=== PATIENT | female | born 1950 | race American Indian/Alaskan Native ===

== ENCOUNTER 2017-01-29 14:20 | Emergency (ER) | payer BC, MEDICARE ==
[2017-01-29 14:21] VITALS: PULSE 93
[2017-01-29 14:33] VITALS: BP 177/84; PULSE 49; RESP 16; TEMP 98.1; O2SAT 98; BMI 29.9
--- NOTE | 2017-01-29 14:58 | ED PDOC ---
Arrival/HPI - General Historian: Patient - General Chief Complaint: Headache Time Seen by Provider: 01/29/17 14:32 - History of Present Illness Narrative History of Present Illness (Text): 01/29/17 14:59 66 yo female w/extensive PMHx including IDDM, ESRD on HD (M,W,F), asthma, anemia , CHF, presents to the ER after head injury when she fell off a wheelchair while being transported to dialysis here in this hospital in the 4th floor. Reports of only mild pain to the occipital scalp. Denies severe headache, LOC, N /V, neck / back pain, chest pain, or any other injury. otherwise has no other complaints. PMD Rush Robles (Clay SIDHU,Iwona Harrington) Past Medical History - Provider Review Nursing Documentation Reviewed: Yes - Infectious Disease Hx of Infectious Diseases: None - Tetanus Immunization Tetanus Immunization: Unknown - Cardiac Hx Cardiac Disorders: Yes Hx Congestive Heart Failure: Yes Hx Hypertension: Yes - Pulmonary Hx Respiratory Disorders: Yes Hx Asthma: Yes Hx Bronchitis: Yes - Neurological HX Cerebrovascular Accident: Yes (left sided weakness) - HEENT Hx HEENT Disorder: Yes (uses eyeglasses for reading) - Renal Hx Dialysis: Yes Hx Renal Failure: Yes - Endocrine/Metabolic Hx Diabetes Mellitus Type 2: Yes Hx Hypothyroidism: Yes - Hematological/Oncological Hx Blood Transfusions: Yes (11/26/15) Hx Blood Transfusion Reaction: No - Integumentary Hx Dermatological Disorder: Yes (RCW PERMACATH,LEFT UPPER ARM PICC) - Musculoskeletal/Rheumatological Hx Falls: No - Gastrointestinal Hx Gastrointestinal Disorders: No - Genitourinary/Gynecological Hx Genitourinary Disorders: No - Psychiatric Hx Psychophysiologic Disorder: Yes Hx Substance Use: No - Surgical History Other/Comment: left BKA - Anesthesia Hx Anesthesia Reactions: No Hx Malignant Hyperthermia: No - Suicidal Assessment Feels Threatened In Home Enviroment: No Family/Social History - Physician Review Nursing Documentation Reviewed: Yes Family/Social History: No Known Family HX Smoking Status: Never Smoked Hx Alcohol Use: No Hx Substance Use: No Hx Substance Use Treatment: No Allergies/Home Meds Allergies/Adverse Reactions: Allergies shellfish derived Allergy (Verified 05/23/16 13:32) ITCHING Review of Systems - Review of Systems Constitutional: Normal. absent: Fatigue, Weight Change, Fevers Respiratory: Normal. absent: SOB, Cough, Sputum Cardiovascular: Normal. absent: Chest Pain, Palpitations, Edema Gastrointestinal: Normal. absent: Abdominal Pain, Stool Changes Musculoskeletal: Normal. absent: Arthralgias, Back Pain, Neck Pain Skin: Normal. absent: Rash, Pruritis, Skin Lesions Neurological: Normal, Headache. absent: Dizziness, Focal Weakness Physical Exam Temperature: Afebrile Blood Pressure: Hypertensive Pulse: Regular Respiratory Rate: Normal Appearance: Positive for: Well-Appearing, Non-Toxic, Comfortable Pain Distress: Mild Mental Status: Positive for: Alert and Oriented X 3 - Systems Exam Head: Present: Ecchymosis (to the occipital scalp). No: Tenderness, Swelling, Abrasion, Laceration Pupils: Present: PERRL Extroacular Muscles: Present: EOMI Conjunctiva: Present: Normal Ears: Present: Normal Mouth: Present: Moist Mucous Membranes Neck: Present: Normal Range of Motion. No: MIDLINE TENDERNESS Respiratory/Chest: Present: Clear to Auscultation, Good Air Exchange. No: Respiratory Distress, Accessory Muscle Use, Wheezes, Rhonchi Cardiovascular: Present: Regular Rate and Rhythm, Normal S1, S2. No: Murmurs Abdomen: No: Tenderness, Distention, Rebound, Guarding Back: Present: Normal Inspection. No: Midline Tenderness Upper Extremity: Present: Normal Inspection. No: Edema Lower Extremity: Present: Normal Inspection. No: Edema Neurological: Present: GCS=15, CN II-XII Intact, Speech Normal, Motor Func Grossly Intact, Normal Sensory Function Skin: Present: Warm, Dry, Normal Color. No: Rashes Psychiatric: Present: Alert, Oriented x 3 Vital Signs Temp Pulse Resp BP Pulse Ox 01/29/17 14:28 98.1 F 49 L 16 177/84 H 98 Medical Decision Making ED Course and Treatment: I was available for consultation during PA evaluation. The chart was reviewed by me, and I agree with disposition. The documented history was done by the physician fast food team member. The documented physical exam was done by the physician fast food team member. The documented procedures were done by the physician fast food team member. (Estiven Bruno) 01/29/17 14:55 66 yo F w/extensive PMHx including IDDM, ESRD on HD (M,W,F), asthma, anemia, CHF, presents to the ER after head injury when she fell off a wheelchair while being transported to dialysis. Plan: - CT head w/o contrast - Tylenol po CT head results show no acute findings. CT results d/w the patient in great detail. On re-evaluation, patient remains awake, alert and oriented x 3 in no acute distress. Repeat neuro exam shows no focal findings. Arrangements made to send the patient to dialysis on the 4th floor, spoke to Karishma control officer manager. Patient agrees with disposition and further plan of care. Advised to f/u with pmd after 2 days for re-evaluation and return to the ER at any time for any new or worsening symptoms. (Clay SIDHU,Iwona Harrington) - RAD Interpretation Radiology Orders: 01/29/17 14:47 HEAD W/O CONTRAST [CT] Stat - Medication Orders Current Medication Orders: Discontinued Medications Acetaminophen (Tylenol 325mg Tab) 975 mg PO STAT STA Stop: 01/29/17 14:48 Last Admin: 01/29/17 15:34 Dose: 975 mg - PA / AUTOMOTIVE COLLISION ESTIMATOR / Resident Statement / has reviewed & agrees with the documentation as recorded. Disposition/Present on Arrival - Present on Arrival Any Indicators Present on Arrival: Yes History of DVT/PE: No History of Uncontrolled Diabetes: Yes Urinary Catheter: No History of Decub. Ulcer: No History Surgical Site Infection Following: Orthopedic Procedures - Disposition Have Diagnosis and Disposition been Completed?: Yes Disposition Time: 15:30 Patient Plan: Other (sent to dialysis) - Disposition Diagnosis: Head injury Disposition: HOME/ ROUTINE Condition: STABLE Discharge Instructions (ExitCare): Head Injury (ED) Print Language: JAPANESE Referrals: Terrence Beverly DO [Primary Care Provider] - Follow up with primary
--- NOTE | 2017-01-29 15:13 | CT ---
PROCEDURE: CT HEAD WITHOUT CONTRAST. HISTORY: trauma COMPARISON: 01/20/2016 TECHNIQUE: Axial computed tomography images were obtained through the head/brain without intravenous contrast. Radiation dose: Total exam DLP = 733 mGy-cm. This CT exam was performed using one or more of the following dose reduction techniques: Automated exposure control, adjustment of the mA and/or kV according to patient size, and/or use of iterative reconstruction technique. FINDINGS: HEMORRHAGE: No intracranial hemorrhage. BRAIN: No mass effect or edema. Extensive periventricular white matter ischemic disease. VENTRICLES: Unremarkable. No hydrocephalus. CALVARIUM: Unremarkable. PARANASAL SINUSES: Unremarkable as visualized. No significant inflammatory changes. MASTOID AIR CELLS: Unremarkable as visualized. No inflammatory changes. OTHER FINDINGS: None. IMPRESSION: No intracranial hemorrhage.
== END 2017-01-29 15:37 | disposition home or self-care (01) ==
LOC: ED 14:20
DX: S09.90XA Unspecified injury of head, initial encounter (principal); W05.0XXA Fall from non-moving wheelchair, initial encounter; Y93.89 Activity, other specified; Y92.89 Other specified places as the place of occurrence of the external cause

== ENCOUNTER 2017-03-02 15:07 | Emergency (ER) | payer BC ==
[2017-03-02 15:09] VITALS: PULSE 93; BMI 29.9
[2017-03-02 15:19] VITALS: PULSE 89; RESP 16; TEMP 98.3; O2SAT 98
[2017-03-02 15:22] VITALS: BP 176/93
--- NOTE | 2017-03-02 15:42 | ED PDOC ---
Arrival/HPI - General Chief Complaint: GI Problem Time Seen by Provider: 03/02/17 15:40 Historian: Patient - History of Present Illness Narrative History of Present Illness (Text): 03/02/17 15:41 66 y/o female, pmh including chf/anemia/cva/dm/ckd, nkda, c/o rectal hemorrhoid pain started this morning. Pt. stated that she has chronic hemorrhoid for years , out of the anusol cream today, due for the dialysis and will go to dialysis now once discharge from the ER. Pt. has no headache or dizziness, no urinary symptoms, no dizziness, no bloody stool, no cold extremities, normal appetize, no fatigue, no abdominal or pelvic pain, no night sweat, no other medical or psychological complaints. Past Medical History - Provider Review Nursing Documentation Reviewed: Yes - Infectious Disease Hx of Infectious Diseases: None - Tetanus Immunization Tetanus Immunization: Unknown - Cardiac Hx Cardiac Disorders: Yes Hx Congestive Heart Failure: Yes Hx Hypertension: Yes - Pulmonary Hx Respiratory Disorders: Yes Hx Asthma: Yes Hx Bronchitis: Yes - Neurological HX Cerebrovascular Accident: Yes (left sided weakness) - HEENT Hx HEENT Disorder: Yes (uses eyeglasses for reading) - Renal Hx Dialysis: Yes Date of Last Dialysis Treatment: 02/28/17 Hx Renal Failure: Yes - Endocrine/Metabolic Hx Diabetes Mellitus Type 2: Yes Hx Hypothyroidism: Yes - Hematological/Oncological Hx Blood Transfusions: Yes (11/26/15) Hx Blood Transfusion Reaction: No - Integumentary Hx Dermatological Disorder: Yes (RCW PERMACATH,LEFT UPPER ARM PICC) - Musculoskeletal/Rheumatological Hx Falls: No - Gastrointestinal Hx Gastrointestinal Disorders: No - Genitourinary/Gynecological Hx Genitourinary Disorders: No - Psychiatric Hx Psychophysiologic Disorder: Yes Hx Substance Use: No - Surgical History Other/Comment: left BKA - Anesthesia Hx Anesthesia Reactions: No Hx Malignant Hyperthermia: No - Suicidal Assessment Feels Threatened In Home Enviroment: No Family/Social History - Physician Review Nursing Documentation Reviewed: Yes Family/Social History: Unknown Family HX Smoking Status: Never Smoked Hx Alcohol Use: No Hx Substance Use: No Hx Substance Use Treatment: No Allergies/Home Meds Allergies/Adverse Reactions: Allergies shellfish derived Allergy (Verified 05/23/16 13:32) ITCHING Review of Systems - Review of Systems Constitutional: absent: Fatigue, Fevers Eyes: absent: Vision Changes ENT: absent: Hearing Changes Respiratory: absent: SOB, Cough Cardiovascular: absent: Chest Pain Gastrointestinal: Other (rectal pain). absent: Abdominal Pain, Nausea, Vomiting Genitourinary Female: absent: Dysuria, Frequency Skin: absent: Rash, Pruritis Neurological: absent: Headache, Dizziness Physical Exam Vital Signs Reviewed: Yes Vital Signs Temp Pulse Resp BP Pulse Ox 03/02/17 15:19 98.3 F 89 16 176/93 H 98 Temperature: Afebrile Blood Pressure: Hypertensive Pulse: Regular Respiratory Rate: Normal Appearance: Positive for: Well-Appearing, Non-Toxic, Comfortable Pain Distress: Mild Mental Status: Positive for: Alert and Oriented X 3 - Systems Exam Head: Present: Atraumatic, Normocephalic Pupils: Present: PERRL Extroacular Muscles: Present: EOMI Conjunctiva: Present: Normal Mouth: Present: Moist Mucous Membranes Neck: Present: Normal Range of Motion Respiratory/Chest: Present: Clear to Auscultation, Good Air Exchange. No: Respiratory Distress, Accessory Muscle Use Cardiovascular: Present: Regular Rate and Rhythm, Normal S1, S2. No: Murmurs Abdomen: Present: Normal Bowel Sounds. No: Tenderness, Distention, Peritoneal Signs Rectal: Present: Hemorrhoids, Normal Rectal Tone, Other (Female Creosoting Engineer: P 3 ARMAMENT/ORDNANCE IMA TECHNICIANTAINA Diaz). No: Occult Blood, Rectal Tenderness, Gross Blood, Melena, Fissures , Nodule/Mass/Lesions Back: Present: Normal Inspection Upper Extremity: Present: Normal Inspection. No: Cyanosis, Edema Lower Extremity: Present: Normal Inspection. No: Edema Neurological: Present: GCS=15, CN II-XII Intact, Speech Normal Skin: Present: Warm, Dry, Normal Color. No: Rashes Psychiatric: Present: Alert, Oriented x 3, Normal Insight, Normal Concentration Medical Decision Making ED Course and Treatment: 03/02/17 15:55 -guaiac negative, vitally stable with no tachycardia or cardiopulmonary complaints, no paleness or fatigue. -Pt. is medically clear and stable for her routine dialysis. -Discharge from the ER with anusol hc cream, high fiber diet, follow up with your own pmd and GI within 2 days, need lab work if you feeling fatigue/cold/ dizziness, return to the ER for any new or worsening signs or symptoms. - PA / FIELD SPECIALIST / Resident Statement MD/DO has reviewed & agrees with the documentation as recorded. Disposition/Present on Arrival - Present on Arrival Any Indicators Present on Arrival: No History of DVT/PE: No History of Uncontrolled Diabetes: Yes Urinary Catheter: No History of Decub. Ulcer: No History Surgical Site Infection Following: Orthopedic Procedures - Disposition Have Diagnosis and Disposition been Completed?: Yes Diagnosis: Hemorrhoid Disposition: HOME/ ROUTINE Disposition Time: 15:57 Patient Plan: Discharge Condition: GOOD Additional Instructions: -Discharge from the ER with anusol hc cream, high fiber diet, follow up with your own pmd and GI within 2 days, need lab work if you feeling fatigue/cold/ dizziness, return to the ER for any new or worsening signs or symptoms. Prescriptions: Hydrocortisone 2.5% (Rectal) [Anusol-HC] 1 appl RC BID PRN #30 g PRN Reason: Other Referrals: PCP,NO [Primary Care Provider] - Follow up with primary Bonilla Brasher MD [Medical Doctor] - Follow up with primary Forms: [facility] (Senegalese)
== END 2017-03-02 15:58 | disposition home or self-care (01) ==
LOC: ED 15:07
DX: K64.9 Unspecified hemorrhoids (principal); I12.9 Hypertensive chronic kidney disease with stage 1 through stage 4 chronic kidney disease, or unspecified chronic kidney disease; N18.9 Chronic kidney disease, unspecified; Z99.2 Dependence on renal dialysis; E11.9 Type 2 diabetes mellitus without complications; E03.9 Hypothyroidism, unspecified

== ENCOUNTER 2017-03-09 06:35 | Day surgery (SDC) | payer BC, MEDICARE ==
[2017-03-07 11:30] VITALS: BMI 31.3
[2017-03-09] MEDS ORDERED: Midazolam 2 MG/2 ML VIAL ONE ×2 (06:47→08:02)
[2017-03-09] MEDS ORDERED: Lidocaine 2% Inj (20ml) ONE (06:47)
[2017-03-09] MEDS ORDERED: Iodixanol 320 MG/ML 100 ML BOTTLE IV ONE (06:48)
[2017-03-09] MEDS ORDERED: Nitroglycerin 50mg in D5W 50 MG/250 ML BOTTLE IV ONE (06:48)
[2017-03-09 07:22] LABS: BASO # 0.02 K/mm3 (0.0-2.0); BASO % 0.3 % (0.0-3.0); EOS # 0.2 (0.0-0.7); EOS % 2.2 % (1.5-5.0); GRAN # 5.16 (1.4-6.5); LYMPH # 1.6 (1.2-3.4); LYMPH % 22.2 % (22.0-35.0); MEAN CELL VOLUME 87.2 fl (80.0-105.0); MEAN CORPUSCULAR HEMOGLOBIN 28.1 pg (25.0-35.0); MEAN CORPUSCULAR HGB CONC 32.2 g/dl (31.0-37.0); MEAN PLATELET VOLUME 11.2 fl (7.0-11.0); MONO # 0.3 (0.1-0.6); MONO % 4.3 % (1.0-6.0); PLATELET COUNT 172 10^3/uL (120.0-450.0); RBC 3.92 10^6/uL (3.5-6.1); RED CELL DISTRIBUTION WIDTH 15.3 % (11.5-14.5); WHITE BLOOD COUNT 7.3 10^3/ul (4.5-11.0)
[2017-03-09 07:33] LABS: CALCIUM 8.8 mg/dL (8.4-10.5)
[2017-03-09 07:35] LABS: INR 1.06 (0.93-1.08); PARTIAL THROMBOPLASTIN TIME 30.1 Seconds (23.7-30.8); PROTHROMBIN TIME 11.5 Seconds (9.9-11.8)
[2017-03-09 09:27] VITALS: PULSE 65; RESP 18; TEMP 97.8; O2SAT 94
[2017-03-09 09:54] VITALS: BP 133/83
--- NOTE | 2017-03-09 16:18 | VASCULAR ---
PROCEDURE: 1. Left upper extremity AV fistula angiogram 2. Anus angioplasty HISTORY: End-stage renal disease. Malfunctioning AV access PHYSICIAN(S): Henri Singh MD. TECHNIQUE: The relative risks and indications of the procedure were explained to the patient and consent obtained. The patient was placed supine on the angiography table and the left arm prepped and draped in usual sterile fashion. Conscious sedation and monitoring provided throughout the procedure by a nurse. The left arm AV fistula was punctured near the elbow in an antegrade direction with a micropuncture set. A 5 [place] catheter was placed. An overlapping left upper extremity AV fistula angiogram was performed. Central venous imaging was obtained. Pressure was applied near the access site and reflux of the arterial anastomosis performed. Exchange is made for a 6 [place] sheath. The focal stenosis in the left cephalic vein 15 cm from the anastomosis was crossed with an angled Glidewire. The stenosis was dilated with 7 and 8 mm balloons. Completion angiograms were obtained. The sheath was removed and hemostasis obtained. FINDINGS: The patient's left brachial -cephalic fistula is patent. The arterial anastomosis is patent without significant stenosis. There is a severe focal stenosis in the left cephalic vein 15 cm from the anastomosis. The remainder the left cephalic vein is patent and continuous. There is a stent graft in the proximal left cephalic vein. The left axillary vein, left subclavian vein, left innominate vein, and superior vena cava are widely patent. IMPRESSION: 1. Severe focal stenosis in the left cephalic vein 15 cm from the anastomosis. 2. Successful venous angioplasty with 7 and 8 mm balloons. 3. Patent proximal left cephalic vein stent graft.
== END 2017-03-09 10:00 | disposition home or self-care (01) ==
LOC: SDSVAS 06:35
PROVIDERS: ATTEND Radiology Vascular & Interventional Radiology
DX: T82.858A Stenosis of other vascular prosthetic devices, implants and grafts, initial encounter (principal); I12.0 Hypertensive chronic kidney disease with stage 5 chronic kidney disease or end stage renal disease; N18.6 End stage renal disease; E11.22 Type 2 diabetes mellitus with diabetic chronic kidney disease; Z99.2 Dependence on renal dialysis; Y83.2 Surgical operation with anastomosis, bypass or graft as the cause of abnormal reaction of the patient, or of later complication, without mention of misadventure at the time of the procedure
CPT/HCPCS: 36415; 36902; 80048; 85025; 85610; 85730; 99152; C1725; C1769; C1894; J1644; J2250; J2405; J3010; Q9967

== ENCOUNTER 2017-03-20 06:31 | Day surgery (SDC) | payer BC, MEDICARE ==
[2017-03-20 06:40] VITALS: BMI 28.1
[2017-03-20 07:12] LABS: BASO # 0.03 K/mm3 (0.0-2.0); BASO % 0.5 % (0.0-3.0); EOS # 0.2 (0.0-0.7); EOS % 2.8 % (1.5-5.0); GRAN # 3.64 (1.4-6.5); GRAN % 64.5 % (50.0-68.0); HEMATOCRIT 30.3 % (36.0-48.0); LYMPH # 1.4 (1.2-3.4); LYMPH % 24.2 % (22.0-35.0); MEAN CELL VOLUME 86.3 fl (80.0-105.0); MEAN CORPUSCULAR HEMOGLOBIN 27.6 pg (25.0-35.0); MEAN PLATELET VOLUME 10.5 fl (7.0-11.0); MONO # 0.5 (0.1-0.6); RED CELL DISTRIBUTION WIDTH 14.8 % (11.5-14.5); WHITE BLOOD COUNT 5.7 10^3/ul (4.5-11.0)
[2017-03-20] MEDS ORDERED: Lidocaine 2% Inj (20ml) ONE (07:13)
[2017-03-20 07:18] LABS: CALCIUM 8.1 mg/dL (8.4-10.5); POTASSIUM 3.8 mmol/L (3.6-5.0)
[2017-03-20 07:19] LABS: PARTIAL THROMBOPLASTIN TIME 28.4 Seconds (23.7-30.8)
[2017-03-20 07:28] VITALS: RESP 18
[2017-03-20] MEDS ORDERED: Midazolam 2 MG/2 ML VIAL ONE (08:11)
[2017-03-20] MEDS ORDERED: Oxycodone/Acetaminophen 5/325 mg Tab PO PRN (08:49)
[2017-03-20 09:32] VITALS: TEMP 97.8; O2SAT 94
[2017-03-20 09:54] VITALS: BP 142/78; PULSE 66
--- NOTE | 2017-03-20 20:57 | VASCULAR ---
PROCEDURE: Ultrasound and fluoroscopic tunneled right IJ dialysis catheter. CLINICAL HISTORY: ESRD. Needs dialysis catheter PHYSICIAN(S): Henri Singh M.D. TECHNIQUE: The relative risks and indications for the procedure were explained to the patient and informed written consent obtained. The patient was placed supine on the arteriography table and the right neck/chest was prepped and draped in the usual sterile fashion. 1% Xylocaine was used to anesthetize the skin and soft tissues at the puncture site. Conscious sedation and monitoring were provided throughout the procedure by a nurse. Under direct ultrasound guidance, the rightinternal jugular vein was punctured with a micropuncture set. A 0.035 Glidewire was advanced into the IVC. Sequential dilatation was performed with subsequent placement of a 28cm Mathias II catheter with its tip in the right atrium. A retrograde tunnel below the right clavicle was performed. The catheter was trimmed and the hub attached. Both ports aspirate and inject easily. The catheter was secured and a dressing applied. The patient tolerated the procedure well. IMPRESSION: 1. Ultrasound and fluoroscopically placed right IJ tunneled dialysis catheter.
== END 2017-03-20 10:35 | disposition home or self-care (01) ==
LOC: SDSVAS 06:31
PROVIDERS: ATTEND Radiology Vascular & Interventional Radiology
DX: I13.2 Hypertensive heart and chronic kidney disease with heart failure and with stage 5 chronic kidney disease, or end stage renal disease (principal); N18.6 End stage renal disease; I50.9 Heart failure, unspecified; Z99.2 Dependence on renal dialysis; I25.10 Atherosclerotic heart disease of native coronary artery without angina pectoris
CPT/HCPCS: 36415; 36558; 76937; 77001; 80048; 85025; 85610; 85730; 99152; C1750; C1769; J0690; J1644; J2250; J2405; J3010

== ENCOUNTER 2017-03-28 07:01 | Day surgery (SDC) | payer BC, MEDICARE ==
[2017-03-28] MEDS ORDERED: Lidocaine 2% Inj (20ml) ONE (07:17)
[2017-03-28] MEDS ORDERED: DiphenhydrAMINE 50 mg/ml Inj ONE (07:18)
[2017-03-28] MEDS ORDERED: Famotidine 20mg/50ml 20 MG/50 ML BAG IVPB ONE (07:18)
[2017-03-28] MEDS ORDERED: Iodixanol 320 mg/ml 150 ml Bottle IV ONE (07:18)
[2017-03-28 08:08] LABS: CALCIUM 8.2 mg/dL (8.4-10.5); POTASSIUM 3.6 mmol/L (3.6-5.0)
[2017-03-28 08:11] LABS: INR 1.03 (0.93-1.08); PARTIAL THROMBOPLASTIN TIME 29.7 Seconds (23.7-30.8)
[2017-03-28 08:18] LABS: BASO # 0.02 K/mm3 (0.0-2.0); BASO % 0.3 % (0.0-3.0); EOS # 0.1 (0.0-0.7); EOS % 1.9 % (1.5-5.0); GRAN # 4.23 (1.4-6.5); GRAN % 66.1 % (50.0-68.0); HEMATOCRIT 27.1 % (36.0-48.0); LYMPH # 1.6 (1.2-3.4); LYMPH % 24.2 % (22.0-35.0); MEAN CELL VOLUME 88.6 fl (80.0-105.0); MEAN CORPUSCULAR HEMOGLOBIN 27.8 pg (25.0-35.0); MEAN CORPUSCULAR HGB CONC 31.4 g/dl (31.0-37.0); MEAN PLATELET VOLUME 10.9 fl (7.0-11.0); MONO # 0.5 (0.1-0.6); MONO % 7.5 % (1.0-6.0); RED CELL DISTRIBUTION WIDTH 14.6 % (11.5-14.5); WHITE BLOOD COUNT 6.4 10^3/ul (4.5-11.0)
[2017-03-28] MEDS ORDERED: Midazolam 2 MG/2 ML VIAL ONE (08:18)
[2017-03-28] MEDS ORDERED: Oxycodone/Acetaminophen 5/325 mg Tab PO PRN (08:54)
[2017-03-28 09:26] VITALS: O2SAT 98
[2017-03-28 09:38] VITALS: RESP 18
[2017-03-28 09:55] VITALS: BP 135/84; PULSE 70; TEMP 98.1
--- NOTE | 2017-03-28 19:25 | VASCULAR ---
PROCEDURE: 1. Left upper extremity AV fistula angiogram HISTORY: End-stage renal disease. Malfunctioning AV access recent angioplasty. Evaluate for subacute thrombosis. PHYSICIAN(S): Henri Singh MD. TECHNIQUE: The relative risks and indications of the procedure were explained to the patient and consent obtained. The patient was placed supine on the angiography table and the left arm prepped and draped in usual sterile fashion. Conscious sedation and monitoring provided throughout the procedure by a nurse. Under ultrasound guidance, the left arm AV fistula was punctured near the elbow in an antegrade direction with a micropuncture set. A 5 [place] catheter was placed. An overlapping left upper extremity AV fistula angiogram was performed. Central venous imaging was obtained. A blood pressure cuff was applied near the access site and reflux of the arterial anastomosis performed. The catheter was removed and hemostasis obtained. FINDINGS: The patient's left upper extremity brachial - cephalic fistula is patent. There is mild residual stenosis of the recently treated angioplasty site, but brisk flow is seen. The left cephalic vein is patent and continuous. There is a self expanding stent at the left cephalic vein confluence. The left subclavian vein, left innominate vein, and SVC are widely patent. The arterial anastomosis is patent on the reflux images. There is a tunneled catheter at the SVC/RA junction. IMPRESSION: 1. Patent left upper extremity brachial - cephalic fistula. The recent angioplasty site has mild stenosis but is patent with brisk flow. 2. Patent stent at the left cephalic vein confluence. 3. The patient's left cephalic vein above the elbow was marked using ultrasound guidance.
== END 2017-03-28 11:00 | disposition home or self-care (01) ==
LOC: SDSVAS 07:01
PROVIDERS: ATTEND Radiology Vascular & Interventional Radiology
DX: T82.898A Other specified complication of vascular prosthetic devices, implants and grafts, initial encounter (principal); N18.6 End stage renal disease; Y83.2 Surgical operation with anastomosis, bypass or graft as the cause of abnormal reaction of the patient, or of later complication, without mention of misadventure at the time of the procedure

== ENCOUNTER 2017-04-11 06:01 | Day surgery (SDC) | payer BC ==
[2017-04-11] MEDS ORDERED: Lidocaine 2% Inj (20ml) ONE (06:44)
[2017-04-11 06:45] LABS: BASO # 0.02 K/mm3 (0.0-2.0); BASO % 0.4 % (0.0-3.0); EOS # 0.2 (0.0-0.7); EOS % 2.9 % (1.5-5.0); GRAN # 3.26 (1.4-6.5); GRAN % 63.3 % (50.0-68.0); HEMATOCRIT 30.8 % (36.0-48.0); LYMPH # 1.4 (1.2-3.4); MEAN CELL VOLUME 89.8 fl (80.0-105.0); MEAN CORPUSCULAR HEMOGLOBIN 27.7 pg (25.0-35.0); MEAN CORPUSCULAR HGB CONC 30.8 g/dl (31.0-37.0); MEAN PLATELET VOLUME 10.9 fl (7.0-11.0); MONO # 0.3 (0.1-0.6); MONO % 6.4 % (1.0-6.0); RED CELL DISTRIBUTION WIDTH 15.4 % (11.5-14.5); WHITE BLOOD COUNT 5.2 10^3/ul (4.5-11.0)
[2017-04-11 06:46] LABS: PARTIAL THROMBOPLASTIN TIME 26.9 Seconds (23.7-30.8)
[2017-04-11 06:54] LABS: CALCIUM 8.3 mg/dL (8.4-10.5)
[2017-04-11] MEDS ORDERED: Midazolam 2 MG/2 ML VIAL ONE ×2 (06:56→08:00)
[2017-04-11 09:36] VITALS: PULSE 67; RESP 20; TEMP 97.7; O2SAT 97
[2017-04-11 10:44] VITALS: BP 139/78
--- NOTE | 2017-04-11 18:59 | VASCULAR ---
PROCEDURE: Removal of tunneled right IJ dialysis catheter. CLINICAL HISTORY: End-stage renal disease. Needs right IJ dialysis catheter removed. Functioning left upper extremity AV fistula. PHYSICIAN(S): Henri Singh M.D. TECHNIQUE: The relative risks and indications of the procedure were explained to the patient and consent obtained. The patient was placed supine on the arteriogram table and the tunneled right IJ dialysis catheter prepped and draped in the usual sterile fashion. Conscious sedation and monitoring were provided throughout the procedure by nurse. 1% Xylocaine was used to anesthetize skin and soft tissues along the tunnel. The tunnel and cuff were bluntly dissected. The catheter was removed and pressure applied at the venous insertion site. A single interrupted suture was placed at the exit site. The patient tolerated the procedure well. IMPRESSION: 1. Removal of the patient's tunneled right IJ dialysis catheter.
== END 2017-04-11 10:45 | disposition home or self-care (01) ==
LOC: SDSVAS 06:01
PROVIDERS: ATTEND Radiology Vascular & Interventional Radiology
DX: Z49.01 Encounter for fitting and adjustment of extracorporeal dialysis catheter (principal); I12.0 Hypertensive chronic kidney disease with stage 5 chronic kidney disease or end stage renal disease; N18.6 End stage renal disease; I73.9 Peripheral vascular disease, unspecified; I50.9 Heart failure, unspecified; Z86.73 Personal history of transient ischemic attack (TIA), and cerebral infarction without residual deficits; E11.22 Type 2 diabetes mellitus with diabetic chronic kidney disease; D64.9 Anemia, unspecified; E78.00 Pure hypercholesterolemia, unspecified; Z91.013 Allergy to seafood
CPT/HCPCS: 36415; 36589; 80048; 85025; 85610; 85730; 99152; J1644; J2250; J2405; J3010

== ENCOUNTER 2017-06-26 08:58 | Day surgery (SDC) | payer BC ==
[2017-06-26 09:54] LABS: BASO # 0.02 K/mm3 (0.0-2.0); BASO % 0.4 % (0.0-3.0); EOS # 0.1 (0.0-0.7); EOS % 1.5 % (1.5-5.0); GRAN # 3.61 (1.4-6.5); GRAN % 69.6 % (50.0-68.0); HEMATOCRIT 35.3 % (36.0-48.0); LYMPH # 1.3 (1.2-3.4); LYMPH % 24.1 % (22.0-35.0); MEAN CELL VOLUME 85.5 fl (80.0-105.0); MEAN CORPUSCULAR HEMOGLOBIN 26.6 pg (25.0-35.0); MEAN CORPUSCULAR HGB CONC 31.2 g/dl (31.0-37.0); MEAN PLATELET VOLUME 10.3 fl (7.0-11.0); MONO # 0.2 (0.1-0.6); MONO % 4.4 % (1.0-6.0); RED CELL DISTRIBUTION WIDTH 16.7 % (11.5-14.5); WHITE BLOOD COUNT 5.2 10^3/ul (4.5-11.0)
[2017-06-26 10:05] LABS: INR 1.63 (0.93-1.08); PARTIAL THROMBOPLASTIN TIME 37.2 Seconds (25.1-36.5)
[2017-06-26 10:17] LABS: CALCIUM 8.5 mg/dL (8.4-10.5); POTASSIUM 5.1 mmol/L (3.6-5.0)
[2017-06-26] MEDS ORDERED: Lidocaine 2% Inj (20ml) ONE (11:08)
[2017-06-26] MEDS ORDERED: Nitroglycerin 50mg in D5W 50 MG/250 ML BOTTLE IV ONE (11:08)
[2017-06-26] MEDS ORDERED: Midazolam 2 MG/2 ML VIAL ONE ×2 (11:13→12:02)
[2017-06-26] MEDS ORDERED: Iodixanol 320 mg/ml 150 ml Bottle IV ONE (11:15)
[2017-06-26] MEDS ORDERED: Oxycodone/Acetaminophen 5/325 mg Tab PO PRN (12:48)
[2017-06-26 13:30] VITALS: BP 123/84; RESP 18
[2017-06-26 14:04] VITALS: PULSE 86; TEMP 97.8; O2SAT 95
--- NOTE | 2017-06-26 19:18 | VASCULAR ---
PROCEDURE: 1. Left upper extremity the fistula angiogram 2. Long segment cephalic vein angioplasty HISTORY: End-stage renal disease. Malfunctioning AV access PHYSICIAN(S): Henri Singh MD. TECHNIQUE: The relative risks and indications of the procedure were explained to the patient and consent obtained. The patient was placed supine on the angiography table and the left arm prepped and draped in usual sterile fashion. Conscious sedation and monitoring provided throughout the procedure by a nurse. The left arm AV fistula was punctured near the elbow in an antegrade direction with a micropuncture set. A 5 [place] catheter was placed. Limb air injection revealed occlusion of the left cephalic vein 5 cm from the anastomosis. A 6 [place] sheath was placed at the puncture site. The occluded segment of the left cephalic vein was crossed with 0.035 angled glidewire and 5 [place]i catheter. Central venous imaging was obtained. Exchange is made for a 0.035 support wire. Long segment angioplasty of the left cephalic vein above the elbow was performed with a 7 mm by 150 mm balloon. Antegrade flow was re-established with an adequate thrill. The sheath was removed and hemostasis obtained with a purse string suture FINDINGS: The patient's left brachial - cephalic fistula occludes approximately 5 cm from the anastomosis. The anastomosis is patent. The left cephalic vein above the elbow was successfully dilated with a long 7 mm balloon. A flow was re-established. There is a self expanding stent at the left cephalic vein insertion. Stent is patent. The central veins are patent. IMPRESSION: 1. Occlusion of the left brachial -cephalic fistula 5 cm from the anastomosis. 2. Successful long segment angioplasty of the left cephalic vein above the elbow. 3. Early Re intervention with additional balloon angioplasty is recommended to maintain AV fistula patency.
== END 2017-06-26 14:30 | disposition home or self-care (01) ==
LOC: SDSVAS 08:58
PROVIDERS: ATTEND Radiology Vascular & Interventional Radiology
DX: T82.898A Other specified complication of vascular prosthetic devices, implants and grafts, initial encounter (principal); I12.0 Hypertensive chronic kidney disease with stage 5 chronic kidney disease or end stage renal disease; E11.22 Type 2 diabetes mellitus with diabetic chronic kidney disease; N18.6 End stage renal disease; Z99.2 Dependence on renal dialysis; Y83.2 Surgical operation with anastomosis, bypass or graft as the cause of abnormal reaction of the patient, or of later complication, without mention of misadventure at the time of the procedure
CPT/HCPCS: 36415; 36902; 80048; 85025; 85610; 85730; 99152; 99153; C1725; C1760; C1769 ×3; C1894; J1644; J2250; J2405; J3010

== ENCOUNTER 2017-07-03 21:27 | Inpatient (IN) | payer BC ==
--- NOTE | 2017-07-03 21:40 | ED PDOC ---
Arrival/HPI - General Time Seen by Provider: 07/03/17 21:31 Historian: Family (Daughter) - History of Present Illness Narrative History of Present Illness (Text): 07/03/17 21:38 Orly De La Cruz is a 66 year old female, whose past medical history includes CHF, ESRD with hemodialysis (M/W/F), diabetes, and left BKA, who presents to the Emergency department brought in by EMS accompanied by daughter complaining of altered mental status. Daughter states when she arrived home from work prior to arrival, she noted patient was experiencing progressively increasing shortness of breath and was less responsive than usual. Daughter became concerned and notified EMS. On arrival, patient is disoriented and lethargic. Daughter notes patient has been experiencing a persistent cough with intermittent cold-like symptoms over the past 2 months. Daughter reports patient was fully dialyzed on 06/03/2017 without any issue, and was at her baseline. Time/Duration: Prior to Arrival Symptom Course: Worsening Activities at Onset: Light Context: Home Past Medical History - Provider Review Nursing Documentation Reviewed: Yes - Infectious Disease Hx of Infectious Diseases: None - Tetanus Immunization Tetanus Immunization: Unknown - Cardiac Hx Cardiac Disorders: Yes Hx Congestive Heart Failure: Yes Hx Pacemaker: No - Pulmonary Hx Respiratory Disorders: Yes Hx Asthma: Yes Hx Bronchitis: Yes - Neurological Hx Neurological Disorder: No Hx Paralysis: No - HEENT Hx HEENT Disorder: Yes (uses eyeglasses for reading) - Renal Hx Dialysis: Yes Hx Renal Failure: Yes - Endocrine/Metabolic Hx Endocrine Disorders: Yes Hx Diabetes Mellitus Type 2: Yes Hx Hypothyroidism: Yes - Hematological/Oncological Hx Blood Transfusions: Yes (11/26/15) Hx Blood Transfusion Reaction: No - Integumentary Hx Dermatological Disorder: Yes (RCW PERMACATH,LEFT UPPER ARM PICC) - Musculoskeletal/Rheumatological Hx Musculoskeletal Disorders: No - Gastrointestinal Hx Gastrointestinal Disorders: No - Genitourinary/Gynecological Hx Genitourinary Disorders: No - Psychiatric Hx Emotional Abuse: No Hx Physical Abuse: No Hx Substance Use: No - Surgical History Other/Comment: L BKA - Anesthesia Hx Anesthesia: Yes Hx Anesthesia Reactions: No Hx Malignant Hyperthermia: No - Suicidal Assessment Feels Threatened In Home Enviroment: No Family/Social History - Physician Review Nursing Documentation Reviewed: Yes Family/Social History: Unknown Family HX Smoking Status: Never Smoked Hx Alcohol Use: No Hx Substance Use: No Hx Substance Use Treatment: No Allergies/Home Meds Allergies/Adverse Reactions: Allergies shellfish derived Allergy (Verified 07/03/17 21:31) ITCHING Home Medications: Home Meds Medication Instructions Recorded Confirmed Unobtainable 07/03/17 07/03/17 Review of Systems - Review of Systems Systems not reviewed;Unavailable: Altered Mental Status Respiratory: SOB Neurological: Other (+altered mental status) Physical Exam Vital Signs Reviewed: Yes Vital Signs Temp Pulse Resp BP Pulse Ox 07/04/17 02:16 137 H 23 106/57 L 100 07/04/17 02:01 136 H 30 H 109/49 L 100 07/04/17 01:55 137 H 24 99/54 L 100 07/04/17 01:43 22 07/04/17 01:30 107 H 24 107/63 100 07/04/17 01:22 119 H 30 H 100/65 99 07/04/17 01:06 103 H 23 88/78 L 99 07/04/17 00:39 104 H 22 84/54 L 99 07/04/17 00:30 24 07/04/17 00:15 107 H 23 96/56 L 100 07/04/17 00:01 111 H 31 H 100/55 L 99 07/03/17 23:40 116 H 23 107/49 L 99 07/03/17 23:19 114 H 16 112/63 100 07/03/17 23:15 22 99 07/03/17 23:00 110 H 27 H 93/70 L 90 L 07/03/17 22:40 109 H 30 H 118/54 L 100 07/03/17 22:15 23 99 07/03/17 22:11 103 H 21 119/83 99 07/03/17 22:07 184 H 118/103 H 07/03/17 21:53 99.7 F H 150 H 21 119/103 H Pulse: Tachycardic Respiratory Rate: Tachypneic Appearance: Positive for: Ill-Appearing Mental Status: Positive for: Lethargic Finger Stick Blood Glucose: 114 - Systems Exam Head: Present: Atraumatic, Normocephalic Pupils: Present: PERRL Extroacular Muscles: Present: EOMI Conjunctiva: Present: Normal Mouth: Present: Moist Mucous Membranes Neck: Present: Normal Range of Motion. No: Meningeal Signs, MIDLINE TENDERNESS , Paraspinal Tenderness Respiratory/Chest: Present: Clear to Auscultation. No: Accessory Muscle Use Cardiovascular: Present: Regular Rate and Rhythm, Normal S1, S2. No: Murmurs Abdomen: Present: Normal Bowel Sounds. No: Tenderness, Distention, Peritoneal Signs Upper Extremity: Present: Normal Inspection. No: Cyanosis, Edema Lower Extremity: Present: Other (Left BKA). No: Edema Neurological: Present: Motor Func Grossly Intact, Other Skin: Present: Warm, Dry, Normal Color. No: Rashes Psychiatric: Present: Lethargic. No: Alert, Oriented x 3 Medical Decision Making ED Course and Treatment: 07/03/17 21:38 Impression: 66 year old female brought in by EMS for AMS and shortness of breath tonight. Plan: -- CT Head w/o contrast -- EKG -- Chest X-ray -- Labs, ABG, cardiac enzymes, ammonia, alcohol level, blood cultures -- Urinalysis, urine cultures, urine drug screen -- Reassess and disposition Prior Visits: Notes and results from previous visits were reviewed. Progress Notes: 07/03/17 21:38 Discussed plan with daughter, present at bedside. Daughter agreeable with plan to intubate pt. 07/03/17 21:50 Called to bedside, pt noted to be in rapid atrial fibrillation in 190s. 07/03/17 21:53 EKG reviewed, atrial fibrillation with rapid ventricular response at 154 bpm. LAD. RBBB. Non-specific ST/T wave changes. 07/03/17 22:03 Multiple attempts at IV access were unsuccessful. IO to be placed. Pt on bag- valve mask. PROCEDURE NOTE: IO Placement Performed by medical insurance claims processor under my supervision. Consent: : Discussion of the risks, benefits, and alternatives to the procedure , along with informed consent was precluded by the urgency of the procedure and the patient condition. Indication: IV access required. Multiple attempts at peripheral IV placement were made by the nursing staff and MD without success. Timeout: A timeout to verify the correct patient, procedure, and site was performed. Preparation: Patient was prepped and draped in the usual sterile fashion and sterile technique was used. The landmarks were identified. Procedure: The area was prepped in the usual fashion. The right tibia was cannulated with a 15 gauge IO angiocath. The patient tolerated the procedure well. Post-Procedure: There were no immediate complications. Cardizem administered via IO with improvement in heart rate. 07/03/17 22:08 Etomidate administered for sedation. Refer to [facility] for further documentation. Respiratory therapist at bedside. Suction available 07/03/17 22:10 PROCEDURE: INTUBATION Performed by medical insurance claims processor under my supervision. Consent: Discussion of the risks, benefits, and alternatives to the procedure, along with informed consent was precluded by the urgency of the procedure and the patient condition. Timeout: A timeout to verify the correct patient, procedure, and site was performed. Indication: Altered mental status, maintain airway Pre-oxygenation: [id number] Medications: See [facility] for details. ETT Size: 8 gauge Confirmation: Cords directly visualized as tube passed, good bilateral breath sounds, positive CO2 detector color change, tube fogging, adequate chest rise, improving pulse oximetry reading, improved skin color, and absence of gastric sounds,. ETT Secured: The cuff was inflated and the tube was secured appropriately at a distance of 24 cm at the lip. Post-Procedure: There were no immediate complications. CXR Confirmation: Yes 07/04/17 00:[address] George, retail advisor, who is aware and will evaluate pt in Emergency room. president & ceo notified. 07/04/17 01:05 Reviewed Chest X-ray, confirms ET tube placement, above the abundio. No infiltrate noted. 07/04/17 01:16 CT Head shows: Brain: Mild atrophy. No intracranial hemorrhage. No mass. Prominent dural calcifications. Several scattered foci of decreased attenuation within periventricular/subcortical white matter. Probable chronic lacunar infarct about LEFT basal ganglia. No definite edema. Ventricles: No hydrocephalus. Bones/joints: No acute fracture. Soft tissues: Unremarkable. Vasculature: Atherosclerotic disease of intracranial arteries. Sinuses: No acute sinusitis. Mastoid air cells: No mastoid effusion. Orbits: Unremarkable as visualized. Tubes, lines and devices: Endotracheal tube. IMPRESSION: 1. Nonspecific white matter changes. Acute infarction may be CT occult within first 24 hours. If a focal deficit persists, consider followup CT or MRI for further evaluation. 2. Incidental/non-acute findings are described above. 07/04/17 01:[address] Lezn, covering for Dr. Beverly, who is aware and agrees with plan. Pt will be admitted to the ICU for AMS and sepsis under Dr. Beverly's service. - Critical Care Critical Care Minutes: 60 minutes - Lab Interpretations Microbiology Results: Microbiology Results 07/03/17 22:30 Blood-Venous Blood Culture - Preliminary NO GROWTH AFTER 24 HOURS 07/03/17 22:22 Blood-Venous Blood Culture - Preliminary NO GROWTH AFTER 24 HOURS Lab Results: 07/03/17 22:22 07/03/17 22:22 Lab Results 07/04/17 01:18: pCO2 24 L, pO2 331.0 H, HCO3 7.6 L*, ABG pH 7.11 L*, ABG Total CO2 8.3 L, ABG O2 Saturation 100.2 H, ABG Base Excess -20.3 L, ABG Potassium 4.7 , Glucose 116 H, Lactate 14.1 H*, FiO2 100.0, Sodium 141.0, Chloride 102.0, Arterial Blood Potassium 4.7 07/03/17 22:22: Acetaminophen < 10.0 L 07/03/17 22:22: Alcohol, Quantitative < 10 07/03/17 22:22: Ammonia 22.1 07/03/17 22:22: Sodium 146, Potassium 4.6, Chloride 100, Carbon Dioxide 11 L, Anion Gap 39 H, BUN 51 H, Creatinine 10.8 H* D, Est GFR ( Amer) 4, Est GFR (Non-Af Amer) 4, Random Glucose 128 H, Calcium 9.3, Phosphorus 10.5 H, Magnesium 2.5 H, Total Bilirubin 1.3, AST 44 H D, ALT 11, Alkaline Phosphatase 139 H D, Lactate Dehydrogenase 451, Total Creatine Kinase 46, Troponin I 0.16 H * D, Total Protein 8.0, Albumin 3.9, Globulin 4.1, Albumin/Globulin Ratio 1.0 L 07/03/17 22:22: PT 17.8 H, INR 1.62 H, APTT 34.4 07/03/17 22:22: WBC 11.6 H D, RBC 4.38, Hgb 11.8 L, Hct 39.6, MCV 90.4 D, MCH 26.9, MCHC 29.8 L, RDW 17.1 H, Plt Count 191, MPV 10.4, Gran % 64.1, Lymph % ( Auto) 29.4, [place] % (Auto) 6.2 H, Eos % (Auto) 0.2 L, Baso % (Auto) 0.1, Gran # 7.45 H, Lymph # 3.4, [place] # 0.7 H, Eos # 0.0, Baso # 0.01 I have reviewed the lab results: Yes - RAD Interpretation Radiology Orders: 07/03/17 21:38 HEAD W/O CONTRAST [CT] Stat 07/03/17 21:39 CHEST PORTABLE [RAD] Stat 07/04/17 01:14 CHEST PORTABLE [RAD] Stat [employer]arding [employer] Folding Machine Operator: ED Physician, Radiologist - EKG Interpretation Interpreted by ED Physician: Yes Type: 12 lead EKG - Medication Orders Current Medication Orders: Chlorhexidine Gluconate (Peridex) 15 ml PO BID MARCEL Last Admin: 07/04/17 18:29 Dose: 15 ml Fentanyl Citrate (Fentanyl Citrate/Sodium Chloride 1 Mg/100 Ml) 1,000 mcg in 100 mls @ 10 mls/hr IV .Q10H PRN; Protocol; 100 MCG/HR PRN Reason: TITRATE PER MD ORDER Last Titration: 07/04/17 17:30 Dose: 0 mcg/hr, 0 mls/hr Titration Intervention Document 07/04/17 17:30 MMA (Rec: 07/04/17 17:31 MMA [facility] – [id number]) Titration Intake Titration Intake 0 Cumulative Intake 37.9 Cumulative Intake (Rx) 237.9 Waste Amount 0 Container Volume 62.1 Titration Dosing Titration Dose 0 IV Rate 0 Intake/Decrease Paused Cumulative Dose 2379 Meropenem 500 mg/ Sodium (Chloride) 50 mls @ 100 mls/hr IVPB Q8 MARCEL PRN Reason: Protocol Stop: 07/13/17 14:01 Last Admin: 07/05/17 01:44 Dose: 100 mls/hr eMAR Start Stop Document 07/05/17 01:44 PD (Rec: 07/05/17 01:45 PD [facility] – [id number]) Intravenous Solution Start Date 07/05/17 Start Time 01:44 Sodium Bicarbonate 150 meq/ (Dextrose) 1,150 mls @ 150 mls/hr IV .[id number] MARCEL Last Admin: 07/04/17 20:29 Dose: 150 mls/hr eMAR Start Stop Document 07/04/17 20:29 PD (Rec: 07/04/17 20:29 PD [facility] – [id number]) Intravenous Solution Start Date 07/04/17 Start Time 20:29 NOREPINEPHRINE BIT/0.9 % NACL (Levophed 4 Mg/ 250 Ml Ns Premixed) 4 mg in 250 mls @ 15 mls/hr IV .[id number] PRN; Protocol; 4 MCG/MIN PRN Reason: TITRATE PER MD ORDER Last Titration: 07/05/17 04:32 Dose: 10 mcg/min, 37.5 mls/hr Titration Intervention Document 07/05/17 04:32 PD (Rec: 07/05/17 04:33 PD [facility] – [id number]) Titration Intake Titration Intake 50 Cumulative Intake 50 Cumulative Intake (Rx) 800 Waste Amount 0 Container Volume 200 Titration Dosing Titration Dose 10 IV Rate 37.5 Intake/Decrease Decreased Cumulative Dose 12.8 Vasopressin 20 units/ Sodium (Chloride) 101 mls @ 9.09 mls/hr IV .Q11H7M MARCEL; 0.03 U/MIN PRN Reason: Protocol Last Admin: 07/04/17 17:45 Dose: 9.09 mls/hr eMAR Start Stop Document 07/04/17 17:45 MMA (Rec: 07/04/17 18:27 [id number] Intravenous Solution Start Date 07/04/17 Start Time 17:45 MAR Blood Pressure Document 07/04/17 17:45 MMA (Rec: 07/04/17 18:27 [id number] Blood Pressure Blood Pressure (100/60-150/90) 75/45 Dobutamine HCl/Dextrose (Dobutamine/Dextrose 5% 500mg/250ml) 500 mg in 250 mls @ 12.859 mls/hr IV .[id number] PRN; Protocol; 5 MCG/KG/MIN PRN Reason: TITRATE PER PROTOCOL Pantoprazole Sodium (Protonix Inj) 40 mg IVP DAILY MARCEL Last Admin: 07/04/17 09:42 Dose: 40 mg IVP Administration Document 07/04/17 09:42 MMA (Rec: 07/04/17 09:42 [id number]) Charges for Administration # of IVP Administrations 1 Discontinued Medications Albumin Human (Albumin Human 25% (25 Gm/100 Ml)) 25 gm IV ONCE ONE Stop: 07/04/17 20:01 Last Admin: 07/04/17 21:11 Dose: 25 gm eMAR Start Stop Document 07/04/17 21:11 PD (Rec: 07/04/17 21:12 PD [facility] – [id number]) Intravenous Solution Start Date 07/04/17 Start Time 21:11 Atropine Sulfate (Atropine) 0.5 mg IVP STAT STA Stop: 07/04/17 17:31 Last Admin: 07/04/17 18:24 Dose: 0.5 mg IVP Administration Document 07/04/17 18:24 MMA (Rec: 07/04/17 18:25 MMA [facility] – [id number]) Charges for Administration # of IVP Administrations 1 Dextrose (Dextrose 50% Inj) 50 ml IVP ONCE ONE Stop: 07/04/17 17:55 Last Admin: 07/04/17 17:45 Dose: 50 ml IVP Administration Document 07/04/17 17:45 MMA (Rec: 07/04/17 18:39 MMA [facility] – [id number]) Charges for Administration # of IVP Administrations 1 Dextrose (Dextrose 50% Inj) 50 ml IVP ONCE ONE Stop: 07/04/17 18:12 Last Admin: 07/04/17 18:15 Dose: 50 ml IVP Administration Document 07/04/17 18:15 MMA (Rec: 07/04/17 18:46 MMA [facility] – [id number]) Charges for Administration # of IVP Administrations 1 Dextrose (Dextrose 50% Inj) 50 ml IVP ONCE ONE Stop: 07/04/17 18:28 Last Admin: 07/04/17 18:47 Dose: Digoxin (Lanoxin) 0.5 mg IVP STAT STA Stop: 07/04/17 18:10 Last Admin: 07/04/17 20:44 Dose: 0.5 mg MAR Apical Pulse Rate Document 07/04/17 20:44 PD (Rec: 07/04/17 20:45 PD [facility] – [id number]) Apical Pulse Rate Apical Pulse Rate (60-90 beats/min) 156 IVP Administration Document 07/04/17 20:44 PD (Rec: 07/04/17 20:45 PD [facility] – [id number]) Charges for Administration # of IVP Administrations 1 Digoxin (Lanoxin) 0.5 mg IVP ONCE ONE Stop: 07/04/17 20:31 Last Admin: 07/04/17 23:12 Dose: Diltiazem HCl (Cardizem) 20 mg IVP STAT STA Stop: 07/03/17 22:54 Last Admin: 07/03/17 22:07 Dose: 20 mg IVP Administration Document 07/03/17 22:07 SS (Rec: 07/03/17 23:29 SS [id number]) Charges for Administration # of IVP Administrations 1 MAR Pulse and Blood Pressure Document 07/03/17 22:07 SS (Rec: 07/03/17 23:29 SS [id number]) Pulse Pulse Rate (60-90) 184 Blood Pressure Blood Pressure (100/60-150/90) 118/103 Etomidate (Amidate) 20 mg IV STAT STA Stop: 07/03/17 22:55 Last Admin: 07/03/17 22:08 Dose: 20 mg eMAR Start Stop Document 07/03/17 22:08 SS (Rec: 07/03/17 23:29 [id number]) Intravenous Solution Start Date 07/03/17 Start Time 22:10 End Date 07/03/17 End time 22:11 Total Infusion Time 1 Heparin Sodium (Porcine) (Heparin) 4,300 units 50 units/kg (4300 units) IV ONCE ONE PRN Reason: Protocol Stop: 07/04/17 10:10 Last Admin: 07/04/17 12:14 Dose: 4,300 units eMAR Start Stop Document 07/04/17 12:14 MMA (Rec: 07/04/17 12:14 MMA [facility] – [id number]) Intravenous Solution Start Date 07/04/17 Start Time 12:14 MAR aPTT Document 07/04/17 12:14 MMA (Rec: 07/04/17 12:14 MMA [facility] – [id number]) aPTT aPTT (secs) 34.4 Heparin Sodium (Porcine) (Heparin) 5,000 units SC Q12 MARCEL PRN Reason: Protocol Last Admin: 07/04/17 14:02 Dose: Hydrocortisone Sodium Succinate (Solu-Cortef) 50 mg IVP Q6 MARCEL Hydrocortisone Sodium Succinate (Solu-Cortef) 50 mg IVP Q6 [facility] Last Admin: 07/04/17 18:57 Dose: 50 mg IVP Administration Document 07/04/17 18:57 MMA (Rec: 07/04/17 18:57 MMA [facility] – [id number]) Charges for Administration # of IVP Administrations 1 diltiaZEM IVPB 100mg in NS (Cardizem 100mg In Ns) 100 mls @ 5 mls/hr IV .Q20H MARCEL PRN Reason: 5 MG/HR Last Admin: 07/03/17 23:01 Dose: 5 mls/hr eMAR Start Stop Document 07/03/17 23:01 SS (Rec: 07/04/17 03:17 SS [id number]) Intravenous Solution Start Date 07/03/17 Start Time 23:00 Propofol (Diprivan) 1,000 mg in 100 mls @ 3.538 mls/hr IV .Q24H PRN; Protocol; 5 MCG/KG/MIN PRN Reason: TITRATE PER MD ORDER Last Admin: 07/03/17 23:30 Dose: 3.538 mls/hr eMAR Start Stop Document 07/03/17 23:30 SS (Rec: 07/03/17 23:30 SS [id number]) Intravenous Solution Start Date 07/03/17 Start Time 23:30 Vancomycin HCl (Vancomycin 500mg In Ns) 500 mg in 100 mls @ 200 mls/hr IVPB STAT STA PRN Reason: Protocol Stop: 07/04/17 00:36 Last Admin: 07/04/17 03:46 Dose: 200 mls/hr eMAR Start Stop Document 07/04/17 03:46 JBO (Rec: 07/04/17 03:48 JBO [id number]) Intravenous Solution Start Date 07/04/17 Start Time 03:45 End Date 07/04/17 End time 04:45 Total Infusion Time 60 Meropenem 1 gm/ Dextrose 100 mls @ 100 mls/hr IVPB STAT STA PRN Reason: Protocol Stop: 07/04/17 02:16 Last Admin: 07/04/17 02:40 Dose: 100 mls/hr eMAR Start Stop Document 07/04/17 02:40 CNR (Rec: 07/04/17 02:40 CNR [id number]) Intravenous Solution Start Date 07/04/17 Start Time 02:40 Sodium Bicarbonate 150 meq/ (Sodium Chloride) 1,150 mls @ 100 mls/hr IV .[id number] MARCEL Last Admin: 07/04/17 02:11 Dose: 100 mls/hr eMAR Start Stop Document 07/04/17 02:11 SS (Rec: 07/04/17 02:11 SS [id number]) Intravenous Solution Start Date 07/04/17 Start Time 02:11 Sodium Chloride (Sodium Chloride 0.9%) 1,000 mls @ 1,000 mls/hr IV .Q1H MARCEL Stop: 07/03/17 23:59 Last Admin: 07/03/17 23:01 Dose: 1,000 mls/hr eMAR Start Stop Document 07/03/17 23:01 SS (Rec: 07/04/17 03:18 SS [id number]) Intravenous Solution Start Date 07/03/17 Start Time 23:01 Sodium Chloride (Sodium Chloride 0.9%) 1,000 mls @ 999 mls/hr IV .Q1H1M MARCEL Last Admin: 07/04/17 12:00 Dose: 999 mls/hr eMAR Start Stop Document 07/04/17 12:00 MMA (Rec: 07/04/17 12:00 MMA [facility] – [id number]) Intravenous Solution Start Date 07/04/17 Start Time 12:00 End Date 07/04/17 End time 13:01 Total Infusion Time 61 Vancomycin HCl (Vancomycin 500mg In Ns) 500 mg in 100 mls @ 200 mls/hr IVPB STAT STA PRN Reason: Protocol Stop: 07/04/17 09:30 Last Admin: 07/04/17 09:32 Dose: 200 mls/hr eMAR Start Stop Document 07/04/17 09:32 MMA (Rec: 07/04/17 09:33 MMA [facility] – [id number]) Intravenous Solution Start Date 07/04/17 Start Time 09:32 End Date 07/04/17 End time 10:02 Total Infusion Time 30 diltiaZEM IVPB 100mg in NS (Cardizem 100mg In Ns) 100 mls @ 5 mls/hr IV .Q20H PRN; Protocol; 5 MG/HR PRN Reason: TITRATE PER MD ORDER Last Titration: 07/04/17 17:19 Dose: 0 mg/hr, 0 mls/hr Titration Intervention Document 07/04/17 17:19 MMA (Rec: 07/04/17 17:20 MMA [facility] – [id number]) Titration Intake Titration Intake 35.7 Cumulative Intake 50 Cumulative Intake (Rx) 50 Waste Amount 0 Container Volume 50 Titration Dosing Titration Dose 0 IV Rate 0 Intake/Decrease Paused Cumulative Dose 50 Heparin Sodium/Dextrose (Heparin 25,000 Units/250ml In D5w) 25,000 units in 250 mls @ 15.431 mls/hr IV .[id number] PRN; Protocol; 18 UNITS/KG/HR PRN Reason: ADJUST RATE PER PROTOCOL Last Admin: 07/04/17 12:30 Dose: 18 units/kg/hr, 15.431 mls/hr eMAR Start Stop Document 07/04/17 12:30 MMA (Rec: 07/04/17 12:30 MMA [facility] – [id number]) Intravenous Solution Start Date 07/04/17 Start Time 12:30 Titration Intervention Document 07/04/17 12:30 MMA (Rec: 07/04/17 12:30 MMA [facility] [id number]) Titration Intake Waste Amount 0 Container Volume 250 Titration Dosing Titration Dose 18 IV Rate 15.431 Intake/Decrease Started Sodium Chloride (Sodium Chloride 0.9%) 1,000 mls @ 999 mls/hr IV .Q1H1M STA Stop: 07/04/17 12:41 Last Admin: 07/04/17 13:28 Dose: 999 mls/hr eMAR Start Stop Document 07/04/17 13:28 MMA (Rec: 07/04/17 13:28 MMA [facility] – [id number]) Intravenous Solution Start Date 07/04/17 Start Time 11:00 End Date 07/04/17 End time 12:00 Total Infusion Time 60 Sodium Chloride (Sodium Chloride 0.9%) 1,000 mls @ 999 mls/hr IV .Q1H1M [facility] Last Admin: 07/04/17 16:39 Dose: 999 mls/hr eMAR Start Stop Document 07/04/17 16:39 MMA (Rec: 07/04/17 16:39 MMA [facility] – [id number]) Intravenous Solution Start Date 07/04/17 Start Time 16:39 End Date 07/04/17 End time 17:39 Total Infusion Time 60 Dobutamine HCl/Dextrose (Dobutamine/Dextrose 5% 500mg/250ml) 500 mg in 250 mls @ 12.859 mls/hr IV .[id number] PRN; 5 MCG/KG/MIN PRN Reason: TITRATE PER PROTOCOL Last Admin: 07/04/17 20:10 Dose: 12.859 mls/hr eMAR Start Stop Document 07/04/17 20:10 PD (Rec: 07/04/17 20:11 PD [facility] – [id number]) Intravenous Solution Start Date 07/04/17 Start Time 20:11 MAR Pulse and Blood Pressure Document 07/04/17 20:10 PD (Rec: 07/04/17 20:11 PD [id number]) Pulse Pulse Rate (60-90) 138 Blood Pressure Blood Pressure (100/60-150/90) 70/49 Sodium Bicarbonate (Sodium Bicarbonate 8.4% (50 Meq) Syringe) 100 meq IVP ONCE ONE Stop: 07/04/17 18:57 Last Admin: 07/04/17 19:06 Dose: 100 meq IVP Administration Document 07/04/17 19:06 MMA (Rec: 07/04/17 19:06 MMA [facility] – [id number]) Charges for Administration # of IVP Administrations 1 Sodium Bicarbonate (Sodium Bicarbonate 8.4% (50 Meq) Syringe) 100 meq IVP ONCE ONE Stop: 07/04/17 21:02 Last Admin: 07/04/17 21:20 Dose: 100 meq IVP Administration Document 07/04/17 21:20 PD (Rec: 07/04/17 21:20 PD [facility] – [id number]) Charges for Administration # of IVP Administrations 1 - Scribe Statement The provider has reviewed the documentation as recorded by the Ledy Ang Provider Scribe Attestation: All medical record entries made by the Scribe were at my direction and personally dictated by me. I have reviewed the chart and agree that the record accurately reflects my personal performance of the history, physical exam, medical decision making, and the department course for this patient. I have also personally directed, reviewed, and agree with the discharge instructions and disposition. Disposition/Present on Arrival - Present on Arrival Any Indicators Present on Arrival: No History of DVT/PE: No History of Uncontrolled Diabetes: Yes Urinary Catheter: No History of Decub. Ulcer: No History Surgical Site Infection Following: Orthopedic Procedures - Disposition Have Diagnosis and Disposition been Completed?: Yes Diagnosis: Sepsis, End stage renal disease Disposition: HOSPITALIZED Disposition Time: 01:30 Condition: CRITICAL
[2017-07-03] MEDS ORDERED: Succinylcholine 200 mg/10 ml Inj IV ONE (22:07)
[2017-07-03] MEDS ORDERED: Propofol 10 mg/ml 1,000 MG/100 ML VIAL ONE (22:12)
[2017-07-03 22:37] LABS: BASO # 0.01 K/mm3 (0.0-2.0); BASO % 0.1 % (0.0-3.0); EOS % 0.2 % (1.5-5.0); GRAN # 7.45 (1.4-6.5); GRAN % 64.1 % (50.0-68.0); HEMATOCRIT 39.6 % (36.0-48.0); LYMPH # 3.4 (1.2-3.4); LYMPH % 29.4 % (22.0-35.0); MEAN CELL VOLUME 90.4 fl (80.0-105.0); MEAN CORPUSCULAR HEMOGLOBIN 26.9 pg (25.0-35.0); MEAN CORPUSCULAR HGB CONC 29.8 g/dl (31.0-37.0); MEAN PLATELET VOLUME 10.4 fl (7.0-11.0); MONO # 0.7 (0.1-0.6); MONO % 6.2 % (1.0-6.0); RED CELL DISTRIBUTION WIDTH 17.1 % (11.5-14.5); WHITE BLOOD COUNT 11.6 10^3/ul (4.5-11.0)
[2017-07-03 22:49] LABS: INR 1.62 (0.93-1.08); PARTIAL THROMBOPLASTIN TIME 34.4 Seconds (25.1-36.5)
[2017-07-03 22:50] LABS: BILIRUBIN,TOTAL 1.3 mg/dL (0.2-1.3); CALCIUM 9.3 mg/dL (8.4-10.5); MAGNESIUM 2.5 mg/dL (1.7-2.2); PHOSPHOROUS 10.5 mg/dL (2.5-4.5); POTASSIUM 4.6 mmol/L (3.6-5.0)
[2017-07-03] MEDS ORDERED: Etomidate 40 MG/20 ML ML IV STA (22:54)
[2017-07-03] MEDS ORDERED: Propofol 10 mg/ml 1,000 MG/100 ML VIAL IV PRN (22:55)
[2017-07-03] MEDS ORDERED: Sodium Chloride 0.9% 1,000 ML IV SCH (23:00)
[2017-07-03] MEDS ORDERED: diltiaZEM IVPB 100mg in NS 100 ML IV SCH (23:00)
[2017-07-03 23:03] LABS: TROPONIN I 0.16 ng/mL
[2017-07-04] MEDS ORDERED: Vancomycin 500mg in NS 500 MG/100 ML BAG IVPB STA ×2 (00:07→09:01)
--- NOTE | 2017-07-04 01:15 | CT ---
EXAM: CT Head Without Intravenous Contrast CLINICAL HISTORY: 66 years old, female; Signs and symptoms; Altered mental status/memory loss; Additional info: AMS TECHNIQUE: Axial computed tomography images of the head/brain without intravenous contrast. All CT scans at this facility use one or more dose reduction techniques, viz.: automated exposure control; ma/kV adjustment per patient size (including targeted exams where dose is matched to indication; i.e. head); or iterative reconstruction technique. COMPARISON: CT - HEAD W/O CONTRAST 2017-01-29 14:49 FINDINGS: Brain: Mild atrophy. No intracranial hemorrhage. No mass. Prominent dural calcifications. Several scattered foci of decreased attenuation within periventricular/subcortical white matter. Probable chronic lacunar infarct about LEFT basal ganglia. No definite edema. Ventricles: No hydrocephalus. Bones/joints: No acute fracture. Soft tissues: Unremarkable. Vasculature: Atherosclerotic disease of intracranial arteries. Sinuses: No acute sinusitis. Mastoid air cells: No mastoid effusion. Orbits: Unremarkable as visualized. Tubes, lines and devices: Endotracheal tube. IMPRESSION: 1. Nonspecific white matter changes. Acute infarction may be CT occult within first 24 hours. If a focal deficit persists, consider followup CT or MRI for further evaluation. 2. Incidental/non-acute findings are described above.
[2017-07-04] MEDS ORDERED: Meropenem 1 GM in Dextrose 5% In Water 100 ML IVPB STA (01:17)
[2017-07-04] MEDS ORDERED: Midazolam 100 mg/100ml in NS 100 MG/100 ML SOL IV PRN (01:19)
[2017-07-04 02:02] LABS: ARTERIAL BLOOD GAS PH 7.11 (7.35-7.45)
[2017-07-04 02:03] LABS: ARTERIAL BLOOD GAS HCO3 7.6 mmol/L (21-28)
[2017-07-04] MEDS: Fentanyl 1000mcg/100ml NS 1,000 MCG/100 ML BAG IV PRN ×3 (02:50→16:36)
--- NOTE | 2017-07-04 03:49 | CP.PCM.CON ---
<Huy Mantilla - Last Filed: 07/04/17 03:42> History of Present Illness - History of Present Illness History of Present Illness: Huy Mantilla D.O. PGY-2, Critical Care Consultation Note 66 year old female with a PMH of ESRD on dialysis T/T/S, HTN, CHF with EF of 15 % who [place] [facility] [place] she was noted by her daughter to be altered since today. Patient was seen and examined in the ER. History obtained from daughter as patient required intubation in the ER. Patient has been complaining of cough and flu like illness for about 2 months but has refused to be seen by bacteriologist medical. Patient has been noncompliant with her medications although she has continued to receive dialysis. Patient today was seen by her daughter who states that she was not acting herself, was short of breath and difficulty speaking in full sentences and also seemed overall altered in her mentation and so the daughter called EMS. Once in the ER the patient did have worsening clinical status and required intubation for airway protection and developed A-fib with RVR with HR in the 190s. Otherwise rest of history unobtainable. PMH: as above PSH: left BKA SH: previous smoker, uknown EtOH or illicits FH: reviewed Meds: unknown to daughter, states currently taking none Allergies: shellfish Review of Systems - Review of Systems Systems not reviewed;Unavailable: Intubated Past Patient History - Infectious Disease Hx of Infectious Diseases: None - Tetanus Immunizations Tetanus Immunization: Unknown - Past Medical History & Family History Past Medical History?: Yes - Past Social History Smoking Status: Never Smoked - CARDIAC Hx Cardiac Disorders: Yes Hx Congestive Heart Failure: Yes Hx Pacemaker: No - PULMONARY Hx Respiratory Disorders: Yes Hx Asthma: Yes Hx Bronchitis: Yes - NEUROLOGICAL Hx Neurological Disorder: No Hx Paralysis: No - HEENT Hx HEENT Problems: Yes (uses eyeglasses for reading) - RENAL Hx Dialysis: Yes Hx Renal Failure: Yes - ENDOCRINE/METABOLIC Hx Endocrine Disorders: Yes Hx Diabetes Mellitus Type 2: Yes Hx Hypothyroidism: Yes - HEMATOLOGICAL/ONCOLOGICAL Hx Blood Transfusions: Yes (11/26/15) Hx Blood Transfusion Reaction: No - INTEGUMENTARY Hx Dermatological Problems: Yes (RCW PERMACATH,LEFT UPPER ARM PICC) - MUSCULOSKELETAL/RHEUMATOLOGICAL Hx Musculoskeletal Disorders: No - GASTROINTESTINAL Hx Gastrointestinal Disorders: No - GENITOURINARY/GYNECOLOGICAL Hx Genitourinary Disorders: No - PSYCHIATRIC Hx Emotional Abuse: No Hx Physical Abuse: No Hx Substance Use: No - SURGICAL HISTORY Other/Comment: L BKA - ANESTHESIA Hx Anesthesia: Yes Hx Anesthesia Reactions: No Hx Malignant Hyperthermia: No Meds Allergies/Adverse Reactions: Allergies Allergy/AdvReac Type Severity Reaction Status Date / Time shellfish derived Allergy ITCHING Verified 07/03/17 21:31 - Medications Medications: Current Medications diltiaZEM IVPB 100mg in NS (Cardizem 100mg In Ns) 100 mls @ 5 mls/hr IV .Q20H MARCEL PRN Reason: 5 MG/HR Last Admin: 07/03/17 23:01 Dose: 5 mls/hr Propofol (Diprivan) 1,000 mg in 100 mls @ 3.538 mls/hr IV .Q24H PRN; Protocol; 5 MCG/KG/MIN PRN Reason: TITRATE PER MD ORDER Last Admin: 07/03/17 23:30 Dose: 3.538 mls/hr Fentanyl Citrate (Fentanyl Citrate/Sodium Chloride 1 Mg/100 Ml) 1,000 mcg in 100 mls @ 10 mls/hr IV .Q10H PRN; Protocol; 100 MCG/HR PRN Reason: TITRATE PER MD ORDER Last Admin: 07/04/17 02:50 Dose: 100 mcg/hr, 10 mls/hr Midazolam 100 mg/100ml in NS (Midazolam 100 Mg/100ml In Ns) 100 mg in 100 mls @ 1 mls/hr IV .Q24H PRN; Protocol; 1 MG/HR PRN Reason: Agitation Sodium Bicarbonate 150 meq/ (Sodium Chloride) 1,150 mls @ 100 mls/hr IV .[id number] [facility] Last Admin: 07/04/17 02:11 Dose: 100 mls/hr Physical Exam - Constitutional Appears: In Acute Distress, Chronically Ill - Head Exam Head Exam: ATRAUMATIC, NORMOCEPHALIC - Eye Exam Eye Exam: EOMI, PERRL. absent: Scleral icterus - ENT Exam ENT Exam: Mucous Membranes Moist, Normal Oropharynx - Neck Exam Neck exam: Positive for: Normal Inspection. Negative for: Tenderness - Respiratory Exam Respiratory Exam: Rhonchi (mild RLL). absent: Rales, Wheezes - Cardiovascular Exam Cardiovascular Exam: Tachycardia, +S1, +S2 - GI/Abdominal Exam GI & Abdominal Exam: Normal Bowel Sounds, Soft. absent: Distended, Tenderness - Extremities Exam Extremities exam: Negative for: calf tenderness, pedal pulses present - Neurological Exam Neurological exam: Alert Additional comments: [id number] - Psychiatric Exam Psychiatric exam: Agitated, Anxious - Skin Skin Exam: Dry, Warm Results - Vital Signs Recent Vital Signs: Last Vital Signs Temp 99.7 F H 07/03/17 21:53 Pulse 137 H 07/04/17 02:16 Resp 23 07/04/17 02:16 BP 106/57 L 07/04/17 02:16 Pulse Ox 100 07/04/17 02:16 - Labs Result Diagrams: 07/03/17 22:22 07/03/17 22:22 Assessment & Plan - Assessment and Plan (Free Text) Assessment: 66 year old female with a PMH of ESRD on dialysis T/T/S, HTN, CHF with EF of 15 % who presented for AMS and was intubated for airway protection and brought to ICU Plan: Neurological Nonfocal but altered, unknown etiology likely from acute illness Will monitor, particularly once extubated Cardiovascular A fib with RVR, improved with cardizem gtt Known CHF with EF 15% Switched from propfol gtt for sedation to versed and fentanyl gtts to avoid hypotension Conservative fluid management given ESRD Cardio Dr. Fulton consulted Maintain MAP >65 Will hold cardizem gtt and monitor Pulmnologic Intubated for airway protection PRVC Likely HCAP with sepsis picture, given one dose vanco and started meropenem ID consulted CXR reviewed pending official read ABG reviewed, started bicarb drip Repeat ABG in the AM On versed and fentanyl gtt for sedation Daily spontaneous breathing trials Daily sedation vacation GI NPO at this time GI ppx w/ PPI Nephro/Electrolytes Acute worsening of baseline ESRD Nephro Dr. Brooks consulted Will need dialysis Strict IxOs Weight daily Heme Leukocytosis without fever Anemia in setting of ESRD anticipated, level actually above baseline likely hemoconcentration Will repeat CBC after IVF hydration ID Likely HCAP with sepsis picture ID Dr. Jurado consulted Given vanco x1 and started merrem Afebrile but noted leukocytosis BCxs drawn in ER GI ppx: protonix/SCD to R leg Patient was seen and examined and case was discussed at length with attending physician - Date & Time Date: 07/04/17 Time: 01:00 <Doris,Bruno Q - Last Filed: 07/04/17 07:14> Meds - Medications Medications: Current Medications diltiaZEM IVPB 100mg in NS (Cardizem 100mg In Ns) 100 mls @ 5 mls/hr IV .Q20H MARCEL PRN Reason: 5 MG/HR Last Admin: 07/03/17 23:01 Dose: 5 mls/hr Propofol (Diprivan) 1,000 mg in 100 mls @ 3.538 mls/hr IV .Q24H PRN; Protocol; 5 MCG/KG/MIN PRN Reason: TITRATE PER MD ORDER Last Admin: 07/03/17 23:30 Dose: 3.538 mls/hr Fentanyl Citrate (Fentanyl Citrate/Sodium Chloride 1 Mg/100 Ml) 1,000 mcg in 100 mls @ 10 mls/hr IV .Q10H PRN; Protocol; 100 MCG/HR PRN Reason: TITRATE PER MD ORDER Last Admin: 07/04/17 02:50 Dose: 100 mcg/hr, 10 mls/hr Midazolam 100 mg/100ml in NS (Midazolam 100 Mg/100ml In Ns) 100 mg in 100 mls @ 1 mls/hr IV .Q24H PRN; Protocol; 1 MG/HR PRN Reason: Agitation Sodium Bicarbonate 150 meq/ (Sodium Chloride) 1,150 mls @ 100 mls/hr IV .[id number] [facility] Last Admin: 07/04/17 02:11 Dose: 100 mls/hr Pantoprazole Sodium (Protonix Inj) 40 mg IVP DAILY [facility] Results - Vital Signs Recent Vital Signs: Last Vital Signs Temp 98.7 F 07/04/17 03:44 Pulse 113 H 07/04/17 06:30 Resp 20 07/04/17 04:30 BP 99/72 L 07/04/17 06:16 Pulse Ox 91 L 07/04/17 06:30 - Labs Result Diagrams: 07/04/17 06:00 07/03/17 22:22 Labs: Laboratory Results - last 24 hr 07/04/17 07/04/17 06:00 06:45 WBC 11.1 H RBC 3.89 Hgb 10.4 L Hct 34.8 L MCV 89.5 MCH 26.7 MCHC 29.9 L RDW 17.0 H Plt Count 121 MPV 10.0 Gran % 90.4 H Lymph % (Auto) 6.5 L [place] % (Auto) 3.1 Eos % (Auto) 0.0 L Baso % (Auto) 0.0 Gran # 9.99 H Lymph # 0.7 L [place] # 0.3 Eos # 0.0 Baso # 0.00 pO2 81 H VBG pH 7.18 L* VBG pCO2 30.0 L VBG HCO3 11.2 L VBG Total CO2 12.1 L VBG O2 Sat (Calc) 95.8 H VBG Base Excess -15.8 L VBG Potassium 4.9 Sodium 141.0 Chloride 100.0 Glucose 101 Lactate 13.3 H* FiO2 21.0 Venous Blood Potassium 4.9 Attending/Attestation - Attestation I have personally seen and examined this patient.: Yes I have fully participated in the care of the patient.: Yes I have reviewed all pertinent clinical information: Yes Notes (Text): 07/04/17 07:11 I agree with the above mentioned note and exam by the resident with the addition of the followin66 y/o female with a PMHx CHF, ESRD on HD M/W/F, DM, L AKA who [place] [facility] [place] by her daughter due to altered mentation and was also found to be in Afib with RVR. Patient was intubated in the ED for airway protection along with the fact that she was hemodynamically unstable with Afib. She subsequently improved her heart rate after cardizem drip was started. She was found to have profound metabolic acidosis with a lactic level of 14. She has been started on a bicarb drip, empiric IV Abx fror CAP and will be treated in the ICU. all labs and images available thus far have been reviewed personally case discussed at length with Dr. Hutchison in the ED total time of care: greater than 40 minutes
[2017-07-04 05:00] VITALS: BMI 29.6
[2017-07-04 06:55] LABS: GRAN # 9.99 (1.4-6.5); GRAN % 90.4 % (50.0-68.0); HEMATOCRIT 34.8 % (36.0-48.0); LYMPH # 0.7 (1.2-3.4); LYMPH % 6.5 % (22.0-35.0); MEAN CELL VOLUME 89.5 fl (80.0-105.0); MEAN CORPUSCULAR HEMOGLOBIN 26.7 pg (25.0-35.0); MEAN CORPUSCULAR HGB CONC 29.9 g/dl (31.0-37.0); MONO # 0.3 (0.1-0.6); MONO % 3.1 % (1.0-6.0); PLATELET COUNT 121 10^3/uL (120.0-450.0); WHITE BLOOD COUNT 11.1 10^3/ul (4.5-11.0)
[2017-07-04 06:56] LABS: VENOUS BLOOD GAS BASE EXCESS -15.8 mmol/L (0.0-2.0)
[2017-07-04 07:00] LABS: VENOUS BLOOD PH 7.18 (7.32-7.43)
[2017-07-04 07:21] LABS: TROPONIN I 0.32 ng/mL
[2017-07-04 07:49] LABS: ALB/GLOB RATIO 0.9 (1.1-1.8); BILIRUBIN,TOTAL 1.2 mg/dL (0.2-1.3); CALCIUM 8.4 mg/dL (8.4-10.5); POTASSIUM 4.9 mmol/L (3.6-5.0); TOTAL PROTEIN 6.5 g/dL (5.8-8.3)
[2017-07-04] MEDS: Sodium Chloride 0.9% 1,000 ML IV SCH ×2 (08:02→12:00)
[2017-07-04 08:04] LABS: ARTERIAL BLOOD GAS HCO3 11.7 mmol/L (21-28); ARTERIAL BLOOD GAS O2 CAPACITY 13.9 mL/dl (16-24); ARTERIAL BLOOD GAS O2 CONTENT 13.9 ML/dl (15-23); ARTERIAL BLOOD GAS PH 7.28 (7.35-7.45); HHB 0.3 % (0-5); METHEMOGLOBIN 0.7 % (0.0-3.0)
--- NOTE | 2017-07-04 08:32 | CON ---
DATE: 07/04/2017 PULMONARY CONSULTATION REASON FOR CONSULTATION: Respiratory failure. REFERRING PHYSICIAN: Dr. Terrence Beverly. HISTORY OF PRESENT ILLNESS: History is obtained via extensive discussion with the nursing staff. The patient is currently intubated and sedated. The patient is a chronically ill 66-year-old female, with past medical history significant for end-stage renal disease, congestive heart failure, cardiomyopathy, diabetes mellitus, left uzmpk-[id number] amputation, who presented to [facility] yesterday with lethargy and shortness of breath. Apparently, when the daughter arrived home from work, she noted that the patient (her mother) was experiencing increasing shortness of breath. The daughter also noted that her mother was less responsive than usual. The daughter then called the emergency medical services and had the patient transferred to the emergency room for additional evaluation. In the emergency room, the patient was noted to be lethargic and short of breath. She was then intubated for airway protection and ventilation. I am thus asked to evaluate on this case for additional management, and treatment. As above, the patient did experience shortness of breath yesterday. In addition, as per the daughter, the patient has been coughing at home. No history of significant sputum production. No history of chest pain, coughing up of blood, or chest pain - made worse with deep respirations. The patient did present to the emergency room with low-grade fevers. No history of chills or infectious exposure. No history of night sweats, weight loss or appetite change prior to the above events. No history of leg or calf pains. No history of syncope or diaphoresis. No history of recent travel or trauma. REVIEW OF SYSTEMS: No history of nausea, vomiting or diarrhea. No acute musculoskeletal complaints. Rest of the review of systems is negative. ALLERGIES: SHELLFISH. SOCIAL HISTORY: Positive for tobacco and negative for alcohol. FAMILY HISTORY: No inheritable diseases or medications are not listed in the current chart. MEDICATIONS(HOME)--NOT LISTED IN THE CURRENT CHART. PHYSICAL EXAMINATION: GENERAL: The patient is currently intubated and sedated. VITAL SIGNS: Temperature is 98.7, pulse 113, respiratory rate 20/20, blood pressure is 99/72. HEENT: Normocephalic, atraumatic. NECK: No JVD. CARDIOVASCULAR: Systolic ejection murmur at the lower left sternal border. No S3 gallop. LUNGS: Crackles at both bases. Minimal bilateral rhonchi. No wheezing. EXTREMITIES: The patient is status post left [id number]-aug-rzac amputation. The right lower extremity reveals chronic vascular changes. There is no cyanosis or clubbing. GI: Abdomen is soft, nondistended. Bowel sounds are positive. SKIN: No acute rash. NEUROLOGIC: Exam limited at the present time. PERTINENT LABORATORY DATA: Chest x-ray was done this morning and reviewed. It is a very poor, very rotated film. I do question whether there is a retrocardiac/left lower lobe infiltrate. There is also some mild pulmonary edema noted. An arterial blood gas was done in the emergency room on 100% oxygen. Results are: PH 7.11, pCO2 24, pO2 of 331. CBC: White count 11.1, hemoglobin 10.4, hematocrit 34.8, platelets of 121,000. Complete metabolic profile: Carbon dioxide 11, anion gap 39, BUN 51, creatinine 10.8, glucose 128, phosphorus 10.5, magnesium 2.5, AST 44, alkaline phosphatase 139, troponin 0.16. Rest of the metabolic profile within normal limits. Peak troponin during the admission 0.32. IMPRESSION: 1. Respiratory failure. 2. Rule out pneumonia - left lower lobe. 3. Mild pulmonary edema. 4. End-stage renal disease. 5. Rapid atrial fibrillation. 6. Severe metabolic acidosis. 7. Mild bronchospasm. PLAN: Again, I did discuss the case with the nursing staff at length. I have also reviewed the chart at length. The patient is currently intubated and sedated. The patient presents to [facility] with worsening shortness of breath and lethargy for the past one day. Apparently, she was found lethargic and short of breath by the daughter - who called emergency medical services. In the emergency room, the patient was noted to be very lethargic. In addition, an arterial blood gas done--revealed a severe metabolic acidosis. The patient was then intubated for airway protection and ventilation. I have also reviewed the chest x-ray. The chest x-ray is a very poor, very rotated film. Again, I do question whether there is a left lower lobe infiltrate. This is very hard to tell on the current film. There is also mild pulmonary edema noted. The patient has been pancultured and started on antibiotic therapy. Infectious Disease evaluation with Dr. Jurado has been ordered. On physical exam, there is only mild bronchospasm noted. I will hold off on potential cardiac stimulants (beta-agonists) due to the rapid atrial fibrillation. I have also reviewed the arterial blood gas. A severe metabolic acidosis is noted. Repeat arterial blood gas is ordered for this morning - not done yet. Additional, repeat a.m. labs are also pending. I have also ordered a repeat chest x-ray to be done for better evaluation. Additional pulmonary intervention will be based on the above results, as well as the clinical status of the patient. I will discuss the above with the entire ICU team in the next few moments. I will also discuss the above with Dr. Beverly later this morning. Thank you very much for this pulmonary consultation. Earl Vega MD MTDD
--- NOTE | 2017-07-04 08:43 | RAD ---
HISTORY: follow up . The reason for follow-up is unclear COMPARISON: CT chest abdomen and pelvis 01/23/2016- no reference of pulmonary pathology. Right-sided dialysis catheter then reported left PICC line reported FINDINGS: LUNGS: The left lung -left lateral rib cage it effaces silhouetted out Tammie diaphragm is still evident. Summation of prominent soft tissues with cardiomegaly inferred. Elsewhere along its are well aerated. Without consolidation or infiltrate. PLEURA: No significant right pleural effusion identified; small left pleural effusion not excluded. No pneumothorax apparent. CARDIOVASCULAR: Cardiomegaly. Left axillary fax circular stent. No current PICC line appreciated OSSEOUS STRUCTURES: No significant abnormalities. VISUALIZED UPPER ABDOMEN: Normal. OTHER FINDINGS: Endotracheal tube tip 3.5 cm cephalad from abundio IMPRESSION: No consolidation appreciated Left inferolateral soft tissue prominence -summation of breast soft tissues with cardiomegaly probable. Small left pleural effusion not excluded. Endotracheal tube tip position appropriate
[2017-07-04 09:27] LABS: NEUTROPHIL 90 % (50.0-70.0)
[2017-07-04 09:28] LABS: ANISOCYTOSIS SLIGHT; HYPOCHROMIA SLIGHT; LARGE PLATELETS PRESENT; PLATELET ESTIMATE LOW (NORMAL)
--- NOTE | 2017-07-04 09:36 | RAD ---
HISTORY: evaluate ETT placement COMPARISON: 07/04/2017 at 0059 hours FINDINGS: LUNGS: The coalescent patchy infiltrates -blending right hilar bronchovascular marking prominence is less pronounced. Trace bronchograms right infrahilar location noted minimal peribronchial thickening minimal nonspecific inflammatory changes consistent with this. Similar left infrahilar perihilar air bronchograms noted with similar considerations. PLEURA: Small left pleural effusion possible. Cardiomegaly and large soft tissues sum to increased opacity here. No pneumothorax apparent. CARDIOVASCULAR: Cardiomegaly. Mild central pulmonary venous congestion possible OSSEOUS STRUCTURES: No significant abnormalities. VISUALIZED UPPER ABDOMEN: Normal. OTHER FINDINGS: No tracheal tube tip approximately 3 cm from abundio. IMPRESSION: Endotracheal tube tip 3 cm from the abundio. These central hilar and perihilar soft tissues are less pronounced - increase in aeration here inferred. Given the infrahilar air bronchograms contiguous perihilar thickening/inflammatory changes here inferred. Cardiomegaly. Small left pleural effusion not excluded.
--- NOTE | 2017-07-04 09:42 | RAD ---
HISTORY: ams COMPARISON: 01/20/2016 FINDINGS: LUNGS: No active pulmonary disease. PLEURA: No significant pleural effusion identified, no pneumothorax apparent. CARDIOVASCULAR: Moderate cardiomegaly. Moderate vascular congestion. OSSEOUS STRUCTURES: No significant abnormalities. VISUALIZED UPPER ABDOMEN: Normal. OTHER FINDINGS: Endotracheal tube in satisfactory position IMPRESSION: Endotracheal tube in satisfactory position. Moderate vascular congestion
[2017-07-04] MEDS ORDERED: diltiaZEM IVPB 100mg in NS 100 ML IV PRN (10:08)
[2017-07-04] MEDS ORDERED: Heparin 25,000units in D5W 25,000 UNITS/250 ML BAG IV PRN (10:10)
[2017-07-04 10:40] LABS: PH,URINE 7.5 (4.7-8.0); URINE BILIRUBIN SMALL (NEGATIVE); URINE BLOOD LARGE (NEGATIVE); URINE GLUCOSE (UA) NEGATIVE (NEGATIVE); URINE KETONE TRACE mg/dL (NEGATIVE); URINE LEUKOCYTE ESTERASE LARGE Leu/uL (NEGATIVE); URINE PROTEIN >=300 mg/dL (<30 mg/dL); URINE UROBILINOGEN 0.2 E.U./dL (<1 E.U./dL)
--- NOTE | 2017-07-04 10:46 | CP.CCUPN ---
<MichelaCrescencio - Last Filed: 07/04/17 11:39> CCU Subjective - Physician Review Subjective (Free Text): Critical Care progress note for Dr. Irving Patient seen and examined at bedside. Patient was intubated overnight in the ER. She is on ventilator support TV 450, PEEP 0, RR 20, FiO2 40%. Patient persistently tachycardic at 117 bpm. ROS unobtainable ue to intubation. She is following some commands. CCU Objective - Vital Signs / Intake & Output Vital Signs (Last 4 hours): Vital Signs Resp Pulse Ox 07/04/17 07:26 24 96 Intake and Output (Last 8hrs): Intake & Output 07/03/17 07/04/17 07/04/17 22:59 06:59 14:59 Intake Total 345 100.0 Output Total 20 Balance 325 100.0 Weight 189 lb Intake: IV 345 100.0 Right Forearm 30 Right IO 300 Right Upper arm 15 Output: Urine 20 2-way Urethral 20 - Physical Exam Head: Positive for: Atraumatic, Normocephalic Pupils: Positive for: PERRL Extroacular Muscles: Positive for: EOMI Conjunctiva: Positive for: Normal Mouth: Positive for: Dry, Other (ET tube in place) Respiratory/Chest: Positive for: Clear to Auscultation, Other (intubated and on vent support). Negative for: Accessory Muscle Use Cardiovascular: Positive for: Tachycardic (sinus). Negative for: Murmurs Abdomen: Positive for: Normal Bowel Sounds. Negative for: Tenderness, Distention, Peritoneal Signs Back: Positive for: Normal Inspection Upper Extremity: Negative for: Cyanosis, Edema Lower Extremity: Positive for: Other (Left BKA) Neurological: Positive for: Other (awake and following some commands) Skin: Positive for: Warm, Dry, Normal Color. Negative for: Rashes Psychiatric: Positive for: Other (flat affect) - Medications Active Medications: Active Medications Generic Name Dose Route Start Last Admin Trade Name Freq PRN Reason Stop Dose Admin Heparin Sodium (Porcine) 5,000 units 07/04/17 10:45 Heparin SC Q12 MARCEL Protocol Propofol 1,000 mg in 100 mls @ 3.538 mls/hr 07/03/17 22:55 07/03/17 23:30 Diprivan IV 3.538 mls/hr .Q24H PRN Administration TITRATE PER MD ORDER Protocol 5 MCG/KG/MIN Fentanyl Citrate 1,000 mcg in 100 mls @ 10 mls/hr 07/04/17 01:20 07/04/17 09: 43 Fentanyl Citrate/Sodium Chloride 1 Mg/100 Ml IV 150 mcg/hr .Q10H PRN 15 mls/hr TITRATE PER MD ORDER Administration Protocol 100 MCG/HR Midazolam 100 mg/100ml in NS 100 mg in 100 mls @ 1 mls/hr 07/04/17 01:19 Midazolam 100 Mg/100ml In Ns IV .Q24H PRN Agitation Protocol 1 MG/HR Sodium Chloride 1,000 mls @ 999 mls/hr 07/04/17 07:30 07/04/17 08:02 Sodium Chloride 0.9% IV 999 mls/hr .Q1H1M MARCEL Administration Meropenem 500 mg/ Sodium 50 mls @ 100 mls/hr 07/04/17 14:00 Chloride IVPB 07/13/17 14:01 Q8 MARCEL Protocol diltiaZEM IVPB 100mg in NS 100 mls @ 5 mls/hr 07/04/17 10:08 Cardizem 100mg In Ns IV .Q20H PRN TITRATE PER MD ORDER Protocol 5 MG/HR Heparin Sodium/Dextrose 25,000 units in 250 mls @ 15.431 mls/hr 07/04/17 10: 10 Heparin 25,000 Units/250ml In D5w IV .[id number] PRN ADJUST RATE PER PROTOCOL Protocol 18 UNITS/KG/HR Sodium Bicarbonate 150 meq/ 1,150 mls @ 150 mls/hr 07/04/17 10:45 Dextrose IV .Q7H40M MARCEL Pantoprazole Sodium 40 mg 07/04/17 10:00 07/04/17 09:42 Protonix Inj IVP 40 mg DAILY MARCEL Administration - Patient Studies Lab Studies: Lab Studies 07/04/17 07/04/17 07/04/17 Range/Units 08:00 06:45 06:00 WBC (4.5-11.0) 10^3/ul RBC (3.5-6.1) 10^6/uL Hgb (12.0-16.0) g/dL Hct (36.0-48.0) % MCV (80.0-105.0) fl MCH (25.0-35.0) pg MCHC (31.0-37.0) g/dl RDW (11.5-14.5) % Plt Count (120.0-450.0) 10^3/uL MPV (7.0-11.0) fl Gran % (50.0-68.0) % Lymph % (Auto) (22.0-35.0) % [place]ner % (Auto) (1.0-6.0) % Eos % (Auto) (1.5-5.0) % Baso % (Auto) (0.0-3.0) % Gran # (1.4-6.5) Lymph # (1.2-3.4) [place]ner # (0.1-0.6) Eos # (0.0-0.7) Baso # (0.0-2.0) K/mm3 Neutrophils % (Manual) (50.0-70.0) % Lymphocytes % (Manual) (22.0-35.0) % Monocytes % (Manual) (1.0-6.0) % Platelet Evaluation (NORMAL) Large Platelets Hypochromasia Anisocytosis (manual) pCO2 25 L (35-45) mm/Hg pO2 148.0 H 81 H (30-55) mm/Hg HCO3 11.7 L (21-28) mmol/L ABG pH 7.28 L (7.35-7.45) ABG Total CO2 12.5 L (22-28) mmol.L ABG O2 Saturation 99.7 H (95-98) % ABG O2 Content 13.9 L (15-23) ML/dl ABG Base Excess -13.5 L (-2.0-3.0) mmol/L ABG Hemoglobin 10.0 L (11.7-17.4) g/dL ABG Carboxyhemoglobin 2.0 H (0.5-1.5) % POC ABG HHb (Measured) 0.3 (0-5) % ABG Methemoglobin 0.7 (0.0-3.0) % ABG O2 Capacity 13.9 L (16-24) mL/dl VBG pH 7.18 L* (7.32-7.43) VBG pCO2 30.0 L (40-60) VBG HCO3 11.2 L (21-28) mmol/l VBG Total CO2 12.1 L (22-28) mmol.L VBG O2 Sat (Calc) 95.8 H (40-65) % VBG Base Excess -15.8 L (0.0-2.0) mmol/L VBG Potassium 4.9 (3.6-5.2) mmol/L Hgb O2 Saturation 97.0 (95.0-98.0) % Glucose 101 (65-105) mg/dl Lactate 13.3 H* (0.7-2.1) mmol/L FiO2 40.0 21.0 % Sodium 141.0 145 (132-148) mmol/L Potassium 4.9 (3.6-5.0) mmol/L Chloride 100.0 104 (98-107) mmol/L Carbon Dioxide 10 L (21-33) mmol/L Anion Gap 36 H (10-20) BUN 54 H (7-21) mg/dL Creatinine 10.1 H* (0.7-1.2) mg/dl Est GFR ( Amer) 5 Est GFR (Non-Af Amer) 4 Random Glucose 96 (70-110) mg/dL Calcium 8.4 (8.4-10.5) mg/dL Total Bilirubin 1.2 (0.2-1.3) mg/dL AST 133 H D (14-36) U/L ALT 34 (7-56) U/L Alkaline Phosphatase 125 (38-126) U/L Lactate Dehydrogenase 1482 H (333-699) U/L Total Creatine Kinase 383 H (35-230) U/L CK-MB (CK-2) 4.2 H (0.0-3.6) ng/mL CK-MB (CK-2) % Cancelled Troponin I 0.32 H* D ng/mL Total Protein 6.5 (5.8-8.3) g/dL Albumin 3.0 (3.0-4.8) g/dL Globulin 3.4 gm/dL Albumin/Globulin Ratio 0.9 L (1.1-1.8) Venous Blood Potassium 4.9 (3.6-5.2) mmol/L 07/04/17 Range/Units 06:00 WBC 11.1 H (4.5-11.0) 10^3/ul RBC 3.89 (3.5-6.1) 10^6/uL Hgb 10.4 L (12.0-16.0) g/dL Hct 34.8 L (36.0-48.0) % MCV 89.5 (80.0-105.0) fl MCH 26.7 (25.0-35.0) pg MCHC 29.9 L (31.0-37.0) g/dl RDW 17.0 H (11.5-14.5) % Plt Count 121 (120.0-450.0) 10^3/uL MPV 10.0 (7.0-11.0) fl Gran % 90.4 H (50.0-68.0) % Lymph % (Auto) 6.5 L (22.0-35.0) % [place] % (Auto) 3.1 (1.0-6.0) % Eos % (Auto) 0.0 L (1.5-5.0) % Baso % (Auto) 0.0 (0.0-3.0) % Gran # 9.99 H (1.4-6.5) Lymph # 0.7 L (1.2-3.4) [place]ner # 0.3 (0.1-0.6) Eos # 0.0 (0.0-0.7) Baso # 0.00 (0.0-2.0) K/mm3 Neutrophils % (Manual) 90 H (50.0-70.0) % Lymphocytes % (Manual) 6 L (22.0-35.0) % Monocytes % (Manual) 4 (1.0-6.0) % Platelet Evaluation Low (NORMAL) Large Platelets Present Hypochromasia Slight Anisocytosis (manual) Slight pCO2 (35-45) mm/Hg pO2 (30-55) mm/Hg HCO3 (21-28) mmol/L ABG pH (7.35-7.45) ABG Total CO2 (22-28) mmol.L ABG O2 Saturation (95-98) % ABG O2 Content (15-23) ML/dl ABG Base Excess (-2.0-3.0) mmol/L ABG Hemoglobin (11.7-17.4) g/dL ABG Carboxyhemoglobin (0.5-1.5) % POC ABG HHb (Measured) (0-5) % ABG Methemoglobin (0.0-3.0) % ABG O2 Capacity (16-24) mL/dl VBG pH (7.32-7.43) VBG pCO2 (40-60) VBG HCO3 (21-28) mmol/l VBG Total CO2 (22-28) mmol.L VBG O2 Sat (Calc) (40-65) % VBG Base Excess (0.0-2.0) mmol/L VBG Potassium (3.6-5.2) mmol/L Hgb O2 Saturation (95.0-98.0) % Glucose (65-105) mg/dl Lactate (0.7-2.1) mmol/L FiO2 % Sodium (132-148) mmol/L Potassium (3.6-5.0) mmol/L Chloride (98-107) mmol/L Carbon Dioxide (21-33) mmol/L Anion Gap (10-20) BUN (7-21) mg/dL Creatinine (0.7-1.2) mg/dl Est GFR ( Amer) Est GFR (Non-Af Amer) Random Glucose (70-110) mg/dL Calcium (8.4-10.5) mg/dL Total Bilirubin (0.2-1.3) mg/dL AST (14-36) U/L ALT (7-56) U/L Alkaline Phosphatase (38-126) U/L Lactate Dehydrogenase (333-699) U/L Total Creatine Kinase (35-230) U/L CK-MB (CK-2) (0.0-3.6) ng/mL CK-MB (CK-2) % Troponin I ng/mL Total Protein (5.8-8.3) g/dL Albumin (3.0-4.8) g/dL Globulin gm/dL Albumin/Globulin Ratio (1.1-1.8) Venous Blood Potassium (3.6-5.2) mmol/L Laboratory Results - last 24 hr 07/04/17 07/04/17 07/04/17 06:00 06:00 06:45 WBC 11.1 H RBC 3.89 Hgb 10.4 L Hct 34.8 L MCV 89.5 MCH 26.7 MCHC 29.9 L RDW 17.0 H Plt Count 121 MPV 10.0 Gran % 90.4 H Lymph % (Auto) 6.5 L [place]ner % (Auto) 3.1 Eos % (Auto) 0.0 L Baso % (Auto) 0.0 Gran # 9.99 H Lymph # 0.7 L Fa[place]ner # 0.3 Eos # 0.0 Baso # 0.00 Neutrophils % (Manual) 90 H Lymphocytes % (Manual) 6 L Monocytes % (Manual) 4 Platelet Evaluation Low Large Platelets Present Hypochromasia Slight Anisocytosis (manual) Slight pCO2 pO2 81 H HCO3 ABG pH ABG Total CO2 ABG O2 Saturation ABG O2 Content ABG Base Excess ABG Hemoglobin ABG Carboxyhemoglobin POC ABG HHb (Measured) ABG Methemoglobin ABG O2 Capacity VBG pH 7.18 L* VBG pCO2 30.0 L VBG HCO3 11.2 L VBG Total CO2 12.1 L VBG O2 Sat (Calc) 95.8 H VBG Base Excess -15.8 L VBG Potassium 4.9 Hgb O2 Saturation Glucose 101 Lactate 13.3 H* FiO2 21.0 Sodium 145 141.0 Potassium 4.9 Chloride 104 100.0 Carbon Dioxide 10 L Anion Gap 36 H BUN 54 H Creatinine 10.1 H* Est GFR ( Amer) 5 Est GFR (Non-Af Amer) 4 Random Glucose 96 Calcium 8.4 Total Bilirubin 1.2 AST 133 H D ALT 34 Alkaline Phosphatase 125 Lactate Dehydrogenase 1482 H Total Creatine Kinase 383 H CK-MB (CK-2) 4.2 H CK-MB (CK-2) % Cancelled Troponin I 0.32 H* D Total Protein 6.5 Albumin 3.0 Globulin 3.4 Albumin/Globulin Ratio 0.9 L Venous Blood Potassium 4.9 07/04/17 08:00 WBC RBC Hgb Hct MCV MCH MCHC RDW Plt Count MPV Gran % Lymph % (Auto) [place]ner % (Auto) Eos % (Auto) Baso % (Auto) Gran # Lymph # Fa[place]ner # Eos # Baso # Neutrophils % (Manual) Lymphocytes % (Manual) Monocytes % (Manual) Platelet Evaluation Large Platelets Hypochromasia Anisocytosis (manual) pCO2 25 L pO2 148.0 H HCO3 11.7 L ABG pH 7.28 L ABG Total CO2 12.5 L ABG O2 Saturation 99.7 H ABG O2 Content 13.9 L ABG Base Excess -13.5 L ABG Hemoglobin 10.0 L ABG Carboxyhemoglobin 2.0 H POC ABG HHb (Measured) 0.3 ABG Methemoglobin 0.7 ABG O2 Capacity 13.9 L VBG pH VBG pCO2 VBG HCO3 VBG Total CO2 VBG O2 Sat (Calc) VBG Base Excess VBG Potassium Hgb O2 Saturation 97.0 Glucose Lactate FiO2 40.0 Sodium Potassium Chloride Carbon Dioxide Anion Gap BUN Creatinine Est GFR ( Amer) Est GFR (Non-Af Amer) Random Glucose Calcium Total Bilirubin AST ALT Alkaline Phosphatase Lactate Dehydrogenase Total Creatine Kinase CK-MB (CK-2) CK-MB (CK-2) % Troponin I Total Protein Albumin Globulin Albumin/Globulin Ratio Venous Blood Potassium Fingerstick Blood Sugar Results: 114 Review of Systems - Review of Systems Systems not reviewed;Unavailable: Intubated Assessment/Plan - Assessment and Plan (Free Text) Plan: 66 F with a PMH of ESRD on HD, HTN, CHF, afib RVR who is intubated presents with sepsis Neuro: intubated and sedated, maintain normothermia, unable to answer questions Pulm: intubated with vent settings 450, 0, 20, 40%, Maintain SaO2 > 90%, keep head of bed elevated at 30 degrees Cardio: rhythm in sinus tachycardia now, Continue Cardizem, Continue IV fluids ( switched to D5W with HCO3) to increase intravascular volume, Maintain MAP > 65 GI: Protonix Renal: Continue IV fluids - switched to D5W with HCO3, dialysis today, repeat VBG after dialysis Endo: Maintain euglycemia 140-180 Heme: Heparin, Continue IV fluids - switched to D5W with HCO3 ID: Continue IV antibiotics as per ID, Give antibiotic doses after dialysis <Obi Irving - Last Filed: 07/04/17 12:12> CCU Objective - Vital Signs / Intake & Output Intake and Output (Last 8hrs): Intake & Output 07/03/17 07/04/17 07/04/17 22:59 06:59 14:59 Intake Total 345 100.0 Output Total 20 Balance 325 100.0 Weight 189 lb Intake: IV 345 100.0 Right Forearm 30 Right IO 300 Right Upper arm 15 Output: Urine 20 2-way Urethral 20 - Medications Active Medications: Active Medications Generic Name Dose Route Start Last Admin Trade Name Freq PRN Reason Stop Dose Admin Heparin Sodium (Porcine) 5,000 units 07/04/17 10:45 Heparin SC Q12 MARCEL Protocol Propofol 1,000 mg in 100 mls @ 3.538 mls/hr 07/03/17 22:55 07/03/17 23:30 Diprivan IV 3.538 mls/hr .Q24H PRN Administration TITRATE PER MD ORDER Protocol 5 MCG/KG/MIN Fentanyl Citrate 1,000 mcg in 100 mls @ 10 mls/hr 07/04/17 01:20 07/04/17 09: 43 Fentanyl Citrate/Sodium Chloride 1 Mg/100 Ml IV 150 mcg/hr .Q10H PRN 15 mls/hr TITRATE PER MD ORDER Administration Protocol 100 MCG/HR Midazolam 100 mg/100ml in NS 100 mg in 100 mls @ 1 mls/hr 07/04/17 01:19 Midazolam 100 Mg/100ml In Ns IV .Q24H PRN Agitation Protocol 1 MG/HR Sodium Chloride 1,000 mls @ 999 mls/hr 07/04/17 07:30 07/04/17 12:00 Sodium Chloride 0.9% IV 999 mls/hr .Q1H1M MARCEL Administration Meropenem 500 mg/ Sodium 50 mls @ 100 mls/hr 07/04/17 14:00 Chloride IVPB 07/13/17 14:01 Q8 MARCEL Protocol diltiaZEM IVPB 100mg in NS 100 mls @ 5 mls/hr 07/04/17 10:08 Cardizem 100mg In Ns IV .Q20H PRN TITRATE PER MD ORDER Protocol 5 MG/HR Heparin Sodium/Dextrose 25,000 units in 250 mls @ 15.431 mls/hr 07/04/17 10: 10 Heparin 25,000 Units/250ml In D5w IV .[id number] PRN ADJUST RATE PER PROTOCOL Protocol 18 UNITS/KG/HR Sodium Bicarbonate 150 meq/ 1,150 mls @ 150 mls/hr 07/04/17 10:45 07/04/17 12 :00 Dextrose IV 150 mls/hr .Q7H40M MARCEL Administration Sodium Chloride 1,000 mls @ 999 mls/hr 07/04/17 11:41 Sodium Chloride 0.9% IV 12/06/17 12:41 .Q1H1M STA Pantoprazole Sodium 40 mg 07/04/17 10:00 07/04/17 09:42 Protonix Inj IVP 40 mg DAILY MARCEL Administration - Patient Studies Lab Studies: Lab Studies 07/04/17 07/04/17 07/04/17 Range/Units 11:00 10:30 08:00 WBC (4.5-11.0) 10^3/ul RBC (3.5-6.1) 10^6/uL Hgb (12.0-16.0) g/dL Hct (36.0-48.0) % MCV (80.0-105.0) fl MCH (25.0-35.0) pg MCHC (31.0-37.0) g/dl RDW (11.5-14.5) % Plt Count (120.0-450.0) 10^3/uL MPV (7.0-11.0) fl Gran % (50.0-68.0) % Lymph % (Auto) (22.0-35.0) % Fa[place]ner % (Auto) (1.0-6.0) % Eos % (Auto) (1.5-5.0) % Baso % (Auto) (0.0-3.0) % Gran # (1.4-6.5) Lymph # (1.2-3.4) [place]ner # (0.1-0.6) Eos # (0.0-0.7) Baso # (0.0-2.0) K/mm3 Neutrophils % (Manual) (50.0-70.0) % Lymphocytes % (Manual) (22.0-35.0) % Monocytes % (Manual) (1.0-6.0) % Platelet Evaluation (NORMAL) Large Platelets Hypochromasia Anisocytosis (manual) pCO2 25 L (35-45) mm/Hg pO2 73 H 148.0 H (30-55) mm/Hg HCO3 11.7 L (21-28) mmol/L ABG pH 7.28 L (7.35-7.45) ABG Total CO2 12.5 L (22-28) mmol.L ABG O2 Saturation 99.7 H (95-98) % ABG O2 Content 13.9 L (15-23) ML/dl ABG Base Excess -13.5 L (-2.0-3.0) mmol/L ABG Hemoglobin 10.0 L (11.7-17.4) g/dL ABG Carboxyhemoglobin 2.0 H (0.5-1.5) % POC ABG HHb (Measured) 0.3 (0-5) % ABG Methemoglobin 0.7 (0.0-3.0) % ABG O2 Capacity 13.9 L (16-24) mL/dl VBG pH 7.32 (7.32-7.43) VBG pCO2 35.0 L (40-60) VBG HCO3 18.0 L (21-28) mmol/l VBG Total CO2 19.1 L (22-28) mmol.L VBG O2 Sat (Calc) 95.3 H (40-65) % VBG Base Excess -7.3 L (0.0-2.0) mmol/L VBG Potassium 4.6 (3.6-5.2) mmol/L Hgb O2 Saturation 97.0 (95.0-98.0) % Glucose 104 (65-105) mg/dl Lactate 5.6 H* (0.7-2.1) mmol/L FiO2 21.0 40.0 % Sodium 141.0 (132-148) mmol/L Potassium (3.6-5.0) mmol/L Chloride 104.0 (98-107) mmol/L Carbon Dioxide (21-33) mmol/L Anion Gap (10-20) BUN (7-21) mg/dL Creatinine (0.7-1.2) mg/dl Est GFR ( Amer) Est GFR (Non-Af Amer) Random Glucose (70-110) mg/dL Calcium (8.4-10.5) mg/dL Total Bilirubin (0.2-1.3) mg/dL AST (14-36) U/L ALT (7-56) U/L Alkaline Phosphatase (38-126) U/L Lactate Dehydrogenase (333-699) U/L Total Creatine Kinase (35-230) U/L CK-MB (CK-2) (0.0-3.6) ng/mL CK-MB (CK-2) % Troponin I ng/mL Total Protein (5.8-8.3) g/dL Albumin (3.0-4.8) g/dL Globulin gm/dL Albumin/Globulin Ratio (1.1-1.8) Venous Blood Potassium 4.6 (3.6-5.2) mmol/L Urine Color Light yellow (YELLOW) Urine Appearance Cloudy (CLEAR) Urine pH 7.5 (4.7-8.0) Ur Specific [place] 1.020 (1.005-1.035) Urine Protein >=300 H (<30 mg/dL) mg/dL Urine Glucose (UA) Negative (NEGATIVE) mg/dL Urine Ketones Trace H (NEGATIVE) mg/dL Urine Blood Large H (NEGATIVE) Urine Nitrate Positive H (NEGATIVE) Urine Bilirubin Small H (NEGATIVE) Urine Urobilinogen 0.2 (<1 E.U./dL) E.U./dL Ur Leukocyte Esterase Large H (NEGATIVE) Lauri/uL Urine RBC 15 - 20 (0-2) /hpf Urine WBC Tntc (0-6) /hpf Ur Epithelial Cells 3 - 4 (0-5) /hpf Urine Bacteria Many (NEG) 07/04/17 07/04/17 07/04/17 Range/Units 06:45 06:00 06:00 WBC 11.1 H (4.5-11.0) 10^3/ul RBC 3.89 (3.5-6.1) 10^6/uL Hgb 10.4 L (12.0-16.0) g/dL Hct 34.8 L (36.0-48.0) % MCV 89.5 (80.0-105.0) fl MCH 26.7 (25.0-35.0) pg MCHC 29.9 L (31.0-37.0) g/dl RDW 17.0 H (11.5-14.5) % Plt Count 121 (120.0-450.0) 10^3/uL MPV 10.0 (7.0-11.0) fl Gran % 90.4 H (50.0-68.0) % Lymph % (Auto) 6.5 L (22.0-35.0) % Fa[place]ner % (Auto) 3.1 (1.0-6.0) % Eos % (Auto) 0.0 L (1.5-5.0) % Baso % (Auto) 0.0 (0.0-3.0) % Gran # 9.99 H (1.4-6.5) Lymph # 0.7 L (1.2-3.4) [place]ner # 0.3 (0.1-0.6) Eos # 0.0 (0.0-0.7) Baso # 0.00 (0.0-2.0) K/mm3 Neutrophils % (Manual) 90 H (50.0-70.0) % Lymphocytes % (Manual) 6 L (22.0-35.0) % Monocytes % (Manual) 4 (1.0-6.0) % Platelet Evaluation Low (NORMAL) Large Platelets Present Hypochromasia Slight Anisocytosis (manual) Slight pCO2 (35-45) mm/Hg pO2 81 H (30-55) mm/Hg HCO3 (21-28) mmol/L ABG pH (7.35-7.45) ABG Total CO2 (22-28) mmol.L ABG O2 Saturation (95-98) % ABG O2 Content (15-23) ML/dl ABG Base Excess (-2.0-3.0) mmol/L ABG Hemoglobin (11.7-17.4) g/dL ABG Carboxyhemoglobin (0.5-1.5) % POC ABG HHb (Measured) (0-5) % ABG Methemoglobin (0.0-3.0) % ABG O2 Capacity (16-24) mL/dl VBG pH 7.18 L* (7.32-7.43) VBG pCO2 30.0 L (40-60) VBG HCO3 11.2 L (21-28) mmol/l VBG Total CO2 12.1 L (22-28) mmol.L VBG O2 Sat (Calc) 95.8 H (40-65) % VBG Base Excess -15.8 L (0.0-2.0) mmol/L VBG Potassium 4.9 (3.6-5.2) mmol/L Hgb O2 Saturation (95.0-98.0) % Glucose 101 (65-105) mg/dl Lactate 13.3 H* (0.7-2.1) mmol/L FiO2 21.0 % Sodium 141.0 145 (132-148) mmol/L Potassium 4.9 (3.6-5.0) mmol/L Chloride 100.0 104 (98-107) mmol/L Carbon Dioxide 10 L (21-33) mmol/L Anion Gap 36 H (10-20) BUN 54 H (7-21) mg/dL Creatinine 10.1 H* (0.7-1.2) mg/dl Est GFR ( Amer) 5 Est GFR (Non-Af Amer) 4 Random Glucose 96 (70-110) mg/dL Calcium 8.4 (8.4-10.5) mg/dL Total Bilirubin 1.2 (0.2-1.3) mg/dL AST 133 H D (14-36) U/L ALT 34 (7-56) U/L Alkaline Phosphatase 125 (38-126) U/L Lactate Dehydrogenase 1482 H (333-699) U/L Total Creatine Kinase 383 H (35-230) U/L CK-MB (CK-2) 4.2 H (0.0-3.6) ng/mL CK-MB (CK-2) % Cancelled Troponin I 0.32 H* D ng/mL Total Protein 6.5 (5.8-8.3) g/dL Albumin 3.0 (3.0-4.8) g/dL Globulin 3.4 gm/dL Albumin/Globulin Ratio 0.9 L (1.1-1.8) Venous Blood Potassium 4.9 (3.6-5.2) mmol/L Urine Color (YELLOW) Urine Appearance (CLEAR) Urine pH (4.7-8.0) Ur Specific [place] (1.005-1.035) Urine Protein (<30 mg/dL) mg/dL Urine Glucose (UA) (NEGATIVE) mg/dL Urine Ketones (NEGATIVE) mg/dL Urine Blood (NEGATIVE) Urine Nitrate (NEGATIVE) Urine Bilirubin (NEGATIVE) Urine Urobilinogen (<1 E.U./dL) E.U./dL Ur Leukocyte Esterase (NEGATIVE) Lauri/uL Urine RBC (0-2) /hpf Urine WBC (0-6) /hpf Ur Epithelial Cells (0-5) /hpf Urine Bacteria (NEG) Laboratory Results - last 24 hr 07/04/17 07/04/17 07/04/17 06:00 06:00 06:45 WBC 11.1 H RBC 3.89 Hgb 10.4 L Hct 34.8 L MCV 89.5 MCH 26.7 MCHC 29.9 L RDW 17.0 H Plt Count 121 MPV 10.0 Gran % 90.4 H Lymph % (Auto) 6.5 L [place] % (Auto) 3.1 Eos % (Auto) 0.0 L Baso % (Auto) 0.0 Gran # 9.99 H Lymph # 0.7 L [place] # 0.3 Eos # 0.0 Baso # 0.00 Neutrophils % (Manual) 90 H Lymphocytes % (Manual) 6 L Monocytes % (Manual) 4 Platelet Evaluation Low Large Platelets Present Hypochromasia Slight Anisocytosis (manual) Slight pCO2 pO2 81 H HCO3 ABG pH ABG Total CO2 ABG O2 Saturation ABG O2 Content ABG Base Excess ABG Hemoglobin ABG Carboxyhemoglobin POC ABG HHb (Measured) ABG Methemoglobin ABG O2 Capacity VBG pH 7.18 L* VBG pCO2 30.0 L VBG HCO3 11.2 L VBG Total CO2 12.1 L VBG O2 Sat (Calc) 95.8 H VBG Base Excess -15.8 L VBG Potassium 4.9 Hgb O2 Saturation Glucose 101 Lactate 13.3 H* FiO2 21.0 Sodium 145 141.0 Potassium 4.9 Chloride 104 100.0 Carbon Dioxide 10 L Anion Gap 36 H BUN 54 H Creatinine 10.1 H* Est GFR ( Amer) 5 Est GFR (Non-Af Amer) 4 Random Glucose 96 Calcium 8.4 Total Bilirubin 1.2 AST 133 H D ALT 34 Alkaline Phosphatase 125 Lactate Dehydrogenase 1482 H Total Creatine Kinase 383 H CK-MB (CK-2) 4.2 H CK-MB (CK-2) % Cancelled Troponin I 0.32 H* D Total Protein 6.5 Albumin 3.0 Globulin 3.4 Albumin/Globulin Ratio 0.9 L Venous Blood Potassium 4.9 Urine Color Urine Appearance Urine pH Ur Specific [place] Urine Protein Urine Glucose (UA) Urine Ketones Urine Blood Urine Nitrate Urine Bilirubin Urine Urobilinogen Ur Leukocyte Esterase Urine RBC Urine WBC Ur Epithelial Cells Urine Bacteria 07/04/17 07/04/17 07/04/17 08:00 10:30 11:00 WBC RBC Hgb Hct MCV MCH MCHC RDW Plt Count MPV Gran % Lymph % (Auto) Fa[place]ner % (Auto) Eos % (Auto) Baso % (Auto) Gran # Lymph # [place] # Eos # Baso # Neutrophils % (Manual) Lymphocytes % (Manual) Monocytes % (Manual) Platelet Evaluation Large Platelets Hypochromasia Anisocytosis (manual) pCO2 25 L pO2 148.0 H 73 H HCO3 11.7 L ABG pH 7.28 L ABG Total CO2 12.5 L ABG O2 Saturation 99.7 H ABG O2 Content 13.9 L ABG Base Excess -13.5 L ABG Hemoglobin 10.0 L ABG Carboxyhemoglobin 2.0 H POC ABG HHb (Measured) 0.3 ABG Methemoglobin 0.7 ABG O2 Capacity 13.9 L VBG pH 7.32 VBG pCO2 35.0 L VBG HCO3 18.0 L VBG Total CO2 19.1 L VBG O2 Sat (Calc) 95.3 H VBG Base Excess -7.3 L VBG Potassium 4.6 Hgb O2 Saturation 97.0 Glucose 104 Lactate 5.6 H* FiO2 40.0 21.0 Sodium 141.0 Potassium Chloride 104.0 Carbon Dioxide Anion Gap BUN Creatinine Est GFR ( Amer) Est GFR (Non-Af Amer) Random Glucose Calcium Total Bilirubin AST ALT Alkaline Phosphatase Lactate Dehydrogenase Total Creatine Kinase CK-MB (CK-2) CK-MB (CK-2) % Troponin I Total Protein Albumin Globulin Albumin/Globulin Ratio Venous Blood Potassium 4.6 Urine Color Light yellow Urine Appearance Cloudy Urine pH 7.5 Ur Specific [place] 1.020 Urine Protein >=300 H Urine Glucose (UA) Negative Urine Ketones Trace H Urine Blood Large H Urine Nitrate Positive H Urine Bilirubin Small H Urine Urobilinogen 0.2 Ur Leukocyte Esterase Large H Urine RBC 15 - 20 Urine WBC Tntc Ur Epithelial Cells 3 - 4 Urine Bacteria Many Assessment/Plan - Assessment and Plan (Free Text) Plan: 12:06PM Patient seen and examined, on rounds with resident, agree with note with following additions exceptions: Patient is 66yo female with PMHx of ESRD on HD, non compliant, show sup to HD once per week, HTN, CHF, Afib a/w septic shock, of unknown source, lactic acidosis, worsening renal failure, and Afib with RVR. Currently intubated, sedated, on PRVC 20/5/450/40%, O2 sat 100%, MAP ranging 65-75 off vasopressor support. Lactate slowly clearing 14-->13-->5, afebrile, HD stable. Persistent lactic acidosis likely 2/2 Sepsis, although other causes such ongoing ischemia cannot be ruled out at this point. Pt needs HD, renal consulted, aware, will set up HD Currently in NSR Septic Shock Metabolic Acidosis Lactic Acidosis ESRD, on HD Respiratory failure Recommend: - cont with ventilatory support, PRVC 20/5/450/40%, adequate oxygenation, ABG with compensated met acidosis - broad spectrum IV Abx, Vanco, Merrem, AZithro - ID consult - follow up cultures - check procalcitonin - may need TLC, DC I/O line - Follow up cardiology - hold BP meds - would bolus NS 2L x 1 - cont with Bicarb drip D5W with 3amps BICARB - follow up renal - FS control - GI ppx - repeat lactate After HD - dose Abx appropriately after HD - DVT ppx Critical care time 55 minutes
[2017-07-04 10:50] LABS: URINE APPEARANCE CLOUDY (CLEAR); URINE COLOR LIGHT YELLOW (YELLOW)
[2017-07-04 10:56] LABS: URINE BACTERIA MANY (NEG); URINE RBC 15 - 20 /hpf (0-2); URINE WBC TNTC /hpf (0-6)
[2017-07-04 11:10] LABS: VENOUS BLOOD GAS BASE EXCESS -7.3 mmol/L (0.0-2.0); VENOUS BLOOD PH 7.32 (7.32-7.43)
[2017-07-04] MEDS ORDERED: Sodium Chloride 0.9% 1,000 ML IV STA (11:41)
[2017-07-04] MEDS: Sodium Bicarbonate 8.4% 150 MEQ in Dextrose 5% In Water 1,000 ML IV SCH ×2 (12:00→20:29)
--- NOTE | 2017-07-04 13:46 | CARD ---
APPROVED REPORT EKG Measurement Heart [id number] <Conclusion> Atrial fibrillation with rapid ventricular response Left axis deviation Right bundle branch block Anteroseptal infarct, age undetermined Abnormal ECG
--- NOTE | 2017-07-04 13:57 | CP.PCM.CON ---
History of Present Illness - History of Present Illness History of Present Illness: Palliative consult requested by Dr Irving copied to Dr Ravi Beverly 66 year old female with history of dilated cardiomyopathy, ESRD who presented with altered mental status and respiratory distress. Daughter states that patient has not been going for her dialysis treatments. She was last dialyzed on 06/03/17. Daughter also reports the patient has a non productive cough. CT of head showed non specific white matter changes, otherwise no acute findings. Chest x ray small left pleural effusion, cardiomegaly. Labs; Wbc 11, Hgb, BUN 51 , Creat.10.8, AST. 144, Alk. Phos. 139,Troponin 0.16, Lactate 14.1 PMHx: ESRD dialysis dependent, dilated cardiomyopathy, CHF,DM,left BKA,CVA with left sided weakness,HTN,anemia, sacral decubiti. Social History: Non smoker, no alcohol or drug use.Lives with daughter's Annelise Ybarra and Awilda Roach. Family History:Unknown Advance Care Planning: The patient has an Advance Directive on the chart dated . daughter states that patient had revoked this Directive. Review of Systems: As per HPI, patient is intubated, unable to obtain. Past Patient History - Infectious Disease Hx of Infectious Diseases: None - Tetanus Immunizations Tetanus Immunization: Unknown - Past Medical History & Family History Past Medical History?: Yes - Past Social History Smoking Status: Never Smoked - CARDIAC Hx Cardiac Disorders: Yes Hx Congestive Heart Failure: Yes Hx Pacemaker: No - PULMONARY Hx Respiratory Disorders: Yes Hx Asthma: Yes Hx Bronchitis: Yes - NEUROLOGICAL Hx Neurological Disorder: No Hx Paralysis: No - HEENT Hx HEENT Problems: Yes (uses eyeglasses for reading) - RENAL Hx Dialysis: Yes Hx Renal Failure: Yes - ENDOCRINE/METABOLIC Hx Endocrine Disorders: Yes Hx Diabetes Mellitus Type 2: Yes Hx Hypothyroidism: Yes - HEMATOLOGICAL/ONCOLOGICAL Hx Blood Transfusions: Yes (11/26/15) Hx Blood Transfusion Reaction: No - INTEGUMENTARY Hx Dermatological Problems: Yes (RCW PERMACATH,LEFT UPPER ARM PICC) - MUSCULOSKELETAL/RHEUMATOLOGICAL Hx Musculoskeletal Disorders: No - GASTROINTESTINAL Hx Gastrointestinal Disorders: No - GENITOURINARY/GYNECOLOGICAL Hx Genitourinary Disorders: No - PSYCHIATRIC Hx Emotional Abuse: No Hx Physical Abuse: No Hx Substance Use: No - SURGICAL HISTORY Other/Comment: L BKA - ANESTHESIA Hx Anesthesia: Yes Hx Anesthesia Reactions: No Hx Malignant Hyperthermia: No Meds Allergies/Adverse Reactions: Allergies Allergy/AdvReac Type Severity Reaction Status Date / Time shellfish derived Allergy ITCHING Verified 07/03/17 21:31 - Medications Medications: Current Medications Heparin Sodium (Porcine) (Heparin) 5,000 units SC Q12 MARCEL PRN Reason: Protocol Propofol (Diprivan) 1,000 mg in 100 mls @ 3.538 mls/hr IV .Q24H PRN; Protocol; 5 MCG/KG/MIN PRN Reason: TITRATE PER MD ORDER Last Admin: 07/03/17 23:30 Dose: 3.538 mls/hr Fentanyl Citrate (Fentanyl Citrate/Sodium Chloride 1 Mg/100 Ml) 1,000 mcg in 100 mls @ 10 mls/hr IV .Q10H PRN; Protocol; 100 MCG/HR PRN Reason: TITRATE PER MD ORDER Last Admin: 07/04/17 09:43 Dose: 150 mcg/hr, 15 mls/hr Midazolam 100 mg/100ml in NS (Midazolam 100 Mg/100ml In Ns) 100 mg in 100 mls @ 1 mls/hr IV .Q24H PRN; Protocol; 1 MG/HR PRN Reason: Agitation Sodium Chloride (Sodium Chloride 0.9%) 1,000 mls @ 999 mls/hr IV .Q1H1M [facility] Last Admin: 07/04/17 12:00 Dose: 999 mls/hr Meropenem 500 mg/ Sodium (Chloride) 50 mls @ 100 mls/hr IVPB Q8 MARCEL PRN Reason: Protocol Stop: 07/13/17 14:01 diltiaZEM IVPB 100mg in NS (Cardizem 100mg In Ns) 100 mls @ 5 mls/hr IV .Q20H PRN; Protocol; 5 MG/HR PRN Reason: TITRATE PER MD ORDER Heparin Sodium/Dextrose (Heparin 25,000 Units/250ml In D5w) 25,000 units in 250 mls @ 15.431 mls/hr IV .[id number] PRN; Protocol; 18 UNITS/KG/HR PRN Reason: ADJUST RATE PER PROTOCOL Last Admin: 07/04/17 12:30 Dose: 18 units/kg/hr, 15.431 mls/hr Sodium Bicarbonate 150 meq/ (Dextrose) 1,150 mls @ 150 mls/hr IV .Q7H40M [facility] Last Admin: 07/04/17 12:00 Dose: 150 mls/hr Pantoprazole Sodium (Protonix Inj) 40 mg IVP DAILY [facility] Last Admin: 07/04/17 09:42 Dose: 40 mg Physical Exam - Constitutional Appears: Chronically Ill - Eye Exam Eye Exam: Normal appearance, PERRL - ENT Exam ENT Exam: Mucous Membranes Moist - Respiratory Exam Respiratory Exam: Decreased Breath Sounds, Rhonchi Additional comments: intubated - Cardiovascular Exam Cardiovascular Exam: Tachycardia, +S1, +S2 - GI/Abdominal Exam GI & Abdominal Exam: Distended, Hypoactive Bowel Sounds, Soft - Extremities Exam Additional comments: left BKA - Neurological Exam Additional comments: sedated - Skin Skin Exam: Dry, Warm - Additional Findings Additional findings: Palliative performance scale rating 30% Results - Vital Signs Recent Vital Signs: Last Vital Signs Temp 98.7 F 07/04/17 03:44 Pulse 113 H 07/04/17 06:30 Resp 24 07/04/17 07:26 BP 99/72 L 07/04/17 06:16 Pulse Ox 96 07/04/17 07:26 - Labs Result Diagrams: 07/04/17 06:00 07/04/17 06:00 Labs: Laboratory Results - last 24 hr 07/04/17 07/04/17 07/04/17 06:00 06:00 06:45 WBC 11.1 H RBC 3.89 Hgb 10.4 L Hct 34.8 L MCV 89.5 MCH 26.7 MCHC 29.9 L RDW 17.0 H Plt Count 121 MPV 10.0 Gran % 90.4 H Lymph % (Auto) 6.5 L [place] % (Auto) 3.1 Eos % (Auto) 0.0 L Baso % (Auto) 0.0 Gran # 9.99 H Lymph # 0.7 L [place] # 0.3 Eos # 0.0 Baso # 0.00 Neutrophils % (Manual) 90 H Lymphocytes % (Manual) 6 L Monocytes % (Manual) 4 Platelet Evaluation Low Large Platelets Present Hypochromasia Slight Anisocytosis (manual) Slight pCO2 pO2 81 H HCO3 ABG pH ABG Total CO2 ABG O2 Saturation ABG O2 Content ABG Base Excess ABG Hemoglobin ABG Carboxyhemoglobin POC ABG HHb (Measured) ABG Methemoglobin ABG O2 Capacity VBG pH 7.18 L* VBG pCO2 30.0 L VBG HCO3 11.2 L VBG Total CO2 12.1 L VBG O2 Sat (Calc) 95.8 H VBG Base Excess -15.8 L VBG Potassium 4.9 Hgb O2 Saturation Glucose 101 Lactate 13.3 H* FiO2 21.0 Sodium 145 141.0 Potassium 4.9 Chloride 104 100.0 Carbon Dioxide 10 L Anion Gap 36 H BUN 54 H Creatinine 10.1 H* Est GFR ( Amer) 5 Est GFR (Non-Af Amer) 4 Random Glucose 96 Calcium 8.4 Total Bilirubin 1.2 AST 133 H D ALT 34 Alkaline Phosphatase 125 Lactate Dehydrogenase 1482 H Total Creatine Kinase 383 H CK-MB (CK-2) 4.2 H CK-MB (CK-2) % Cancelled Troponin I 0.32 H* D Total Protein 6.5 Albumin 3.0 Globulin 3.4 Albumin/Globulin Ratio 0.9 L Venous Blood Potassium 4.9 Urine Color Urine Appearance Urine pH Ur Specific Steele Urine Protein Urine Glucose (UA) Urine Ketones Urine Blood Urine Nitrate Urine Bilirubin Urine Urobilinogen Ur Leukocyte Esterase Urine RBC Urine WBC Ur Epithelial Cells Urine Bacteria 07/04/17 07/04/17 07/04/17 08:00 10:30 11:00 WBC RBC Hgb Hct MCV MCH MCHC RDW Plt Count MPV Gran % Lymph % (Auto) [place] % (Auto) Eos % (Auto) Baso % (Auto) Gran # Lymph # [place] # Eos # Baso # Neutrophils % (Manual) Lymphocytes % (Manual) Monocytes % (Manual) Platelet Evaluation Large Platelets Hypochromasia Anisocytosis (manual) pCO2 25 L pO2 148.0 H 73 H HCO3 11.7 L ABG pH 7.28 L ABG Total CO2 12.5 L ABG O2 Saturation 99.7 H ABG O2 Content 13.9 L ABG Base Excess -13.5 L ABG Hemoglobin 10.0 L ABG Carboxyhemoglobin 2.0 H POC ABG HHb (Measured) 0.3 ABG Methemoglobin 0.7 ABG O2 Capacity 13.9 L VBG pH 7.32 VBG pCO2 35.0 L VBG HCO3 18.0 L VBG Total CO2 19.1 L VBG O2 Sat (Calc) 95.3 H VBG Base Excess -7.3 L VBG Potassium 4.6 Hgb O2 Saturation 97.0 Glucose 104 Lactate 5.6 H* FiO2 40.0 21.0 Sodium 141.0 Potassium Chloride 104.0 Carbon Dioxide Anion Gap BUN Creatinine Est GFR ( Amer) Est GFR (Non-Af Amer) Random Glucose Calcium Total Bilirubin AST ALT Alkaline Phosphatase Lactate Dehydrogenase Total Creatine Kinase CK-MB (CK-2) CK-MB (CK-2) % Troponin I Total Protein Albumin Globulin Albumin/Globulin Ratio Venous Blood Potassium 4.6 Urine Color Light yellow Urine Appearance Cloudy Urine pH 7.5 Ur Specific Steele 1.020 Urine Protein >=300 H Urine Glucose (UA) Negative Urine Ketones Trace H Urine Blood Large H Urine Nitrate Positive H Urine Bilirubin Small H Urine Urobilinogen 0.2 Ur Leukocyte Esterase Large H Urine RBC 15 - 20 Urine WBC Tntc Ur Epithelial Cells 3 - 4 Urine Bacteria Many Assessment & Plan - Assessment and Plan (Free Text) Assessment: 66 year old female with hsitry of ESRD,DM,HT, CHF, A fib and cardiomyopathy admitted with altered mental status, respiratory failure secondary to sepsis. The patient is known to me from previous admission. The patient has an Advanced Directive in which she requested no CPR/intubation or other interventions if her condition was terminal or irreversible. I spoke with daughter Annelise via phone. Daughter inferred that patient revoked the advance directive. During our conversation, I asked Annelise why her mother had not been keeping her dialysis appointments. Daughter states that her mother was tired of the treatments and that they caused her to be in a great deal of pain. I explained that many patients make a conscious decision to stop dialysis treatments when the side effects become too burdensome and interfere with quality of life. Daughter states she understands this. Daughter made aware that her mother is critically ill and may not rebound despite medical treatment.Burdens of medical interventions explained in detail. Daughter asked to consider making her mother DNR. Psychosocial support given Time spent in goals of care discussion 30 minutes Plan: Palliative support in establishing goals of care
--- NOTE | 2017-07-04 14:30 | CON ---
DATE: CONSULT SERVICE: Cardiology. REASON FOR CONSULTATION AND FOLLOWUP: Respiratory failure and cardiac evaluation. BRIEF CLINICAL HISTORY: This is a 66-year-old female with past medical history of end-stage renal disease on dialysis Sunday, , and Sunday, hypertension, and CHF, ejection fraction severely decreased 15%. Came in with her daughter because of altered mental status who was in severe respiratory distress requiring intubation. Intubated in ER. Currently, the patient is intubated and seen in ICU. Awake and alert. Denies any chest pain, shortness of breath or any palpitation. PAST MEDICAL HISTORY: Significant for end-stage cardiomyopathy, end-stage renal disease, and severely decreased LV function. SOCIAL HISTORY: Denies any history of smoking. Denies any history of alcohol abuse. CURRENT MEDICATIONS: Unobtainable. REVIEW OF SYSTEMS: As per HPI. PHYSICAL EXAMINATION: VITAL SIGNS: As follows, temperature afebrile, heart rate 113, and blood pressure 190/72. HEENT: PERRLA. Extraocular muscles intact. NECK: Supple. No carotid bruits or thyromegaly. CHEST: Clear to auscultation. HEART: S1 and S2 regular. ABDOMEN: Soft. EXTREMITIES: Clubbing and cyanosis negative. LABORATORY DATA: Blood workup as follows; WBC 11.1, hemoglobin 10.4, hematocrit 34.8, and platelet count 121. Chemistry shows sodium 145, potassium 4.9, chloride 104, carbon dioxide 10, anion gap of 36, BUN 54, and creatinine 10.1. Troponin is 0.32. EKG shows atrial fibrillation with rapid ventricular rate. IMPRESSION: Atrial fibrillation with rapid ventricular rate, status post respiratory failure, pulmonary edema, end-stage renal disease on dialysis, hypertension, and cardiomyopathy. RECOMMENDATIONS: We will start IV Cardizem. Continue vent management, try to wean off vent as tolerated. Get echo to assess LV function. We will follow with you. We will review once the patient get extubated. Any recent catheterization was done and if not done, may consider later on cardiac catheterization. We will look the chart, as currently the system is down and we are not getting more information. We will follow with you. Adelina Ray MD
[2017-07-04] MEDS: NOREPINEPHRINE BIT/0.9 % NACL 4 MG/250 ML BAG IV PRN ×3 (14:33→22:22)
--- NOTE | 2017-07-04 15:04 | PCM.PROC ---
Procedures Attestation:: I certify that I have explained the specified Operation(s) or Procedure(s), risks, benefits and reasonable alternatives to the Patient and/or other person responsible. The opportunity was given to ask questions and all questions answered - Central Line Placement Left Internal Jugular Triple Lumen Catheter Aseptic technique was employed throughout the procedure: Hand Hygiene done prior to procedure, Full sterile barriers (mask, hair cover, sterile gown, sterile gloves), Chloraprep Antiseptic: 30 second prep for IJ or SC sites CVP Time Out Performed: Yes Pt. Placed on Pulse Ox Monitor: Yes Central Line Prep: Chlorhexidine-Alcohol Combination Local Anesthesia Used: Lidocaine 1% Amount of Anesthesia Used (mls): 4 Ultrasound Used for Placement: Yes Central Line Lumen Inserted: triple Central Line Length: 20 cm Post Procedure: Sutured in Place, Good Blood Return, All Ports Aspirated, Flushed, Capped, Sterile Dressing Applied Secured by: Securement device Post procedure dressing: Clear vapor permeable, Chlorhexidine disc (Biopatch) Post Procedure X-Ray: Yes Patient Tolerated Procedure: Well Immediate Complications: None
--- NOTE | 2017-07-04 15:08 | HP ---
HISTORY OF PRESENT ILLNESS: I know Orly for many years. I got to notice that she was in the Intensive Care Unit, intubated. She is a 66-year-old who presented to the emergency room in acute respiratory distress, altered mental status, and need of intubation. She was intubated in the emergency room, also persistent cough. She was fully dialyzed on 06/03/2017. PAST MEDICAL HISTORY: She has a past medical history of end stage renal disease, on hemodialysis; diabetes; peripheral vascular disease; congestive heart failure; asthma; bronchitis. She had blood transfusion in the past for anemia. There is a Perm-A-Cath and a left upper arm PICC line. She had a left BKA. FAMILY HISTORY: Diabetes in the family. SOCIAL HISTORY: Never smoked. No alcohol. No drugs. ALLERGIES: SHE HAS ALLERGIES TO SHELLFISH. MEDICATIONS: She is on numerous medications, none brought in by the family. REVIEW OF SYSTEMS: She has altered mental status and she is intubated right now, but she was short of breath. PHYSICAL EXAMINATION: GENERAL: She is tachypneic, ill-appearing, lethargic, now she is intubated. VITAL SIGNS: She has 137 pulse, 31 respiratory rate, 100/55 blood pressure, and 100% O2 saturation on oxygen. HEENT: Head is atraumatic and normocephalic. HEART: Regular rate. Normal S1 and S2. LUNGS: Decreased breath sounds, but clear on ventilation. ABDOMEN: Soft, at least no apparent tenderness. She is obese. Positive bowel sounds. EXTREMITIES: Left BKA. No edema of the extremities. LABORATORY DATA: She had multiple tests, white count 11.1, hemoglobin 10.4, hematocrit 34.8 with a platelets 121. INR is 1.62. Blood gas had a pH of 7.1. She was intubated. Lactate was 14.1. She has 146 sodium, potassium 4.6, BUN 61, creatinine 10.8, on dialysis, GFR is 4, sugar is 128, calcium is 9.3, phosphorus is 10.5, and magnesium 2.5. AST is 44, ALT 11, and alkaline phosphatase 139. Troponins are elevated at 0.16 and 0.32. She has consults with Cardiology, Renal, and Pulmonary. We will continue with aggressive treatment and care. MEDICATIONS: She is on Cardizem drip, fentanyl patch, Merrem, Diprivan, Protonix, IV fluids, vancomycin, and midazolam. ASSESSMENT AND PLAN: She has acute respiratory failure; end stage renal disease, on hemodialysis; congestive heart failure, altered mental status; possible [id number] myocardial infarction. Terrence Beverly DO
--- NOTE | 2017-07-04 15:14 | CP.PCM.PN ---
Subjective - Date & Time of Evaluation Date of Evaluation: 07/04/17 Time of Evaluation: 13:00 - Subjective Subjective: ICU Progress note Discussed at approximately 1pm with patient's daughter, Annelise Ybarra regarding the need for central line placement due to poor venous access and need for pressors. Explained to patient's daughter regarding the risks, benefits and alternative regarding central line placement. Patient's daughter stated she may need to discuss with family members prior to giving consent and requested call back. Stressed importance of central line placement however agreed to call back. As discussed, called back patient's daughter at approximately 2pm reiterating importance of line placement and again discussing the risks, benefits and alternatives. Annelise agreed to give consent which was verified by telephone by nursing staff. Objective - Vital Signs/Intake and Output Vital Signs (last 24 hours): Temp Pulse Resp BP Pulse Ox 98.7 F 113 H 24 99/72 L 96 07/04/17 03:44 07/04/17 06:30 07/04/17 07:26 07/04/17 06:16 07/04/17 07:26 Intake and Output: 07/04/17 07/04/17 06:59 18:59 Intake Total 345 104.0 Output Total 20 Balance 325 104.0 - Medications Medications: Current Medications Heparin Sodium (Porcine) (Heparin) 5,000 units SC Q12 MARCEL PRN Reason: Protocol Last Admin: 07/04/17 14:02 Dose: Not Given Propofol (Diprivan) 1,000 mg in 100 mls @ 3.538 mls/hr IV .Q24H PRN; Protocol; 5 MCG/KG/MIN PRN Reason: TITRATE PER MD ORDER Last Admin: 07/03/17 23:30 Dose: 3.538 mls/hr Fentanyl Citrate (Fentanyl Citrate/Sodium Chloride 1 Mg/100 Ml) 1,000 mcg in 100 mls @ 10 mls/hr IV .Q10H PRN; Protocol; 100 MCG/HR PRN Reason: TITRATE PER MD ORDER Last Admin: 07/04/17 09:43 Dose: 150 mcg/hr, 15 mls/hr Midazolam 100 mg/100ml in NS (Midazolam 100 Mg/100ml In Ns) 100 mg in 100 mls @ 1 mls/hr IV .Q24H PRN; Protocol; 1 MG/HR PRN Reason: Agitation Sodium Chloride (Sodium Chloride 0.9%) 1,000 mls @ 999 mls/hr IV .Q1H1M [facility]EL Last Admin: 07/04/17 12:00 Dose: 999 mls/hr Meropenem 500 mg/ Sodium (Chloride) 50 mls @ 100 mls/hr IVPB Q8 MARCEL PRN Reason: Protocol Stop: 07/13/17 14:01 diltiaZEM IVPB 100mg in NS (Cardizem 100mg In Ns) 100 mls @ 5 mls/hr IV .Q20H PRN; Protocol; 5 MG/HR PRN Reason: TITRATE PER MD ORDER Heparin Sodium/Dextrose (Heparin 25,000 Units/250ml In D5w) 25,000 units in 250 mls @ 15.431 mls/hr IV .[id number] PRN; Protocol; 18 UNITS/KG/HR PRN Reason: ADJUST RATE PER PROTOCOL Last Admin: 07/04/17 12:30 Dose: 18 units/kg/hr, 15.431 mls/hr Sodium Bicarbonate 150 meq/ (Dextrose) 1,150 mls @ 150 mls/hr IV .Q7H40M [facility] Last Admin: 07/04/17 12:00 Dose: 150 mls/hr NOREPINEPHRINE BIT/0.9 % NACL (Levophed 4 Mg/ 250 Ml Ns Premixed) 4 mg in 250 mls @ 15 mls/hr IV .[id number] PRN; Protocol; 4 MCG/MIN PRN Reason: TITRATE PER MD ORDER Last Titration: 07/04/17 14:34 Dose: 8 mcg/min, 30 mls/hr Pantoprazole Sodium (Protonix Inj) 40 mg IVP DAILY [facility] Last Admin: 07/04/17 09:42 Dose: 40 mg - Labs Labs: 07/04/17 06:00 07/04/17 06:00 PT 17.8 SECONDS (9.4-12.5) H 07/03/17 22:22 INR 1.62 (0.93-1.08) H 07/03/17 22:22 APTT 34.4 Seconds (25.1-36.5) 07/03/17 22:22
[2017-07-04] MEDS: Dextrose 50% SYRINGE Inj (50 ml) IVP ONE ×4 (15:42→18:15)
--- NOTE | 2017-07-04 15:47 | RAD ---
HISTORY: central line placement COMPARISON: 07/04/2017 at 0759 hours FINDINGS: LUNGS: No interval consolidation. Limited visualization of the left lung base -probably due to summation of soft tissues. Small left pleural effusion not excluded. No significant change in appearance PLEURA: As above. No pneumothorax CARDIOVASCULAR: Moderate cardiomegaly-similar. Left axillary vascular stent similar-appearing. No gross pulmonary venous congestion OSSEOUS STRUCTURES: Shoulder arthrosis VISUALIZED UPPER ABDOMEN: Normal. OTHER FINDINGS: Endotracheal tube tip approximately 4 cm from the abundio. Interval insertion of a left internal jugular vein PICC line tip at the innominate -superior vena cava junction. Position called in to Nabeel- nurse taking care the patient in the ICU at 3:40 p.m. on 07/04/2017 IMPRESSION: Interval insertion of a left internal jugular vein PICC line tip at the innominate -superior vena cava junction. Position called in to Nabeel- nurse taking care the patient in the ICU at 3:40 p.m. on 07/04/2017. Consider advancing it to the caval atrial junction No pneumothorax. Similar moderate cardiomegaly
[2017-07-04] MEDS ORDERED: Sodium Chloride 0.9% 1,000 ML IV SCH (16:30)
[2017-07-04 16:32] LABS: VENOUS BLOOD GAS BASE EXCESS -13.1 mmol/L (0.0-2.0)
[2017-07-04] MEDS: Meropenem 500 MG in Sodium Chloride 0.9% 50 ML IVPB SCH ×2 (16:42→21:51)
[2017-07-04 16:43] LABS: VENOUS BLOOD PH 7.13 (7.32-7.43)
--- NOTE | 2017-07-04 17:00 | CP.PCM.PN ---
Subjective - Date & Time of Evaluation Date of Evaluation: 07/04/17 Time of Evaluation: 16:57 - Subjective Subjective: MICU Clinical Update Patient with worsening hypotension, central line placed L IJ, confirmed with CXR no PTX, advanced 3 cm. lactate repeat 10.3 on VBG, SVO2 65%. Bedside ECHO demonstrates poor LV function, mild pericardial effusion, normal RV. Patient is on Levophed 10mcg, MAP ranging 60-65. Will increase Levophed to 20mcg/min, add Vasopressin, and stress dose steroids, SoluCortef 50mg IV q6hr. Cont with broad spectrum antibiotcs, Merrem, Vanco, Azithro. HD as per renal. Cont with Bircarb drip. Patient remains critically, and is at high risk for morbidity and mortality. Objective - Vital Signs/Intake and Output Vital Signs (last 24 hours): Temp Pulse Resp BP Pulse Ox 98.7 F 143 H 24 96/56 L 96 07/04/17 03:44 07/04/17 15:05 07/04/17 07:26 07/04/17 15:05 07/04/17 07:26 Intake and Output: 07/04/17 07/04/17 06:59 18:59 Intake Total 345 335.7 Output Total 20 Balance 325 335.7 - Medications Medications: Current Medications Chlorhexidine Gluconate (Peridex) 15 ml PO BID [facility] Heparin Sodium (Porcine) (Heparin) 5,000 units SC Q12 MACREL PRN Reason: Protocol Last Admin: 07/04/17 14:02 Dose: Not Given Hydrocortisone Sodium Succinate (Solu-Cortef) 50 mg IVP Q6 [facility] Fentanyl Citrate (Fentanyl Citrate/Sodium Chloride 1 Mg/100 Ml) 1,000 mcg in 100 mls @ 10 mls/hr IV .Q10H PRN; Protocol; 100 MCG/HR PRN Reason: TITRATE PER MD ORDER Last Admin: 07/04/17 16:36 Dose: 150 mcg/hr, 15 mls/hr Sodium Chloride (Sodium Chloride 0.9%) 1,000 mls @ 999 mls/hr IV .Q1H1M [facility] Last Admin: 07/04/17 12:00 Dose: 999 mls/hr Meropenem 500 mg/ Sodium (Chloride) 50 mls @ 100 mls/hr IVPB Q8 MARCEL PRN Reason: Protocol Stop: 07/13/17 14:01 Last Admin: 07/04/17 16:42 Dose: 100 mls/hr diltiaZEM IVPB 100mg in NS (Cardizem 100mg In Ns) 100 mls @ 5 mls/hr IV .Q20H PRN; Protocol; 5 MG/HR PRN Reason: TITRATE PER MD ORDER Last Titration: 07/04/17 16:38 Dose: 2.5 mg/hr, 2.5 mls/hr Heparin Sodium/Dextrose (Heparin 25,000 Units/250ml In D5w) 25,000 units in 250 mls @ 15.431 mls/hr IV .[id number] PRN; Protocol; 18 UNITS/KG/HR PRN Reason: ADJUST RATE PER PROTOCOL Last Admin: 07/04/17 12:30 Dose: 18 units/kg/hr, 15.431 mls/hr Sodium Bicarbonate 150 meq/ (Dextrose) 1,150 mls @ 150 mls/hr IV .Q7H40M [facility] Last Admin: 07/04/17 12:00 Dose: 150 mls/hr NOREPINEPHRINE BIT/0.9 % NACL (Levophed 4 Mg/ 250 Ml Ns Premixed) 4 mg in 250 mls @ 15 mls/hr IV .[id number] PRN; Protocol; 4 MCG/MIN PRN Reason: TITRATE PER MD ORDER Last Titration: 07/04/17 16:38 Dose: 10 mcg/min, 37.5 mls/hr Sodium Chloride (Sodium Chloride 0.9%) 1,000 mls @ 999 mls/hr IV .Q1H1M [facility] Last Admin: 07/04/17 16:39 Dose: 999 mls/hr Vasopressin 20 units/ Sodium (Chloride) 101 mls @ 9.09 mls/hr IV .Q11H7M MARCEL; 0.03 U/MIN PRN Reason: Protocol Pantoprazole Sodium (Protonix Inj) 40 mg IVP DAILY [facility] Last Admin: 07/04/17 09:42 Dose: 40 mg - Labs Labs: 07/04/17 06:00 07/04/17 06:00 PT 17.8 SECONDS (9.4-12.5) H 07/03/17 22:22 INR 1.62 (0.93-1.08) H 07/03/17 22:22 APTT 34.4 Seconds (25.1-36.5) 07/03/17 22:22
[2017-07-04] MEDS ORDERED: Sodium Bicarbonate (8.4%) 50 Meq Syringe ONE ×2 (17:42→21:04)
--- NOTE | 2017-07-04 17:53 | CP.PCM.PN ---
<Joshua Langford - Last Filed: 07/04/17 21:43> Subjective - Date & Time of Evaluation Date of Evaluation: 07/04/17 Time of Evaluation: 17:37 - Subjective Subjective: Code Blue Note Code Blue called by nursing staff at 5:37pm. Rapid response team responded immediately. Patient was noted to be in PEA. ACLS protocol was initiated. Patient received a total of 1mg epinephrine and 3 amps of bicarb. Patient achieved ROSC at 5:43pm. Blood glucose was noted to be less than 20. Patient subsequently received an amp of D50. STAT labs ordered. Objective - Vital Signs/Intake and Output Vital Signs (last 24 hours): Temp Pulse Resp BP Pulse Ox 98.7 F 143 H 24 96/56 L 96 07/04/17 03:44 07/04/17 15:05 07/04/17 07:26 07/04/17 15:05 07/04/17 07:26 Intake and Output: 07/04/17 07/04/17 06:59 18:59 Intake Total 345 409.3 Output Total 20 Balance 325 409.3 - Medications Medications: Current Medications Chlorhexidine Gluconate (Peridex) 15 ml PO BID [facility] Heparin Sodium (Porcine) (Heparin) 5,000 units SC Q12 [facility] PRN Reason: Protocol Last Admin: 07/04/17 14:02 Dose: Not Given Hydrocortisone Sodium Succinate (Solu-Cortef) 50 mg IVP Q6 [facility] Last Admin: 07/04/17 17:05 Dose: 50 mg Fentanyl Citrate (Fentanyl Citrate/Sodium Chloride 1 Mg/100 Ml) 1,000 mcg in 100 mls @ 10 mls/hr IV .Q10H PRN; Protocol; 100 MCG/HR PRN Reason: TITRATE PER MD ORDER Last Titration: 07/04/17 17:30 Dose: 0 mcg/hr, 0 mls/hr Sodium Chloride (Sodium Chloride 0.9%) 1,000 mls @ 999 mls/hr IV .Q1H1M [facility] Last Admin: 07/04/17 12:00 Dose: 999 mls/hr Meropenem 500 mg/ Sodium (Chloride) 50 mls @ 100 mls/hr IVPB Q8 [facility] PRN Reason: Protocol Stop: 07/13/17 14:01 Last Admin: 07/04/17 16:42 Dose: 100 mls/hr Heparin Sodium/Dextrose (Heparin 25,000 Units/250ml In D5w) 25,000 units in 250 mls @ 15.431 mls/hr IV .[id number] PRN; Protocol; 18 UNITS/KG/HR PRN Reason: ADJUST RATE PER PROTOCOL Last Admin: 07/04/17 12:30 Dose: 18 units/kg/hr, 15.431 mls/hr Sodium Bicarbonate 150 meq/ (Dextrose) 1,150 mls @ 150 mls/hr IV .Q7H40M [facility] Last Admin: 07/04/17 12:00 Dose: 150 mls/hr NOREPINEPHRINE BIT/0.9 % NACL (Levophed 4 Mg/ 250 Ml Ns Premixed) 4 mg in 250 mls @ 15 mls/hr IV .H12Y28H PRN; Protocol; 4 MCG/MIN PRN Reason: TITRATE PER MD ORDER Last Titration: 07/04/17 16:38 Dose: 10 mcg/min, 37.5 mls/hr Sodium Chloride (Sodium Chloride 0.9%) 1,000 mls @ 999 mls/hr IV .Q1H1M [facility] Last Admin: 07/04/17 16:39 Dose: 999 mls/hr Vasopressin 20 units/ Sodium (Chloride) 101 mls @ 9.09 mls/hr IV .Q11H7M [facility]; 0.03 U/MIN PRN Reason: Protocol Pantoprazole Sodium (Protonix Inj) 40 mg IVP DAILY [facility] Last Admin: 07/04/17 09:42 Dose: 40 mg - Labs Labs: 07/04/17 06:00 07/04/17 06:00 PT 17.8 SECONDS (9.4-12.5) H 07/03/17 22:22 INR 1.62 (0.93-1.08) H 07/03/17 22:22 APTT 34.4 Seconds (25.1-36.5) 07/03/17 22:22 <Maury Hatr P - Last Filed: 07/05/17 05:23> Objective - Vital Signs/Intake and Output Vital Signs (last 24 hours): Temp Pulse Resp BP Pulse Ox 98.7 F 125 H 24 149/76 93 L 07/04/17 03:44 07/05/17 04:40 07/04/17 07:26 07/05/17 04:31 07/05/17 04:40 Intake and Output: 07/04/17 07/05/17 18:59 06:59 Intake Total 537.9 6150 Output Total 550 Balance 537.9 5600 - Medications Medications: Current Medications Chlorhexidine Gluconate (Peridex) 15 ml PO BID [facility] Last Admin: 07/04/17 18:29 Dose: 15 ml Fentanyl Citrate (Fentanyl Citrate/Sodium Chloride 1 Mg/100 Ml) 1,000 mcg in 100 mls @ 10 mls/hr IV .Q10H PRN; Protocol; 100 MCG/HR PRN Reason: TITRATE PER MD ORDER Last Titration: 07/04/17 17:30 Dose: 0 mcg/hr, 0 mls/hr Meropenem 500 mg/ Sodium (Chloride) 50 mls @ 100 mls/hr IVPB Q8 [facility] PRN Reason: Protocol Stop: 07/13/17 14:01 Last Admin: 07/05/17 01:44 Dose: 100 mls/hr Sodium Bicarbonate 150 meq/ (Dextrose) 1,150 mls @ 150 mls/hr IV .Q7H40M [facility] Last Admin: 07/04/17 20:29 Dose: 150 mls/hr NOREPINEPHRINE BIT/0.9 % NACL (Levophed 4 Mg/ 250 Ml Ns Premixed) 4 mg in 250 mls @ 15 mls/hr IV .[id number] PRN; Protocol; 4 MCG/MIN PRN Reason: TITRATE PER MD ORDER Last Titration: 07/05/17 04:32 Dose: 10 mcg/min, 37.5 mls/hr Vasopressin 20 units/ Sodium (Chloride) 101 mls @ 9.09 mls/hr IV .Q11H7M [facility]; 0.03 U/MIN PRN Reason: Protocol Last Admin: 07/04/17 17:45 Dose: 9.09 mls/hr Dobutamine HCl/Dextrose (Dobutamine/Dextrose 5% 500mg/250ml) 500 mg in 250 mls @ 12.859 mls/hr IV .[id number] PRN; Protocol; 5 MCG/KG/MIN PRN Reason: TITRATE PER PROTOCOL Pantoprazole Sodium (Protonix Inj) 40 mg IVP DAILY [facility] Last Admin: 07/04/17 09:42 Dose: 40 mg - Labs Labs: 07/04/17 18:30 07/04/17 18:30 PT 33.8 SECONDS (9.4-12.5) H 07/04/17 18:30 INR 3.03 (0.93-1.08) H 07/04/17 18:30 APTT > 400.0 Seconds (25.1-36.5) H* 07/04/17 18:30 Attending/Attestation - Attestation I have personally seen and examined this patient.: Yes I have fully participated in the care of the patient.: Yes I have reviewed all pertinent clinical information, including history, physical exam and plan: Yes
[2017-07-04] MEDS ORDERED: Digoxin 500 mcg/2ml (0.5 mg/2ml) Inj IVP STA (18:09)
--- NOTE | 2017-07-04 18:17 | US ---
PROCEDURE: Limited left upper extremity ultrasound HISTORY: End-stage renal disease. Sepsis. Evaluate cephalic vein for abscess PHYSICIAN(S): Henri Singh MD. TECHNIQUE: FINDINGS: The left brachial - cephalic fistula is patent. Diffuse edema is noted. There is a residual focal moderate to severe stenosis in the mid left cephalic vein A 2-3 cm hematoma and is noted adjacent to the cephalic vein. No obvious abscess or fluid collection is appreciated. IMPRESSION: No obvious abscess or fluid collection. Diffuse edema is noted. Patent left brachial - cephalic fistula. A focal stenosis remains in the mid left cephalic vein. When the patient's condition improves, a repeat fistulogram with dilatation should be considered.
[2017-07-04] MEDS ORDERED: Dextrose 50% SYRINGE Inj (50 ml) IVP ONE (18:27)
[2017-07-04] MEDS: Chlorhexidine 0.12% Oral Sol 480 ml Bot PO SCH (18:29)
[2017-07-04 18:41] LABS: BASO # 0.01 K/mm3 (0.0-2.0); BASO % 0.1 % (0.0-3.0); EOS % 0.2 % (1.5-5.0); GRAN # 7.19 (1.4-6.5); GRAN % 70.6 % (50.0-68.0); LYMPH # 2.6 (1.2-3.4); LYMPH % 25.3 % (22.0-35.0); MEAN CELL VOLUME 90.1 fl (80.0-105.0); MEAN CORPUSCULAR HEMOGLOBIN 26.4 pg (25.0-35.0); MEAN CORPUSCULAR HGB CONC 29.3 g/dl (31.0-37.0); MEAN PLATELET VOLUME 11.2 fl (7.0-11.0); MONO # 0.4 (0.1-0.6); MONO % 3.8 % (1.0-6.0); RED CELL DISTRIBUTION WIDTH 17.2 % (11.5-14.5); WHITE BLOOD COUNT 10.2 10^3/ul (4.5-11.0)
[2017-07-04 18:46] LABS: VENOUS BLOOD GAS BASE EXCESS -18.4 mmol/L (0.0-2.0)
[2017-07-04 18:49] LABS: VENOUS BLOOD PH 7.02 (7.32-7.43)
[2017-07-04] MEDS ORDERED: Sodium Bicarbonate (8.4%) 50 Meq Syringe IVP ONE ×2 (18:56→21:01)
[2017-07-04] MEDS ORDERED: DOBUTamine 500mg/250ml D5W 500 MG/250 ML BAG IV PRN ×2 (18:59→20:52)
[2017-07-04 19:06] LABS: CALCIUM 6.4 mg/dL (8.4-10.5)
[2017-07-04 19:07] LABS: TROPONIN I 0.52 ng/mL
[2017-07-04 19:08] LABS: ALB/GLOB RATIO 0.8 (1.1-1.8); BILIRUBIN,TOTAL 1.1 mg/dL (0.2-1.3); MAGNESIUM 1.9 mg/dL (1.7-2.2); POTASSIUM 4.8 mmol/L (3.6-5.0); TOTAL PROTEIN 4.5 g/dL (5.8-8.3)
[2017-07-04 19:21] LABS: INR 3.03 (0.93-1.08)
[2017-07-04 19:22] LABS: PARTIAL THROMBOPLASTIN TIME > 400.0 Seconds (25.1-36.5)
--- NOTE | 2017-07-04 19:34 | CON ---
DATE: 07/04/2017 ADDENDUM Addendum to initial consultation dictated this morning. Initially, I saw the patient dictated, but later on able to look the medical records from the previous admission. The patient was seen by Dr. Guillen and we also saw the patient covering for Dr. Guillen, but mostly the patient being seen by Dr. Guillen, so we will transfer care tomorrow to Dr. Guillen. We will put a consult for Dr. Guillen. Interim, continue her dialysis and we will start Cardizem to control the heart rate. We will follow with you aggressive. The patient has pulmonary edema and needs aggressive dialysis. We will continue broad-spectrum antibiotic. We will follow and we will transfer care tomorrow to Dr. Guillen. I believe he would have start Dobutrex. This patient is in AFib with rapid ventricular rate because of more tachycardiac, so we will hold Dobutrex and I will start Cardizem and follow with you and see the response of the heart rate. We will follow with you. I will start heparin because of AFib with rapid ventricular rate and low ejection fraction. Adelina Ray MD
--- NOTE | 2017-07-04 19:36 | CARD ---
APPROVED REPORT EKG Measurement Heart [id number] <Conclusion> Atrial fibrillation with rapid ventricular response with premature ventricular or aberrantly conducted complexes Left axis deviation Low voltage QRS Inferior infarct, age undetermined Abnormal ECG
[2017-07-04] MEDS ORDERED: Albumin Human 25% (12.5 gm/50 ml) IV ONE (19:41)
[2017-07-04] MEDS ORDERED: Albumin Human 25% (25 gm/100 ml) IV ONE (20:00)
[2017-07-04] MEDS ORDERED: Digoxin 500 mcg/2ml (0.5 mg/2ml) Inj IVP ONE (20:30)
[2017-07-04 20:45] VITALS: PULSE 156
[2017-07-04 20:48] LABS: VENOUS BLOOD PH 7.12 (7.32-7.43)
--- NOTE | 2017-07-04 21:46 | CP.PCM.PN ---
<Cony Gonzalez - Last Filed: 07/04/17 21:43> Subjective - Date & Time of Evaluation Date of Evaluation: 07/04/17 Time of Evaluation: 21:43 - Subjective Subjective: Progress Note for Mira Fontanez PGY2 Patient was tachycardic between 180s-200s despite given 2 amps of bicarb and 0.5mg of Digoxin. She was cardioverted at 50J and went into V.Tach. She was shocked again 200J. Patient converted into sinus rhythm at 100-110s. Mira Gonzalez PGY2 Objective - Vital Signs/Intake and Output Vital Signs (last 24 hours): Temp Pulse Resp BP Pulse Ox 98.7 F 138 H 24 70/49 L 96 07/04/17 03:44 07/04/17 20:10 07/04/17 07:26 07/04/17 20:10 07/04/17 07:26 Intake and Output: 07/04/17 07/05/17 18:59 06:59 Intake Total 537.9 Balance 537.9 - Medications Medications: Current Medications Chlorhexidine Gluconate (Peridex) 15 ml PO BID [facility] Last Admin: 07/04/17 18:29 Dose: 15 ml Heparin Sodium (Porcine) (Heparin) 5,000 units SC Q12 [facility] PRN Reason: Protocol Last Admin: 07/04/17 14:02 Dose: Not Given Fentanyl Citrate (Fentanyl Citrate/Sodium Chloride 1 Mg/100 Ml) 1,000 mcg in 100 mls @ 10 mls/hr IV .Q10H PRN; Protocol; 100 MCG/HR PRN Reason: TITRATE PER MD ORDER Last Titration: 07/04/17 17:30 Dose: 0 mcg/hr, 0 mls/hr Meropenem 500 mg/ Sodium (Chloride) 50 mls @ 100 mls/hr IVPB Q8 [facility] PRN Reason: Protocol Stop: 07/13/17 14:01 Last Admin: 07/04/17 16:42 Dose: 100 mls/hr Sodium Bicarbonate 150 meq/ (Dextrose) 1,150 mls @ 150 mls/hr IV .Q7H40M [facility] Last Admin: 07/04/17 20:29 Dose: 150 mls/hr NOREPINEPHRINE BIT/0.9 % NACL (Levophed 4 Mg/ 250 Ml Ns Premixed) 4 mg in 250 mls @ 15 mls/hr IV .[id number] PRN; Protocol; 4 MCG/MIN PRN Reason: TITRATE PER MD ORDER Last Admin: 07/04/17 18:55 Dose: 20 mcg/min, 75 mls/hr Vasopressin 20 units/ Sodium (Chloride) 101 mls @ 9.09 mls/hr IV .Q11H7M [facility]; 0.03 U/MIN PRN Reason: Protocol Last Admin: 07/04/17 17:45 Dose: 9.09 mls/hr Dobutamine HCl/Dextrose (Dobutamine/Dextrose 5% 500mg/250ml) 500 mg in 250 mls @ 12.859 mls/hr IV .[id number] PRN; Protocol; 5 MCG/KG/MIN PRN Reason: TITRATE PER PROTOCOL Pantoprazole Sodium (Protonix Inj) 40 mg IVP DAILY [facility] Last Admin: 07/04/17 09:42 Dose: 40 mg - Labs Labs: 07/04/17 18:30 07/04/17 18:30 PT 33.8 SECONDS (9.4-12.5) H 07/04/17 18:30 INR 3.03 (0.93-1.08) H 07/04/17 18:30 APTT > 400.0 Seconds (25.1-36.5) H* 07/04/17 18:30 <Maury Hart P - Last Filed: 07/05/17 05:24> Objective - Vital Signs/Intake and Output Vital Signs (last 24 hours): Temp Pulse Resp BP Pulse Ox 98.7 F 125 H 24 149/76 93 L 07/04/17 03:44 07/05/17 04:40 07/04/17 07:26 07/05/17 04:31 07/05/17 04:40 Intake and Output: 07/04/17 07/05/17 18:59 06:59 Intake Total 537.9 6150 Output Total 550 Balance 537.9 5600 - Medications Medications: Current Medications Chlorhexidine Gluconate (Peridex) 15 ml PO BID [facility] Last Admin: 07/04/17 18:29 Dose: 15 ml Fentanyl Citrate (Fentanyl Citrate/Sodium Chloride 1 Mg/100 Ml) 1,000 mcg in 100 mls @ 10 mls/hr IV .Q10H PRN; Protocol; 100 MCG/HR PRN Reason: TITRATE PER MD ORDER Last Titration: 07/04/17 17:30 Dose: 0 mcg/hr, 0 mls/hr Meropenem 500 mg/ Sodium (Chloride) 50 mls @ 100 mls/hr IVPB Q8 [facility] PRN Reason: Protocol Stop: 07/13/17 14:01 Last Admin: 07/05/17 01:44 Dose: 100 mls/hr Sodium Bicarbonate 150 meq/ (Dextrose) 1,150 mls @ 150 mls/hr IV .Q7H40M [facility] Last Admin: 07/04/17 20:29 Dose: 150 mls/hr NOREPINEPHRINE BIT/0.9 % NACL (Levophed 4 Mg/ 250 Ml Ns Premixed) 4 mg in 250 mls @ 15 mls/hr IV .[id number] PRN; Protocol; 4 MCG/MIN PRN Reason: TITRATE PER MD ORDER Last Titration: 07/05/17 04:32 Dose: 10 mcg/min, 37.5 mls/hr Vasopressin 20 units/ Sodium (Chloride) 101 mls @ 9.09 mls/hr IV .Q11H7M [facility]; 0.03 U/MIN PRN Reason: Protocol Last Admin: 07/04/17 17:45 Dose: 9.09 mls/hr Dobutamine HCl/Dextrose (Dobutamine/Dextrose 5% 500mg/250ml) 500 mg in 250 mls @ 12.859 mls/hr IV .[id number] PRN; Protocol; 5 MCG/KG/MIN PRN Reason: TITRATE PER PROTOCOL Pantoprazole Sodium (Protonix Inj) 40 mg IVP DAILY [facility] Last Admin: 07/04/17 09:42 Dose: 40 mg - Labs Labs: 07/04/17 18:30 07/04/17 18:30 PT 33.8 SECONDS (9.4-12.5) H 07/04/17 18:30 INR 3.03 (0.93-1.08) H 07/04/17 18:30 APTT > 400.0 Seconds (25.1-36.5) H* 07/04/17 18:30 Attending/Attestation - Attestation I have personally seen and examined this patient.: Yes I have fully participated in the care of the patient.: Yes I have reviewed all pertinent clinical information, including history, physical exam and plan: Yes
[2017-07-05 00:54] LABS: ARTERIAL BLOOD GAS PH 7.29 (7.35-7.45)
[2017-07-05] MEDS: Meropenem 500 MG in Sodium Chloride 0.9% 50 ML IVPB SCH (01:44)
[2017-07-05] MEDS: NOREPINEPHRINE BIT/0.9 % NACL 4 MG/250 ML BAG IV PRN (02:45)
[2017-07-05] MEDS: Sodium Bicarbonate 8.4% 150 MEQ in Dextrose 5% In Water 1,000 ML IV SCH (05:36)
[2017-07-05 06:06] LABS: BASO # 0.01 K/mm3 (0.0-2.0); BASO % 0.1 % (0.0-3.0); EOS % 0.1 % (1.5-5.0); GRAN # 13.19 (1.4-6.5); GRAN % 90.4 % (50.0-68.0); HEMATOCRIT 34.9 % (36.0-48.0); LYMPH % 6.5 % (22.0-35.0); MEAN CELL VOLUME 87.9 fl (80.0-105.0); MEAN CORPUSCULAR HEMOGLOBIN 26.7 pg (25.0-35.0); MEAN CORPUSCULAR HGB CONC 30.4 g/dl (31.0-37.0); MEAN PLATELET VOLUME 9.8 fl (7.0-11.0); MONO # 0.4 (0.1-0.6); MONO % 2.9 % (1.0-6.0); WHITE BLOOD COUNT 14.6 10^3/ul (4.5-11.0)
[2017-07-05 06:15] LABS: VENOUS BLOOD GAS BASE EXCESS -8.5 mmol/L (0.0-2.0); VENOUS BLOOD PH 7.29 (7.32-7.43)
[2017-07-05 06:25] LABS: ARTERIAL BLOOD GAS HCO3 15.6 mmol/L (21-28); ARTERIAL BLOOD GAS PH 7.34 (7.35-7.45)
--- NOTE | 2017-07-05 06:49 | CP.CCUPN ---
CCU Subjective - Physician Review Subjective (Free Text): Critical Care progress note for Dr. Castillo Patient seen and examined at bedside. Overnight, patient coded twice. First code started at 17:37, where she received 1 mg of epinephrine, 3 amps of bicarb and 2 amps of D50. Second occurred at 21:47. At that time, she went into V tach. She was subsequently shocked twice (50J and 200J), given Digoxin 0.5 mg and received 2 amps of bicarb. She is on ventilator support TV 450, PEEP 5, RR 20, FiO2 40%. ROS unobtainable due to intubation. CCU Objective - Vital Signs / Intake & Output Vital Signs (Last 4 hours): Vital Signs Pulse BP Pulse Ox 07/05/17 06:00 115 H 100 07/05/17 05:50 117 H 100 07/05/17 05:40 128 H 100 07/05/17 05:31 125 H 158/84 H 100 07/05/17 05:30 126 H 100 07/05/17 05:20 129 H 100 07/05/17 05:13 118 H 07/05/17 05:12 118 H 07/05/17 05:11 118 H 07/05/17 05:10 119 H 100 07/05/17 05:08 119 H 07/05/17 05:06 119 H 07/05/17 05:05 120 H 07/05/17 05:03 120 H 07/05/17 05:01 158/86 H 07/05/17 05:00 120 H 07/05/17 04:59 120 H 07/05/17 04:57 120 H 07/05/17 04:56 120 H 07/05/17 04:55 120 H 07/05/17 04:50 121 H 07/05/17 04:49 121 H 07/05/17 04:40 125 H 93 L 07/05/17 04:35 111 H 07/05/17 04:33 111 H 07/05/17 04:31 149/76 07/05/17 04:30 111 H 07/05/17 04:29 111 H 07/05/17 04:28 113 H 07/05/17 04:26 112 H 07/05/17 04:25 111 H 07/05/17 04:24 111 H 07/05/17 04:23 112 H 07/05/17 04:22 112 H 07/05/17 04:21 111 H 07/05/17 04:20 112 H 100 07/05/17 04:19 112 H 07/05/17 04:18 112 H 07/05/17 04:17 111 H 07/05/17 04:16 112 H 07/05/17 04:11 112 H 07/05/17 04:10 112 H 100 07/05/17 04:09 112 H 07/05/17 04:08 110 H 07/05/17 04:03 112 H 07/05/17 04:02 112 H 07/05/17 04:01 112 H 152/73 H 100 07/05/17 04:00 112 H 07/05/17 03:58 112 H 07/05/17 03:50 112 H 100 07/05/17 03:40 115 H 96 07/05/17 03:31 119 H 153/84 H 100 07/05/17 03:30 119 H 99 07/05/17 03:20 120 H 100 07/05/17 03:10 113 H 100 07/05/17 03:01 113 H 144/74 100 07/05/17 03:00 112 H 100 07/05/17 02:50 114 H 100 Intake and Output (Last 8hrs): Intake & Output 07/04/17 07/04/17 07/05/17 14:59 22:59 06:59 Intake Total 104.0 6283.9 2698 Output Total 550 20 Balance 104.0 5733.9 2678 Weight 188 lb Intake: IV 104.0 6283.9 2698 Right Forearm 1800 Right Internal Jugular 250 2398 Right Wrist 3550 Output: Urine 50 20 2-way Urethral 50 20 Stool 500 - Physical Exam Head: Positive for: Atraumatic, Normocephalic Pupils: Positive for: PERRL Extroacular Muscles: Positive for: EOMI Conjunctiva: Positive for: Normal Mouth: Positive for: Moist Mucous Membranes Neck: Positive for: Normal Range of Motion. Negative for: Meningeal Signs, MIDLINE TENDERNESS, Paraspinal Tenderness Respiratory/Chest: Positive for: Clear to Auscultation. Negative for: Accessory Muscle Use Cardiovascular: Positive for: Regular Rate and Rhythm, Normal S1, S2. Negative for: Murmurs Abdomen: Positive for: Normal Bowel Sounds. Negative for: Tenderness, Distention, Peritoneal Signs Back: Positive for: Normal Inspection Upper Extremity: Positive for: Normal Inspection. 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 Negative for: Edema Neurological: Positive for: Motor Func Grossly Intact, Other Skin: Positive for: Warm, Dry, Normal Color. Negative for: Rashes Psychiatric: Positive for: Lethargic. Negative for: Alert, Oriented x 3 - Medications Active Medications: Active Medications Generic Name Dose Route Start Last Admin Trade Name Freq PRN Reason Stop Dose Admin Chlorhexidine Gluconate 15 ml 07/04/17 18:00 07/04/17 18:29 Peridex PO 15 ml BID MARCEL Administration Fentanyl Citrate 1,000 mcg in 100 mls @ 10 mls/hr 07/04/17 01:20 07/04/17 17: 30 Fentanyl Citrate/Sodium Chloride 1 Mg/100 Ml IV 0 mcg/hr .Q10H PRN 0 mls/hr TITRATE PER MD ORDER Titration Protocol 100 MCG/HR Meropenem 500 mg/ Sodium 50 mls @ 100 mls/hr 07/04/17 14:00 07/05/17 01:44 Chloride IVPB 07/13/17 14:01 100 mls/hr Q8 MARCEL Administration Protocol Sodium Bicarbonate 150 meq/ 1,150 mls @ 150 mls/hr 07/04/17 10:45 07/05/17 05 :36 Dextrose IV 150 mls/hr .[id number] MARCEL Administration NOREPINEPHRINE BIT/0.9 % NACL 4 mg in 250 mls @ 15 mls/hr 07/04/17 13:57 02/12 04:32 Levophed 4 Mg/ 250 Ml Ns Premixed IV 10 mcg/min .[id number] PRN 37.5 mls/hr TITRATE PER MD ORDER Titration Protocol 4 MCG/MIN Vasopressin 20 units/ Sodium 101 mls @ 9.09 mls/hr 07/04/17 17:00 07/04/17 17 :45 Chloride IV 9.09 mls/hr .[id number] MARCEL Administration Protocol 0.03 U/MIN Dobutamine HCl/Dextrose 500 mg in 250 mls @ 12.859 mls/hr 07/04/17 20:52 Dobutamine/Dextrose 5% 500mg/250ml IV .[id number] PRN TITRATE PER PROTOCOL Protocol 5 MCG/KG/MIN Pantoprazole Sodium 40 mg 07/04/17 10:00 07/04/17 09:42 Protonix Inj IVP 40 mg DAILY MARCEL Administration - Patient Studies Lab Studies: Lab Studies 07/05/17 07/05/17 07/05/17 Range/Units 05:58 04:48 02:06 WBC 14.6 H D (4.5-11.0) 10^3/ul RBC 3.97 (3.5-6.1) 10^6/uL Hgb 10.6 L (12.0-16.0) g/dL Hct 34.9 L (36.0-48.0) % MCV 87.9 (80.0-105.0) fl MCH 26.7 (25.0-35.0) pg MCHC 30.4 L (31.0-37.0) g/dl RDW 17.0 H (11.5-14.5) % Plt Count 75 L (120.0-450.0) 10^3/uL MPV 9.8 (7.0-11.0) fl Gran % 90.4 H (50.0-68.0) % Lymph % (Auto) 6.5 L (22.0-35.0) % [place] % (Auto) 2.9 (1.0-6.0) % Eos % (Auto) 0.1 L (1.5-5.0) % Baso % (Auto) 0.1 (0.0-3.0) % Gran # 13.19 H (1.4-6.5) Lymph # 1.0 L (1.2-3.4) [place] # 0.4 (0.1-0.6) Eos # 0.0 (0.0-0.7) Baso # 0.01 (0.0-2.0) K/mm3 Neutrophils % (Manual) (50.0-70.0) % Lymphocytes % (Manual) (22.0-35.0) % Monocytes % (Manual) (1.0-6.0) % Platelet Evaluation (NORMAL) Large Platelets Hypochromasia Anisocytosis (manual) PT (9.4-12.5) SECONDS INR (0.93-1.08) APTT (25.1-36.5) Seconds pCO2 (35-45) mm/Hg pO2 (30-55) mm/Hg HCO3 (21-28) mmol/L ABG pH (7.35-7.45) ABG Total CO2 (22-28) mmol.L ABG O2 Saturation (95-98) % ABG O2 Content (15-23) ML/dl ABG Base Excess (-2.0-3.0) mmol/L ABG Hemoglobin (11.7-17.4) g/dL ABG Carboxyhemoglobin (0.5-1.5) % POC ABG HHb (Measured) (0-5) % ABG Methemoglobin (0.0-3.0) % ABG O2 Capacity (16-24) mL/dl ABG Potassium (3.6-5.2) mmol/L VBG pH (7.32-7.43) VBG pCO2 (40-60) VBG HCO3 (21-28) mmol/l VBG Total CO2 (22-28) mmol.L VBG O2 Sat (Calc) (40-65) % VBG Base Excess (0.0-2.0) mmol/L VBG Potassium (3.6-5.2) mmol/L Hgb O2 Saturation (95.0-98.0) % Glucose (65-105) mg/dl Lactate (0.7-2.1) mmol/L FiO2 % Sodium (132-148) mmol/L Potassium (3.6-5.0) mmol/L Chloride (98-107) mmol/L Carbon Dioxide (21-33) mmol/L Anion Gap (10-20) BUN (7-21) mg/dL Creatinine (0.7-1.2) mg/dl Est GFR ( Amer) Est GFR (Non-Af Amer) POC Glucose (mg/dL) 235 H 102 (65-110) mg/dL Random Glucose (70-110) mg/dL Calcium (8.4-10.5) mg/dL Phosphorus (2.5-4.5) mg/dL Magnesium (1.7-2.2) mg/dL Total Bilirubin (0.2-1.3) mg/dL AST (14-36) U/L ALT (7-56) U/L Alkaline Phosphatase (38-126) U/L Lactate Dehydrogenase (333-699) U/L Total Creatine Kinase (35-230) U/L CK-MB (CK-2) (0.0-3.6) ng/mL CK-MB (CK-2) % Troponin I ng/mL Total Protein (5.8-8.3) g/dL Albumin (3.0-4.8) g/dL Globulin gm/dL Albumin/Globulin Ratio (1.1-1.8) Procalcitonin (0.19-0.49) NG/ML Arterial Blood Potassium (3.6-5.2) mmol/L Venous Blood Potassium (3.6-5.2) mmol/L Urine Color (YELLOW) Urine Appearance (CLEAR) Urine pH (4.7-8.0) Ur Specific [place] (1.005-1.035) Urine Protein (<30 mg/dL) mg/dL Urine Glucose (UA) (NEGATIVE) mg/dL Urine Ketones (NEGATIVE) mg/dL Urine Blood (NEGATIVE) Urine Nitrate (NEGATIVE) Urine Bilirubin (NEGATIVE) Urine Urobilinogen (<1 E.U./dL) E.U./dL Ur Leukocyte Esterase (NEGATIVE) Lauri/uL Urine RBC (0-2) /hpf Urine WBC (0-6) /hpf Ur Epithelial Cells (0-5) /hpf Urine Bacteria (NEG) 07/05/17 07/05/17 07/04/17 Range/Units 00:51 00:06 20:40 WBC (4.5-11.0) 10^3/ul RBC (3.5-6.1) 10^6/uL Hgb (12.0-16.0) g/dL Hct (36.0-48.0) % MCV (80.0-105.0) fl MCH (25.0-35.0) pg MCHC (31.0-37.0) g/dl RDW (11.5-14.5) % Plt Count (120.0-450.0) 10^3/uL MPV (7.0-11.0) fl Gran % (50.0-68.0) % Lymph % (Auto) (22.0-35.0) % [place] % (Auto) (1.0-6.0) % Eos % (Auto) (1.5-5.0) % Baso % (Auto) (0.0-3.0) % Gran # (1.4-6.5) Lymph # (1.2-3.4) [place] # (0.1-0.6) Eos # (0.0-0.7) Baso # (0.0-2.0) K/mm3 Neutrophils % (Manual) (50.0-70.0) % Lymphocytes % (Manual) (22.0-35.0) % Monocytes % (Manual) (1.0-6.0) % Platelet Evaluation (NORMAL) Large Platelets Hypochromasia Anisocytosis (manual) PT (9.4-12.5) SECONDS INR (0.93-1.08) APTT (25.1-36.5) Seconds pCO2 25 L (35-45) mm/Hg pO2 380.0 H 57 H (30-55) mm/Hg HCO3 12.0 L (21-28) mmol/L ABG pH 7.29 L (7.35-7.45) ABG Total CO2 12.8 L (22-28) mmol.L ABG O2 Saturation 99.7 H (95-98) % ABG O2 Content (15-23) ML/dl ABG Base Excess -12.8 L (-2.0-3.0) mmol/L ABG Hemoglobin (11.7-17.4) g/dL ABG Carboxyhemoglobin (0.5-1.5) % POC ABG HHb (Measured) (0-5) % ABG Methemoglobin (0.0-3.0) % ABG O2 Capacity (16-24) mL/dl ABG Potassium 4.2 (3.6-5.2) mmol/L VBG pH 7.12 L* (7.32-7.43) VBG pCO2 39.0 L (40-60) VBG HCO3 12.7 L (21-28) mmol/l VBG Total CO2 13.9 L (22-28) mmol.L VBG O2 Sat (Calc) 86.6 H (40-65) % VBG Base Excess -16.0 L (0.0-2.0) mmol/L VBG Potassium 4.8 (3.6-5.2) mmol/L Hgb O2 Saturation (95.0-98.0) % Glucose 220 H 258 H (65-105) mg/dl Lactate 14.9 H* 17.7 H* (0.7-2.1) mmol/L FiO2 100.0 21.0 % Sodium 146.0 144.0 (132-148) mmol/L Potassium (3.6-5.0) mmol/L Chloride 104.0 100.0 (98-107) mmol/L Carbon Dioxide (21-33) mmol/L Anion Gap (10-20) BUN (7-21) mg/dL Creatinine (0.7-1.2) mg/dl Est GFR ( Amer) Est GFR (Non-Af Amer) POC Glucose (mg/dL) 205 H (65-110) mg/dL Random Glucose (70-110) mg/dL Calcium (8.4-10.5) mg/dL Phosphorus (2.5-4.5) mg/dL Magnesium (1.7-2.2) mg/dL Total Bilirubin (0.2-1.3) mg/dL AST (14-36) U/L ALT (7-56) U/L Alkaline Phosphatase (38-126) U/L Lactate Dehydrogenase (333-699) U/L Total Creatine Kinase (35-230) U/L CK-MB (CK-2) (0.0-3.6) ng/mL CK-MB (CK-2) % Troponin I ng/mL Total Protein (5.8-8.3) g/dL Albumin (3.0-4.8) g/dL Globulin gm/dL Albumin/Globulin Ratio (1.1-1.8) Procalcitonin (0.19-0.49) NG/ML Arterial Blood Potassium 4.2 (3.6-5.2) mmol/L Venous Blood Potassium 4.8 (3.6-5.2) mmol/L Urine Color (YELLOW) Urine Appearance (CLEAR) Urine pH (4.7-8.0) Ur Specific [place] (1.005-1.035) Urine Protein (<30 mg/dL) mg/dL Urine Glucose (UA) (NEGATIVE) mg/dL Urine Ketones (NEGATIVE) mg/dL Urine Blood (NEGATIVE) Urine Nitrate (NEGATIVE) Urine Bilirubin (NEGATIVE) Urine Urobilinogen (<1 E.U./dL) E.U./dL Ur Leukocyte Esterase (NEGATIVE) Lauri/uL Urine RBC (0-2) /hpf Urine WBC (0-6) /hpf Ur Epithelial Cells (0-5) /hpf Urine Bacteria (NEG) 07/04/17 07/04/17 07/04/17 Range/Units 18:50 18:30 18:30 WBC (4.5-11.0) 10^3/ul RBC (3.5-6.1) 10^6/uL Hgb (12.0-16.0) g/dL Hct (36.0-48.0) % MCV (80.0-105.0) fl MCH (25.0-35.0) pg MCHC (31.0-37.0) g/dl RDW (11.5-14.5) % Plt Count (120.0-450.0) 10^3/uL MPV (7.0-11.0) fl Gran % (50.0-68.0) % Lymph % (Auto) (22.0-35.0) % [place] % (Auto) (1.0-6.0) % Eos % (Auto) (1.5-5.0) % Baso % (Auto) (0.0-3.0) % Gran # (1.4-6.5) Lymph # (1.2-3.4) [place] # (0.1-0.6) Eos # (0.0-0.7) Baso # (0.0-2.0) K/mm3 Neutrophils % (Manual) (50.0-70.0) % Lymphocytes % (Manual) (22.0-35.0) % Monocytes % (Manual) (1.0-6.0) % Platelet Evaluation (NORMAL) Large Platelets Hypochromasia Anisocytosis (manual) PT 33.8 H (9.4-12.5) SECONDS INR 3.03 H (0.93-1.08) APTT > 400.0 H* (25.1-36.5) Seconds pCO2 (35-45) mm/Hg pO2 (30-55) mm/Hg HCO3 (21-28) mmol/L ABG pH (7.35-7.45) ABG Total CO2 (22-28) mmol.L ABG O2 Saturation (95-98) % ABG O2 Content (15-23) ML/dl ABG Base Excess (-2.0-3.0) mmol/L ABG Hemoglobin (11.7-17.4) g/dL ABG Carboxyhemoglobin (0.5-1.5) % POC ABG HHb (Measured) (0-5) % ABG Methemoglobin (0.0-3.0) % ABG O2 Capacity (16-24) mL/dl ABG Potassium (3.6-5.2) mmol/L VBG pH (7.32-7.43) VBG pCO2 (40-60) VBG HCO3 (21-28) mmol/l VBG Total CO2 (22-28) mmol.L VBG O2 Sat (Calc) (40-65) % VBG Base Excess (0.0-2.0) mmol/L VBG Potassium (3.6-5.2) mmol/L Hgb O2 Saturation (95.0-98.0) % Glucose (65-105) mg/dl Lactate (0.7-2.1) mmol/L FiO2 % Sodium 142 (132-148) mmol/L Potassium 4.8 (3.6-5.0) mmol/L Chloride 102 (98-107) mmol/L Carbon Dioxide 13 L (21-33) mmol/L Anion Gap 32 H (10-20) BUN 51 H (7-21) mg/dL Creatinine 8.3 H* (0.7-1.2) mg/dl Est GFR ( Amer) 6 Est GFR (Non-Af Amer) 5 POC Glucose (mg/dL) 127 H (65-110) mg/dL Random Glucose 516 H* D (70-110) mg/dL Calcium 6.4 L* (8.4-10.5) mg/dL Phosphorus 11.0 H (2.5-4.5) mg/dL Magnesium 1.9 (1.7-2.2) mg/dL Total Bilirubin 1.1 (0.2-1.3) mg/dL AST 173 H D (14-36) U/L ALT 61 H (7-56) U/L Alkaline Phosphatase 89 (38-126) U/L Lactate Dehydrogenase (333-699) U/L Total Creatine Kinase (35-230) U/L CK-MB (CK-2) (0.0-3.6) ng/mL CK-MB (CK-2) % Troponin I 0.52 H* D ng/mL Total Protein 4.5 L (5.8-8.3) g/dL Albumin 2.0 L (3.0-4.8) g/dL Globulin 2.6 gm/dL Albumin/Globulin Ratio 0.8 L (1.1-1.8) Procalcitonin (0.19-0.49) NG/ML Arterial Blood Potassium (3.6-5.2) mmol/L Venous Blood Potassium (3.6-5.2) mmol/L Urine Color (YELLOW) Urine Appearance (CLEAR) Urine pH (4.7-8.0) Ur Specific [place] (1.005-1.035) Urine Protein (<30 mg/dL) mg/dL Urine Glucose (UA) (NEGATIVE) mg/dL Urine Ketones (NEGATIVE) mg/dL Urine Blood (NEGATIVE) Urine Nitrate (NEGATIVE) Urine Bilirubin (NEGATIVE) Urine Urobilinogen (<1 E.U./dL) E.U./dL Ur Leukocyte Esterase (NEGATIVE) Lauri/uL Urine RBC (0-2) /hpf Urine WBC (0-6) /hpf Ur Epithelial Cells (0-5) /hpf Urine Bacteria (NEG) 07/04/17 07/04/17 07/04/17 Range/Units 18:30 18:30 18:09 WBC 10.2 (4.5-11.0) 10^3/ul RBC 3.33 L (3.5-6.1) 10^6/uL Hgb 8.8 L (12.0-16.0) g/dL Hct 30.0 L (36.0-48.0) % MCV 90.1 (80.0-105.0) fl MCH 26.4 (25.0-35.0) pg MCHC 29.3 L (31.0-37.0) g/dl RDW 17.2 H (11.5-14.5) % Plt Count 91 L (120.0-450.0) 10^3/uL MPV 11.2 H (7.0-11.0) fl Gran % 70.6 H (50.0-68.0) % Lymph % (Auto) 25.3 (22.0-35.0) % [place] % (Auto) 3.8 (1.0-6.0) % Eos % (Auto) 0.2 L (1.5-5.0) % Baso % (Auto) 0.1 (0.0-3.0) % Gran # 7.19 H (1.4-6.5) Lymph # 2.6 (1.2-3.4) [place] # 0.4 (0.1-0.6) Eos # 0.0 (0.0-0.7) Baso # 0.01 (0.0-2.0) K/mm3 Neutrophils % (Manual) (50.0-70.0) % Lymphocytes % (Manual) (22.0-35.0) % Monocytes % (Manual) (1.0-6.0) % Platelet Evaluation (NORMAL) Large Platelets Hypochromasia Anisocytosis (manual) PT (9.4-12.5) SECONDS INR (0.93-1.08) APTT (25.1-36.5) Seconds pCO2 (35-45) mm/Hg pO2 157 H (30-55) mm/Hg HCO3 (21-28) mmol/L ABG pH (7.35-7.45) ABG Total CO2 (22-28) mmol.L ABG O2 Saturation (95-98) % ABG O2 Content (15-23) ML/dl ABG Base Excess (-2.0-3.0) mmol/L ABG Hemoglobin (11.7-17.4) g/dL ABG Carboxyhemoglobin (0.5-1.5) % POC ABG HHb (Measured) (0-5) % ABG Methemoglobin (0.0-3.0) % ABG O2 Capacity (16-24) mL/dl ABG Potassium (3.6-5.2) mmol/L VBG pH 7.02 L* (7.32-7.43) VBG pCO2 48.0 (40-60) VBG HCO3 12.4 L (21-28) mmol/l VBG Total CO2 13.9 L (22-28) mmol.L VBG O2 Sat (Calc) 99.7 H (40-65) % VBG Base Excess -18.4 L (0.0-2.0) mmol/L VBG Potassium 5.0 (3.6-5.2) mmol/L Hgb O2 Saturation (95.0-98.0) % Glucose 531 H* D (65-105) mg/dl Lactate 15.8 H* (0.7-2.1) mmol/L FiO2 21.0 % Sodium 143.0 (132-148) mmol/L Potassium (3.6-5.0) mmol/L Chloride 99.0 (98-107) mmol/L Carbon Dioxide (21-33) mmol/L Anion Gap (10-20) BUN (7-21) mg/dL Creatinine (0.7-1.2) mg/dl Est GFR ( Amer) Est GFR (Non-Af Amer) POC Glucose (mg/dL) 40 L (65-110) mg/dL Random Glucose (70-110) mg/dL Calcium (8.4-10.5) mg/dL Phosphorus (2.5-4.5) mg/dL Magnesium (1.7-2.2) mg/dL Total Bilirubin (0.2-1.3) mg/dL AST (14-36) U/L ALT (7-56) U/L Alkaline Phosphatase (38-126) U/L Lactate Dehydrogenase (333-699) U/L Total Creatine Kinase (35-230) U/L CK-MB (CK-2) (0.0-3.6) ng/mL CK-MB (CK-2) % Troponin I ng/mL Total Protein (5.8-8.3) g/dL Albumin (3.0-4.8) g/dL Globulin gm/dL Albumin/Globulin Ratio (1.1-1.8) Procalcitonin (0.19-0.49) NG/ML Arterial Blood Potassium (3.6-5.2) mmol/L Venous Blood Potassium 5.0 (3.6-5.2) mmol/L Urine Color (YELLOW) Urine Appearance (CLEAR) Urine pH (4.7-8.0) Ur Specific [place] (1.005-1.035) Urine Protein (<30 mg/dL) mg/dL Urine Glucose (UA) (NEGATIVE) mg/dL Urine Ketones (NEGATIVE) mg/dL Urine Blood (NEGATIVE) Urine Nitrate (NEGATIVE) Urine Bilirubin (NEGATIVE) Urine Urobilinogen (<1 E.U./dL) E.U./dL Ur Leukocyte Esterase (NEGATIVE) Lauri/uL Urine RBC (0-2) /hpf Urine WBC (0-6) /hpf Ur Epithelial Cells (0-5) /hpf Urine Bacteria (NEG) 07/04/17 07/04/17 07/04/17 Range/Units 17:42 16:25 11:00 WBC (4.5-11.0) 10^3/ul RBC (3.5-6.1) 10^6/uL Hgb (12.0-16.0) g/dL Hct (36.0-48.0) % MCV (80.0-105.0) fl MCH (25.0-35.0) pg MCHC (31.0-37.0) g/dl RDW (11.5-14.5) % Plt Count (120.0-450.0) 10^3/uL MPV (7.0-11.0) fl Gran % (50.0-68.0) % Lymph % (Auto) (22.0-35.0) % [place] % (Auto) (1.0-6.0) % Eos % (Auto) (1.5-5.0) % Baso % (Auto) (0.0-3.0) % Gran # (1.4-6.5) Lymph # (1.2-3.4) [place] # (0.1-0.6) Eos # (0.0-0.7) Baso # (0.0-2.0) K/mm3 Neutrophils % (Manual) (50.0-70.0) % Lymphocytes % (Manual) (22.0-35.0) % Monocytes % (Manual) (1.0-6.0) % Platelet Evaluation (NORMAL) Large Platelets Hypochromasia Anisocytosis (manual) PT (9.4-12.5) SECONDS INR (0.93-1.08) APTT (25.1-36.5) Seconds pCO2 (35-45) mm/Hg pO2 40 73 H (30-55) mm/Hg HCO3 (21-28) mmol/L ABG pH (7.35-7.45) ABG Total CO2 (22-28) mmol.L ABG O2 Saturation (95-98) % ABG O2 Content (15-23) ML/dl ABG Base Excess (-2.0-3.0) mmol/L ABG Hemoglobin (11.7-17.4) g/dL ABG Carboxyhemoglobin (0.5-1.5) % POC ABG HHb (Measured) (0-5) % ABG Methemoglobin (0.0-3.0) % ABG O2 Capacity (16-24) mL/dl ABG Potassium (3.6-5.2) mmol/L VBG pH 7.13 L* 7.32 (7.32-7.43) VBG pCO2 48.0 35.0 L (40-60) VBG HCO3 16.0 L 18.0 L (21-28) mmol/l VBG Total CO2 17.5 L 19.1 L (22-28) mmol.L VBG O2 Sat (Calc) 64.4 95.3 H (40-65) % VBG Base Excess -13.1 L -7.3 L (0.0-2.0) mmol/L VBG Potassium 5.2 4.6 (3.6-5.2) mmol/L Hgb O2 Saturation (95.0-98.0) % Glucose 123 H 104 (65-105) mg/dl Lactate 10.3 H* 5.6 H* (0.7-2.1) mmol/L FiO2 21.0 21.0 % Sodium 140.0 141.0 (132-148) mmol/L Potassium (3.6-5.0) mmol/L Chloride 101.0 104.0 (98-107) mmol/L Carbon Dioxide (21-33) mmol/L Anion Gap (10-20) BUN (7-21) mg/dL Creatinine (0.7-1.2) mg/dl Est GFR ( Amer) Est GFR (Non-Af Amer) POC Glucose (mg/dL) < 20 L* (65-110) mg/dL Random Glucose (70-110) mg/dL Calcium (8.4-10.5) mg/dL Phosphorus (2.5-4.5) mg/dL Magnesium (1.7-2.2) mg/dL Total Bilirubin (0.2-1.3) mg/dL AST (14-36) U/L ALT (7-56) U/L Alkaline Phosphatase (38-126) U/L Lactate Dehydrogenase (333-699) U/L Total Creatine Kinase (35-230) U/L CK-MB (CK-2) (0.0-3.6) ng/mL CK-MB (CK-2) % Troponin I ng/mL Total Protein (5.8-8.3) g/dL Albumin (3.0-4.8) g/dL Globulin gm/dL Albumin/Globulin Ratio (1.1-1.8) Procalcitonin (0.19-0.49) NG/ML Arterial Blood Potassium (3.6-5.2) mmol/L Venous Blood Potassium 5.2 4.6 (3.6-5.2) mmol/L Urine Color (YELLOW) Urine Appearance (CLEAR) Urine pH (4.7-8.0) Ur Specific [place] (1.005-1.035) Urine Protein (<30 mg/dL) mg/dL Urine Glucose (UA) (NEGATIVE) mg/dL Urine Ketones (NEGATIVE) mg/dL Urine Blood (NEGATIVE) Urine Nitrate (NEGATIVE) Urine Bilirubin (NEGATIVE) Urine Urobilinogen (<1 E.U./dL) E.U./dL Ur Leukocyte Esterase (NEGATIVE) Lauri/uL Urine RBC (0-2) /hpf Urine WBC (0-6) /hpf Ur Epithelial Cells (0-5) /hpf Urine Bacteria (NEG) 07/04/17 07/04/17 07/04/17 Range/Units 11:00 10:30 08:00 WBC (4.5-11.0) 10^3/ul RBC (3.5-6.1) 10^6/uL Hgb (12.0-16.0) g/dL Hct (36.0-48.0) % MCV (80.0-105.0) fl MCH (25.0-35.0) pg MCHC (31.0-37.0) g/dl RDW (11.5-14.5) % Plt Count (120.0-450.0) 10^3/uL MPV (7.0-11.0) fl Gran % (50.0-68.0) % Lymph % (Auto) (22.0-35.0) % [place] % (Auto) (1.0-6.0) % Eos % (Auto) (1.5-5.0) % Baso % (Auto) (0.0-3.0) % Gran # (1.4-6.5) Lymph # (1.2-3.4) [place] # (0.1-0.6) Eos # (0.0-0.7) Baso # (0.0-2.0) K/mm3 Neutrophils % (Manual) (50.0-70.0) % Lymphocytes % (Manual) (22.0-35.0) % Monocytes % (Manual) (1.0-6.0) % Platelet Evaluation (NORMAL) Large Platelets Hypochromasia Anisocytosis (manual) PT (9.4-12.5) SECONDS INR (0.93-1.08) APTT (25.1-36.5) Seconds pCO2 25 L (35-45) mm/Hg pO2 148.0 H (30-55) mm/Hg HCO3 11.7 L (21-28) mmol/L ABG pH 7.28 L (7.35-7.45) ABG Total CO2 12.5 L (22-28) mmol.L ABG O2 Saturation 99.7 H (95-98) % ABG O2 Content 13.9 L (15-23) ML/dl ABG Base Excess -13.5 L (-2.0-3.0) mmol/L ABG Hemoglobin 10.0 L (11.7-17.4) g/dL ABG Carboxyhemoglobin 2.0 H (0.5-1.5) % POC ABG HHb (Measured) 0.3 (0-5) % ABG Methemoglobin 0.7 (0.0-3.0) % ABG O2 Capacity 13.9 L (16-24) mL/dl ABG Potassium (3.6-5.2) mmol/L VBG pH (7.32-7.43) VBG pCO2 (40-60) VBG HCO3 (21-28) mmol/l VBG Total CO2 (22-28) mmol.L VBG O2 Sat (Calc) (40-65) % VBG Base Excess (0.0-2.0) mmol/L VBG Potassium (3.6-5.2) mmol/L Hgb O2 Saturation 97.0 (95.0-98.0) % Glucose (65-105) mg/dl Lactate (0.7-2.1) mmol/L FiO2 40.0 % Sodium (132-148) mmol/L Potassium (3.6-5.0) mmol/L Chloride (98-107) mmol/L Carbon Dioxide (21-33) mmol/L Anion Gap (10-20) BUN (7-21) mg/dL Creatinine (0.7-1.2) mg/dl Est GFR ( Amer) Est GFR (Non-Af Amer) POC Glucose (mg/dL) (65-110) mg/dL Random Glucose (70-110) mg/dL Calcium (8.4-10.5) mg/dL Phosphorus (2.5-4.5) mg/dL Magnesium (1.7-2.2) mg/dL Total Bilirubin (0.2-1.3) mg/dL AST (14-36) U/L ALT (7-56) U/L Alkaline Phosphatase (38-126) U/L Lactate Dehydrogenase (333-699) U/L Total Creatine Kinase (35-230) U/L CK-MB (CK-2) (0.0-3.6) ng/mL CK-MB (CK-2) % Troponin I ng/mL Total Protein (5.8-8.3) g/dL Albumin (3.0-4.8) g/dL Globulin gm/dL Albumin/Globulin Ratio (1.1-1.8) Procalcitonin 7.94 H (0.19-0.49) NG/ML Arterial Blood Potassium (3.6-5.2) mmol/L Venous Blood Potassium (3.6-5.2) mmol/L Urine Color Light yellow (YELLOW) Urine Appearance Cloudy (CLEAR) Urine pH 7.5 (4.7-8.0) Ur Specific [place] 1.020 (1.005-1.035) Urine Protein >=300 H (<30 mg/dL) mg/dL Urine Glucose (UA) Negative (NEGATIVE) mg/dL Urine Ketones Trace H (NEGATIVE) mg/dL Urine Blood Large H (NEGATIVE) Urine Nitrate Positive H (NEGATIVE) Urine Bilirubin Small H (NEGATIVE) Urine Urobilinogen 0.2 (<1 E.U./dL) E.U./dL Ur Leukocyte Esterase Large H (NEGATIVE) Lauri/uL Urine RBC 15 - 20 (0-2) /hpf Urine WBC Tntc (0-6) /hpf Ur Epithelial Cells 3 - 4 (0-5) /hpf Urine Bacteria Many (NEG) 07/04/17 07/04/17 07/04/17 Range/Units 06:45 06:00 06:00 WBC 11.1 H (4.5-11.0) 10^3/ul RBC 3.89 (3.5-6.1) 10^6/uL Hgb 10.4 L (12.0-16.0) g/dL Hct 34.8 L (36.0-48.0) % MCV 89.5 (80.0-105.0) fl MCH 26.7 (25.0-35.0) pg MCHC 29.9 L (31.0-37.0) g/dl RDW 17.0 H (11.5-14.5) % Plt Count 121 (120.0-450.0) 10^3/uL MPV 10.0 (7.0-11.0) fl Gran % 90.4 H (50.0-68.0) % Lymph % (Auto) 6.5 L (22.0-35.0) % [place] % (Auto) 3.1 (1.0-6.0) % Eos % (Auto) 0.0 L (1.5-5.0) % Baso % (Auto) 0.0 (0.0-3.0) % Gran # 9.99 H (1.4-6.5) Lymph # 0.7 L (1.2-3.4) [place] # 0.3 (0.1-0.6) Eos # 0.0 (0.0-0.7) Baso # 0.00 (0.0-2.0) K/mm3 Neutrophils % (Manual) 90 H (50.0-70.0) % Lymphocytes % (Manual) 6 L (22.0-35.0) % Monocytes % (Manual) 4 (1.0-6.0) % Platelet Evaluation Low (NORMAL) Large Platelets Present Hypochromasia Slight Anisocytosis (manual) Slight PT (9.4-12.5) SECONDS INR (0.93-1.08) APTT (25.1-36.5) Seconds pCO2 (35-45) mm/Hg pO2 81 H (30-55) mm/Hg HCO3 (21-28) mmol/L ABG pH (7.35-7.45) ABG Total CO2 (22-28) mmol.L ABG O2 Saturation (95-98) % ABG O2 Content (15-23) ML/dl ABG Base Excess (-2.0-3.0) mmol/L ABG Hemoglobin (11.7-17.4) g/dL ABG Carboxyhemoglobin (0.5-1.5) % POC ABG HHb (Measured) (0-5) % ABG Methemoglobin (0.0-3.0) % ABG O2 Capacity (16-24) mL/dl ABG Potassium (3.6-5.2) mmol/L VBG pH 7.18 L* (7.32-7.43) VBG pCO2 30.0 L (40-60) VBG HCO3 11.2 L (21-28) mmol/l VBG Total CO2 12.1 L (22-28) mmol.L VBG O2 Sat (Calc) 95.8 H (40-65) % VBG Base Excess -15.8 L (0.0-2.0) mmol/L VBG Potassium 4.9 (3.6-5.2) mmol/L Hgb O2 Saturation (95.0-98.0) % Glucose 101 (65-105) mg/dl Lactate 13.3 H* (0.7-2.1) mmol/L FiO2 21.0 % Sodium 141.0 145 (132-148) mmol/L Potassium 4.9 (3.6-5.0) mmol/L Chloride 100.0 104 (98-107) mmol/L Carbon Dioxide 10 L (21-33) mmol/L Anion Gap 36 H (10-20) BUN 54 H (7-21) mg/dL Creatinine 10.1 H* (0.7-1.2) mg/dl Est GFR ( Amer) 5 Est GFR (Non-Af Amer) 4 POC Glucose (mg/dL) (65-110) mg/dL Random Glucose 96 (70-110) mg/dL Calcium 8.4 (8.4-10.5) mg/dL Phosphorus (2.5-4.5) mg/dL Magnesium (1.7-2.2) mg/dL Total Bilirubin 1.2 (0.2-1.3) mg/dL AST 133 H D (14-36) U/L ALT 34 (7-56) U/L Alkaline Phosphatase 125 (38-126) U/L Lactate Dehydrogenase 1482 H (333-699) U/L Total Creatine Kinase 383 H (35-230) U/L CK-MB (CK-2) 4.2 H (0.0-3.6) ng/mL CK-MB (CK-2) % Cancelled Troponin I 0.32 H* D ng/mL Total Protein 6.5 (5.8-8.3) g/dL Albumin 3.0 (3.0-4.8) g/dL Globulin 3.4 gm/dL Albumin/Globulin Ratio 0.9 L (1.1-1.8) Procalcitonin (0.19-0.49) NG/ML Arterial Blood Potassium (3.6-5.2) mmol/L Venous Blood Potassium 4.9 (3.6-5.2) mmol/L Urine Color (YELLOW) Urine Appearance (CLEAR) Urine pH (4.7-8.0) Ur Specific [place] (1.005-1.035) Urine Protein (<30 mg/dL) mg/dL Urine Glucose (UA) (NEGATIVE) mg/dL Urine Ketones (NEGATIVE) mg/dL Urine Blood (NEGATIVE) Urine Nitrate (NEGATIVE) Urine Bilirubin (NEGATIVE) Urine Urobilinogen (<1 E.U./dL) E.U./dL Ur Leukocyte Esterase (NEGATIVE) Lauri/uL Urine RBC (0-2) /hpf Urine WBC (0-6) /hpf Ur Epithelial Cells (0-5) /hpf Urine Bacteria (NEG) Laboratory Results - last 24 hr 07/04/17 07/04/17 07/04/17 06:00 06:00 06:45 WBC 11.1 H RBC 3.89 Hgb 10.4 L Hct 34.8 L MCV 89.5 MCH 26.7 MCHC 29.9 L RDW 17.0 H Plt Count 121 MPV 10.0 Gran % 90.4 H Lymph % (Auto) 6.5 L [place] % (Auto) 3.1 Eos % (Auto) 0.0 L Baso % (Auto) 0.0 Gran # 9.99 H Lymph # 0.7 L [place] # 0.3 Eos # 0.0 Baso # 0.00 Neutrophils % (Manual) 90 H Lymphocytes % (Manual) 6 L Monocytes % (Manual) 4 Platelet Evaluation Low Large Platelets Present Hypochromasia Slight Anisocytosis (manual) Slight PT INR APTT pCO2 pO2 81 H HCO3 ABG pH ABG Total CO2 ABG O2 Saturation ABG O2 Content ABG Base Excess ABG Hemoglobin ABG Carboxyhemoglobin POC ABG HHb (Measured) ABG Methemoglobin ABG O2 Capacity ABG Potassium VBG pH 7.18 L* VBG pCO2 30.0 L VBG HCO3 11.2 L VBG Total CO2 12.1 L VBG O2 Sat (Calc) 95.8 H VBG Base Excess -15.8 L VBG Potassium 4.9 Hgb O2 Saturation Glucose 101 Lactate 13.3 H* FiO2 21.0 Sodium 145 141.0 Potassium 4.9 Chloride 104 100.0 Carbon Dioxide 10 L Anion Gap 36 H BUN 54 H Creatinine 10.1 H* Est GFR ( Amer) 5 Est GFR (Non-Af Amer) 4 POC Glucose (mg/dL) Random Glucose 96 Calcium 8.4 Phosphorus Magnesium Total Bilirubin 1.2 AST 133 H D ALT 34 Alkaline Phosphatase 125 Lactate Dehydrogenase 1482 H Total Creatine Kinase 383 H CK-MB (CK-2) 4.2 H CK-MB (CK-2) % Cancelled Troponin I 0.32 H* D Total Protein 6.5 Albumin 3.0 Globulin 3.4 Albumin/Globulin Ratio 0.9 L Procalcitonin Arterial Blood Potassium Venous Blood Potassium 4.9 Urine Color Urine Appearance Urine pH Ur Specific [place] Urine Protein Urine Glucose (UA) Urine Ketones Urine Blood Urine Nitrate Urine Bilirubin Urine Urobilinogen Ur Leukocyte Esterase Urine RBC Urine WBC Ur Epithelial Cells Urine Bacteria 07/04/17 07/04/17 07/04/17 08:00 10:30 11:00 WBC RBC Hgb Hct MCV MCH MCHC RDW Plt Count MPV Gran % Lymph % (Auto) [place] % (Auto) Eos % (Auto) Baso % (Auto) Gran # Lymph # [place] # Eos # Baso # Neutrophils % (Manual) Lymphocytes % (Manual) Monocytes % (Manual) Platelet Evaluation Large Platelets Hypochromasia Anisocytosis (manual) PT INR APTT pCO2 25 L pO2 148.0 H HCO3 11.7 L ABG pH 7.28 L ABG Total CO2 12.5 L ABG O2 Saturation 99.7 H ABG O2 Content 13.9 L ABG Base Excess -13.5 L ABG Hemoglobin 10.0 L ABG Carboxyhemoglobin 2.0 H POC ABG HHb (Measured) 0.3 ABG Methemoglobin 0.7 ABG O2 Capacity 13.9 L ABG Potassium VBG pH VBG pCO2 VBG HCO3 VBG Total CO2 VBG O2 Sat (Calc) VBG Base Excess VBG Potassium Hgb O2 Saturation 97.0 Glucose Lactate FiO2 40.0 Sodium Potassium Chloride Carbon Dioxide Anion Gap BUN Creatinine Est GFR ( Amer) Est GFR (Non-Af Amer) POC Glucose (mg/dL) Random Glucose Calcium Phosphorus Magnesium Total Bilirubin AST ALT Alkaline Phosphatase Lactate Dehydrogenase Total Creatine Kinase CK-MB (CK-2) CK-MB (CK-2) % Troponin I Total Protein Albumin Globulin Albumin/Globulin Ratio Procalcitonin 7.94 H Arterial Blood Potassium Venous Blood Potassium Urine Color Light yellow Urine Appearance Cloudy Urine pH 7.5 Ur Specific [place] 1.020 Urine Protein >=300 H Urine Glucose (UA) Negative Urine Ketones Trace H Urine Blood Large H Urine Nitrate Positive H Urine Bilirubin Small H Urine Urobilinogen 0.2 Ur Leukocyte Esterase Large H Urine RBC 15 - 20 Urine WBC Tntc Ur Epithelial Cells 3 - 4 Urine Bacteria Many 07/04/17 07/04/17 07/04/17 11:00 16:25 17:42 WBC RBC Hgb Hct MCV MCH MCHC RDW Plt Count MPV Gran % Lymph % (Auto) [place] % (Auto) Eos % (Auto) Baso % (Auto) Gran # Lymph # [place] # Eos # Baso # Neutrophils % (Manual) Lymphocytes % (Manual) Monocytes % (Manual) Platelet Evaluation Large Platelets Hypochromasia Anisocytosis (manual) PT INR APTT pCO2 pO2 73 H 40 HCO3 ABG pH ABG Total CO2 ABG O2 Saturation ABG O2 Content ABG Base Excess ABG Hemoglobin ABG Carboxyhemoglobin POC ABG HHb (Measured) ABG Methemoglobin ABG O2 Capacity ABG Potassium VBG pH 7.32 7.13 L* VBG pCO2 35.0 L 48.0 VBG HCO3 18.0 L 16.0 L VBG Total CO2 19.1 L 17.5 L VBG O2 Sat (Calc) 95.3 H 64.4 VBG Base Excess -7.3 L -13.1 L VBG Potassium 4.6 5.2 Hgb O2 Saturation Glucose 104 123 H Lactate 5.6 H* 10.3 H* FiO2 21.0 21.0 Sodium 141.0 140.0 Potassium Chloride 104.0 101.0 Carbon Dioxide Anion Gap BUN Creatinine Est GFR ( Amer) Est GFR (Non-Af Amer) POC Glucose (mg/dL) < 20 L* Random Glucose Calcium Phosphorus Magnesium Total Bilirubin AST ALT Alkaline Phosphatase Lactate Dehydrogenase Total Creatine Kinase CK-MB (CK-2) CK-MB (CK-2) % Troponin I Total Protein Albumin Globulin Albumin/Globulin Ratio Procalcitonin Arterial Blood Potassium Venous Blood Potassium 4.6 5.2 Urine Color Urine Appearance Urine pH Ur Specific [place] Urine Protein Urine Glucose (UA) Urine Ketones Urine Blood Urine Nitrate Urine Bilirubin Urine Urobilinogen Ur Leukocyte Esterase Urine RBC Urine WBC Ur Epithelial Cells Urine Bacteria 07/04/17 07/04/17 07/04/17 18:09 18:30 18:30 WBC 10.2 RBC 3.33 L Hgb 8.8 L Hct 30.0 L MCV 90.1 MCH 26.4 MCHC 29.3 L RDW 17.2 H Plt Count 91 L MPV 11.2 H Gran % 70.6 H Lymph % (Auto) 25.3 [place] % (Auto) 3.8 Eos % (Auto) 0.2 L Baso % (Auto) 0.1 Gran # 7.19 H Lymph # 2.6 [place] # 0.4 Eos # 0.0 Baso # 0.01 Neutrophils % (Manual) Lymphocytes % (Manual) Monocytes % (Manual) Platelet Evaluation Large Platelets Hypochromasia Anisocytosis (manual) PT INR APTT pCO2 pO2 157 H HCO3 ABG pH ABG Total CO2 ABG O2 Saturation ABG O2 Content ABG Base Excess ABG Hemoglobin ABG Carboxyhemoglobin POC ABG HHb (Measured) ABG Methemoglobin ABG O2 Capacity ABG Potassium VBG pH 7.02 L* VBG pCO2 48.0 VBG HCO3 12.4 L VBG Total CO2 13.9 L VBG O2 Sat (Calc) 99.7 H VBG Base Excess -18.4 L VBG Potassium 5.0 Hgb O2 Saturation Glucose 531 H* D Lactate 15.8 H* FiO2 21.0 Sodium 143.0 Potassium Chloride 99.0 Carbon Dioxide Anion Gap BUN Creatinine Est GFR ( Amer) Est GFR (Non-Af Amer) POC Glucose (mg/dL) 40 L Random Glucose Calcium Phosphorus Magnesium Total Bilirubin AST ALT Alkaline Phosphatase Lactate Dehydrogenase Total Creatine Kinase CK-MB (CK-2) CK-MB (CK-2) % Troponin I Total Protein Albumin Globulin Albumin/Globulin Ratio Procalcitonin Arterial Blood Potassium Venous Blood Potassium 5.0 Urine Color Urine Appearance Urine pH Ur Specific [place] Urine Protein Urine Glucose (UA) Urine Ketones Urine Blood Urine Nitrate Urine Bilirubin Urine Urobilinogen Ur Leukocyte Esterase Urine RBC Urine WBC Ur Epithelial Cells Urine Bacteria 07/04/17 07/04/17 07/04/17 18:30 18:30 18:50 WBC RBC Hgb Hct MCV MCH MCHC RDW Plt Count MPV Gran % Lymph % (Auto) [place] % (Auto) Eos % (Auto) Baso % (Auto) Gran # Lymph # [place] # Eos # Baso # Neutrophils % (Manual) Lymphocytes % (Manual) Monocytes % (Manual) Platelet Evaluation Large Platelets Hypochromasia Anisocytosis (manual) PT 33.8 H INR 3.03 H APTT > 400.0 H* pCO2 pO2 HCO3 ABG pH ABG Total CO2 ABG O2 Saturation ABG O2 Content ABG Base Excess ABG Hemoglobin ABG Carboxyhemoglobin POC ABG HHb (Measured) ABG Methemoglobin ABG O2 Capacity ABG Potassium VBG pH VBG pCO2 VBG HCO3 VBG Total CO2 VBG O2 Sat (Calc) VBG Base Excess VBG Potassium Hgb O2 Saturation Glucose Lactate FiO2 Sodium 142 Potassium 4.8 Chloride 102 Carbon Dioxide 13 L Anion Gap 32 H BUN 51 H Creatinine 8.3 H* Est GFR ( Amer) 6 Est GFR (Non-Af Amer) 5 POC Glucose (mg/dL) 127 H Random Glucose 516 H* D Calcium 6.4 L* Phosphorus 11.0 H Magnesium 1.9 Total Bilirubin 1.1 AST 173 H D ALT 61 H Alkaline Phosphatase 89 Lactate Dehydrogenase Total Creatine Kinase CK-MB (CK-2) CK-MB (CK-2) % Troponin I 0.52 H* D Total Protein 4.5 L Albumin 2.0 L Globulin 2.6 Albumin/Globulin Ratio 0.8 L Procalcitonin Arterial Blood Potassium Venous Blood Potassium Urine Color Urine Appearance Urine pH Ur Specific [place] Urine Protein Urine Glucose (UA) Urine Ketones Urine Blood Urine Nitrate Urine Bilirubin Urine Urobilinogen Ur Leukocyte Esterase Urine RBC Urine WBC Ur Epithelial Cells Urine Bacteria 07/04/17 07/05/17 07/05/17 20:40 00:06 00:51 WBC RBC Hgb Hct MCV MCH MCHC RDW Plt Count MPV Gran % Lymph % (Auto) [place] % (Auto) Eos % (Auto) Baso % (Auto) Gran # Lymph # [place] # Eos # Baso # Neutrophils % (Manual) Lymphocytes % (Manual) Monocytes % (Manual) Platelet Evaluation Large Platelets Hypochromasia Anisocytosis (manual) PT INR APTT pCO2 25 L pO2 57 H 380.0 H HCO3 12.0 L ABG pH 7.29 L ABG Total CO2 12.8 L ABG O2 Saturation 99.7 H ABG O2 Content ABG Base Excess -12.8 L ABG Hemoglobin ABG Carboxyhemoglobin POC ABG HHb (Measured) ABG Methemoglobin ABG O2 Capacity ABG Potassium 4.2 VBG pH 7.12 L* VBG pCO2 39.0 L VBG HCO3 12.7 L VBG Total CO2 13.9 L VBG O2 Sat (Calc) 86.6 H VBG Base Excess -16.0 L VBG Potassium 4.8 Hgb O2 Saturation Glucose 258 H 220 H Lactate 17.7 H* 14.9 H* FiO2 21.0 100.0 Sodium 144.0 146.0 Potassium Chloride 100.0 104.0 Carbon Dioxide Anion Gap BUN Creatinine Est GFR ( Amer) Est GFR (Non-Af Amer) POC Glucose (mg/dL) 205 H Random Glucose Calcium Phosphorus Magnesium Total Bilirubin AST ALT Alkaline Phosphatase Lactate Dehydrogenase Total Creatine Kinase CK-MB (CK-2) CK-MB (CK-2) % Troponin I Total Protein Albumin Globulin Albumin/Globulin Ratio Procalcitonin Arterial Blood Potassium 4.2 Venous Blood Potassium 4.8 Urine Color Urine Appearance Urine pH Ur Specific [place] Urine Protein Urine Glucose (UA) Urine Ketones Urine Blood Urine Nitrate Urine Bilirubin Urine Urobilinogen Ur Leukocyte Esterase Urine RBC Urine WBC Ur Epithelial Cells Urine Bacteria 07/05/17 07/05/17 07/05/17 02:06 04:48 05:58 WBC 14.6 H D RBC 3.97 Hgb 10.6 L Hct 34.9 L MCV 87.9 MCH 26.7 MCHC 30.4 L RDW 17.0 H Plt Count 75 L MPV 9.8 Gran % 90.4 H Lymph % (Auto) 6.5 L [place] % (Auto) 2.9 Eos % (Auto) 0.1 L Baso % (Auto) 0.1 Gran # 13.19 H Lymph # 1.0 L [place] # 0.4 Eos # 0.0 Baso # 0.01 Neutrophils % (Manual) Lymphocytes % (Manual) Monocytes % (Manual) Platelet Evaluation Large Platelets Hypochromasia Anisocytosis (manual) PT INR APTT pCO2 pO2 HCO3 ABG pH ABG Total CO2 ABG O2 Saturation ABG O2 Content ABG Base Excess ABG Hemoglobin ABG Carboxyhemoglobin POC ABG HHb (Measured) ABG Methemoglobin ABG O2 Capacity ABG Potassium VBG pH VBG pCO2 VBG HCO3 VBG Total CO2 VBG O2 Sat (Calc) VBG Base Excess VBG Potassium Hgb O2 Saturation Glucose Lactate FiO2 Sodium Potassium Chloride Carbon Dioxide Anion Gap BUN Creatinine Est GFR ( Amer) Est GFR (Non-Af Amer) POC Glucose (mg/dL) 102 235 H Random Glucose Calcium Phosphorus Magnesium Total Bilirubin AST ALT Alkaline Phosphatase Lactate Dehydrogenase Total Creatine Kinase CK-MB (CK-2) CK-MB (CK-2) % Troponin I Total Protein Albumin Globulin Albumin/Globulin Ratio Procalcitonin Arterial Blood Potassium Venous Blood Potassium Urine Color Urine Appearance Urine pH Ur Specific [place] Urine Protein Urine Glucose (UA) Urine Ketones Urine Blood Urine Nitrate Urine Bilirubin Urine Urobilinogen Ur Leukocyte Esterase Urine RBC Urine WBC Ur Epithelial Cells Urine Bacteria EKG/Cardiology Studies: Cardiology / EKG Studies 07/04/17 18:26 EKG [ELECTROCARDIOGRAM] Stat Comment: Reason For Exam: cardiac arrest Fingerstick Blood Sugar Results: 114
[2017-07-05 07:58] LABS: BILIRUBIN,TOTAL 1.9 mg/dL (0.2-1.3); CALCIUM 7.4 mg/dL (8.4-10.5); MAGNESIUM 1.7 mg/dL (1.7-2.2); PHOSPHOROUS 9.9 mg/dL (2.5-4.5); POTASSIUM 4.6 mmol/L (3.6-5.0); TOTAL PROTEIN 5.9 g/dL (5.8-8.3)
--- NOTE | 2017-07-05 07:58 | CON ---
NEPHROLOGY CONSULTATION DATE: 07/04/2017 LOCATION: [facility]. HISTORY OF PRESENT ILLNESS: This is a 66-year-old female with past medical history of hypertension; CHF with systolic dysfunction; peripheral arterial disease, status post left BKA; and ESRD, on hemodialysis (TTS at [facility] under [facility]), presented to ED last night after being found to have altered mental status; patient was intubated in the ED and admitted to ICU. Nephrology being consulted for ESRD care. History obtained from chart as the patient is intubated. The patient apparently had been complaining of cough and flu-like symptoms for unclear duration of time; patient has been noncompliant with her medications and only comes to dialysis once a week; patient was apparently short of breath on day of presentation; in the ED, patient had worsening clinical status that required intubation for airway protection and also developed AFib with RVR. ICU course during the day has been complicated by hypotension with the patient being placed on vasopressor support with Levophed and vasopressin; patient has also been going into RVR; patient found to have severely elevated lactic acidosis on presentation that had improved only to rebound again later this afternoon. This evening, the patient suffered cardiac arrest with PEA noted on monitor; was able to achieve return of spontaneous circulation within approximately 5 minutes. PAST MEDICAL HISTORY: As above. SOCIAL HISTORY: The patient is current smoker. FAMILY HISTORY: Unavailable. REVIEW OF SYSTEMS: Limited due to the patient's clinical deterioration. VITAL SIGNS: This evening, blood pressure 70/49, heart rate 138, patient is currently on 40% FiO2 via mechanical ventilation. PHYSICAL EXAMINATION: GENERAL: The patient intubated, not responding but is spontaneously breathing. HEENT: No scleral icterus. No lymphadenopathy noted. A left IJ central venous catheter in place. RESPIRATORY: Lungs are clear to auscultation bilaterally. No rales. No rhonchi. CARDIOVASCULAR: Heart sounds, no murmurs, but tachycardic, irregular rate and rhythm. GI: Abdomen soft, nontender, nondistended. : Stevens in place with some urine output. EXTREMITIES: No leg edema. SKIN: Distal extremities cool to touch. No cyanosis. NEURO: The patient unresponsive to verbal stimuli. DIAGNOSTIC DATA: Chest x-ray on presentation had evidence of volume overload with pulmonary vascular congestion. However, repeat x-ray was much improved. ASSESSMENT AND PLAN: 1. Shock, etiology remains unclear at this point. The patient with severe lactic acidosis that is fluctuating; now status post pulseless electrical activity, cardiac arrest; on two vasopressors, but with persistent hypotension. Agree with giving volume resuscitation, especially as the patient has relatively low FiO2 requirement. Agree with CT abdomen and pelvis to look for intra-abdominal pathology despite normal exam. Agree with repeat echo to look for cardiogenic etiology. 2. End-stage renal disease, on hemodialysis. The patient with last hemodialysis session two days ago for routine, relatively stable volume status, potassium within normal limits with severe lactic acidosis; however, is on bicarb drip. No urgent indication for hemodialysis currently, especially with the patient being extremely hypotensive. We will reassess in the morning for need for hemodialysis. 3. Sepsis/septic shock. The patient currently on meropenem 500 mg q.8h. and received a dose of vancomycin earlier today. Re-dose vancomycin and meropenem after next hemodialysis session, which will likely be tomorrow. 4. Arteriovenous fistula stenosis, possibility of thrombosis as well in the setting of severe hypotension and now cardiac arrest. We will need to reassess tomorrow morning for need for hemodialysis catheter placement. 5. Anemia of end-stage renal disease. The patient has been noncompliant with hemodialysis, and therefore does not receive sufficient doses of EPO, we will re-dose on next hemodialysis session. 6. Chronic kidney disease mineral bone disorder. The patient noncompliant with phosphorus binders, phosphorus has been very high, should avoid giving IV calcium replenishment unless patient has symptomatic hypocalcemia. Critical care time spent seeing the patient and assessing her discussion with critical care team over 35 minutes. Nir Brooks MD
--- NOTE | 2017-07-05 08:05 | PN ---
PULMONARY NOTE DATE: 07/05/2017(610am--705am) SUBJECTIVE: The patient remains on the ventilator. She is quite lethargic. She is not sedated (discussed with nurse). PHYSICAL EXAMINATION VITAL SIGNS: Temperature is 98.7, pulse is 115, respiratory rate 20/20, blood pressure 158/84. HEENT: Normocephalic, atraumatic. No JVD. CARDIOVASCULAR: Systolic ejection murmur at the lower left sternal border. No S3 gallop. LUNGS: Crackles at both bases. Minimal/less bilateral rhonchi. No wheezing. EXTREMITIES: The patient is status post left [id number] amputation. The right lower extremity reveals chronic vascular changes. There is no cyanosis or clubbing. GI: Abdomen is soft, and nondistended. Bowel sounds are positive. SKIN: No acute rash. NEUROLOGIC: Exam limited at the present time. PERTINENT LABORATORY DATA: Chest x-ray was done this morning and reviewed. The film done this morning is a much better film - compared to the film done yesterday. On today's film, there is less opacification appreciated at the left lower lobe. There remains mild pulmonary edema. Official results-- pending. Arterial blood gas was done on assist control 20, tidal volume 450, FIO2 of 50%, PEEP of 5. Results are: PH 7.34, pCO2 29, pO2 of 157. IMPRESSION: 1. Respiratory failure. 2. Rule out pneumonia - left lower lobe. 3. Ventricular tachycardia. 4. Mild pulmonary edema. 5. End-stage renal disease. 6. Rapid atrial fibrillation. 7. Severe metabolic acidosis - improved. 8. Mild bronchospasm. PLAN: The patient remains on the ventilator. She is quite lethargic this morning. She is not sedated (discussed with nurse). I did discuss the case with the night nurse at length. During the last shift, the patient did experience ventricular tachycardia - and was shocked multiple times. The ventricular rate and blood pressure are much improved at the present time. Plan will be to wean off pressor support - as tolerated. I did review the chest x-ray as above. There is less left lower lobe opacification noted on today's film. There remains mild pulmonary edema. I have also reviewed the arterial blood gas. The arterial blood gas is significantly improved-- with a decrease in the acidosis, and a decrease in the alveolar-arterial gradient. I have also reviewed the laboratory data from yesterday. A positive procalcitonin is noted. Keep in mind, that the procalcitonin is somewhat unreliable in end-stage renal patients. In any case, I would continue with the antibiotic coverage as per Infectious Disease. Temperatures are resolving. Cardiology input is also noted. Again, the patient is status post ventricular tachycardia - requiring multiple shocks. The patient remains critically ill at this point in time. I will discuss the above with the entire ICU team in the next few moments. I will also discuss the above with Dr. Beverly later this morning. Earl Vega MD MTDD
--- NOTE | 2017-07-05 08:13 | RAD ---
HISTORY: f/u COMPARISON: No prior. FINDINGS: LUNGS: The endotracheal tube and right internal jugular line are in satisfactory position PLEURA: No significant pleural effusion identified, no pneumothorax apparent. CARDIOVASCULAR: Moderate cardiomegaly OSSEOUS STRUCTURES: No significant abnormalities. VISUALIZED UPPER ABDOMEN: Normal. OTHER FINDINGS: None. IMPRESSION: No active disease.
--- NOTE | 2017-07-05 08:37 | CON ---
DATE OF SERVICE: 07/04/2017 LOCATION: The patient is seen in room #128, bed 5 and the patient is intubated on the ventilator, that is one day. HISTORY OF PRESENT ILLNESS: This is a 66-year-old female with end-stage renal disease, on hemodialysis, who was admitted through the emergency room, intubated on a ventilator in a patient with a past medical history of end-stage renal disease, on hemodialysis. The patient with hypertension, congestive heart failure, cerebrovascular accident, asthma, and hypothyroidism. She has a history of cholecystectomy and hysterectomy, severe peripheral vascular disease. She also had an infected gangrenous foot in the past. I had seen the patient in 01/2016, records were reviewed. The patient was seen in the emergency room by Dr. Hank Hutchison. The patient had been admitted. Daughter is a fair historian. The patient had been having flu-like symptoms and cough according to the records, now intubated on the ventilator and there has been no fevers reported. No chills. PAST MEDICAL HISTORY: Significant for end-stage renal disease, on hemodialysis, hypertension, congestive heart failure, cerebrovascular accident, coronary artery disease, severe peripheral vascular disease, hypothyroidism, and asthma. PAST SURGICAL HISTORY: Significant for left [id number] amputation, cholecystectomy, and hysterectomy. ALLERGIES: THE PATIENT HAS ALLERGY TO SHELLFISH. RICE MATERIAL AND INTRUSIONS AT HOME ARE NOT LISTED. PHYSICAL EXAMINATION: GENERAL: The patient is intubated on the ventilator. VITAL SIGNS: Temperature of 99.7, heart rate of 113, respiratory rate of 24, saturation as noted, and blood pressure is 99/72. HEENT: NG tube in place. NECK: Supple. LUNGS: Have decreased breath sounds. HEART: Normal S1 and S2. ABDOMEN: Soft and nontender. No rebound or guarding. LABORATORY DATA: Revealed a white count of 11,600, hemoglobin of 11, and platelets of 191 with 64% granulocytosis, coagulation is noted. Chemistry reveals a BUN of 51, creatinine of 10.8, alkaline phosphatase is 139, troponin is positive 2.1, 0.16, and 0.32. reviewed. Microbiology is pending. The patient had a CAT scan of the head, nonspecific findings. The patient also had a chest x-ray that shows a long left lateral ribcage and there is a PICC line in and right-sided dialysis. No consolidation appreciated. Consultation by Dr. Bruno George is reviewed. He writes down the patient has congestive heart failure with ejection fraction of 15%. . consultation is reviewed. The patient also had two other chest x-rays, which the reports are not available. feels that the patient has a left lower lobe. ASSESSMENT AND PLAN: This is a 66-year-old female with end-stage renal disease, on hemodialysis, hypothyroidism, hypertension, peripheral vascular disease, congestive heart failure with an ejection fraction of 15%, cerebrovascular accident, asthma, and coronary artery disease, who is admitted now with severe sepsis and respiratory failure, intubated on the ventilator secondary to left healthcare-associated pneumonia. We will treat the patient with vancomycin and meropenem, pending hernandez culture results, and blood culture and urine culture ordered. A methicillin-resistant Staphylococcus aureus screen has been ordered. We will request a sputum culture and procalcitonin. We will give a dose of vancomycin, which was given earlier this morning at 500 mg. We will give another dose. We will follow closely with you. Reji Young MD
--- NOTE | 2017-07-05 09:47 | CP.PCM.PN ---
Subjective - Date & Time of Evaluation Date of Evaluation: 07/05/17 Time of Evaluation: 09:44 - Subjective Subjective: Progress note for nephrology, Dr. Brooks Pt is seen and examined at bedside. patient is intubated on [facility] setting. Yesterday, patient had one episode of PEA. ACLS protocol was initiated and pt had ROSC. Patient then had SVT and was cardioverted. She went into ventricular tach and was again cardioverted at 200 J. she return to sinus rhythm. ROS are unobtianable due to AMS. Objective - Vital Signs/Intake and Output Vital Signs (last 24 hours): Temp Pulse Resp BP Pulse Ox 98.7 F 115 H 24 158/84 H 100 07/04/17 03:44 07/05/17 06:00 07/04/17 07:26 07/05/17 05:31 07/05/17 06:00 Intake and Output: 07/05/17 07/05/17 06:59 18:59 Intake Total 8548 Output Total 570 Balance 7978 - Medications Medications: Current Medications Chlorhexidine Gluconate (Peridex) 15 ml PO BID [facility] Last Admin: 07/04/17 18:29 Dose: 15 ml Fentanyl Citrate (Fentanyl Citrate/Sodium Chloride 1 Mg/100 Ml) 1,000 mcg in 100 mls @ 10 mls/hr IV .Q10H PRN; Protocol; 100 MCG/HR PRN Reason: TITRATE PER MD ORDER Last Titration: 07/04/17 17:30 Dose: 0 mcg/hr, 0 mls/hr Meropenem 500 mg/ Sodium (Chloride) 50 mls @ 100 mls/hr IVPB Q8 MARCEL PRN Reason: Protocol Stop: 07/13/17 14:01 Last Admin: 07/05/17 01:44 Dose: 100 mls/hr Sodium Bicarbonate 150 meq/ (Dextrose) 1,150 mls @ 150 mls/hr IV .Q7H40M [facility] Last Admin: 07/05/17 05:36 Dose: 150 mls/hr NOREPINEPHRINE BIT/0.9 % NACL (Levophed 4 Mg/ 250 Ml Ns Premixed) 4 mg in 250 mls @ 15 mls/hr IV .[id number] PRN; Protocol; 4 MCG/MIN PRN Reason: TITRATE PER MD ORDER Last Titration: 07/05/17 04:32 Dose: 10 mcg/min, 37.5 mls/hr Vasopressin 20 units/ Sodium (Chloride) 101 mls @ 9.09 mls/hr IV .Q11H7M MARCEL; 0.03 U/MIN PRN Reason: Protocol Last Admin: 07/04/17 17:45 Dose: 9.09 mls/hr Dobutamine HCl/Dextrose (Dobutamine/Dextrose 5% 500mg/250ml) 500 mg in 250 mls @ 12.859 mls/hr IV .[id number] PRN; Protocol; 5 MCG/KG/MIN PRN Reason: TITRATE PER PROTOCOL Pantoprazole Sodium (Protonix Inj) 40 mg IVP DAILY MARCEL Last Admin: 07/04/17 09:42 Dose: 40 mg - Labs Labs: 07/05/17 05:58 07/05/17 05:58 PT 33.8 SECONDS (9.4-12.5) H 07/04/17 18:30 INR 3.03 (0.93-1.08) H 07/04/17 18:30 APTT > 400.0 Seconds (25.1-36.5) H* 07/04/17 18:30 - Constitutional Appears: Non-toxic, No Acute Distress - Head Exam Head Exam: ATRAUMATIC - ENT Exam ENT Exam: Mucous Membranes Moist - Respiratory Exam Respiratory Exam: Clear to Ausculation Bilateral, Rhonchi. absent: Accessory Muscle Use, Rales, Wheezes - Cardiovascular Exam Cardiovascular Exam: Tachycardia. absent: Gallop, Rubs, Murmur - GI/Abdominal Exam GI & Abdominal Exam: Soft, Normal Bowel Sounds. absent: Firm, Guarding, Rigid, Tenderness - Extremities Exam Extremities Exam: absent: Pedal Edema, Tenderness - Neurological Exam Neurological Exam: absent: Alert, Awake, Oriented x3 Additional comments: opens eyes to her name - Skin Skin Exam: Dry, Intact, Normal Color, Warm Assessment and Plan - Assessment and Plan (Free Text) Assessment: 66 year old female with past medical history of HTN, CHF with systolic dysfunction, PAD s/p BKA, ESRD on HD TTS presented to ED for AMS. She had respiratory distress in ED and was intubated. She was developed A fib with RVR. Plan: 1. Shock - cardiogenic vs. septic shock - Lactic acid remains elevated but improving - Procal is also elevated - Blood pressure has improved after the cardioversion - Currently on meropenem 500 mg q8. received one dose of vancomycin yesterday. Will renal dose adjust Abx - Bicarb drip d/donal as patient's chest xray is noted to have more vascular congestion. Pt also has improving metabolic acidosis 2. ESRD on HD TTS - Pt was non-compliant with dialysis treatment on outpt setting 3. AV fistula stenosis - Extremity ultrasound showed patent brachial-cephalic fistula. Focal stenosis remains in mid left cephalic vein 4. Anemia of ESRD - Will dose EPO on next HD treatment 5. Chronic kidney disease mineral bone disease - Non-complaint with taking phospho binders and phosphorus is high - Should avoid replacing calcium unless symptomatic All recs and orders per Dr. Brooks
[2017-07-05] MEDS: Chlorhexidine 0.12% Oral Sol 480 ml Bot PO SCH ×2 (10:00→17:59)
--- NOTE | 2017-07-05 10:01 | PN ---
DATE: SUBJECTIVE: I find out that she had a cold last night and she is now on the vent. Continues with respiratory failure, possible left lower lobe pneumonia, ventricular tachycardia, end-stage renal disease, rapid atrial fibrillation. PHYSICAL EXAMINATION: VITAL SIGNS: Has a 98.7 temperature, 115 pulse, respiratory rate is about 20, blood pressure 158/84. HEENT: Head is atraumatic and normocephalic. LUNGS: Decreased breath sounds. Some congestion at the bases. HEART: Regular rate. Systolic ejection murmur. EXTREMITIES: Left below-knee amputation, mild edema. ABDOMEN: Soft, nontender. Positive bowel sounds. Obese. SKIN: For the most part is intact. She has multiple issues. Continue with aggressive treatment with ventilation. She is on ventilator. She is currently on dobutamine drip, fentanyl patch, Levophed, Merrem, Peridex, Protonix, IV bicarbonate, vasopressin. LABORATORY DATA: 14.6 white count, 10.6 hemoglobin, 34.9 hematocrit with 75 platelets. Sodium 147, potassium 4.6, BUN 66, creatinine 8.8, GFR is 5, so on dialysis, sugar is 252, calcium is 7.4, phosphorus is 9.9, AST is pretty high at 1479, ALT is 504, alkaline phosphatase is 127. PLAN: She is being seen by Renal, Infectious Disease, Cardiology, Pulmonary. I am going to call on GI for the elevated white count. She is in poor prognosis, and she had a visit from palliative care. Terrence Beverly DO
--- NOTE | 2017-07-05 10:13 | CT ---
PROCEDURE: CT Abdomen and Pelvis without intravenous contrast HISTORY: Sepsis COMPARISON: 01/23/2016 TECHNIQUE: CT scan of the abdomen and pelvis was performed without administration of intravenous contrast. Oral contrast was not administered. Coronal and sagittal reformatted images there were obtained. Radiation dose: Total exam DLP = 1262.39 mGy-cm. This CT exam was performed using one or more of the following dose reduction techniques: Automated exposure control, adjustment of the mA and/or kV according to patient size, and/or use of iterative reconstruction technique. FINDINGS: LOWER THORAX: Small right pleural effusion with compressive atelectasis in the lung base. There is minimal subsegmental atelectasis in the left lung base. There is moderate cardiomegaly. LIVER: Mild hepatomegaly. No gross lesion or ductal dilatation. GALLBLADDER AND BILE DUCTS: Surgically absent. PANCREAS: Mild fatty atrophy. No gross lesion or ductal dilatation. SPLEEN: Normal in size. ADRENALS: No discrete nodule. KIDNEYS AND URETERS: There is mild cortical atrophy in both kidneys. No hydronephrosis or nephrolithiasis. There are parenchymal calcifications in the right upper pole. There is significant perinephric fat stranding and perinephric fluid, most conspicuous in the right inferior perinephric region. VASCULATURE: Advanced atherosclerotic vascular calcifications. No aortic aneurysm. BOWEL: The small bowel loops are normal in caliber. There is scattered colonic diverticulosis without CT evidence for acute diverticulitis. There is submucosal fatty infiltration in the ascending colon suggestive of chronic inflammation. No bowel dilatation or obstruction. APPENDIX: No inflammatory changes in the right lower quadrant. PERITONEUM: There is small amount of free fluid in the pelvis and perihepatic region. No free intraperitoneal air. LYMPH NODES: Unremarkable. No enlarged lymph nodes. BLADDER: Indwelling Stevens catheter with subsequent decompression REPRODUCTIVE: Unremarkable. BONES: No acute fracture. OTHER FINDINGS: There is severe diffuse anasarca and fluid in the deep subcutaneous tissues of the posterolateral abdominal wall. IMPRESSION: No acute abdominal or pelvic abnormality. Small abdominal and pelvic ascites. Small right pleural effusion. Severe diffuse anasarca and fluid in the deep subcutaneous tissues of the posterolateral abdominal rizzo.
--- NOTE | 2017-07-05 10:49 | CON ---
DATE: 07/05/2017 SUBJECTIVE: The patient is seen and examined at bedside. She is off of sedatives and the last dose of fentanyl was given yesterday. Overnight, the patient had Vfib/Vtach arrest, requiring cardioversion. At the present time, the patient is in sinus rhythm. Her Hemodynamic status substantially improved. She is off of norepinephrine and only on vasopressin 0.02 units per minute. OBJECTIVE: VITAL SIGNS: Her blood pressure is 135/90 and heart rate is 99. She is off of dobutamine as well. She is on PRVC 450/20/5/50%. Oxygen saturation 100% and end-tidal CO2 on the monitor is 30. ENT: Head and neck; atraumatic. LUNGS: Clear to auscultation bilaterally. HEART: Regular rate and rhythm. S1 and S2 distant. ABDOMEN: Soft, nontender, and nondistended. MUSCULOSKELETAL: Status post AKA on the left side and no C/C/E on the right side. SKIN: Moist. PSYCHIATRIC: The patient is sedated and not responsive to touch stimuli. DIAGNOSTIC DATA: Bedside echocardiogram reveals severely depressed left ventricular systolic function. Some right ventricular dilatation. IVC diameter is 3.3 cm without any significant respiratory variation. Of note, the patient is positive 8.5 L since yesterday. The patient is on dialysis and has end-stage renal disease. LABORATORY DATA: WBC 14.6 up from 10.2, hemoglobin 10.6 up from 8.8, and platelet count 75. Sodium 147, potassium 4.6, chloride 101, carbon dioxide 16, BUN 56, creatinine 8.8 (the patient is on hemodialysis), and glucose 252. AST pending, ALT 504, and alkaline phosphatase 127. Procalcitonin is 7.94. Chest x-ray revealed some bilateral vascular congestion; however, substantially improved since admission. The patient has a left IJ and endotracheal tube in satisfactory position. ASSESSMENT AND PLAN: This is a 66-year-old lady who initially presented with shock syndrome of unclear etiology. Most likely, however, we are dealing with cardiogenic shock here that was triggered by paroxysm of atrial fibrillation in the setting of baseline severely depressed left ventricular systolic function. Yesterday, the patient had cardioversion with gnosticism of sinus rhythm with almost immediate improvement in hemodynamics with subsequent gnosticism, blood pressure, relative stability. The patient is going for CAT scan of the chest, abdomen, and pelvis to rule out other causes of shock syndrome. Once she is back, vasopressin will be weaned off as well. According to my conversation with part time receptionist-- lability of the patient's heart rate and presence of atrial fibrillation made him to be more cautious/ apprehensive toward use of dobutamine. I will hold dobutamine at present time and rather go with positive pressure ventilation as well as conservative fluid management for pre and afterload reduction. Milrinone may not be the best/better choice as well , as patient has ESRD. If hemodynamics continue to hold, afterload reduction with hydralazine plus/minus isosorbide mononitrate will be considered. Cardiology followup is appreciated as well-->TAC with heparin was held yesterday-if cardiology service does not have any concerns--we will restart it. Patient has shellfish allergy and even though risk of cross reaction with IV dye used at [facility] is small, if patient were on TAC already, I would forego CT chest with PE protocol (which requires IV contrast) in favor of simply anticoagulating her for h/o afib (if there are no contraindications). Of course, if CAT scan of the abdomen, and pelvis would provide alternative explanation for shock syndrome--it will be taken into consideration and addressed as well. Septic workup was done and broad-spectrum antibiotics are given. Abdominal exam is benign. I spoke with Dr. Brooks and the patient will be dialyzed today. We will continue to maintain euvolemia, euglycemia, normothermia, and oxygen saturation more than 90%. We will continue with protective lung ventilation strategy, conservative fluid, and oxygen management. Optimization of cardiac regimen as described above. Once dialyzed (with planned 3.5 L removed)-will proceed with weaning trial. Hopefully her mental status would improve after HD as well. Head of bed elevated more than 35 degrees. Oral hygiene. DVT and GI prophylaxis. The patient currently is n.p.o. Transaminitis most likely represents "shock liver"-- will follow. May need to hold statins and amiodarone. Blood glucose will be maintained between 140 to 180 range according to NICE-SUGAR trial. Thrombocytopenia most likely relates to BM suppression as a part of MODS due to now resolving shock syndrome. ccm time 40 min Hieu Castillo MD MEL[facility]
--- NOTE | 2017-07-05 10:58 | CP.PCM.CON ---
<Lorenza Gunter - Last Filed: 07/05/17 13:32> History of Present Illness - History of Present Illness History of Present Illness: Lorenza Gunter, PGY1, GI Consult Note for Dr Corado: 66 years old female, with PMH ESRD on HD T/Th/S, CHF with EF 15%, CVA, DM, presents to ED for AMS and sob. Pt currently intubated and altered (responds to painful stimuli), HPI thus obtained from charts and staff. As per daughter, pt had been having a cough and flu like illness for the past 2 months. However, pt did not want medical care, and was also noncompliant with her meds. However, she did make it to some of her HD appts. In Ed, pt found to be septic with leukocytosis 11.6, lactate 14, in profound metabolic acidosis with HCO3 11, in afib with RVR with HR 190s. Pt intubated in ED for airway protection and started on Cardizem drip, further requiring pressors in ICU, pt had Code Blue yesterday with ROSC, V tach, then cardioverted with 200J shock to SR. GI consult called for elevated LFTs post code, AST 1479, ALT 509 (admission AST 44 , ALT 11). As per previous records, pt had negative hepatitis panel in 2015 and no alcohol use history. Pt has been NPO since admission. As per nurse , pt had 1 episode of bilious vomiting this AM, NGT with suction in place. 12 point ROS unobtainable due to AMS, intubated patient. PMH: ESRD on HD T//S, HTN, CHF with EF 15%, DM, CVA with left sided weakness, anemia PSH: Left BKA, cholecystectomy All: Shellfish FH: unobtainable SH: Former tobacco user, 1/2 ppd from age [age]. Denies alcohol/illicit drug use. 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 Advance Care Planning: The patient has an Advance Directive on the chart dated . Daughter states that patient had revoked this Directive. Review of Systems - Review of Systems Systems not reviewed;Unavailable: Altered Mental Status, Intubated Past Patient History - Infectious Disease Hx of Infectious Diseases: None - Tetanus Immunizations Tetanus Immunization: Unknown - Past Medical History & Family History Past Medical History?: Yes - Past Social History Smoking Status: Never Smoked - CARDIAC Hx Cardiac Disorders: Yes Hx Congestive Heart Failure: Yes Hx Pacemaker: No - PULMONARY Hx Respiratory Disorders: Yes Hx Asthma: Yes Hx Bronchitis: Yes - NEUROLOGICAL Hx Neurological Disorder: No Hx Paralysis: No - HEENT Hx HEENT Problems: Yes (uses eyeglasses for reading) - RENAL Hx Dialysis: Yes Hx Renal Failure: Yes - ENDOCRINE/METABOLIC Hx Endocrine Disorders: Yes Hx Diabetes Mellitus Type 2: Yes Hx Hypothyroidism: Yes - HEMATOLOGICAL/ONCOLOGICAL Hx Blood Transfusions: Yes (11/26/15) Hx Blood Transfusion Reaction: No - INTEGUMENTARY Hx Dermatological Problems: Yes (RCW PERMACATH,LEFT UPPER ARM PICC) - MUSCULOSKELETAL/RHEUMATOLOGICAL Hx Musculoskeletal Disorders: No - GASTROINTESTINAL Hx Gastrointestinal Disorders: No - GENITOURINARY/GYNECOLOGICAL Hx Genitourinary Disorders: No - PSYCHIATRIC Hx Emotional Abuse: No Hx Physical Abuse: No Hx Substance Use: No - SURGICAL HISTORY Other/Comment: L BKA - ANESTHESIA Hx Anesthesia: Yes Hx Anesthesia Reactions: No Hx Malignant Hyperthermia: No Meds Allergies/Adverse Reactions: Allergies Allergy/AdvReac Type Severity Reaction Status Date / Time shellfish derived Allergy ITCHING Verified 07/03/17 21:31 - Medications Medications: Current Medications Chlorhexidine Gluconate (Peridex) 15 ml PO BID [facility] Last Admin: 07/04/17 18:29 Dose: 15 ml Fentanyl Citrate (Fentanyl Citrate/Sodium Chloride 1 Mg/100 Ml) 1,000 mcg in 100 mls @ 10 mls/hr IV .Q10H PRN; Protocol; 100 MCG/HR PRN Reason: TITRATE PER MD ORDER Last Titration: 07/04/17 17:30 Dose: 0 mcg/hr, 0 mls/hr Meropenem 500 mg/ Sodium (Chloride) 50 mls @ 100 mls/hr IVPB Q8 MARCEL PRN Reason: Protocol Stop: 07/13/17 14:01 Last Admin: 07/05/17 01:44 Dose: 100 mls/hr Sodium Bicarbonate 150 meq/ (Dextrose) 1,150 mls @ 150 mls/hr IV .[id number] MARCEL Last Admin: 07/05/17 05:36 Dose: 150 mls/hr NOREPINEPHRINE BIT/0.9 % NACL (Levophed 4 Mg/ 250 Ml Ns Premixed) 4 mg in 250 mls @ 15 mls/hr IV .[id number] PRN; Protocol; 4 MCG/MIN PRN Reason: TITRATE PER MD ORDER Last Titration: 07/05/17 04:32 Dose: 10 mcg/min, 37.5 mls/hr Vasopressin 20 units/ Sodium (Chloride) 101 mls @ 9.09 mls/hr IV .[id number] MARCEL; 0.03 U/MIN PRN Reason: Protocol Last Admin: 07/04/17 17:45 Dose: 9.09 mls/hr Dobutamine HCl/Dextrose (Dobutamine/Dextrose 5% 500mg/250ml) 500 mg in 250 mls @ 12.859 mls/hr IV .[id number] PRN; Protocol; 5 MCG/KG/MIN PRN Reason: TITRATE PER PROTOCOL Pantoprazole Sodium (Protonix Inj) 40 mg IVP DAILY MARCEL Last Admin: 07/05/17 10:25 Dose: 40 mg Physical Exam - Constitutional Appears: Older Than Stated Age, Chronically Ill - Head Exam Head Exam: ATRAUMATIC, NORMOCEPHALIC - Eye Exam Eye Exam: PERRL - ENT Exam ENT Exam: Mucous Membranes Moist - Respiratory Exam Respiratory Exam: Decreased Breath Sounds. absent: Rales, Rhonchi Additional comments: intubated on PRVC setting - Cardiovascular Exam Cardiovascular Exam: Tachycardia, REGULAR RHYTHM, +S1, +S2 - GI/Abdominal Exam GI & Abdominal Exam: Normal Bowel Sounds, Soft. absent: Guarding, Organomegaly , Rebound, Rigid, Tenderness Additional comments: morbidly obese female - Extremities Exam Extremities exam: Negative for: calf tenderness, pedal edema - Neurological Exam Neurological exam: Altered - Skin Skin Exam: Dry, Normal Color, Warm Results - Vital Signs Recent Vital Signs: Last Vital Signs Temp 98.7 F 07/04/17 03:44 Pulse 115 H 07/05/17 06:00 Resp 24 07/04/17 07:26 BP 158/84 H 07/05/17 05:31 Pulse Ox 100 07/05/17 06:00 - Labs Result Diagrams: 07/05/17 05:58 07/05/17 05:58 Labs: Laboratory Results - last 24 hr 07/04/17 07/04/17 07/04/17 10:30 11:00 11:00 WBC RBC Hgb Hct MCV MCH MCHC RDW Plt Count MPV Gran % Lymph % (Auto) [place] % (Auto) Eos % (Auto) Baso % (Auto) Gran # Lymph # [place] # Eos # Baso # PT INR APTT pCO2 pO2 73 H HCO3 ABG pH ABG Total CO2 ABG O2 Saturation ABG Base Excess ABG Potassium VBG pH 7.32 VBG pCO2 35.0 L VBG HCO3 18.0 L VBG Total CO2 19.1 L VBG O2 Sat (Calc) 95.3 H VBG Base Excess -7.3 L VBG Potassium 4.6 Sodium 141.0 Chloride 104.0 Glucose 104 Lactate 5.6 H* FiO2 21.0 Potassium Carbon Dioxide Anion Gap BUN Creatinine Est GFR ( Amer) Est GFR (Non-Af Amer) POC Glucose (mg/dL) Random Glucose Calcium Phosphorus Magnesium Total Bilirubin GGT AST ALT Alkaline Phosphatase Troponin I Total Protein Albumin Globulin Albumin/Globulin Ratio Procalcitonin 7.94 H Arterial Blood Potassium Venous Blood Potassium 4.6 Urine RBC 15 - 20 Urine WBC Tntc Ur Epithelial Cells 3 - 4 Urine Bacteria Many Vancomycin Trough 07/04/17 07/04/17 07/04/17 16:25 17:42 18:09 WBC RBC Hgb Hct MCV MCH MCHC RDW Plt Count MPV Gran % Lymph % (Auto) [place] % (Auto) Eos % (Auto) Baso % (Auto) Gran # Lymph # [place] # Eos # Baso # PT INR APTT pCO2 pO2 40 HCO3 ABG pH ABG Total CO2 ABG O2 Saturation ABG Base Excess ABG Potassium VBG pH 7.13 L* VBG pCO2 48.0 VBG HCO3 16.0 L VBG Total CO2 17.5 L VBG O2 Sat (Calc) 64.4 VBG Base Excess -13.1 L VBG Potassium 5.2 Sodium 140.0 Chloride 101.0 Glucose 123 H Lactate 10.3 H* FiO2 21.0 Potassium Carbon Dioxide Anion Gap BUN Creatinine Est GFR ( Amer) Est GFR (Non-Af Amer) POC Glucose (mg/dL) < 20 L* 40 L Random Glucose Calcium Phosphorus Magnesium Total Bilirubin GGT AST ALT Alkaline Phosphatase Troponin I Total Protein Albumin Globulin Albumin/Globulin Ratio Procalcitonin Arterial Blood Potassium Venous Blood Potassium 5.2 Urine RBC Urine WBC Ur Epithelial Cells Urine Bacteria Vancomycin Trough 07/04/17 07/04/17 07/04/17 18:30 18:30 18:30 WBC 10.2 RBC 3.33 L Hgb 8.8 L Hct 30.0 L MCV 90.1 MCH 26.4 MCHC 29.3 L RDW 17.2 H Plt Count 91 L MPV 11.2 H Gran % 70.6 H Lymph % (Auto) 25.3 [place] % (Auto) 3.8 Eos % (Auto) 0.2 L Baso % (Auto) 0.1 Gran # 7.19 H Lymph # 2.6 [place] # 0.4 Eos # 0.0 Baso # 0.01 PT INR APTT pCO2 pO2 157 H HCO3 ABG pH ABG Total CO2 ABG O2 Saturation ABG Base Excess ABG Potassium VBG pH 7.02 L* VBG pCO2 48.0 VBG HCO3 12.4 L VBG Total CO2 13.9 L VBG O2 Sat (Calc) 99.7 H VBG Base Excess -18.4 L VBG Potassium 5.0 Sodium 143.0 142 Chloride 99.0 102 Glucose 531 H* D Lactate 15.8 H* FiO2 21.0 Potassium 4.8 Carbon Dioxide 13 L Anion Gap 32 H BUN 51 H Creatinine 8.3 H* Est GFR ( Amer) 6 Est GFR (Non-Af Amer) 5 POC Glucose (mg/dL) Random Glucose 516 H* D Calcium 6.4 L* Phosphorus 11.0 H Magnesium 1.9 Total Bilirubin 1.1 GGT AST 173 H D ALT 61 H Alkaline Phosphatase 89 Troponin I 0.52 H* D Total Protein 4.5 L Albumin 2.0 L Globulin 2.6 Albumin/Globulin Ratio 0.8 L Procalcitonin Arterial Blood Potassium Venous Blood Potassium 5.0 Urine RBC Urine WBC Ur Epithelial Cells Urine Bacteria Vancomycin Trough 07/04/17 07/04/17 07/04/17 18:30 18:50 20:40 WBC RBC Hgb Hct MCV MCH MCHC RDW Plt Count MPV Gran % Lymph % (Auto) [place] % (Auto) Eos % (Auto) Baso % (Auto) Gran # Lymph # [place] # Eos # Baso # PT 33.8 H INR 3.03 H APTT > 400.0 H* pCO2 pO2 57 H HCO3 ABG pH ABG Total CO2 ABG O2 Saturation ABG Base Excess ABG Potassium VBG pH 7.12 L* VBG pCO2 39.0 L VBG HCO3 12.7 L VBG Total CO2 13.9 L VBG O2 Sat (Calc) 86.6 H VBG Base Excess -16.0 L VBG Potassium 4.8 Sodium 144.0 Chloride 100.0 Glucose 258 H Lactate 17.7 H* FiO2 21.0 Potassium Carbon Dioxide Anion Gap BUN Creatinine Est GFR ( Amer) Est GFR (Non-Af Amer) POC Glucose (mg/dL) 127 H Random Glucose Calcium Phosphorus Magnesium Total Bilirubin GGT AST ALT Alkaline Phosphatase Troponin I Total Protein Albumin Globulin Albumin/Globulin Ratio Procalcitonin Arterial Blood Potassium Venous Blood Potassium 4.8 Urine RBC Urine WBC Ur Epithelial Cells Urine Bacteria Vancomycin Trough 07/05/17 07/05/17 07/05/17 00:06 00:51 02:06 WBC RBC Hgb Hct MCV MCH MCHC RDW Plt Count MPV Gran % Lymph % (Auto) [place] % (Auto) Eos % (Auto) Baso % (Auto) Gran # Lymph # [place] # Eos # Baso # PT INR APTT pCO2 25 L pO2 380.0 H HCO3 12.0 L ABG pH 7.29 L ABG Total CO2 12.8 L ABG O2 Saturation 99.7 H ABG Base Excess -12.8 L ABG Potassium 4.2 VBG pH VBG pCO2 VBG HCO3 VBG Total CO2 VBG O2 Sat (Calc) VBG Base Excess VBG Potassium Sodium 146.0 Chloride 104.0 Glucose 220 H Lactate 14.9 H* FiO2 100.0 Potassium Carbon Dioxide Anion Gap BUN Creatinine Est GFR ( Amer) Est GFR (Non-Af Amer) POC Glucose (mg/dL) 205 H 102 Random Glucose Calcium Phosphorus Magnesium Total Bilirubin GGT AST ALT Alkaline Phosphatase Troponin I Total Protein Albumin Globulin Albumin/Globulin Ratio Procalcitonin Arterial Blood Potassium 4.2 Venous Blood Potassium Urine RBC Urine WBC Ur Epithelial Cells Urine Bacteria Vancomycin Trough 07/05/17 07/05/17 07/05/17 04:48 05:58 05:58 WBC 14.6 H D RBC 3.97 Hgb 10.6 L Hct 34.9 L MCV 87.9 MCH 26.7 MCHC 30.4 L RDW 17.0 H Plt Count 75 L MPV 9.8 Gran % 90.4 H Lymph % (Auto) 6.5 L [place] % (Auto) 2.9 Eos % (Auto) 0.1 L Baso % (Auto) 0.1 Gran # 13.19 H Lymph # 1.0 L [place] # 0.4 Eos # 0.0 Baso # 0.01 PT INR APTT pCO2 pO2 HCO3 ABG pH ABG Total CO2 ABG O2 Saturation ABG Base Excess ABG Potassium VBG pH VBG pCO2 VBG HCO3 VBG Total CO2 VBG O2 Sat (Calc) VBG Base Excess VBG Potassium Sodium 147 Chloride 101 Glucose Lactate FiO2 Potassium 4.6 Carbon Dioxide 16 L Anion Gap 35 H BUN 56 H Creatinine 8.8 H* Est GFR ( Amer) 5 Est GFR (Non-Af Amer) 5 POC Glucose (mg/dL) 235 H Random Glucose 252 H Calcium 7.4 L Phosphorus 9.9 H Magnesium 1.7 Total Bilirubin 1.9 H GGT AST 1479 H ALT 504 H Alkaline Phosphatase 127 H D Troponin I Total Protein 5.9 Albumin 3.0 Globulin 3.0 Albumin/Globulin Ratio 1.0 L Procalcitonin Arterial Blood Potassium Venous Blood Potassium Urine RBC Urine WBC Ur Epithelial Cells Urine Bacteria Vancomycin Trough 07/05/17 07/05/17 07/05/17 05:58 05:58 05:58 WBC RBC Hgb Hct MCV MCH MCHC RDW Plt Count MPV Gran % Lymph % (Auto) [place] % (Auto) Eos % (Auto) Baso % (Auto) Gran # Lymph # [place] # Eos # Baso # PT INR APTT pCO2 pO2 58 H HCO3 ABG pH ABG Total CO2 ABG O2 Saturation ABG Base Excess ABG Potassium VBG pH 7.29 L VBG pCO2 36.0 L VBG HCO3 17.3 L VBG Total CO2 18.4 L VBG O2 Sat (Calc) 91.6 H VBG Base Excess -8.5 L VBG Potassium 4.7 Sodium 147.0 Chloride 99.0 Glucose 265 H Lactate 12.8 H* FiO2 21.0 Potassium Carbon Dioxide Anion Gap BUN Creatinine Est GFR ( Amer) Est GFR (Non-Af Amer) POC Glucose (mg/dL) Random Glucose Calcium Phosphorus Magnesium Total Bilirubin GGT 110 H AST ALT Alkaline Phosphatase Troponin I Total Protein Albumin Globulin Albumin/Globulin Ratio Procalcitonin Arterial Blood Potassium Venous Blood Potassium 4.7 Urine RBC Urine WBC Ur Epithelial Cells Urine Bacteria Vancomycin Trough 8.4 07/05/17 06:18 WBC RBC Hgb Hct MCV MCH MCHC RDW Plt Count MPV Gran % Lymph % (Auto) [place] % (Auto) Eos % (Auto) Baso % (Auto) Gran # Lymph # [place] # Eos # Baso # PT INR APTT pCO2 29 L pO2 157.0 H HCO3 15.6 L ABG pH 7.34 L ABG Total CO2 16.5 L ABG O2 Saturation 99.3 H ABG Base Excess -8.8 L ABG Potassium 4.0 VBG pH VBG pCO2 VBG HCO3 VBG Total CO2 VBG O2 Sat (Calc) VBG Base Excess VBG Potassium Sodium 147.0 Chloride 103.0 Glucose 240 H Lactate 11.6 H* FiO2 50.0 Potassium Carbon Dioxide Anion Gap BUN Creatinine Est GFR ( Amer) Est GFR (Non-Af Amer) POC Glucose (mg/dL) Random Glucose Calcium Phosphorus Magnesium Total Bilirubin GGT AST ALT Alkaline Phosphatase Troponin I Total Protein Albumin Globulin Albumin/Globulin Ratio Procalcitonin Arterial Blood Potassium 4.0 Venous Blood Potassium Urine RBC Urine WBC Ur Epithelial Cells Urine Bacteria Vancomycin Trough Assessment & Plan - Assessment and Plan (Free Text) Assessment: 66 years old female, with PMH ESRD on HD, CHF, DM, CVA, anemia, admitted for AMS , profound metabolic acidosis, who had a PEA episodes yesterday night requiring CPR and shock to return to SR, now found to have elevated LFTs: Plan: - 2/2 likely ischemic hepatitis (shock liver) vs acute liver failure vs mesenteric ischemia vs viral hepatitis vs autoimmune hepatitis - Pt currently intubated, in SR HR 101, afebrile, treated with Merrem per primary team, off pressors for now, MAP 95-110s. - On admission AST44, ALT 11, t bili 1.3, ALP 139, alb 3.9; currently, AT 1479, ALT 504, ALP 127, alb 3.0. - NH2 level on admission, 22.7, normal. - Blood culture 07/03 NTD, UA pos for infection, send for urine culture. - Cont with Merrem, pressors as needed, daily IV Protonix - Palliative consult appreciated. Follow up family's wishes for palliative care. - Previous hep panel negative. - Non contrast abd pelvis CT 07/05/17: mild hepatomegaly. No ductal dilatation. Small abd/pelvis ascites. Severe diffuse anasarca. - Obtain NH3 level, Fe studies, repeat coags. Will obtain hepatitis panel, autoimmune workup. - Maintain MAP >65 to avoid further ischemia - Cont to trend LFTs - MELDs score today 35 (64% 3 month mortality), admission MELDs 26. Will discuss case with transplant center in [place]. Discussed with GI fellow and attending, Dr Corado. Lorenza Gunter, PGY1 - Date & Time Date: 07/05/17 Time: 11:22 <Farooq Corado - Last Filed: 07/05/17 13:54> Meds - Medications Medications: Current Medications Chlorhexidine Gluconate (Peridex) 15 ml PO BID MARCEL Last Admin: 07/04/17 18:29 Dose: 15 ml Fentanyl Citrate (Fentanyl Citrate/Sodium Chloride 1 Mg/100 Ml) 1,000 mcg in 100 mls @ 10 mls/hr IV .Q10H PRN; Protocol; 100 MCG/HR PRN Reason: TITRATE PER MD ORDER Last Titration: 07/04/17 17:30 Dose: 0 mcg/hr, 0 mls/hr Meropenem 500 mg/ Sodium (Chloride) 50 mls @ 100 mls/hr IVPB Q8 MARCEL PRN Reason: Protocol Stop: 07/13/17 14:01 Last Admin: 07/05/17 01:44 Dose: 100 mls/hr NOREPINEPHRINE BIT/0.9 % NACL (Levophed 4 Mg/ 250 Ml Ns Premixed) 4 mg in 250 mls @ 15 mls/hr IV .[id number] PRN; Protocol; 4 MCG/MIN PRN Reason: TITRATE PER MD ORDER Last Titration: 07/05/17 04:32 Dose: 10 mcg/min, 37.5 mls/hr Vasopressin 20 units/ Sodium (Chloride) 101 mls @ 9.09 mls/hr IV .[id number] MARCEL; 0.03 U/MIN PRN Reason: Protocol Last Admin: 07/04/17 17:45 Dose: 9.09 mls/hr Dobutamine HCl/Dextrose (Dobutamine/Dextrose 5% 500mg/250ml) 500 mg in 250 mls @ 12.859 mls/hr IV .[id number] PRN; Protocol; 5 MCG/KG/MIN PRN Reason: TITRATE PER PROTOCOL Heparin Sodium/Dextrose (Heparin 25,000 Units/250ml In D5w) 25,000 units in 250 mls @ 15.35 mls/hr IV .[id number] PRN; Protocol; 18 UNITS/KG/HR PRN Reason: ADJUST RATE PER PROTOCOL Pantoprazole Sodium (Protonix Inj) 40 mg IVP DAILY MARCEL Last Admin: 07/05/17 10:25 Dose: 40 mg Results - Vital Signs Recent Vital Signs: Last Vital Signs Temp 98.7 F 07/04/17 03:44 Pulse 115 H 07/05/17 06:00 Resp 24 07/04/17 07:26 BP 158/84 H 07/05/17 05:31 Pulse Ox 100 07/05/17 06:00 - Labs Result Diagrams: 07/05/17 05:58 07/05/17 05:58 Labs: Laboratory Results - last 24 hr 07/04/17 07/04/17 07/04/17 11:00 16:25 17:42 WBC RBC Hgb Hct MCV MCH MCHC RDW Plt Count MPV Gran % Lymph % (Auto) [place] % (Auto) Eos % (Auto) Baso % (Auto) Gran # Lymph # [place] # Eos # Baso # PT INR APTT pCO2 pO2 40 HCO3 ABG pH ABG Total CO2 ABG O2 Saturation ABG Base Excess ABG Potassium VBG pH 7.13 L* VBG pCO2 48.0 VBG HCO3 16.0 L VBG Total CO2 17.5 L VBG O2 Sat (Calc) 64.4 VBG Base Excess -13.1 L VBG Potassium 5.2 Sodium 140.0 Chloride 101.0 Glucose 123 H Lactate 10.3 H* FiO2 21.0 Potassium Carbon Dioxide Anion Gap BUN Creatinine Est GFR ( Amer) Est GFR (Non-Af Amer) POC Glucose (mg/dL) < 20 L* Random Glucose Lactic Acid Calcium Phosphorus Magnesium Total Bilirubin GGT AST ALT Alkaline Phosphatase Troponin I Total Protein Albumin Globulin Albumin/Globulin Ratio Procalcitonin 7.94 H Arterial Blood Potassium Venous Blood Potassium 5.2 Vancomycin Trough 07/04/17 07/04/17 07/04/17 18:09 18:30 18:30 WBC 10.2 RBC 3.33 L Hgb 8.8 L Hct 30.0 L MCV 90.1 MCH 26.4 MCHC 29.3 L RDW 17.2 H Plt Count 91 L MPV 11.2 H Gran % 70.6 H Lymph % (Auto) 25.3 [place] % (Auto) 3.8 Eos % (Auto) 0.2 L Baso % (Auto) 0.1 Gran # 7.19 H Lymph # 2.6 [place] # 0.4 Eos # 0.0 Baso # 0.01 PT INR APTT pCO2 pO2 157 H HCO3 ABG pH ABG Total CO2 ABG O2 Saturation ABG Base Excess ABG Potassium VBG pH 7.02 L* VBG pCO2 48.0 VBG HCO3 12.4 L VBG Total CO2 13.9 L VBG O2 Sat (Calc) 99.7 H VBG Base Excess -18.4 L VBG Potassium 5.0 Sodium 143.0 Chloride 99.0 Glucose 531 H* D Lactate 15.8 H* FiO2 21.0 Potassium Carbon Dioxide Anion Gap BUN Creatinine Est GFR ( Amer) Est GFR (Non-Af Amer) POC Glucose (mg/dL) 40 L Random Glucose Lactic Acid Calcium Phosphorus Magnesium Total Bilirubin GGT AST ALT Alkaline Phosphatase Troponin I Total Protein Albumin Globulin Albumin/Globulin Ratio Procalcitonin Arterial Blood Potassium Venous Blood Potassium 5.0 Vancomycin Trough 07/04/17 07/04/17 07/04/17 18:30 18:30 18:50 WBC RBC Hgb Hct MCV MCH MCHC RDW Plt Count MPV Gran % Lymph % (Auto) [place] % (Auto) Eos % (Auto) Baso % (Auto) Gran # Lymph # [place] # Eos # Baso # PT 33.8 H INR 3.03 H APTT > 400.0 H* pCO2 pO2 HCO3 ABG pH ABG Total CO2 ABG O2 Saturation ABG Base Excess ABG Potassium VBG pH VBG pCO2 VBG HCO3 VBG Total CO2 VBG O2 Sat (Calc) VBG Base Excess VBG Potassium Sodium 142 Chloride 102 Glucose Lactate FiO2 Potassium 4.8 Carbon Dioxide 13 L Anion Gap 32 H BUN 51 H Creatinine 8.3 H* Est GFR ( Amer) 6 Est GFR (Non-Af Amer) 5 POC Glucose (mg/dL) 127 H Random Glucose 516 H* D Lactic Acid Calcium 6.4 L* Phosphorus 11.0 H Magnesium 1.9 Total Bilirubin 1.1 GGT AST 173 H D ALT 61 H Alkaline Phosphatase 89 Troponin I 0.52 H* D Total Protein 4.5 L Albumin 2.0 L Globulin 2.6 Albumin/Globulin Ratio 0.8 L Procalcitonin Arterial Blood Potassium Venous Blood Potassium Vancomycin Trough 07/04/17 07/05/17 07/05/17 20:40 00:06 00:51 WBC RBC Hgb Hct MCV MCH MCHC RDW Plt Count MPV Gran % Lymph % (Auto) [place] % (Auto) Eos % (Auto) Baso % (Auto) Gran # Lymph # [place] # Eos # Baso # PT INR APTT pCO2 25 L pO2 57 H 380.0 H HCO3 12.0 L ABG pH 7.29 L ABG Total CO2 12.8 L ABG O2 Saturation 99.7 H ABG Base Excess -12.8 L ABG Potassium 4.2 VBG pH 7.12 L* VBG pCO2 39.0 L VBG HCO3 12.7 L VBG Total CO2 13.9 L VBG O2 Sat (Calc) 86.6 H VBG Base Excess -16.0 L VBG Potassium 4.8 Sodium 144.0 146.0 Chloride 100.0 104.0 Glucose 258 H 220 H Lactate 17.7 H* 14.9 H* FiO2 21.0 100.0 Potassium Carbon Dioxide Anion Gap BUN Creatinine Est GFR ( Amer) Est GFR (Non-Af Amer) POC Glucose (mg/dL) 205 H Random Glucose Lactic Acid Calcium Phosphorus Magnesium Total Bilirubin GGT AST ALT Alkaline Phosphatase Troponin I Total Protein Albumin Globulin Albumin/Globulin Ratio Procalcitonin Arterial Blood Potassium 4.2 Venous Blood Potassium 4.8 Vancomycin Trough 07/05/17 07/05/17 07/05/17 02:06 04:48 05:54 WBC RBC Hgb Hct MCV MCH MCHC RDW Plt Count MPV Gran % Lymph % (Auto) [place] % (Auto) Eos % (Auto) Baso % (Auto) Gran # Lymph # [place] # Eos # Baso # PT INR APTT pCO2 pO2 HCO3 ABG pH ABG Total CO2 ABG O2 Saturation ABG Base Excess ABG Potassium VBG pH VBG pCO2 VBG HCO3 VBG Total CO2 VBG O2 Sat (Calc) VBG Base Excess VBG Potassium Sodium Chloride Glucose Lactate FiO2 Potassium Carbon Dioxide Anion Gap BUN Creatinine Est GFR ( Amer) Est GFR (Non-Af Amer) POC Glucose (mg/dL) 102 235 H 250 H Random Glucose Lactic Acid Calcium Phosphorus Magnesium Total Bilirubin GGT AST ALT Alkaline Phosphatase Troponin I Total Protein Albumin Globulin Albumin/Globulin Ratio Procalcitonin Arterial Blood Potassium Venous Blood Potassium Vancomycin Trough 07/05/17 07/05/17 07/05/17 05:58 05:58 05:58 WBC 14.6 H D RBC 3.97 Hgb 10.6 L Hct 34.9 L MCV 87.9 MCH 26.7 MCHC 30.4 L RDW 17.0 H Plt Count 75 L MPV 9.8 Gran % 90.4 H Lymph % (Auto) 6.5 L [place] % (Auto) 2.9 Eos % (Auto) 0.1 L Baso % (Auto) 0.1 Gran # 13.19 H Lymph # 1.0 L [place] # 0.4 Eos # 0.0 Baso # 0.01 PT INR APTT pCO2 pO2 HCO3 ABG pH ABG Total CO2 ABG O2 Saturation ABG Base Excess ABG Potassium VBG pH VBG pCO2 VBG HCO3 VBG Total CO2 VBG O2 Sat (Calc) VBG Base Excess VBG Potassium Sodium 147 Chloride 101 Glucose Lactate FiO2 Potassium 4.6 Carbon Dioxide 16 L Anion Gap 35 H BUN 56 H Creatinine 8.8 H* Est GFR ( Amer) 5 Est GFR (Non-Af Amer) 5 POC Glucose (mg/dL) Random Glucose 252 H Lactic Acid Calcium 7.4 L Phosphorus 9.9 H Magnesium 1.7 Total Bilirubin 1.9 H GGT AST 1479 H ALT 504 H Alkaline Phosphatase 127 H D Troponin I Total Protein 5.9 Albumin 3.0 Globulin 3.0 Albumin/Globulin Ratio 1.0 L Procalcitonin Arterial Blood Potassium Venous Blood Potassium Vancomycin Trough 8.4 07/05/17 07/05/17 07/05/17 05:58 05:58 06:18 WBC RBC Hgb Hct MCV MCH MCHC RDW Plt Count MPV Gran % Lymph % (Auto) [place] % (Auto) Eos % (Auto) Baso % (Auto) Gran # Lymph # [place] # Eos # Baso # PT INR APTT pCO2 29 L pO2 58 H 157.0 H HCO3 15.6 L ABG pH 7.34 L ABG Total CO2 16.5 L ABG O2 Saturation 99.3 H ABG Base Excess -8.8 L ABG Potassium 4.0 VBG pH 7.29 L VBG pCO2 36.0 L VBG HCO3 17.3 L VBG Total CO2 18.4 L VBG O2 Sat (Calc) 91.6 H VBG Base Excess -8.5 L VBG Potassium 4.7 Sodium 147.0 147.0 Chloride 99.0 103.0 Glucose 265 H 240 H Lactate 12.8 H* 11.6 H* FiO2 21.0 50.0 Potassium Carbon Dioxide Anion Gap BUN Creatinine Est GFR ( Amer) Est GFR (Non-Af Amer) POC Glucose (mg/dL) Random Glucose Lactic Acid Calcium Phosphorus Magnesium Total Bilirubin GGT 110 H AST ALT Alkaline Phosphatase Troponin I Total Protein Albumin Globulin Albumin/Globulin Ratio Procalcitonin Arterial Blood Potassium 4.0 Venous Blood Potassium 4.7 Vancomycin Trough 07/05/17 07/05/17 07/05/17 07:57 11:30 11:47 WBC RBC Hgb Hct MCV MCH MCHC RDW Plt Count MPV Gran % Lymph % (Auto) [place] % (Auto) Eos % (Auto) Baso % (Auto) Gran # Lymph # [place] # Eos # Baso # PT INR APTT pCO2 pO2 HCO3 ABG pH ABG Total CO2 ABG O2 Saturation ABG Base Excess ABG Potassium VBG pH VBG pCO2 VBG HCO3 VBG Total CO2 VBG O2 Sat (Calc) VBG Base Excess VBG Potassium Sodium Chloride Glucose Lactate FiO2 Potassium Carbon Dioxide Anion Gap BUN Creatinine Est GFR ( Amer) Est GFR (Non-Af Amer) POC Glucose (mg/dL) 183 H 167 H Random Glucose Lactic Acid 7.4 H* Calcium Phosphorus Magnesium Total Bilirubin GGT AST ALT Alkaline Phosphatase Troponin I Total Protein Albumin Globulin Albumin/Globulin Ratio Procalcitonin Arterial Blood Potassium Venous Blood Potassium Vancomycin Trough Attending/Attestation - Attestation I have personally seen and examined this patient.: Yes I have fully participated in the care of the patient.: Yes I have reviewed all pertinent clinical information: Yes Notes (Text): 07/05/17 13:47 66 years old female with h/o ESRD on HD, non-compliant, systolic CHF, DM, CVA admitted with altered mental status, severe lactic acidosis, afib with RVR, c/b cardiac arrest s/p resuscitation c/b shock liver. 1. Ischemic hepatitis Plan: -patient has markedly elevated LFTs after cardiac arrest in the setting of severe systolic CHF and non-compliance with dialysis -likely from hypoperfusion of the liver in the setting of severe hypotension -acute increase in PT/INR raises the possibility of developing liver failure -would recommend checking factor II, V, VIII to distinguish liver failure from other causes of coagulopathy -contacted [facility] for consideration of transfer due to possible liver failure -they recommended NAC therapy empirically -check for other chronic liver disease (viral, autoimmune, etc) as above, although no prior known history -check ammonia to distinguish HE from other causes of AMS -consider lactulose/rifaxamin if high ammonia, although suspect AMS is from other causes -presentation with severe lactic acidosis and evidence of calcifications of the mesenteric vasculature/aorta raises possibility of mesenteric ischemia, although CT otherwise unremarkble -treat supportively for now, lactic acidosis is improved -continue empiric antibiotics -overall prognosis is poor -continue aggressive supportive care
[2017-07-05] MEDS ORDERED: Heparin 25,000units in D5W 25,000 UNITS/250 ML BAG IV PRN (12:30)
[2017-07-05] MEDS ORDERED: WATER IV ONE (13:44)
[2017-07-05] MEDS ORDERED: DEXTROSE 5% IV ONE (13:44)
[2017-07-05] MEDS ORDERED: ACETYLCYSTEINE IV ONE (13:44)
[2017-07-05] MEDS ORDERED: DEXTROSE 5% IVPB ONE ×3 (13:51→19:20)
[2017-07-05] MEDS ORDERED: ACETYLCYSTEINE IVPB ONE ×3 (13:51→19:20)
[2017-07-05] MEDS ORDERED: WATER IVPB ONE ×3 (13:51→19:20)
[2017-07-05 13:57] LABS: IRON 84 ug/dL (45-180)
[2017-07-05 14:08] LABS: INR 3.47 (0.93-1.08); PARTIAL THROMBOPLASTIN TIME 35.8 Seconds (25.1-36.5)
--- NOTE | 2017-07-05 15:01 | PN ---
DATE: 07/05/2017 SUBJECTIVE: The patient, in the ICU 128, bed 5, was seen early this morning. The patient remains intubated on a ventilator. PHYSICAL EXAMINATION: VITAL SIGNS: Temperature is 98, T-max of 99, blood pressure 150/80, respiratory rate on a vent, heart rate of 117. HEENT: Reveals ET tube in place. NECK: Supple. LUNGS: Decreased breath sounds. HEART: Normal S1 and S2. ABDOMEN: Soft and nontender. LABORATORY DATA: Reveals white count of 14,600, hemoglobin of 10, and platelets of 75. 90% granulocytosis and coagulation is noted. BUN of 56 and creatinine of 8.8. LFTs are noted. Urinalysis is noted. Vancomycin trough was 8.4. Microbiology reveals the patient's blood cultures are no growth. Review of orders reveals the patient to be on meropenem, intermittent vancomycin. The patient is on dobutamine. Consult the patient by is reviewed. Dr. Reese's progress note is reviewed. Dr. Castillo's consultation is reviewed. The patient had a chest x-ray today, which showed endobronchial ET tube to be in place. No active disease. The patient had a CAT scan of the abdomen with p.o. contrast, no acute abdominal or pelvic abnormalities are described by Dr. Anderson. Microbiology reveals blood cultures are negative. ASSESSMENT AND PLAN: A 66-year-old female with end-stage renal disease on hemodialysis, respiratory failure, intubated on a ventilator, history of peripheral vascular disease, hypothyroidism, hypertension, congestive heart failure, ejection fraction of 15%, and cerebrovascular accident, admitted with severe sepsis versus septic shock versus cardiogenic shock, that part of blood cultures are negative. The patient with respiratory failure intubated on a ventilator, left-sided healthcare-associated pneumonia on intermittent vancomycin and meropenem. We will follow with you. Overall prognosis is quite poor. Reji Young MD
[2017-07-05 16:42] LABS: PH,URINE 7.5 (4.7-8.0); URINE BILIRUBIN NEGATIVE (NEGATIVE); URINE BLOOD LARGE (NEGATIVE); URINE GLUCOSE (UA) NEGATIVE (NEGATIVE); URINE KETONE NEGATIVE (NEGATIVE); URINE LEUKOCYTE ESTERASE LARGE Leu/uL (NEGATIVE); URINE PROTEIN >=300 mg/dL (<30 mg/dL); URINE UROBILINOGEN 0.2 E.U./dL (<1 E.U./dL)
[2017-07-05 16:46] LABS: URINE APPEARANCE CLOUDY (CLEAR); URINE COLOR YELLOW (YELLOW)
[2017-07-05 16:49] LABS: URINE RBC TNTC /hpf (0-2)
[2017-07-05 16:50] LABS: URINE BACTERIA MANY (NEG)
--- NOTE | 2017-07-05 17:31 | PN ---
DATE: 07/05/2017 CARDIOLOGY FOLLOWUP SUBJECTIVE: The patient remains on a ventilator and is sedated. PHYSICAL EXAMINATION: VITAL SIGNS: Blood pressure is 129/86, heart rate is now in normal sinus rhythm in the 80s. NECK: Negative JVD. LUNGS: Decreased breath sounds bilaterally. HEART: Reveal S1 and S2. EXTREMITIES: Without change. LABORATORIES: Hemoglobin is 10.6. Chemistries: BUN and creatinine 56 and 8.8. Troponin 0.52. IMPRESSION: 1. Acute respiratory failure. 2. Congestive heart failure. 3. Dilated cardiomyopathy. 4. End-stage renal disease. 5. Status post hemodynamic collapse. PLAN: Given these findings, the patient's cardiac status has stabilized today. She is back to normal sinus rhythm. We will obtain an echocardiogram to review her LV function. Henri Guillen MD
[2017-07-05] MEDS ORDERED: Mineral Oil/Petrolatum Opht Oint(3.5 gm) OU SCH (19:45)
[2017-07-05] MEDS ORDERED: Mineral Oil/Petrolatum Opht Oint(3.5 gm) OU PRN (19:50)
[2017-07-06] MEDS: Mineral Oil/Petrolatum Opht Oint(3.5 gm) OU PRN ×2 (05:18→18:51)
[2017-07-06 05:36] LABS: BASO # 0.01 K/mm3 (0.0-2.0); BASO % 0.1 % (0.0-3.0); EOS % 0.1 % (1.5-5.0); GRAN # 8.02 (1.4-6.5); HEMATOCRIT 32.9 % (36.0-48.0); LYMPH % 11.2 % (22.0-35.0); MEAN CELL VOLUME 86.8 fl (80.0-105.0); MEAN CORPUSCULAR HEMOGLOBIN 26.6 pg (25.0-35.0); MEAN CORPUSCULAR HGB CONC 30.7 g/dl (31.0-37.0); MONO # 0.2 (0.1-0.6); MONO % 1.6 % (1.0-6.0); PLATELET COUNT 54 10^3/uL (120.0-450.0); RED CELL DISTRIBUTION WIDTH 16.8 % (11.5-14.5); WHITE BLOOD COUNT 9.2 10^3/ul (4.5-11.0)
[2017-07-06 06:25] LABS: ALB/GLOB RATIO 0.8 (1.1-1.8); BILIRUBIN,TOTAL 1.5 mg/dL (0.2-1.3); CALCIUM 8.8 mg/dL (8.4-10.5); POTASSIUM 3.1 mmol/L (3.6-5.0); TOTAL PROTEIN 5.2 g/dL (5.8-8.3)
[2017-07-06 06:36] LABS: ABG MECHANICAL RATE 20; ARTERIAL BLOOD GAS HCO3 28.4 mmol/L (21-28); ARTERIAL BLOOD GAS PH 7.47 (7.35-7.45); ATERIAL BLOOD GAS PEEP 5
--- NOTE | 2017-07-06 07:08 | CP.PCM.PN ---
<Lorenza Gunter - Last Filed: 07/06/17 09:07> Subjective - Date & Time of Evaluation Date of Evaluation: 07/06/17 Time of Evaluation: 07:07 - Subjective Subjective: Lorenza Gunter, PGY1, GI Progress Note for Dr Balderas: Pt seen and examined at bedside. No acute events overnight. Pt is s/p HD yesterday, pt intubated, responds to painful stimuli. Pt had 50 ml of greenish/ bilious output from NGT suction over past 24 hours. Pt had 2 greenish loose stools yesterday, no blood. As per staff and daughter, pt has a history of chronic diarrhea. 12 point ROS unobtainable due to intubated/AMS pt. Objective - Vital Signs/Intake and Output Vital Signs (last 24 hours): Temp Pulse Resp BP Pulse Ox 98.7 F 114 H 20 124/61 100 07/06/17 04:00 07/06/17 06:00 07/06/17 06:00 07/06/17 06:00 07/06/17 06:00 Intake and Output: 07/06/17 07/06/17 06:59 18:59 Intake Total 1137 Output Total 5 Balance 1132 - Medications Medications: Current Medications Artificial Tears (Artificial Tears Opht Oint) 0 gm OU Q8H PRN PRN Reason: Dry eyes Last Admin: 07/06/17 05:18 Dose: 1 gel Chlorhexidine Gluconate (Peridex) 15 ml PO BID MARCEL Last Admin: 07/05/17 17:59 Dose: 15 ml Fentanyl Citrate (Fentanyl Citrate/Sodium Chloride 1 Mg/100 Ml) 1,000 mcg in 100 mls @ 10 mls/hr IV .Q10H PRN; Protocol; 100 MCG/HR PRN Reason: TITRATE PER MD ORDER Last Titration: 07/04/17 17:30 Dose: 0 mcg/hr, 0 mls/hr NOREPINEPHRINE BIT/0.9 % NACL (Levophed 4 Mg/ 250 Ml Ns Premixed) 4 mg in 250 mls @ 15 mls/hr IV .[id number] PRN; Protocol; 4 MCG/MIN PRN Reason: TITRATE PER MD ORDER Last Titration: 07/05/17 04:32 Dose: 10 mcg/min, 37.5 mls/hr Vasopressin 20 units/ Sodium (Chloride) 101 mls @ 9.09 mls/hr IV .[id number] MARCEL; 0.03 U/MIN PRN Reason: Protocol Last Admin: 07/04/17 17:45 Dose: 9.09 mls/hr Dobutamine HCl/Dextrose (Dobutamine/Dextrose 5% 500mg/250ml) 500 mg in 250 mls @ 12.859 mls/hr IV .[id number] PRN; Protocol; 5 MCG/KG/MIN PRN Reason: TITRATE PER PROTOCOL Heparin Sodium/Dextrose (Heparin 25,000 Units/250ml In D5w) 25,000 units in 250 mls @ 15.35 mls/hr IV .[id number] PRN; Protocol; 18 UNITS/KG/HR PRN Reason: ADJUST RATE PER PROTOCOL Acetylcysteine 8,530 mg/ (Dextrose) 1,042.65 mls @ 62.5 mls/hr IVPB ONCE ONE Stop: 07/06/17 12:00 Last Admin: 07/05/17 23:56 Dose: 62.5 mls/hr Meropenem 500 mg/ Sodium (Chloride) 50 mls @ 100 mls/hr IVPB DAILY MARCEL PRN Reason: Protocol Pantoprazole Sodium (Protonix Inj) 40 mg IVP DAILY MARCEL Last Admin: 07/05/17 10:25 Dose: 40 mg - Labs Labs: 07/06/17 05:18 07/06/17 05:18 PT 38.8 SECONDS (9.4-12.5) H 07/05/17 13:35 INR 3.47 (0.93-1.08) H 07/05/17 13:35 APTT 35.8 Seconds (25.1-36.5) 07/05/17 13:35 - Constitutional Appears: Older Than Stated Age, Chronically Ill - Head Exam Head Exam: ATRAUMATIC, NORMOCEPHALIC - Eye Exam Eye Exam: PERRL. absent: Conjunctival injection, Scleral icterus Pupil Exam: PERRL - ENT Exam ENT Exam: Mucous Membranes Moist - Respiratory Exam Respiratory Exam: Clear to Ausculation Bilateral. absent: Rales, Rhonchi, Wheezes - Cardiovascular Exam Cardiovascular Exam: Tachycardia, +S1, +S2 - GI/Abdominal Exam GI & Abdominal Exam: Soft, Normal Bowel Sounds. absent: Distended, Guarding, Tenderness, Mass, Organomegaly, Rebound - Extremities Exam Extremities Exam: absent: Calf Tenderness, Pedal Edema - Back Exam Back Exam: NORMAL INSPECTION - Neurological Exam Neurological Exam: Altered (responds to painful stimuli, does not respond to simple commands) - Skin Skin Exam: Dry, Warm Assessment and Plan - Assessment and Plan (Free Text) Assessment: 66 years old female, with PMH ESRD on HD, CHF, DM, CVA, anemia, admitted for AMS , severe metabolic acidosis, afib with RVR, s/p cardiac arrest during hospital stay, s/p resuscitation, found to have have elevated LFTs: 2/2 likely ischemic hepatitis (shock liver) vs acute liver failure vs mesenteric ischemia vs viral hepatitis vs autoimmune hepatitis Plan: - AST 1379 (improving), ALT 609 (yesterday 504), expected due to late rise of ALT vs AST in the setting of shock liver. - Identified source of infection, as urine culture shows gram neg [place]. - Ammonia level low, pt still AMS, hep panel negative. - IgG within normal limits, f/u remaining AI workup and factors II, V, X - Anemia workup studies show anemia of chronic disease, likely from CKD, CHF - Received dose of NAC as per liver transplant team at [facility]; not a candidate for transplant as per team. - Repeat PTT normal, 35.8. INR 3.27 today. - Send for stool cultures, ova parasites. - Maintain MAP >65, will cont to trend LFTs. - Obtain a flat plate abdominal x ray. If no obstruction/perforation, consider initiating enteral feedings. Discussed with rn radiology. - Poor overall prognosis. Discussed with GI fellow and attending, Dr Balderas. Lorenza Gunter, PGY1 <Kashmir Balderas Y - Last Filed: 07/06/17 12:28> Objective - Vital Signs/Intake and Output Vital Signs (last 24 hours): Temp Pulse Resp BP Pulse Ox 101.3 F H 111 H 20 122/53 L 100 07/06/17 10:30 07/06/17 10:30 07/06/17 06:00 07/06/17 10:03 07/06/17 09:20 Intake and Output: 07/06/17 07/06/17 06:59 18:59 Intake Total 1137 Output Total 5 Balance 1132 - Medications Medications: Current Medications Artificial Tears (Artificial Tears Opht Oint) 0 gm OU Q8H PRN PRN Reason: Dry eyes Last Admin: 07/06/17 05:18 Dose: 1 gel Artificial Tears (Artificial Tears) 0 ml OU BID MARCEL Chlorhexidine Gluconate (Peridex) 15 ml PO BID MARCEL Last Admin: 07/05/17 17:59 Dose: 15 ml Hydralazine HCl (Apresoline) 5 mg IVP Q6H MARCEL Last Admin: 07/06/17 08:27 Dose: 5 mg Fentanyl Citrate (Fentanyl Citrate/Sodium Chloride 1 Mg/100 Ml) 1,000 mcg in 100 mls @ 10 mls/hr IV .Q10H PRN; Protocol; 100 MCG/HR PRN Reason: TITRATE PER MD ORDER Last Titration: 07/04/17 17:30 Dose: 0 mcg/hr, 0 mls/hr NOREPINEPHRINE BIT/0.9 % NACL (Levophed 4 Mg/ 250 Ml Ns Premixed) 4 mg in 250 mls @ 15 mls/hr IV .[id number] PRN; Protocol; 4 MCG/MIN PRN Reason: TITRATE PER MD ORDER Last Titration: 07/05/17 04:32 Dose: 10 mcg/min, 37.5 mls/hr Vasopressin 20 units/ Sodium (Chloride) 101 mls @ 9.09 mls/hr IV .Q11H7M MACREL; 0.03 U/MIN PRN Reason: Protocol Last Admin: 07/04/17 17:45 Dose: 9.09 mls/hr Dobutamine HCl/Dextrose (Dobutamine/Dextrose 5% 500mg/250ml) 500 mg in 250 mls @ 12.859 mls/hr IV .[id number] PRN; Protocol; 5 MCG/KG/MIN PRN Reason: TITRATE PER PROTOCOL Heparin Sodium/Dextrose (Heparin 25,000 Units/250ml In D5w) 25,000 units in 250 mls @ 15.35 mls/hr IV .[id number] PRN; Protocol; 18 UNITS/KG/HR PRN Reason: ADJUST RATE PER PROTOCOL Meropenem 500 mg/ Sodium (Chloride) 50 mls @ 100 mls/hr IVPB DAILY MARCEL PRN Reason: Protocol Last Admin: 07/06/17 10:01 Dose: 100 mls/hr Metoprolol Tartrate (Lopressor) 5 mg IVP Q6H [facility] Last Admin: 07/06/17 07:49 Dose: 5 mg Pantoprazole Sodium (Protonix Inj) 40 mg IVP DAILY [facility] Last Admin: 07/05/17 10:25 Dose: 40 mg - Labs Labs: 07/06/17 05:18 07/06/17 09:30 PT 27.2 SECONDS (9.4-12.5) H 07/06/17 09:30 INR 2.43 (0.93-1.08) H 07/06/17 09:30 APTT 34.8 Seconds (25.1-36.5) 07/06/17 09:30 Attending/Attestation - Attestation I have personally seen and examined this patient.: Yes I have fully participated in the care of the patient.: Yes I have reviewed all pertinent clinical information, including history, physical exam and plan: Yes Notes (Text): 07/06/17 12:19 I have seen and examined patient with GI fellow and biomedical equipment tech. Patient remains intubated in critical care unit. No acute events overnight, there is no reported abdominal pain, vomiting. She is currently off vasopressor support , though remains minimally responsive, only to painful stimuli. NGT in place with approximately 50-75 cc bilious output over past 24 hours. Patient with two episodes of loose bowel movements yesterday. Review of vitals from today shows tachycardia and fever to 101.3. ESRD on HD DM CHF Atrial fibrillation, s/p cardiac arrest Respiratory failure s/p intubation Transaminitis - likely multifactorial in setting of sepsis, cardiogenic shock UTI - Continue with antibiotic therapy as per ID - Obtain stool studies (culture, c-difficile) - LFTs stable, continue to monitor. NAC protocol initiated for treatment of non acetaminophen related liver injury. - Awaiting remainder of autoimmune panel results - INR decreased, monitor - Would obtain abdominal XR, if no suspicion of bowel obstruction, would initiate enteral tube feeding and monitor for residuals - Overall patient prognosis guarded, will monitor clinical course
--- NOTE | 2017-07-06 07:21 | CP.CCUPN ---
<Crescencio Abernathy - Last Filed: 07/06/17 14:49> CCU Subjective - Physician Review Subjective (Free Text): Critical Care Progress Note for Dr. Castillo Patient seen ad examined at bedside. No acute event overnight. Patient failed weaning trial this morning due to fatigue. She was placed by on vent settings 450, 5, 20, 50%. Patient is set to receive dialysis again today. Her normal schedule is MWF. Patient occasionally responds to verbal/noxious stimuli. ROS unobtainable due to clinical condition. CCU Objective - Vital Signs / Intake & Output Vital Signs (Last 4 hours): Vital Signs Temp Pulse Resp BP Pulse Ox 07/06/17 06:00 114 H 20 124/61 100 07/06/17 05:00 114 H 21 136/67 100 07/06/17 04:00 98.7 F 110 H 20 127/63 100 Intake and Output (Last 8hrs): Intake & Output 07/05/17 07/06/17 07/06/17 22:59 06:59 14:59 Intake Total 850 1137 Output Total 2520 5 Balance -1670 1132 Intake: IV 850 1137 Left Internal Jugular 850 1137 Output: Urine 20 5 2-way Urethral 20 5 Other 2500 Other: # Bowel Movements 2 - Physical Exam Physical Exam Limitations: Positive for: Altered Mental Status Head: Positive for: Atraumatic, Normocephalic Mouth: Positive for: Moist Mucous Membranes, Other (et tube in place) Respiratory/Chest: Positive for: Clear to Auscultation. Negative for: Accessory Muscle Use Cardiovascular: Positive for: Normal S1, S2, Tachycardic. Negative for: Murmurs Abdomen: Positive for: Distention (mild), Normal Bowel Sounds. Negative for: Tenderness, Peritoneal Signs Back: Positive for: Normal Inspection Upper Extremity: Positive for: Normal Inspection, NORMAL PULSES. Negative for: Cyanosis, Edema Lower Extremity: Positive for: NORMAL PULSES, Other (Left BKA). Negative for: Edema Neurological: Positive for: Other (intubated). Negative for: GCS=15 Skin: Positive for: Warm, Dry. Negative for: Rashes Psychiatric: Positive for: Other (intubated). Negative for: Alert, Oriented x 3 - Medications Active Medications: Active Medications Generic Name Dose Route Start Last Admin Trade Name Freq PRN Reason Stop Dose Admin Artificial Tears 0 gm 07/05/17 20:00 07/06/17 05:18 Artificial Tears Opht Oint OU 1 gel Q8H PRN Administration Dry eyes Chlorhexidine Gluconate 15 ml 07/04/17 18:00 07/05/17 17:59 Peridex PO 15 ml BID MARCEL Administration Fentanyl Citrate 1,000 mcg in 100 mls @ 10 mls/hr 07/04/17 01:20 07/04/17 17: 30 Fentanyl Citrate/Sodium Chloride 1 Mg/100 Ml IV 0 mcg/hr .Q10H PRN 0 mls/hr TITRATE PER MD ORDER Titration Protocol 100 MCG/HR NOREPINEPHRINE BIT/0.9 % NACL 4 mg in 250 mls @ 15 mls/hr 07/04/17 13:57 02/12 04:32 Levophed 4 Mg/ 250 Ml Ns Premixed IV 10 mcg/min .[id number] PRN 37.5 mls/hr TITRATE PER MD ORDER Titration Protocol 4 MCG/MIN Vasopressin 20 units/ Sodium 101 mls @ 9.09 mls/hr 07/04/17 17:00 07/04/17 17 :45 Chloride IV 9.09 mls/hr .[id number] MARCEL Administration Protocol 0.03 U/MIN Dobutamine HCl/Dextrose 500 mg in 250 mls @ 12.859 mls/hr 07/04/17 20:52 Dobutamine/Dextrose 5% 500mg/250ml IV .[id number] PRN TITRATE PER PROTOCOL Protocol 5 MCG/KG/MIN Heparin Sodium/Dextrose 25,000 units in 250 mls @ 15.35 mls/hr 07/05/17 12:30 Heparin 25,000 Units/250ml In D5w IV .[id number] PRN ADJUST RATE PER PROTOCOL Protocol 18 UNITS/KG/HR Acetylcysteine 8,530 mg/ 1,042.65 mls @ 62.5 mls/hr 07/05/17 19:20 07/05/17 23:56 Dextrose IVPB 07/06/17 12:00 62.5 mls/hr ONCE ONE Administration Meropenem 500 mg/ Sodium 50 mls @ 100 mls/hr 07/05/17 14:06 Chloride IVPB DAILY MARCEL Protocol Pantoprazole Sodium 40 mg 07/04/17 10:00 07/05/17 10:25 Protonix Inj IVP 40 mg DAILY MARCEL Administration - Patient Studies Lab Studies: Microbiology Studies 07/04/17 03:30 MRSA Culture (Admit) - Final Naris MRSA NOT DETECTED 07/04/17 10:30 Urine Culture - Preliminary Urine,Stevens Gram Negative Panchito Gram Negative Panchito#2 Lab Studies 07/06/17 07/06/17 07/06/17 Range/Units 06:10 05:18 05:18 WBC 9.2 D (4.5-11.0) 10^3/ul RBC 3.79 (3.5-6.1) 10^6/uL Hgb 10.1 L (12.0-16.0) g/dL Hct 32.9 L (36.0-48.0) % MCV 86.8 (80.0-105.0) fl MCH 26.6 (25.0-35.0) pg MCHC 30.7 L (31.0-37.0) g/dl RDW 16.8 H (11.5-14.5) % Plt Count 54 L (120.0-450.0) 10^3/uL Gran % 87.0 H (50.0-68.0) % Lymph % (Auto) 11.2 L (22.0-35.0) % [place] % (Auto) 1.6 (1.0-6.0) % Eos % (Auto) 0.1 L (1.5-5.0) % Baso % (Auto) 0.1 (0.0-3.0) % Gran # 8.02 H (1.4-6.5) Lymph # 1.0 L (1.2-3.4) [place] # 0.2 (0.1-0.6) Eos # 0.0 (0.0-0.7) Baso # 0.01 (0.0-2.0) K/mm3 PT (9.4-12.5) SECONDS INR (0.93-1.08) APTT (25.1-36.5) Seconds Sodium 143 (132-148) mmol/L Potassium 3.1 L (3.6-5.0) mmol/L Chloride 102 (98-107) mmol/L Carbon Dioxide 27 (21-33) mmol/L Anion Gap 17 (10-20) BUN 27 H (7-21) mg/dL Creatinine 5.2 H (0.7-1.2) mg/dl Est GFR ( Amer) 10 Est GFR (Non-Af Amer) 8 POC Glucose (mg/dL) 109 (65-110) mg/dL Random Glucose 120 H (70-110) mg/dL Lactic Acid (0.7-2.1) mmol/L Calcium 8.8 (8.4-10.5) mg/dL Phosphorus (2.5-4.5) mg/dL Magnesium (1.7-2.2) mg/dL Iron (45-180) ug/dL TIBC (265-497) ug/dL % Saturation (20-55) % Transferrin (206-381) mg/dL Ferritin ng/mL Total Bilirubin 1.5 H (0.2-1.3) mg/dL GGT (8-78) U/L AST 1397 H (14-36) U/L ALT 609 H (7-56) U/L Alkaline Phosphatase 109 (38-126) U/L Ammonia (9-33) umol/L Total Protein 5.2 L (5.8-8.3) g/dL Albumin 2.4 L (3.0-4.8) g/dL Globulin 2.9 gm/dL Albumin/Globulin Ratio 0.8 L (1.1-1.8) Urine Color (YELLOW) Urine Appearance (CLEAR) Urine pH (4.7-8.0) Ur Specific [place] (1.005-1.035) Urine Protein (<30 mg/dL) mg/dL Urine Glucose (UA) (NEGATIVE) mg/dL Urine Ketones (NEGATIVE) mg/dL Urine Blood (NEGATIVE) Urine Nitrate (NEGATIVE) Urine Bilirubin (NEGATIVE) Urine Urobilinogen (<1 E.U./dL) E.U./dL Ur Leukocyte Esterase (NEGATIVE) Lauri/uL Urine RBC (0-2) /hpf Urine WBC (0-6) /hpf Ur Epithelial Cells (0-5) /hpf Urine Bacteria (NEG) Vancomycin Trough (5.0-10.0) ug/mL IgG (700.0-1600.0) mg/dL Hepatitis A IgM Ab (NEGATIVE) Hep Bs Antigen (NEGATIVE) Hep B Core IgM Ab (NEGATIVE) Hepatitis C Antibody (NEGATIVE) 07/06/17 07/05/17 07/05/17 Range/Units 02:20 21:50 20:10 WBC (4.5-11.0) 10^3/ul RBC (3.5-6.1) 10^6/uL Hgb (12.0-16.0) g/dL Hct (36.0-48.0) % MCV (80.0-105.0) fl MCH (25.0-35.0) pg MCHC (31.0-37.0) g/dl RDW (11.5-14.5) % Plt Count (120.0-450.0) 10^3/uL Gran % (50.0-68.0) % Lymph % (Auto) (22.0-35.0) % [place] % (Auto) (1.0-6.0) % Eos % (Auto) (1.5-5.0) % Baso % (Auto) (0.0-3.0) % Gran # (1.4-6.5) Lymph # (1.2-3.4) [place] # (0.1-0.6) Eos # (0.0-0.7) Baso # (0.0-2.0) K/mm3 PT (9.4-12.5) SECONDS INR (0.93-1.08) APTT (25.1-36.5) Seconds Sodium (132-148) mmol/L Potassium (3.6-5.0) mmol/L Chloride (98-107) mmol/L Carbon Dioxide (21-33) mmol/L Anion Gap (10-20) BUN (7-21) mg/dL Creatinine (0.7-1.2) mg/dl Est GFR ( Amer) Est GFR (Non-Af Amer) POC Glucose (mg/dL) 130 H 177 H 153 H (65-110) mg/dL Random Glucose (70-110) mg/dL Lactic Acid (0.7-2.1) mmol/L Calcium (8.4-10.5) mg/dL Phosphorus (2.5-4.5) mg/dL Magnesium (1.7-2.2) mg/dL Iron (45-180) ug/dL TIBC (265-497) ug/dL % Saturation (20-55) % Transferrin (206-381) mg/dL Ferritin ng/mL Total Bilirubin (0.2-1.3) mg/dL GGT (8-78) U/L AST (14-36) U/L ALT (7-56) U/L Alkaline Phosphatase (38-126) U/L Ammonia (9-33) umol/L Total Protein (5.8-8.3) g/dL Albumin (3.0-4.8) g/dL Globulin gm/dL Albumin/Globulin Ratio (1.1-1.8) Urine Color (YELLOW) Urine Appearance (CLEAR) Urine pH (4.7-8.0) Ur Specific [place] (1.005-1.035) Urine Protein (<30 mg/dL) mg/dL Urine Glucose (UA) (NEGATIVE) mg/dL Urine Ketones (NEGATIVE) mg/dL Urine Blood (NEGATIVE) Urine Nitrate (NEGATIVE) Urine Bilirubin (NEGATIVE) Urine Urobilinogen (<1 E.U./dL) E.U./dL Ur Leukocyte Esterase (NEGATIVE) Lauri/uL Urine RBC (0-2) /hpf Urine WBC (0-6) /hpf Ur Epithelial Cells (0-5) /hpf Urine Bacteria (NEG) Vancomycin Trough (5.0-10.0) ug/mL IgG (700.0-1600.0) mg/dL Hepatitis A IgM Ab (NEGATIVE) Hep Bs Antigen (NEGATIVE) Hep B Core IgM Ab (NEGATIVE) Hepatitis C Antibody (NEGATIVE) 07/05/17 07/05/17 07/05/17 Range/Units 16:30 13:35 13:35 WBC (4.5-11.0) 10^3/ul RBC (3.5-6.1) 10^6/uL Hgb (12.0-16.0) g/dL Hct (36.0-48.0) % MCV (80.0-105.0) fl MCH (25.0-35.0) pg MCHC (31.0-37.0) g/dl RDW (11.5-14.5) % Plt Count (120.0-450.0) 10^3/uL Gran % (50.0-68.0) % Lymph % (Auto) (22.0-35.0) % [place] % (Auto) (1.0-6.0) % Eos % (Auto) (1.5-5.0) % Baso % (Auto) (0.0-3.0) % Gran # (1.4-6.5) Lymph # (1.2-3.4) [place] # (0.1-0.6) Eos # (0.0-0.7) Baso # (0.0-2.0) K/mm3 PT (9.4-12.5) SECONDS INR (0.93-1.08) APTT (25.1-36.5) Seconds Sodium (132-148) mmol/L Potassium (3.6-5.0) mmol/L Chloride (98-107) mmol/L Carbon Dioxide (21-33) mmol/L Anion Gap (10-20) BUN (7-21) mg/dL Creatinine (0.7-1.2) mg/dl Est GFR ( Amer) Est GFR (Non-Af Amer) POC Glucose (mg/dL) (65-110) mg/dL Random Glucose (70-110) mg/dL Lactic Acid (0.7-2.1) mmol/L Calcium (8.4-10.5) mg/dL Phosphorus (2.5-4.5) mg/dL Magnesium (1.7-2.2) mg/dL Iron 84 (45-180) ug/dL TIBC 161 L (265-497) ug/dL % Saturation 52 (20-55) % Transferrin (206-381) mg/dL Ferritin > 63520.0 ng/mL Total Bilirubin (0.2-1.3) mg/dL GGT (8-78) U/L AST (14-36) U/L ALT (7-56) U/L Alkaline Phosphatase (38-126) U/L Ammonia (9-33) umol/L Total Protein (5.8-8.3) g/dL Albumin (3.0-4.8) g/dL Globulin gm/dL Albumin/Globulin Ratio (1.1-1.8) Urine Color Yellow (YELLOW) Urine Appearance Cloudy (CLEAR) Urine pH 7.5 (4.7-8.0) Ur Specific [place] 1.025 (1.005-1.035) Urine Protein >=300 H (<30 mg/dL) mg/dL Urine Glucose (UA) Negative (NEGATIVE) mg/dL Urine Ketones Negative (NEGATIVE) mg/dL Urine Blood Large H (NEGATIVE) Urine Nitrate Positive H (NEGATIVE) Urine Bilirubin Negative (NEGATIVE) Urine Urobilinogen 0.2 (<1 E.U./dL) E.U./dL Ur Leukocyte Esterase Large H (NEGATIVE) Lauri/uL Urine RBC Tntc (0-2) /hpf Urine WBC 10 - 15 (0-6) /hpf Ur Epithelial Cells 1 - 3 (0-5) /hpf Urine Bacteria Many (NEG) Vancomycin Trough (5.0-10.0) ug/mL IgG (700.0-1600.0) mg/dL Hepatitis A IgM Ab (NEGATIVE) Hep Bs Antigen (NEGATIVE) Hep B Core IgM Ab (NEGATIVE) Hepatitis C Antibody (NEGATIVE) 07/05/17 07/05/17 07/05/17 Range/Units 13:35 13:35 13:35 WBC (4.5-11.0) 10^3/ul RBC (3.5-6.1) 10^6/uL Hgb (12.0-16.0) g/dL Hct (36.0-48.0) % MCV (80.0-105.0) fl MCH (25.0-35.0) pg MCHC (31.0-37.0) g/dl RDW (11.5-14.5) % Plt Count (120.0-450.0) 10^3/uL Gran % (50.0-68.0) % Lymph % (Auto) (22.0-35.0) % [place] % (Auto) (1.0-6.0) % Eos % (Auto) (1.5-5.0) % Baso % (Auto) (0.0-3.0) % Gran # (1.4-6.5) Lymph # (1.2-3.4) [place] # (0.1-0.6) Eos # (0.0-0.7) Baso # (0.0-2.0) K/mm3 PT 38.8 H (9.4-12.5) SECONDS INR 3.47 H (0.93-1.08) APTT 35.8 (25.1-36.5) Seconds Sodium (132-148) mmol/L Potassium (3.6-5.0) mmol/L Chloride (98-107) mmol/L Carbon Dioxide (21-33) mmol/L Anion Gap (10-20) BUN (7-21) mg/dL Creatinine (0.7-1.2) mg/dl Est GFR ( Amer) Est GFR (Non-Af Amer) POC Glucose (mg/dL) (65-110) mg/dL Random Glucose (70-110) mg/dL Lactic Acid (0.7-2.1) mmol/L Calcium (8.4-10.5) mg/dL Phosphorus (2.5-4.5) mg/dL Magnesium (1.7-2.2) mg/dL Iron (45-180) ug/dL TIBC (265-497) ug/dL % Saturation (20-55) % Transferrin 102.87 L (206-381) mg/dL Ferritin ng/mL Total Bilirubin (0.2-1.3) mg/dL GGT (8-78) U/L AST (14-36) U/L ALT (7-56) U/L Alkaline Phosphatase (38-126) U/L Ammonia < 8.7 L (9-33) umol/L Total Protein (5.8-8.3) g/dL Albumin (3.0-4.8) g/dL Globulin gm/dL Albumin/Globulin Ratio (1.1-1.8) Urine Color (YELLOW) Urine Appearance (CLEAR) Urine pH (4.7-8.0) Ur Specific [place] (1.005-1.035) Urine Protein (<30 mg/dL) mg/dL Urine Glucose (UA) (NEGATIVE) mg/dL Urine Ketones (NEGATIVE) mg/dL Urine Blood (NEGATIVE) Urine Nitrate (NEGATIVE) Urine Bilirubin (NEGATIVE) Urine Urobilinogen (<1 E.U./dL) E.U./dL Ur Leukocyte Esterase (NEGATIVE) Lauri/uL Urine RBC (0-2) /hpf Urine WBC (0-6) /hpf Ur Epithelial Cells (0-5) /hpf Urine Bacteria (NEG) Vancomycin Trough (5.0-10.0) ug/mL IgG (700.0-1600.0) mg/dL Hepatitis A IgM Ab (NEGATIVE) Hep Bs Antigen (NEGATIVE) Hep B Core IgM Ab (NEGATIVE) Hepatitis C Antibody (NEGATIVE) 07/05/17 07/05/17 07/05/17 Range/Units 12:20 11:47 11:30 WBC (4.5-11.0) 10^3/ul RBC (3.5-6.1) 10^6/uL Hgb (12.0-16.0) g/dL Hct (36.0-48.0) % MCV (80.0-105.0) fl MCH (25.0-35.0) pg MCHC (31.0-37.0) g/dl RDW (11.5-14.5) % Plt Count (120.0-450.0) 10^3/uL Gran % (50.0-68.0) % Lymph % (Auto) (22.0-35.0) % [place] % (Auto) (1.0-6.0) % Eos % (Auto) (1.5-5.0) % Baso % (Auto) (0.0-3.0) % Gran # (1.4-6.5) Lymph # (1.2-3.4) [place] # (0.1-0.6) Eos # (0.0-0.7) Baso # (0.0-2.0) K/mm3 PT (9.4-12.5) SECONDS INR (0.93-1.08) APTT (25.1-36.5) Seconds Sodium (132-148) mmol/L Potassium (3.6-5.0) mmol/L Chloride (98-107) mmol/L Carbon Dioxide (21-33) mmol/L Anion Gap (10-20) BUN (7-21) mg/dL Creatinine (0.7-1.2) mg/dl Est GFR ( Amer) Est GFR (Non-Af Amer) POC Glucose (mg/dL) 167 H (65-110) mg/dL Random Glucose (70-110) mg/dL Lactic Acid 7.4 H* (0.7-2.1) mmol/L Calcium (8.4-10.5) mg/dL Phosphorus (2.5-4.5) mg/dL Magnesium (1.7-2.2) mg/dL Iron (45-180) ug/dL TIBC (265-497) ug/dL % Saturation (20-55) % Transferrin (206-381) mg/dL Ferritin ng/mL Total Bilirubin (0.2-1.3) mg/dL GGT (8-78) U/L AST (14-36) U/L ALT (7-56) U/L Alkaline Phosphatase (38-126) U/L Ammonia (9-33) umol/L Total Protein (5.8-8.3) g/dL Albumin (3.0-4.8) g/dL Globulin gm/dL Albumin/Globulin Ratio (1.1-1.8) Urine Color (YELLOW) Urine Appearance (CLEAR) Urine pH (4.7-8.0) Ur Specific [place] (1.005-1.035) Urine Protein (<30 mg/dL) mg/dL Urine Glucose (UA) (NEGATIVE) mg/dL Urine Ketones (NEGATIVE) mg/dL Urine Blood (NEGATIVE) Urine Nitrate (NEGATIVE) Urine Bilirubin (NEGATIVE) Urine Urobilinogen (<1 E.U./dL) E.U./dL Ur Leukocyte Esterase (NEGATIVE) Lauri/uL Urine RBC (0-2) /hpf Urine WBC (0-6) /hpf Ur Epithelial Cells (0-5) /hpf Urine Bacteria (NEG) Vancomycin Trough (5.0-10.0) ug/mL IgG (700.0-1600.0) mg/dL Hepatitis A IgM Ab Negative (NEGATIVE) Hep Bs Antigen Negative (NEGATIVE) Hep B Core IgM Ab Negative (NEGATIVE) Hepatitis C Antibody Negative (NEGATIVE) 07/05/17 07/05/17 07/05/17 Range/Units 11:30 07:57 05:58 WBC (4.5-11.0) 10^3/ul RBC (3.5-6.1) 10^6/uL Hgb (12.0-16.0) g/dL Hct (36.0-48.0) % MCV (80.0-105.0) fl MCH (25.0-35.0) pg MCHC (31.0-37.0) g/dl RDW (11.5-14.5) % Plt Count (120.0-450.0) 10^3/uL Gran % (50.0-68.0) % Lymph % (Auto) (22.0-35.0) % [place] % (Auto) (1.0-6.0) % Eos % (Auto) (1.5-5.0) % Baso % (Auto) (0.0-3.0) % Gran # (1.4-6.5) Lymph # (1.2-3.4) [place] # (0.1-0.6) Eos # (0.0-0.7) Baso # (0.0-2.0) K/mm3 PT (9.4-12.5) SECONDS INR (0.93-1.08) APTT (25.1-36.5) Seconds Sodium (132-148) mmol/L Potassium (3.6-5.0) mmol/L Chloride (98-107) mmol/L Carbon Dioxide (21-33) mmol/L Anion Gap (10-20) BUN (7-21) mg/dL Creatinine (0.7-1.2) mg/dl Est GFR ( Amer) Est GFR (Non-Af Amer) POC Glucose (mg/dL) 183 H (65-110) mg/dL Random Glucose (70-110) mg/dL Lactic Acid (0.7-2.1) mmol/L Calcium (8.4-10.5) mg/dL Phosphorus (2.5-4.5) mg/dL Magnesium (1.7-2.2) mg/dL Iron (45-180) ug/dL TIBC (265-497) ug/dL % Saturation (20-55) % Transferrin (206-381) mg/dL Ferritin ng/mL Total Bilirubin (0.2-1.3) mg/dL GGT 110 H (8-78) U/L AST (14-36) U/L ALT (7-56) U/L Alkaline Phosphatase (38-126) U/L Ammonia (9-33) umol/L Total Protein (5.8-8.3) g/dL Albumin (3.0-4.8) g/dL Globulin gm/dL Albumin/Globulin Ratio (1.1-1.8) Urine Color (YELLOW) Urine Appearance (CLEAR) Urine pH (4.7-8.0) Ur Specific [place] (1.005-1.035) Urine Protein (<30 mg/dL) mg/dL Urine Glucose (UA) (NEGATIVE) mg/dL Urine Ketones (NEGATIVE) mg/dL Urine Blood (NEGATIVE) Urine Nitrate (NEGATIVE) Urine Bilirubin (NEGATIVE) Urine Urobilinogen (<1 E.U./dL) E.U./dL Ur Leukocyte Esterase (NEGATIVE) Lauri/uL Urine RBC (0-2) /hpf Urine WBC (0-6) /hpf Ur Epithelial Cells (0-5) /hpf Urine Bacteria (NEG) Vancomycin Trough (5.0-10.0) ug/mL IgG 1426.3 (700.0-1600.0) mg/dL Hepatitis A IgM Ab (NEGATIVE) Hep Bs Antigen (NEGATIVE) Hep B Core IgM Ab (NEGATIVE) Hepatitis C Antibody (NEGATIVE) 07/05/17 07/05/17 07/05/17 Range/Units 05:58 05:58 05:54 WBC (4.5-11.0) 10^3/ul RBC (3.5-6.1) 10^6/uL Hgb (12.0-16.0) g/dL Hct (36.0-48.0) % MCV (80.0-105.0) fl MCH (25.0-35.0) pg MCHC (31.0-37.0) g/dl RDW (11.5-14.5) % Plt Count (120.0-450.0) 10^3/uL Gran % (50.0-68.0) % Lymph % (Auto) (22.0-35.0) % [place] % (Auto) (1.0-6.0) % Eos % (Auto) (1.5-5.0) % Baso % (Auto) (0.0-3.0) % Gran # (1.4-6.5) Lymph # (1.2-3.4) [place] # (0.1-0.6) Eos # (0.0-0.7) Baso # (0.0-2.0) K/mm3 PT (9.4-12.5) SECONDS INR (0.93-1.08) APTT (25.1-36.5) Seconds Sodium 147 (132-148) mmol/L Potassium 4.6 (3.6-5.0) mmol/L Chloride 101 (98-107) mmol/L Carbon Dioxide 16 L (21-33) mmol/L Anion Gap 35 H (10-20) BUN 56 H (7-21) mg/dL Creatinine 8.8 H* (0.7-1.2) mg/dl Est GFR ( Amer) 5 Est GFR (Non-Af Amer) 5 POC Glucose (mg/dL) 250 H (65-110) mg/dL Random Glucose 252 H (70-110) mg/dL Lactic Acid (0.7-2.1) mmol/L Calcium 7.4 L (8.4-10.5) mg/dL Phosphorus 9.9 H (2.5-4.5) mg/dL Magnesium 1.7 (1.7-2.2) mg/dL Iron (45-180) ug/dL TIBC (265-497) ug/dL % Saturation (20-55) % Transferrin (206-381) mg/dL Ferritin ng/mL Total Bilirubin 1.9 H (0.2-1.3) mg/dL GGT (8-78) U/L AST 1479 H (14-36) U/L ALT 504 H (7-56) U/L Alkaline Phosphatase 127 H D (38-126) U/L Ammonia (9-33) umol/L Total Protein 5.9 (5.8-8.3) g/dL Albumin 3.0 (3.0-4.8) g/dL Globulin 3.0 gm/dL Albumin/Globulin Ratio 1.0 L (1.1-1.8) Urine Color (YELLOW) Urine Appearance (CLEAR) Urine pH (4.7-8.0) Ur Specific [place] (1.005-1.035) Urine Protein (<30 mg/dL) mg/dL Urine Glucose (UA) (NEGATIVE) mg/dL Urine Ketones (NEGATIVE) mg/dL Urine Blood (NEGATIVE) Urine Nitrate (NEGATIVE) Urine Bilirubin (NEGATIVE) Urine Urobilinogen (<1 E.U./dL) E.U./dL Ur Leukocyte Esterase (NEGATIVE) Lauri/uL Urine RBC (0-2) /hpf Urine WBC (0-6) /hpf Ur Epithelial Cells (0-5) /hpf Urine Bacteria (NEG) Vancomycin Trough 8.4 (5.0-10.0) ug/mL IgG (700.0-1600.0) mg/dL Hepatitis A IgM Ab (NEGATIVE) Hep Bs Antigen (NEGATIVE) Hep B Core IgM Ab (NEGATIVE) Hepatitis C Antibody (NEGATIVE) Laboratory Results - last 24 hr 07/05/17 07/05/17 07/05/17 05:54 05:58 05:58 WBC RBC Hgb Hct MCV MCH MCHC RDW Plt Count Gran % Lymph % (Auto) [place] % (Auto) Eos % (Auto) Baso % (Auto) Gran # Lymph # [place] # Eos # Baso # PT INR APTT Sodium 147 Potassium 4.6 Chloride 101 Carbon Dioxide 16 L Anion Gap 35 H BUN 56 H Creatinine 8.8 H* Est GFR ( Amer) 5 Est GFR (Non-Af Amer) 5 POC Glucose (mg/dL) 250 H Random Glucose 252 H Lactic Acid Calcium 7.4 L Phosphorus 9.9 H Magnesium 1.7 Iron TIBC % Saturation Transferrin Ferritin Total Bilirubin 1.9 H GGT AST 1479 H ALT 504 H Alkaline Phosphatase 127 H D Ammonia Total Protein 5.9 Albumin 3.0 Globulin 3.0 Albumin/Globulin Ratio 1.0 L Urine Color Urine Appearance Urine pH Ur Specific [place] Urine Protein Urine Glucose (UA) Urine Ketones Urine Blood Urine Nitrate Urine Bilirubin Urine Urobilinogen Ur Leukocyte Esterase Urine RBC Urine WBC Ur Epithelial Cells Urine Bacteria Vancomycin Trough 8.4 IgG Hepatitis A IgM Ab Hep Bs Antigen Hep B Core IgM Ab Hepatitis C Antibody 07/05/17 07/05/17 07/05/17 05:58 07:57 11:30 WBC RBC Hgb Hct MCV MCH MCHC RDW Plt Count Gran % Lymph % (Auto) [place] % (Auto) Eos % (Auto) Baso % (Auto) Gran # Lymph # [place] # Eos # Baso # PT INR APTT Sodium Potassium Chloride Carbon Dioxide Anion Gap BUN Creatinine Est GFR ( Amer) Est GFR (Non-Af Amer) POC Glucose (mg/dL) 183 H Random Glucose Lactic Acid Calcium Phosphorus Magnesium Iron TIBC % Saturation Transferrin Ferritin Total Bilirubin GGT 110 H AST ALT Alkaline Phosphatase Ammonia Total Protein Albumin Globulin Albumin/Globulin Ratio Urine Color Urine Appearance Urine pH Ur Specific [place] Urine Protein Urine Glucose (UA) Urine Ketones Urine Blood Urine Nitrate Urine Bilirubin Urine Urobilinogen Ur Leukocyte Esterase Urine RBC Urine WBC Ur Epithelial Cells Urine Bacteria Vancomycin Trough IgG 1426.3 Hepatitis A IgM Ab Hep Bs Antigen Hep B Core IgM Ab Hepatitis C Antibody 07/05/17 07/05/17 07/05/17 11:30 11:47 12:20 WBC RBC Hgb Hct MCV MCH MCHC RDW Plt Count Gran % Lymph % (Auto) [place] % (Auto) Eos % (Auto) Baso % (Auto) Gran # Lymph # [place] # Eos # Baso # PT INR APTT Sodium Potassium Chloride Carbon Dioxide Anion Gap BUN Creatinine Est GFR ( Amer) Est GFR (Non-Af Amer) POC Glucose (mg/dL) 167 H Random Glucose Lactic Acid 7.4 H* Calcium Phosphorus Magnesium Iron TIBC % Saturation Transferrin Ferritin Total Bilirubin GGT AST ALT Alkaline Phosphatase Ammonia Total Protein Albumin Globulin Albumin/Globulin Ratio Urine Color Urine Appearance Urine pH Ur Specific [place] Urine Protein Urine Glucose (UA) Urine Ketones Urine Blood Urine Nitrate Urine Bilirubin Urine Urobilinogen Ur Leukocyte Esterase Urine RBC Urine WBC Ur Epithelial Cells Urine Bacteria Vancomycin Trough IgG Hepatitis A IgM Ab Negative Hep Bs Antigen Negative Hep B Core IgM Ab Negative Hepatitis C Antibody Negative 07/05/17 07/05/17 07/05/17 13:35 13:35 13:35 WBC RBC Hgb Hct MCV MCH MCHC RDW Plt Count Gran % Lymph % (Auto) [place] % (Auto) Eos % (Auto) Baso % (Auto) Gran # Lymph # [place] # Eos # Baso # PT 38.8 H INR 3.47 H APTT 35.8 Sodium Potassium Chloride Carbon Dioxide Anion Gap BUN Creatinine Est GFR ( Amer) Est GFR (Non-Af Amer) POC Glucose (mg/dL) Random Glucose Lactic Acid Calcium Phosphorus Magnesium Iron TIBC % Saturation Transferrin 102.87 L Ferritin Total Bilirubin GGT AST ALT Alkaline Phosphatase Ammonia < 8.7 L Total Protein Albumin Globulin Albumin/Globulin Ratio Urine Color Urine Appearance Urine pH Ur Specific [place] Urine Protein Urine Glucose (UA) Urine Ketones Urine Blood Urine Nitrate Urine Bilirubin Urine Urobilinogen Ur Leukocyte Esterase Urine RBC Urine WBC Ur Epithelial Cells Urine Bacteria Vancomycin Trough IgG Hepatitis A IgM Ab Hep Bs Antigen Hep B Core IgM Ab Hepatitis C Antibody 07/05/17 07/05/17 07/05/17 13:35 13:35 16:30 WBC RBC Hgb Hct MCV MCH MCHC RDW Plt Count Gran % Lymph % (Auto) [place] % (Auto) Eos % (Auto) Baso % (Auto) Gran # Lymph # [place] # Eos # Baso # PT INR APTT Sodium Potassium Chloride Carbon Dioxide Anion Gap BUN Creatinine Est GFR ( Amer) Est GFR (Non-Af Amer) POC Glucose (mg/dL) Random Glucose Lactic Acid Calcium Phosphorus Magnesium Iron 84 TIBC 161 L % Saturation 52 Transferrin Ferritin > 69994.0 Total Bilirubin GGT AST ALT Alkaline Phosphatase Ammonia Total Protein Albumin Globulin Albumin/Globulin Ratio Urine Color Yellow Urine Appearance Cloudy Urine pH 7.5 Ur Specific [place] 1.025 Urine Protein >=300 H Urine Glucose (UA) Negative Urine Ketones Negative Urine Blood Large H Urine Nitrate Positive H Urine Bilirubin Negative Urine Urobilinogen 0.2 Ur Leukocyte Esterase Large H Urine RBC Tntc Urine WBC 10 - 15 Ur Epithelial Cells 1 - 3 Urine Bacteria Many Vancomycin Trough IgG Hepatitis A IgM Ab Hep Bs Antigen Hep B Core IgM Ab Hepatitis C Antibody 07/05/17 07/05/17 07/06/17 20:10 21:50 02:20 WBC RBC Hgb Hct MCV MCH MCHC RDW Plt Count Gran % Lymph % (Auto) [place] % (Auto) Eos % (Auto) Baso % (Auto) Gran # Lymph # [place] # Eos # Baso # PT INR APTT Sodium Potassium Chloride Carbon Dioxide Anion Gap BUN Creatinine Est GFR ( Amer) Est GFR (Non-Af Amer) POC Glucose (mg/dL) 153 H 177 H 130 H Random Glucose Lactic Acid Calcium Phosphorus Magnesium Iron TIBC % Saturation Transferrin Ferritin Total Bilirubin GGT AST ALT Alkaline Phosphatase Ammonia Total Protein Albumin Globulin Albumin/Globulin Ratio Urine Color Urine Appearance Urine pH Ur Specific [place] Urine Protein Urine Glucose (UA) Urine Ketones Urine Blood Urine Nitrate Urine Bilirubin Urine Urobilinogen Ur Leukocyte Esterase Urine RBC Urine WBC Ur Epithelial Cells Urine Bacteria Vancomycin Trough IgG Hepatitis A IgM Ab Hep Bs Antigen Hep B Core IgM Ab Hepatitis C Antibody 07/06/17 07/06/17 07/06/17 05:18 05:18 06:10 WBC 9.2 D RBC 3.79 Hgb 10.1 L Hct 32.9 L MCV 86.8 MCH 26.6 MCHC 30.7 L RDW 16.8 H Plt Count 54 L Gran % 87.0 H Lymph % (Auto) 11.2 L [place] % (Auto) 1.6 Eos % (Auto) 0.1 L Baso % (Auto) 0.1 Gran # 8.02 H Lymph # 1.0 L [place] # 0.2 Eos # 0.0 Baso # 0.01 PT INR APTT Sodium 143 Potassium 3.1 L Chloride 102 Carbon Dioxide 27 Anion Gap 17 BUN 27 H Creatinine 5.2 H Est GFR ( Amer) 10 Est GFR (Non-Af Amer) 8 POC Glucose (mg/dL) 109 Random Glucose 120 H Lactic Acid Calcium 8.8 Phosphorus Magnesium Iron TIBC % Saturation Transferrin Ferritin Total Bilirubin 1.5 H GGT AST 1397 H ALT 609 H Alkaline Phosphatase 109 Ammonia Total Protein 5.2 L Albumin 2.4 L Globulin 2.9 Albumin/Globulin Ratio 0.8 L Urine Color Urine Appearance Urine pH Ur Specific [place] Urine Protein Urine Glucose (UA) Urine Ketones Urine Blood Urine Nitrate Urine Bilirubin Urine Urobilinogen Ur Leukocyte Esterase Urine RBC Urine WBC Ur Epithelial Cells Urine Bacteria Vancomycin Trough IgG Hepatitis A IgM Ab Hep Bs Antigen Hep B Core IgM Ab Hepatitis C Antibody Fingerstick Blood Sugar Results: 130 Assessment/Plan - Assessment and Plan (Free Text) Plan: 66 F with a PMH of ESRD on HD, HTN, CHF, afib RVR who is intubated with resolving cardiogenic shock likely secondary to low EF and afib RVR, now with shock liver, currently hemodynamically stable and off vasopressors Neuro: intubated, maintain normothermia, unable to answer questions - responds occasionally to verbal/noxious stimuli Pulm: intubated and on vent support, failed weaning trial - will attempt again tomorrow, Maintain SaO2 > 90%, keep head of bed elevated at 30 degrees Cardio: rhythm is sinus tachycardia, normotensive without vasopressors or fluids , Lopressor Q6H for rate control, Maintain MAP > 65 GI: Protonix, Finish third dose of NAC, f/u GI recommendations, Monitor Lfts Renal: Monitor electrolytes, Dialysis Today (MWF), f/u Nephrology recommendations Endo: Maintain euglycemia 140-180 Heme: Heparin drip discontinued due to supratherapeutic INR (2.43 today), Monitor Coags, PICC line placement ID: Continue IV antibiotics as per ID <Hieu Castillo - Last Filed: 07/06/17 17:35> CCU Objective - Vital Signs / Intake & Output Vital Signs (Last 4 hours): Vital Signs Pulse BP 07/06/17 14:33 106 H 122/62 Intake and Output (Last 8hrs): Intake & Output 07/06/17 07/06/17 07/06/17 06:59 14:59 22:59 Intake Total 1137 Output Total 5 Balance 1132 Intake: IV 1137 Left Internal Jugular 1137 Output: Urine 5 2-way Urethral 5 - Medications Active Medications: Active Medications Generic Name Dose Route Start Last Admin Trade Name Freq PRN Reason Stop Dose Admin Artificial Tears 0 gm 07/05/17 20:00 07/06/17 05:18 Artificial Tears Opht Oint OU 1 gel Q8H PRN Administration Dry eyes Artificial Tears 0 ml 07/06/17 18:00 Artificial Tears OU BID MARCEL Chlorhexidine Gluconate 15 ml 07/04/17 18:00 07/05/17 17:59 Peridex PO 15 ml BID MARCEL Administration Fentanyl Citrate 1,000 mcg in 100 mls @ 10 mls/hr 07/04/17 01:20 07/04/17 17: 30 Fentanyl Citrate/Sodium Chloride 1 Mg/100 Ml IV 0 mcg/hr .Q10H PRN 0 mls/hr TITRATE PER MD ORDER Titration Protocol 100 MCG/HR NOREPINEPHRINE BIT/0.9 % NACL 4 mg in 250 mls @ 15 mls/hr 07/04/17 13:57 02/12 04:32 Levophed 4 Mg/ 250 Ml Ns Premixed IV 10 mcg/min .[id number] PRN 37.5 mls/hr TITRATE PER MD ORDER Titration Protocol 4 MCG/MIN Vasopressin 20 units/ Sodium 101 mls @ 9.09 mls/hr 07/04/17 17:00 07/04/17 17 :45 Chloride IV 9.09 mls/hr .[id number] MARCEL Administration Protocol 0.03 U/MIN Dobutamine HCl/Dextrose 500 mg in 250 mls @ 12.859 mls/hr 07/04/17 20:52 Dobutamine/Dextrose 5% 500mg/250ml IV .[id number] PRN TITRATE PER PROTOCOL Protocol 5 MCG/KG/MIN Heparin Sodium/Dextrose 25,000 units in 250 mls @ 15.35 mls/hr 07/05/17 12:30 Heparin 25,000 Units/250ml In D5w IV .[id number] PRN ADJUST RATE PER PROTOCOL Protocol 18 UNITS/KG/HR Meropenem 500 mg/ Sodium 50 mls @ 100 mls/hr 07/05/17 14:06 07/06/17 10:01 Chloride IVPB 100 mls/hr DAILY MARCEL Administration Protocol Metoprolol Tartrate 5 mg 07/06/17 07:45 07/06/17 14:33 Lopressor IVP 5 mg Q6H MARCEL Administration Pantoprazole Sodium 40 mg 07/04/17 10:00 07/05/17 10:25 Protonix Inj IVP 40 mg DAILY MARCEL Administration - Patient Studies Lab Studies: Microbiology Studies 07/05/17 20:45 Gram Stain - Final Trachasp 07/05/17 22:09 C. difficile Antigen & Toxin A,B (M - Final Stool 07/04/17 10:30 Urine Culture - Final Urine,Stevens Escherichia Coli 07/04/17 03:30 MRSA Culture (Admit) - Final Naris MRSA NOT DETECTED Lab Studies 07/06/17 07/06/17 07/06/17 Range/Units 13:47 10:01 09:53 WBC (4.5-11.0) 10^3/ul RBC (3.5-6.1) 10^6/uL Hgb (12.0-16.0) g/dL Hct (36.0-48.0) % MCV (80.0-105.0) fl MCH (25.0-35.0) pg MCHC (31.0-37.0) g/dl RDW (11.5-14.5) % Plt Count (120.0-450.0) 10^3/uL Gran % (50.0-68.0) % Lymph % (Auto) (22.0-35.0) % [place] % (Auto) (1.0-6.0) % Eos % (Auto) (1.5-5.0) % Baso % (Auto) (0.0-3.0) % Gran # (1.4-6.5) Lymph # (1.2-3.4) [place] # (0.1-0.6) Eos # (0.0-0.7) Baso # (0.0-2.0) K/mm3 PT (9.4-12.5) SECONDS INR (0.93-1.08) APTT (25.1-36.5) Seconds pCO2 (35-45) mm/Hg pO2 50 (80-100) mm/Hg HCO3 (21-28) mmol/L ABG pH (7.35-7.45) ABG Total CO2 (22-28) mmol.L ABG O2 Saturation (95-98) % ABG Base Excess (-2.0-3.0) mmol/L ABG Potassium (3.6-5.2) mmol/L VBG pH 7.44 H (7.32-7.43) VBG pCO2 41.0 (40-60) VBG HCO3 27.8 (21-28) mmol/l VBG Total CO2 29.1 H (22-28) mmol.L VBG O2 Sat (Calc) 89.8 H (40-65) % VBG Base Excess 3.3 H (0.0-2.0) mmol/L VBG Potassium 3.0 L (3.6-5.2) mmol/L Glucose 133 H (65-105) mg/dl Lactate 3.0 H (0.7-2.1) mmol/L Mechanical Rate FiO2 21.0 % Tidal Volume PEEP Sodium 142.0 (132-148) mmol/L Potassium (3.6-5.0) mmol/L Chloride 102.0 (98-107) mmol/L Carbon Dioxide (21-33) mmol/L Anion Gap (10-20) BUN (7-21) mg/dL Creatinine (0.7-1.2) mg/dl Est GFR ( Amer) Est GFR (Non-Af Amer) POC Glucose (mg/dL) 116 H 129 H (65-110) mg/dL Random Glucose (70-110) mg/dL Calcium (8.4-10.5) mg/dL Ferritin ng/mL Total Bilirubin (0.2-1.3) mg/dL AST (14-36) U/L ALT (7-56) U/L Alkaline Phosphatase (38-126) U/L Total Protein (5.8-8.3) g/dL Albumin (3.0-4.8) g/dL Globulin gm/dL Albumin/Globulin Ratio (1.1-1.8) Osoxb-7-Rkfnlhuiijb (83-199) mg/dL Arterial Blood Potassium (3.6-5.2) mmol/L Venous Blood Potassium 3.0 L (3.6-5.2) mmol/L Anti-Mitochondrial Ab (Negative) 07/06/17 07/06/17 07/06/17 Range/Units 09:30 09:30 06:33 WBC (4.5-11.0) 10^3/ul RBC (3.5-6.1) 10^6/uL Hgb (12.0-16.0) g/dL Hct (36.0-48.0) % MCV (80.0-105.0) fl MCH (25.0-35.0) pg MCHC (31.0-37.0) g/dl RDW (11.5-14.5) % Plt Count (120.0-450.0) 10^3/uL Gran % (50.0-68.0) % Lymph % (Auto) (22.0-35.0) % [place] % (Auto) (1.0-6.0) % Eos % (Auto) (1.5-5.0) % Baso % (Auto) (0.0-3.0) % Gran # (1.4-6.5) Lymph # (1.2-3.4) [place] # (0.1-0.6) Eos # (0.0-0.7) Baso # (0.0-2.0) K/mm3 PT 27.2 H (9.4-12.5) SECONDS INR 2.43 H (0.93-1.08) APTT 34.8 (25.1-36.5) Seconds pCO2 39 (35-45) mm/Hg pO2 122.0 H (80-100) mm/Hg HCO3 28.4 H (21-28) mmol/L ABG pH 7.47 H (7.35-7.45) ABG Total CO2 29.6 H (22-28) mmol.L ABG O2 Saturation 99.4 H (95-98) % ABG Base Excess 4.5 H (-2.0-3.0) mmol/L ABG Potassium 2.8 L (3.6-5.2) mmol/L VBG pH (7.32-7.43) VBG pCO2 (40-60) VBG HCO3 (21-28) mmol/l VBG Total CO2 (22-28) mmol.L VBG O2 Sat (Calc) (40-65) % VBG Base Excess (0.0-2.0) mmol/L VBG Potassium (3.6-5.2) mmol/L Glucose 125 H (65-105) mg/dl Lactate 2.7 H (0.7-2.1) mmol/L Mechanical Rate 20 FiO2 50.0 % Tidal Volume 450 PEEP 5 Sodium 141.0 (132-148) mmol/L Potassium 3.2 L (3.6-5.0) mmol/L Chloride 103.0 (98-107) mmol/L Carbon Dioxide (21-33) mmol/L Anion Gap (10-20) BUN (7-21) mg/dL Creatinine (0.7-1.2) mg/dl Est GFR ( Amer) Est GFR (Non-Af Amer) POC Glucose (mg/dL) (65-110) mg/dL Random Glucose (70-110) mg/dL Calcium (8.4-10.5) mg/dL Ferritin ng/mL Total Bilirubin (0.2-1.3) mg/dL AST (14-36) U/L ALT (7-56) U/L Alkaline Phosphatase (38-126) U/L Total Protein (5.8-8.3) g/dL Albumin (3.0-4.8) g/dL Globulin gm/dL Albumin/Globulin Ratio (1.1-1.8) Wloga-8-Ncwphpnvffg (83-199) mg/dL Arterial Blood Potassium 2.8 L (3.6-5.2) mmol/L Venous Blood Potassium (3.6-5.2) mmol/L Anti-Mitochondrial Ab (Negative) 07/06/17 07/06/17 07/06/17 Range/Units 06:10 05:18 05:18 WBC 9.2 D (4.5-11.0) 10^3/ul RBC 3.79 (3.5-6.1) 10^6/uL Hgb 10.1 L (12.0-16.0) g/dL Hct 32.9 L (36.0-48.0) % MCV 86.8 (80.0-105.0) fl MCH 26.6 (25.0-35.0) pg MCHC 30.7 L (31.0-37.0) g/dl RDW 16.8 H (11.5-14.5) % Plt Count 54 L (120.0-450.0) 10^3/uL Gran % 87.0 H (50.0-68.0) % Lymph % (Auto) 11.2 L (22.0-35.0) % [place] % (Auto) 1.6 (1.0-6.0) % Eos % (Auto) 0.1 L (1.5-5.0) % Baso % (Auto) 0.1 (0.0-3.0) % Gran # 8.02 H (1.4-6.5) Lymph # 1.0 L (1.2-3.4) [place] # 0.2 (0.1-0.6) Eos # 0.0 (0.0-0.7) Baso # 0.01 (0.0-2.0) K/mm3 PT (9.4-12.5) SECONDS INR (0.93-1.08) APTT (25.1-36.5) Seconds pCO2 (35-45) mm/Hg pO2 (80-100) mm/Hg HCO3 (21-28) mmol/L ABG pH (7.35-7.45) ABG Total CO2 (22-28) mmol.L ABG O2 Saturation (95-98) % ABG Base Excess (-2.0-3.0) mmol/L ABG Potassium (3.6-5.2) mmol/L VBG pH (7.32-7.43) VBG pCO2 (40-60) VBG HCO3 (21-28) mmol/l VBG Total CO2 (22-28) mmol.L VBG O2 Sat (Calc) (40-65) % VBG Base Excess (0.0-2.0) mmol/L VBG Potassium (3.6-5.2) mmol/L Glucose (65-105) mg/dl Lactate (0.7-2.1) mmol/L Mechanical Rate FiO2 % Tidal Volume PEEP Sodium 143 (132-148) mmol/L Potassium 3.1 L (3.6-5.0) mmol/L Chloride 102 (98-107) mmol/L Carbon Dioxide 27 (21-33) mmol/L Anion Gap 17 (10-20) BUN 27 H (7-21) mg/dL Creatinine 5.2 H (0.7-1.2) mg/dl Est GFR ( Amer) 10 Est GFR (Non-Af Amer) 8 POC Glucose (mg/dL) 109 (65-110) mg/dL Random Glucose 120 H (70-110) mg/dL Calcium 8.8 (8.4-10.5) mg/dL Ferritin ng/mL Total Bilirubin 1.5 H (0.2-1.3) mg/dL AST 1397 H (14-36) U/L ALT 609 H (7-56) U/L Alkaline Phosphatase 109 (38-126) U/L Total Protein 5.2 L (5.8-8.3) g/dL Albumin 2.4 L (3.0-4.8) g/dL Globulin 2.9 gm/dL Albumin/Globulin Ratio 0.8 L (1.1-1.8) Plfij-6-Vhgkadqzvfj (83-199) mg/dL Arterial Blood Potassium (3.6-5.2) mmol/L Venous Blood Potassium (3.6-5.2) mmol/L Anti-Mitochondrial Ab (Negative) 07/06/17 07/05/17 07/05/17 Range/Units 02:20 21:50 20:10 WBC (4.5-11.0) 10^3/ul RBC (3.5-6.1) 10^6/uL Hgb (12.0-16.0) g/dL Hct (36.0-48.0) % MCV (80.0-105.0) fl MCH (25.0-35.0) pg MCHC (31.0-37.0) g/dl RDW (11.5-14.5) % Plt Count (120.0-450.0) 10^3/uL Gran % (50.0-68.0) % Lymph % (Auto) (22.0-35.0) % [place] % (Auto) (1.0-6.0) % Eos % (Auto) (1.5-5.0) % Baso % (Auto) (0.0-3.0) % Gran # (1.4-6.5) Lymph # (1.2-3.4) [place] # (0.1-0.6) Eos # (0.0-0.7) Baso # (0.0-2.0) K/mm3 PT (9.4-12.5) SECONDS INR (0.93-1.08) APTT (25.1-36.5) Seconds pCO2 (35-45) mm/Hg pO2 (80-100) mm/Hg HCO3 (21-28) mmol/L ABG pH (7.35-7.45) ABG Total CO2 (22-28) mmol.L ABG O2 Saturation (95-98) % ABG Base Excess (-2.0-3.0) mmol/L ABG Potassium (3.6-5.2) mmol/L VBG pH (7.32-7.43) VBG pCO2 (40-60) VBG HCO3 (21-28) mmol/l VBG Total CO2 (22-28) mmol.L VBG O2 Sat (Calc) (40-65) % VBG Base Excess (0.0-2.0) mmol/L VBG Potassium (3.6-5.2) mmol/L Glucose (65-105) mg/dl Lactate (0.7-2.1) mmol/L Mechanical Rate FiO2 % Tidal Volume PEEP Sodium (132-148) mmol/L Potassium (3.6-5.0) mmol/L Chloride (98-107) mmol/L Carbon Dioxide (21-33) mmol/L Anion Gap (10-20) BUN (7-21) mg/dL Creatinine (0.7-1.2) mg/dl Est GFR ( Amer) Est GFR (Non-Af Amer) POC Glucose (mg/dL) 130 H 177 H 153 H (65-110) mg/dL Random Glucose (70-110) mg/dL Calcium (8.4-10.5) mg/dL Ferritin ng/mL Total Bilirubin (0.2-1.3) mg/dL AST (14-36) U/L ALT (7-56) U/L Alkaline Phosphatase (38-126) U/L Total Protein (5.8-8.3) g/dL Albumin (3.0-4.8) g/dL Globulin gm/dL Albumin/Globulin Ratio (1.1-1.8) Ybifp-3-Wausduhlpse (83-199) mg/dL Arterial Blood Potassium (3.6-5.2) mmol/L Venous Blood Potassium (3.6-5.2) mmol/L Anti-Mitochondrial Ab (Negative) 07/05/17 07/05/17 07/05/17 Range/Units 16:14 13:35 11:30 WBC (4.5-11.0) 10^3/ul RBC (3.5-6.1) 10^6/uL Hgb (12.0-16.0) g/dL Hct (36.0-48.0) % MCV (80.0-105.0) fl MCH (25.0-35.0) pg MCHC (31.0-37.0) g/dl RDW (11.5-14.5) % Plt Count (120.0-450.0) 10^3/uL Gran % (50.0-68.0) % Lymph % (Auto) (22.0-35.0) % [place] % (Auto) (1.0-6.0) % Eos % (Auto) (1.5-5.0) % Baso % (Auto) (0.0-3.0) % Gran # (1.4-6.5) Lymph # (1.2-3.4) [place] # (0.1-0.6) Eos # (0.0-0.7) Baso # (0.0-2.0) K/mm3 PT (9.4-12.5) SECONDS INR (0.93-1.08) APTT (25.1-36.5) Seconds pCO2 (35-45) mm/Hg pO2 (80-100) mm/Hg HCO3 (21-28) mmol/L ABG pH (7.35-7.45) ABG Total CO2 (22-28) mmol.L ABG O2 Saturation (95-98) % ABG Base Excess (-2.0-3.0) mmol/L ABG Potassium (3.6-5.2) mmol/L VBG pH (7.32-7.43) VBG pCO2 (40-60) VBG HCO3 (21-28) mmol/l VBG Total CO2 (22-28) mmol.L VBG O2 Sat (Calc) (40-65) % VBG Base Excess (0.0-2.0) mmol/L VBG Potassium (3.6-5.2) mmol/L Glucose (65-105) mg/dl Lactate (0.7-2.1) mmol/L Mechanical Rate FiO2 % Tidal Volume PEEP Sodium (132-148) mmol/L Potassium (3.6-5.0) mmol/L Chloride (98-107) mmol/L Carbon Dioxide (21-33) mmol/L Anion Gap (10-20) BUN (7-21) mg/dL Creatinine (0.7-1.2) mg/dl Est GFR ( Amer) Est GFR (Non-Af Amer) POC Glucose (mg/dL) 108 (65-110) mg/dL Random Glucose (70-110) mg/dL Calcium (8.4-10.5) mg/dL Ferritin > 93803.0 ng/mL Total Bilirubin (0.2-1.3) mg/dL AST (14-36) U/L ALT (7-56) U/L Alkaline Phosphatase (38-126) U/L Total Protein (5.8-8.3) g/dL Albumin (3.0-4.8) g/dL Globulin gm/dL Albumin/Globulin Ratio (1.1-1.8) Dvldh-3-Qpanmyejhnk 152 (83-199) mg/dL Arterial Blood Potassium (3.6-5.2) mmol/L Venous Blood Potassium (3.6-5.2) mmol/L Anti-Mitochondrial Ab (Negative) 07/05/17 Range/Units 11:30 WBC (4.5-11.0) 10^3/ul RBC (3.5-6.1) 10^6/uL Hgb (12.0-16.0) g/dL Hct (36.0-48.0) % MCV (80.0-105.0) fl MCH (25.0-35.0) pg MCHC (31.0-37.0) g/dl RDW (11.5-14.5) % Plt Count (120.0-450.0) 10^3/uL Gran % (50.0-68.0) % Lymph % (Auto) (22.0-35.0) % [place] % (Auto) (1.0-6.0) % Eos % (Auto) (1.5-5.0) % Baso % (Auto) (0.0-3.0) % Gran # (1.4-6.5) Lymph # (1.2-3.4) [place] # (0.1-0.6) Eos # (0.0-0.7) Baso # (0.0-2.0) K/mm3 PT (9.4-12.5) SECONDS INR (0.93-1.08) APTT (25.1-36.5) Seconds pCO2 (35-45) mm/Hg pO2 (80-100) mm/Hg HCO3 (21-28) mmol/L ABG pH (7.35-7.45) ABG Total CO2 (22-28) mmol.L ABG O2 Saturation (95-98) % ABG Base Excess (-2.0-3.0) mmol/L ABG Potassium (3.6-5.2) mmol/L VBG pH (7.32-7.43) VBG pCO2 (40-60) VBG HCO3 (21-28) mmol/l VBG Total CO2 (22-28) mmol.L VBG O2 Sat (Calc) (40-65) % VBG Base Excess (0.0-2.0) mmol/L VBG Potassium (3.6-5.2) mmol/L Glucose (65-105) mg/dl Lactate (0.7-2.1) mmol/L Mechanical Rate FiO2 % Tidal Volume PEEP Sodium (132-148) mmol/L Potassium (3.6-5.0) mmol/L Chloride (98-107) mmol/L Carbon Dioxide (21-33) mmol/L Anion Gap (10-20) BUN (7-21) mg/dL Creatinine (0.7-1.2) mg/dl Est GFR ( Amer) Est GFR (Non-Af Amer) POC Glucose (mg/dL) (65-110) mg/dL Random Glucose (70-110) mg/dL Calcium (8.4-10.5) mg/dL Ferritin ng/mL Total Bilirubin (0.2-1.3) mg/dL AST (14-36) U/L ALT (7-56) U/L Alkaline Phosphatase (38-126) U/L Total Protein (5.8-8.3) g/dL Albumin (3.0-4.8) g/dL Globulin gm/dL Albumin/Globulin Ratio (1.1-1.8) Ateng-0-Jcxkkiuvkss (83-199) mg/dL Arterial Blood Potassium (3.6-5.2) mmol/L Venous Blood Potassium (3.6-5.2) mmol/L Anti-Mitochondrial Ab Negative (Negative) Laboratory Results - last 24 hr 07/05/17 07/05/17 07/05/17 11:30 11:30 13:35 WBC RBC Hgb Hct MCV MCH MCHC RDW Plt Count Gran % Lymph % (Auto) [place] % (Auto) Eos % (Auto) Baso % (Auto) Gran # Lymph # [place] # Eos # Baso # PT INR APTT pCO2 pO2 HCO3 ABG pH ABG Total CO2 ABG O2 Saturation ABG Base Excess ABG Potassium VBG pH VBG pCO2 VBG HCO3 VBG Total CO2 VBG O2 Sat (Calc) VBG Base Excess VBG Potassium Glucose Lactate Mechanical Rate FiO2 Tidal Volume PEEP Sodium Potassium Chloride Carbon Dioxide Anion Gap BUN Creatinine Est GFR ( Amer) Est GFR (Non-Af Amer) POC Glucose (mg/dL) Random Glucose Calcium Ferritin > 27079.0 Total Bilirubin AST ALT Alkaline Phosphatase Total Protein Albumin Globulin Albumin/Globulin Ratio Fbcdu-5-Yujibfxveid 152 Arterial Blood Potassium Venous Blood Potassium Anti-Mitochondrial Ab Negative 07/05/17 07/05/17 07/05/17 16:14 20:10 21:50 WBC RBC Hgb Hct MCV MCH MCHC RDW Plt Count Gran % Lymph % (Auto) [place] % (Auto) Eos % (Auto) Baso % (Auto) Gran # Lymph # [place] # Eos # Baso # PT INR APTT pCO2 pO2 HCO3 ABG pH ABG Total CO2 ABG O2 Saturation ABG Base Excess ABG Potassium VBG pH VBG pCO2 VBG HCO3 VBG Total CO2 VBG O2 Sat (Calc) VBG Base Excess VBG Potassium Glucose Lactate Mechanical Rate FiO2 Tidal Volume PEEP Sodium Potassium Chloride Carbon Dioxide Anion Gap BUN Creatinine Est GFR ( Amer) Est GFR (Non-Af Amer) POC Glucose (mg/dL) 108 153 H 177 H Random Glucose Calcium Ferritin Total Bilirubin AST ALT Alkaline Phosphatase Total Protein Albumin Globulin Albumin/Globulin Ratio Rgbcv-9-Xstlcyjuscg Arterial Blood Potassium Venous Blood Potassium Anti-Mitochondrial Ab 07/06/17 07/06/17 07/06/17 02:20 05:18 05:18 WBC 9.2 D RBC 3.79 Hgb 10.1 L Hct 32.9 L MCV 86.8 MCH 26.6 MCHC 30.7 L RDW 16.8 H Plt Count 54 L Gran % 87.0 H Lymph % (Auto) 11.2 L [place] % (Auto) 1.6 Eos % (Auto) 0.1 L Baso % (Auto) 0.1 Gran # 8.02 H Lymph # 1.0 L [place] # 0.2 Eos # 0.0 Baso # 0.01 PT INR APTT pCO2 pO2 HCO3 ABG pH ABG Total CO2 ABG O2 Saturation ABG Base Excess ABG Potassium VBG pH VBG pCO2 VBG HCO3 VBG Total CO2 VBG O2 Sat (Calc) VBG Base Excess VBG Potassium Glucose Lactate Mechanical Rate FiO2 Tidal Volume PEEP Sodium 143 Potassium 3.1 L Chloride 102 Carbon Dioxide 27 Anion Gap 17 BUN 27 H Creatinine 5.2 H Est GFR ( Amer) 10 Est GFR (Non-Af Amer) 8 POC Glucose (mg/dL) 130 H Random Glucose 120 H Calcium 8.8 Ferritin Total Bilirubin 1.5 H AST 1397 H ALT 609 H Alkaline Phosphatase 109 Total Protein 5.2 L Albumin 2.4 L Globulin 2.9 Albumin/Globulin Ratio 0.8 L Yobpy-6-Afibsjhvleq Arterial Blood Potassium Venous Blood Potassium Anti-Mitochondrial Ab 07/06/17 07/06/17 07/06/17 06:10 06:33 09:30 WBC RBC Hgb Hct MCV MCH MCHC RDW Plt Count Gran % Lymph % (Auto) [place] % (Auto) Eos % (Auto) Baso % (Auto) Gran # Lymph # [place] # Eos # Baso # PT 27.2 H INR 2.43 H APTT 34.8 pCO2 39 pO2 122.0 H HCO3 28.4 H ABG pH 7.47 H ABG Total CO2 29.6 H ABG O2 Saturation 99.4 H ABG Base Excess 4.5 H ABG Potassium 2.8 L VBG pH VBG pCO2 VBG HCO3 VBG Total CO2 VBG O2 Sat (Calc) VBG Base Excess VBG Potassium Glucose 125 H Lactate 2.7 H Mechanical Rate 20 FiO2 50.0 Tidal Volume 450 PEEP 5 Sodium 141.0 Potassium Chloride 103.0 Carbon Dioxide Anion Gap BUN Creatinine Est GFR ( Amer) Est GFR (Non-Af Amer) POC Glucose (mg/dL) 109 Random Glucose Calcium Ferritin Total Bilirubin AST ALT Alkaline Phosphatase Total Protein Albumin Globulin Albumin/Globulin Ratio Xvzzc-7-Pnynqjbpvzr Arterial Blood Potassium 2.8 L Venous Blood Potassium Anti-Mitochondrial Ab 07/06/17 07/06/17 07/06/17 09:30 09:53 10:01 WBC RBC Hgb Hct MCV MCH MCHC RDW Plt Count Gran % Lymph % (Auto) [place] % (Auto) Eos % (Auto) Baso % (Auto) Gran # Lymph # [place] # Eos # Baso # PT INR APTT pCO2 pO2 50 HCO3 ABG pH ABG Total CO2 ABG O2 Saturation ABG Base Excess ABG Potassium VBG pH 7.44 H VBG pCO2 41.0 VBG HCO3 27.8 VBG Total CO2 29.1 H VBG O2 Sat (Calc) 89.8 H VBG Base Excess 3.3 H VBG Potassium 3.0 L Glucose 133 H Lactate 3.0 H Mechanical Rate FiO2 21.0 Tidal Volume PEEP Sodium 142.0 Potassium 3.2 L Chloride 102.0 Carbon Dioxide Anion Gap BUN Creatinine Est GFR ( Amer) Est GFR (Non-Af Amer) POC Glucose (mg/dL) 129 H Random Glucose Calcium Ferritin Total Bilirubin AST ALT Alkaline Phosphatase Total Protein Albumin Globulin Albumin/Globulin Ratio [id number] Arterial Blood Potassium Venous Blood Potassium 3.0 L Anti-Mitochondrial Ab 07/06/17 13:47 WBC RBC Hgb Hct MCV MCH MCHC RDW Plt Count Gran % Lymph % (Auto) [place] % (Auto) Eos % (Auto) Baso % (Auto) Gran # Lymph # [place] # Eos # Baso # PT INR APTT pCO2 pO2 HCO3 ABG pH ABG Total CO2 ABG O2 Saturation ABG Base Excess ABG Potassium VBG pH VBG pCO2 VBG HCO3 VBG Total CO2 VBG O2 Sat (Calc) VBG Base Excess VBG Potassium Glucose Lactate Mechanical Rate FiO2 Tidal Volume PEEP Sodium Potassium Chloride Carbon Dioxide Anion Gap BUN Creatinine Est GFR ( Amer) Est GFR (Non-Af Amer) POC Glucose (mg/dL) 116 H Random Glucose Calcium Ferritin Total Bilirubin AST ALT Alkaline Phosphatase Total Protein Albumin Globulin Albumin/Globulin Ratio [id number] Arterial Blood Potassium Venous Blood Potassium Anti-Mitochondrial Ab Attending/Attestation - Attestation I have personally seen and examined this patient.: Yes I have fully participated in the care of the patient.: Yes I have reviewed all pertinent clinical information: Yes Notes (Text): 07/06/17 17:28 66 yo female with now resolved cardiogenic shock due to paroxysm of afib superimposed on severe LV systolic dysfunction. Patient is in sinus rhythm presently and PST was tried (of note yesterday patient had HD and >2L removed), but failed. Patient had another HD today with removal of 2.4 L. Hydralazine for afterload reduction started, will add isosorbide dinitrate via NG (cleared by GI ). b-blockers started as well (agreed upon by cardiology service). If fails PST in am, will start inotropes carefully. LFTs are trending down, GI follow up is appreciated. ccm time 40 min
--- NOTE | 2017-07-06 07:36 | PN ---
PULMONARY NOTE DATE: 07/06/2017(610am--705am) SUBJECTIVE: The patient remains very lethargic on the ventilator. She is not sedated (discussed with nurse). PHYSICAL EXAMINATION: VITAL SIGNS: Temperature is 98.7, pulse 114, respiratory rate 20/20, blood pressure 124/61. Oxygen saturation on the ventilator is 100%. HEENT: Normocephalic, atraumatic. No JVD. CARDIOVASCULAR: Systolic ejection murmur at the lower left sternal border. No S3 gallop. LUNGS: Crackles at both bases. Very minimal rhonchi. No wheezing. EXTREMITIES: The patient is status post left [id number] amputation. The right lower extremity reveals chronic vascular changes. There is no cyanosis or clubbing. GI: Abdomen is soft, nondistended. Bowel sounds are positive. SKIN: No acute rash. NEUROLOGIC: Exam limited at the present time. PERTINENT LABORATORY DATA: Chest x-ray was repeated this morning and reviewed. The chest x-ray shows a possible small developing patchy infiltrate noted at the right base. The left lung base is clearer. There is less pulmonary edema noted. Arterial blood gas was done on assist control 20, tidal volume 450, FiO2 of 50%, 5 of PEEP. Results are: PH 7.47, pCO2 of 39, pO2 of 122. IMPRESSION: 1. Respiratory failure. 2. Community-acquired pneumonia. 3. Ventricular tachycardia. 4. Mild pulmonary edema. 5. End-stage renal disease. 6. Rapid atrial fibrillation. 7. Severe metabolic acidosis - resolved. 8. Mild bronchospasm. 9. Encephalopathy. PLAN: The patient remains on the ventilator. She is lethargic and poorly responsive at this point in time. I did discuss the case with the night nurse at length. The night nurse stated that the patient has not regained her mental status - after the episode of ventricular tachycardia. Hemodynamically, the patient is improved. Pressors are being weaned. I did review the chest x-ray as above. There is a minimal patchy infiltrate, possibly developing at the right base. The left lung base is clearer. There remains mild pulmonary edema. I have also reviewed the arterial blood gas. The acidosis has now resolved. The alveolar arterial gradient has also lessened. I will speak with the ICU team-- in reference to possibly decreasing the minute ventilation, as well as decreasing the FIO2. Inputs by Infectious Disease, Cardiology, and GI are noted. The patient remains critically ill. I would suggest a possible neurologic consultation - as the patient has a very decreased mentation at this point in time. I will discuss the above with the entire ICU team in the next few moments. I will also discuss the above with Dr. Beverly later this morning. Earl Vega MD MTDD
[2017-07-06] MEDS: Metoprolol 1 mg/ml Inj IVP SCH ×3 (07:49→19:45)
--- NOTE | 2017-07-06 09:22 | RAD ---
HISTORY: f/u COMPARISON: 07/05/2017 FINDINGS: LUNGS: Patchy infiltrates at the right lung base. The nasogastric tube is in satisfactory position. Left IJ line in the left brachiocephalic vein. Endotracheal tube in satisfactory position PLEURA: No significant pleural effusion identified, no pneumothorax apparent. CARDIOVASCULAR: Normal. OSSEOUS STRUCTURES: No significant abnormalities. VISUALIZED UPPER ABDOMEN: Normal. OTHER FINDINGS: None. IMPRESSION: Patchy infiltrates at the right lung base. The nasogastric tube is in satisfactory position. Left IJ line in the left brachiocephalic vein. Endotracheal tube in satisfactory position
--- NOTE | 2017-07-06 09:42 | RAD ---
HISTORY: bilious NGT output, r/o perf COMPARISON: No prior. FINDINGS: BOWEL: Normal. No obstruction. No free air. BONES: Severe degenerative changes are seen in the left hip OTHER FINDINGS: The nasogastric tube is in satisfactory position. IMPRESSION: No evidence of obstruction or free air
--- NOTE | 2017-07-06 09:44 | CP.PCM.PN ---
Subjective - Date & Time of Evaluation Date of Evaluation: 07/06/17 Time of Evaluation: 09:30 - Subjective Subjective: Progress note for nephrology, Dr. Brooks Pt is seen and examined at bedside. No acute events over night. Pt underwent dialysis yesterday, tolerated procedure well. Removed about 2.5 L. Currently intubated on CPAP setting. Stevens in place draining very minimal urine. ROS unobtainable due to AMS. Objective - Vital Signs/Intake and Output Vital Signs (last 24 hours): Temp Pulse Resp BP Pulse Ox 98.7 F 125 H 20 133/70 100 07/06/17 04:00 07/06/17 08:27 07/06/17 06:00 07/06/17 08:27 07/06/17 06:00 Intake and Output: 07/06/17 07/06/17 06:59 18:59 Intake Total 1137 Output Total 5 Balance 1132 - Medications Medications: Current Medications Artificial Tears (Artificial Tears Opht Oint) 0 gm OU Q8H PRN PRN Reason: Dry eyes Last Admin: 07/06/17 05:18 Dose: 1 gel Chlorhexidine Gluconate (Peridex) 15 ml PO BID MARCEL Last Admin: 07/05/17 17:59 Dose: 15 ml Hydralazine HCl (Apresoline) 5 mg IVP Q6H MARCEL Last Admin: 07/06/17 08:27 Dose: 5 mg Fentanyl Citrate (Fentanyl Citrate/Sodium Chloride 1 Mg/100 Ml) 1,000 mcg in 100 mls @ 10 mls/hr IV .Q10H PRN; Protocol; 100 MCG/HR PRN Reason: TITRATE PER MD ORDER Last Titration: 07/04/17 17:30 Dose: 0 mcg/hr, 0 mls/hr NOREPINEPHRINE BIT/0.9 % NACL (Levophed 4 Mg/ 250 Ml Ns Premixed) 4 mg in 250 mls @ 15 mls/hr IV .[id number] PRN; Protocol; 4 MCG/MIN PRN Reason: TITRATE PER MD ORDER Last Titration: 07/05/17 04:32 Dose: 10 mcg/min, 37.5 mls/hr Vasopressin 20 units/ Sodium (Chloride) 101 mls @ 9.09 mls/hr IV .[id number] MARCEL; 0.03 U/MIN PRN Reason: Protocol Last Admin: 07/04/17 17:45 Dose: 9.09 mls/hr Dobutamine HCl/Dextrose (Dobutamine/Dextrose 5% 500mg/250ml) 500 mg in 250 mls @ 12.859 mls/hr IV .[id number] PRN; Protocol; 5 MCG/KG/MIN PRN Reason: TITRATE PER PROTOCOL Heparin Sodium/Dextrose (Heparin 25,000 Units/250ml In D5w) 25,000 units in 250 mls @ 15.35 mls/hr IV .[id number] PRN; Protocol; 18 UNITS/KG/HR PRN Reason: ADJUST RATE PER PROTOCOL Acetylcysteine 8,530 mg/ (Dextrose) 1,042.65 mls @ 62.5 mls/hr IVPB ONCE ONE Stop: 07/06/17 12:00 Last Admin: 07/05/17 23:56 Dose: 62.5 mls/hr Meropenem 500 mg/ Sodium (Chloride) 50 mls @ 100 mls/hr IVPB DAILY MARCEL PRN Reason: Protocol Potassium Chloride (Potassium Chloride 20 Meq/100 Ml) 20 meq in 100 mls @ 50 mls/hr IVPB ONCE ONE Stop: 07/06/17 09:59 Metoprolol Tartrate (Lopressor) 5 mg IVP Q6H [facility] Last Admin: 07/06/17 07:49 Dose: 5 mg Pantoprazole Sodium (Protonix Inj) 40 mg IVP DAILY [facility] Last Admin: 07/05/17 10:25 Dose: 40 mg - Labs Labs: 07/06/17 05:18 07/06/17 05:18 PT 38.8 SECONDS (9.4-12.5) H 07/05/17 13:35 INR 3.47 (0.93-1.08) H 07/05/17 13:35 APTT 35.8 Seconds (25.1-36.5) 07/05/17 13:35 - Constitutional Appears: Non-toxic, No Acute Distress - Head Exam Head Exam: ATRAUMATIC - Eye Exam Eye Exam: EOMI - ENT Exam ENT Exam: Mucous Membranes Moist - Respiratory Exam Respiratory Exam: Rales, Wheezes. absent: Accessory Muscle Use, Respiratory Distress - Cardiovascular Exam Cardiovascular Exam: REGULAR RHYTHM, +S1, +S2. absent: Gallop, Rubs, Murmur - GI/Abdominal Exam GI & Abdominal Exam: Distended, Soft, Tenderness, Normal Bowel Sounds. absent: Firm, Guarding, Rigid - Extremities Exam Extremities Exam: absent: Pedal Edema - Neurological Exam Neurological Exam: absent: Alert, Awake, CN II-XII Intact, Oriented x3 - Psychiatric Exam Psychiatric exam: absent: Normal Affect, Normal Mood - Skin Skin Exam: Dry, Intact, Normal Color, Warm Assessment and Plan - Assessment and Plan (Free Text) Assessment: 66 year old female with past medical history of HTN, CHF with systolic dysfunction, PAD s/p BKA, ESRD on HD TTS but non-compliant with dialysis presented to ED for AMS. She had respiratory distress in ED and was intubated. Plan: 1. Shock - cardiogenic vs. septic shock - Lactic acid improved considerably to 2.7 - Currently on meropenem 500 mg q8. Continue vancomycin (renally dosed) 2. ESRD - Patient will undergo dialysis today. - Kidney function improving - Will repeat electrolytes and replace if needed 3. AV fistula stenosis - Extremity ultrasound showed patent brachial-cephalic fistula. Focal stenosis remains in mid left cephalic vein 4. Anemia of ESRD - Will dose EPO on next HD treatment 5. Chronic kidney disease mineral bone disease - Non-complaint with taking phospho binders and phosphorus is high - Should avoid replacing calcium unless symptomatic All recs and orders per Dr. Brooks
[2017-07-06 09:58] LABS: VENOUS BLOOD GAS BASE EXCESS 3.3 mmol/L (0.0-2.0); VENOUS BLOOD PH 7.44 (7.32-7.43)
[2017-07-06] MEDS: Meropenem 500 MG in Sodium Chloride 0.9% 50 ML IVPB SCH (10:01)
[2017-07-06 10:04] LABS: INR 2.43 (0.93-1.08); PARTIAL THROMBOPLASTIN TIME 34.8 Seconds (25.1-36.5)
--- NOTE | 2017-07-06 10:25 | CP.PCM.PN ---
Subjective - Date & Time of Evaluation Date of Evaluation: 07/06/17 Time of Evaluation: 09:30 - Subjective Subjective: Continues to be on the ventilator, no fevers overnight, having dialysis right now, no diarrhea. Objective - Vital Signs/Intake and Output Vital Signs (last 24 hours): Temp Pulse Resp BP Pulse Ox 98.7 F 114 H 20 124/61 100 07/06/17 04:00 07/06/17 06:00 07/06/17 06:00 07/06/17 06:00 07/06/17 06:00 Intake and Output: 07/05/17 07/06/17 18:59 06:59 Intake Total 850 1137 Output Total 2520 5 Balance -1670 1132 - Medications Medications: Current Medications Artificial Tears (Artificial Tears Opht Oint) 0 gm OU Q8H PRN PRN Reason: Dry eyes Last Admin: 07/06/17 05:18 Dose: 1 gel Chlorhexidine Gluconate (Peridex) 15 ml PO BID MARCEL Last Admin: 07/05/17 17:59 Dose: 15 ml Fentanyl Citrate (Fentanyl Citrate/Sodium Chloride 1 Mg/100 Ml) 1,000 mcg in 100 mls @ 10 mls/hr IV .Q10H PRN; Protocol; 100 MCG/HR PRN Reason: TITRATE PER MD ORDER Last Titration: 07/04/17 17:30 Dose: 0 mcg/hr, 0 mls/hr NOREPINEPHRINE BIT/0.9 % NACL (Levophed 4 Mg/ 250 Ml Ns Premixed) 4 mg in 250 mls @ 15 mls/hr IV .[id number] PRN; Protocol; 4 MCG/MIN PRN Reason: TITRATE PER MD ORDER Last Titration: 07/05/17 04:32 Dose: 10 mcg/min, 37.5 mls/hr Vasopressin 20 units/ Sodium (Chloride) 101 mls @ 9.09 mls/hr IV .[id number] MARCEL; 0.03 U/MIN PRN Reason: Protocol Last Admin: 07/04/17 17:45 Dose: 9.09 mls/hr Dobutamine HCl/Dextrose (Dobutamine/Dextrose 5% 500mg/250ml) 500 mg in 250 mls @ 12.859 mls/hr IV .[id number] PRN; Protocol; 5 MCG/KG/MIN PRN Reason: TITRATE PER PROTOCOL Heparin Sodium/Dextrose (Heparin 25,000 Units/250ml In D5w) 25,000 units in 250 mls @ 15.35 mls/hr IV .[id number] PRN; Protocol; 18 UNITS/KG/HR PRN Reason: ADJUST RATE PER PROTOCOL Acetylcysteine 8,530 mg/ (Dextrose) 1,042.65 mls @ 62.5 mls/hr IVPB ONCE ONE Stop: 07/06/17 12:00 Last Admin: 07/05/17 23:56 Dose: 62.5 mls/hr Meropenem 500 mg/ Sodium (Chloride) 50 mls @ 100 mls/hr IVPB DAILY MARCEL PRN Reason: Protocol Pantoprazole Sodium (Protonix Inj) 40 mg IVP DAILY [facility] Last Admin: 07/05/17 10:25 Dose: 40 mg - Labs Labs: 07/06/17 05:18 07/06/17 05:18 PT 38.8 SECONDS (9.4-12.5) H 07/05/17 13:35 INR 3.47 (0.93-1.08) H 07/05/17 13:35 APTT 35.8 Seconds (25.1-36.5) 07/05/17 13:35 - Constitutional Appears: Other (intubated, sedated) - Head Exam Head Exam: NORMAL INSPECTION - ENT Exam Additional comments: ET tube in place - Respiratory Exam Respiratory Exam: Decreased Breath Sounds - Cardiovascular Exam Cardiovascular Exam: +S1, +S2 - GI/Abdominal Exam GI & Abdominal Exam: Soft. 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
--- NOTE | 2017-07-06 13:05 | PN ---
DATE: SUBJECTIVE: I saw Orly in the Intensive Care Unit. She is still on the ventilator. She is not sedated and she is not awake, which worries me tremendously. I am going to call Neurology to get their opinion. She has already been seen by Palliative Care, Renal, Infectious Disease, Cardiology, Pulmonary, GI, and the associate professor of biology. She is not alert, not able to talk. Her eyes are open. PHYSICAL EXAMINATION: VITAL SIGNS: She has 98.7 temperature, 114 pulse, 124/61 blood pressure, 20 respiratory rate, and 100% O2 sat on the mechanical ventilator. HEENT: Head is atraumatic, normocephalic. HEART: Tachy, but regular. LUNGS: Decreased breath sounds on the ventilator. ABDOMEN: Soft and obese. EXTREMITIES: No edema. She has left AKA. She also has an NSTEMI, acute respiratory failure, increased LFTs, CAD, hypertension, and CHF. She was coded and she has acute respiratory failure, now she has change in mentation, not alert. She is currently on acetylcysteine, Apresoline, Artificial Tears, dobutamine, fentanyl, heparin, Levophed, Lopressor, Merrem IV, Peridex, Protonix, and vasopressin. LABORATORY DATA: She has 143 sodium, potassium is 3.1, I will replace potassium, BUN 27, creatinine is 5.2, she is on dialysis, sugar is 120, calcium is 8.8, total bilirubin is 1.5, AST is 1397, ALT is 609, alkaline phosphatase is 109, and ammonia level was less than 8.7. PLAN: She does have urinary tract infection. She is on antibiotics. Negative hepatitis screen. She has been seen by many doctors and I called Neurology and she hopefully will regain consciousness and start to improve. We will continue with aggressive treatment and care. Check her labs tomorrow, replace the potassium. Continue with aggressive treatment and care. Terrence Beverly DO
--- NOTE | 2017-07-06 13:15 | PN ---
CARDIOLOGY FOLLOWUP DATE: 07/06/2017 SUBJECTIVE: The patient is on dialysis and remains vent dependant. PHYSICAL EXAMINATION: VITAL SIGNS: Her blood pressure is much improved to 123/58, heart rate is 103. NECK: Negative JVD. LUNGS: Decreased breath sounds. HEART: Reveal S1 and S2. EXTREMITIES: Without change. LABORATORY DATA: Hemoglobin is 10.1. BUN and creatinine are 27 and 5.2. IMPRESSION: 1. Status post respiratory failure. 2. Cardiogenic shock. 3. End-stage dilated cardiomyopathy. 4. Renal insufficiency. PLAN: Given these findings, a trial of inotropic therapy would be appropriate. Henri Guillen MD
--- NOTE | 2017-07-06 15:37 | CP.PCM.CON ---
History of Present Illness - History of Present Illness History of Present Illness: PGY-2 Neurology consult note for Dr. Blackwell's service 66 year old female with past medical history of CHF, ESRD with hemodialysis (M/W /F), diabetes, and left BKA, who initially presented with altered mental status. Patient is currently intubated with AMS, history was taken from previous notes. Per ED note daughter brought patient to hospital stating patient was experiencing progressively increasing shortness of breath and was less responsive than usual. Patient was intubated and admitted for acute respiratory failure, end stage renal disease and AMS. During hospital course patient developed shock and started on pressers. PMH: CHF, ESRD with hemodialysis (M/W/F), diabetes, PSH: left BKA, perm a cath social history: never smoked, no alcohol or illicit drug use family history: diabetes allergy: shellfish Review of Systems - Review of Systems Systems not reviewed;Unavailable: Altered Mental Status, Intubated Past Patient History - Infectious Disease Hx of Infectious Diseases: None - Tetanus Immunizations Tetanus Immunization: Unknown - Past Medical History & Family History Past Medical History?: Yes - Past Social History Smoking Status: Never Smoked - CARDIAC Hx Cardiac Disorders: Yes Hx Congestive Heart Failure: Yes Hx Pacemaker: No - PULMONARY Hx Respiratory Disorders: Yes Hx Asthma: Yes Hx Bronchitis: Yes - NEUROLOGICAL Hx Neurological Disorder: No Hx Paralysis: No - HEENT Hx HEENT Problems: Yes (uses eyeglasses for reading) - RENAL Hx Dialysis: Yes Hx Renal Failure: Yes - ENDOCRINE/METABOLIC Hx Endocrine Disorders: Yes Hx Diabetes Mellitus Type 2: Yes Hx Hypothyroidism: Yes - HEMATOLOGICAL/ONCOLOGICAL Hx Blood Transfusions: Yes (11/26/15) Hx Blood Transfusion Reaction: No - INTEGUMENTARY Hx Dermatological Problems: Yes (RCW PERMACATH,LEFT UPPER ARM PICC) - MUSCULOSKELETAL/RHEUMATOLOGICAL Hx Musculoskeletal Disorders: No - GASTROINTESTINAL Hx Gastrointestinal Disorders: No - GENITOURINARY/GYNECOLOGICAL Hx Genitourinary Disorders: No - PSYCHIATRIC Hx Emotional Abuse: No Hx Physical Abuse: No Hx Substance Use: No - SURGICAL HISTORY Other/Comment: L BKA - ANESTHESIA Hx Anesthesia: Yes Hx Anesthesia Reactions: No Hx Malignant Hyperthermia: No Meds Allergies/Adverse Reactions: Allergies Allergy/AdvReac Type Severity Reaction Status Date / Time shellfish derived Allergy ITCHING Verified 07/03/17 21:31 - Medications Medications: Current Medications Artificial Tears (Artificial Tears Opht Oint) 0 gm OU Q8H PRN PRN Reason: Dry eyes Last Admin: 07/06/17 05:18 Dose: 1 gel Artificial Tears (Artificial Tears) 0 ml OU BID MARCEL Chlorhexidine Gluconate (Peridex) 15 ml PO BID MARCEL Last Admin: 07/05/17 17:59 Dose: 15 ml Fentanyl Citrate (Fentanyl Citrate/Sodium Chloride 1 Mg/100 Ml) 1,000 mcg in 100 mls @ 10 mls/hr IV .Q10H PRN; Protocol; 100 MCG/HR PRN Reason: TITRATE PER MD ORDER Last Titration: 07/04/17 17:30 Dose: 0 mcg/hr, 0 mls/hr NOREPINEPHRINE BIT/0.9 % NACL (Levophed 4 Mg/ 250 Ml Ns Premixed) 4 mg in 250 mls @ 15 mls/hr IV .[id number] PRN; Protocol; 4 MCG/MIN PRN Reason: TITRATE PER MD ORDER Last Titration: 07/05/17 04:32 Dose: 10 mcg/min, 37.5 mls/hr Vasopressin 20 units/ Sodium (Chloride) 101 mls @ 9.09 mls/hr IV .[id number] MARCEL; 0.03 U/MIN PRN Reason: Protocol Last Admin: 07/04/17 17:45 Dose: 9.09 mls/hr Dobutamine HCl/Dextrose (Dobutamine/Dextrose 5% 500mg/250ml) 500 mg in 250 mls @ 12.859 mls/hr IV .[id number] PRN; Protocol; 5 MCG/KG/MIN PRN Reason: TITRATE PER PROTOCOL Heparin Sodium/Dextrose (Heparin 25,000 Units/250ml In D5w) 25,000 units in 250 mls @ 15.35 mls/hr IV .[id number] PRN; Protocol; 18 UNITS/KG/HR PRN Reason: ADJUST RATE PER PROTOCOL Meropenem 500 mg/ Sodium (Chloride) 50 mls @ 100 mls/hr IVPB DAILY MARCEL PRN Reason: Protocol Last Admin: 07/06/17 10:01 Dose: 100 mls/hr Metoprolol Tartrate (Lopressor) 5 mg IVP Q6H MARCEL Last Admin: 07/06/17 14:33 Dose: 5 mg Pantoprazole Sodium (Protonix Inj) 40 mg IVP DAILY MARCEL Last Admin: 07/05/17 10:25 Dose: 40 mg Physical Exam - Head Exam Head Exam: ATRAUMATIC, NORMOCEPHALIC - Respiratory Exam Respiratory Exam: Clear to Auscultation Bilateral, NORMAL BREATHING PATTERN. absent: Rhonchi, Wheezes, Respiratory Distress - Cardiovascular Exam Cardiovascular Exam: REGULAR RHYTHM, +S1, +S2. absent: Tachycardia, Diastolic murmur, Systolic Murmur - Neurological Exam Additional comments: patient is response to painful stimuli only, pupils pinpoint - Expanded Neurological Exam Expanded Upper motor neuron: Babinski Sign: Normal - Skin Skin Exam: Dry, Intact, Normal Color, Warm Results - Vital Signs Recent Vital Signs: Last Vital Signs Temp 101.3 F H 07/06/17 10:30 Pulse 106 H 07/06/17 14:33 Resp 20 07/06/17 06:00 BP 122/62 07/06/17 14:33 Pulse Ox 100 07/06/17 09:20 - Labs Result Diagrams: 07/06/17 05:18 07/06/17 09:30 Labs: Laboratory Results - last 24 hr 07/05/17 07/05/17 07/05/17 11:30 11:30 11:30 WBC RBC Hgb Hct MCV MCH MCHC RDW Plt Count Gran % Lymph % (Auto) [place] % (Auto) Eos % (Auto) Baso % (Auto) Gran # Lymph # [place] # Eos # Baso # PT INR APTT pCO2 pO2 HCO3 ABG pH ABG Total CO2 ABG O2 Saturation ABG Base Excess ABG Potassium VBG pH VBG pCO2 VBG HCO3 VBG Total CO2 VBG O2 Sat (Calc) VBG Base Excess VBG Potassium Glucose Lactate Mechanical Rate FiO2 Tidal Volume PEEP Sodium Potassium Chloride Carbon Dioxide Anion Gap BUN Creatinine Est GFR ( Amer) Est GFR (Non-Af Amer) POC Glucose (mg/dL) Random Glucose Calcium Transferrin Ferritin Total Bilirubin AST ALT Alkaline Phosphatase Total Protein Albumin Globulin Albumin/Globulin Ratio Iqbti-6-Quftjbknugi 152 Arterial Blood Potassium Venous Blood Potassium Urine Color Urine Appearance Urine pH Ur Specific [place] Urine Protein Urine Glucose (UA) Urine Ketones Urine Blood Urine Nitrate Urine Bilirubin Urine Urobilinogen Ur Leukocyte Esterase Urine RBC Urine WBC Ur Epithelial Cells Urine Bacteria IgG 1426.3 Anti-Mitochondrial Ab Negative Hepatitis A IgM Ab Hep Bs Antigen Hep B Core IgM Ab Hepatitis C Antibody 12/07/17 12/07/17 12/07/17 12:20 13:35 13:35 WBC RBC Hgb Hct MCV MCH MCHC RDW Plt Count Gran % Lymph % (Auto) [place] % (Auto) Eos % (Auto) Baso % (Auto) Gran # Lymph # [place] # Eos # Baso # PT INR APTT pCO2 pO2 HCO3 ABG pH ABG Total CO2 ABG O2 Saturation ABG Base Excess ABG Potassium VBG pH VBG pCO2 VBG HCO3 VBG Total CO2 VBG O2 Sat (Calc) VBG Base Excess VBG Potassium Glucose Lactate Mechanical Rate FiO2 Tidal Volume PEEP Sodium Potassium Chloride Carbon Dioxide Anion Gap BUN Creatinine Est GFR ( Amer) Est GFR (Non-Af Amer) POC Glucose (mg/dL) Random Glucose Calcium Transferrin 102.87 L Ferritin > 30602.0 Total Bilirubin AST ALT Alkaline Phosphatase Total Protein Albumin Globulin Albumin/Globulin Ratio Ssjkp-5-Aeznoqaauhy Arterial Blood Potassium Venous Blood Potassium Urine Color Urine Appearance Urine pH Ur Specific [place] Urine Protein Urine Glucose (UA) Urine Ketones Urine Blood Urine Nitrate Urine Bilirubin Urine Urobilinogen Ur Leukocyte Esterase Urine RBC Urine WBC Ur Epithelial Cells Urine Bacteria IgG Anti-Mitochondrial Ab Hepatitis A IgM Ab Negative Hep Bs Antigen Negative Hep B Core IgM Ab Negative Hepatitis C Antibody Negative 07/05/17 07/05/17 07/05/17 16:14 16:30 20:10 WBC RBC Hgb Hct MCV MCH MCHC RDW Plt Count Gran % Lymph % (Auto) [place] % (Auto) Eos % (Auto) Baso % (Auto) Gran # Lymph # [place] # Eos # Baso # PT INR APTT pCO2 pO2 HCO3 ABG pH ABG Total CO2 ABG O2 Saturation ABG Base Excess ABG Potassium VBG pH VBG pCO2 VBG HCO3 VBG Total CO2 VBG O2 Sat (Calc) VBG Base Excess VBG Potassium Glucose Lactate Mechanical Rate FiO2 Tidal Volume PEEP Sodium Potassium Chloride Carbon Dioxide Anion Gap BUN Creatinine Est GFR ( Amer) Est GFR (Non-Af Amer) POC Glucose (mg/dL) 108 153 H Random Glucose Calcium Transferrin Ferritin Total Bilirubin AST ALT Alkaline Phosphatase Total Protein Albumin Globulin Albumin/Globulin Ratio Zsbrf-8-Biglmdhtcum Arterial Blood Potassium Venous Blood Potassium Urine Color Yellow Urine Appearance Cloudy Urine pH 7.5 Ur Specific [place] 1.025 Urine Protein >=300 H Urine Glucose (UA) Negative Urine Ketones Negative Urine Blood Large H Urine Nitrate Positive H Urine Bilirubin Negative Urine Urobilinogen 0.2 Ur Leukocyte Esterase Large H Urine RBC Tntc Urine WBC 10 - 15 Ur Epithelial Cells 1 - 3 Urine Bacteria Many IgG Anti-Mitochondrial Ab Hepatitis A IgM Ab Hep Bs Antigen Hep B Core IgM Ab Hepatitis C Antibody 07/05/17 07/06/17 07/06/17 21:50 02:20 05:18 WBC 9.2 D RBC 3.79 Hgb 10.1 L Hct 32.9 L MCV 86.8 MCH 26.6 MCHC 30.7 L RDW 16.8 H Plt Count 54 L Gran % 87.0 H Lymph % (Auto) 11.2 L [place] % (Auto) 1.6 Eos % (Auto) 0.1 L Baso % (Auto) 0.1 Gran # 8.02 H Lymph # 1.0 L [place] # 0.2 Eos # 0.0 Baso # 0.01 PT INR APTT pCO2 pO2 HCO3 ABG pH ABG Total CO2 ABG O2 Saturation ABG Base Excess ABG Potassium VBG pH VBG pCO2 VBG HCO3 VBG Total CO2 VBG O2 Sat (Calc) VBG Base Excess VBG Potassium Glucose Lactate Mechanical Rate FiO2 Tidal Volume PEEP Sodium Potassium Chloride Carbon Dioxide Anion Gap BUN Creatinine Est GFR ( Amer) Est GFR (Non-Af Amer) POC Glucose (mg/dL) 177 H 130 H Random Glucose Calcium Transferrin Ferritin Total Bilirubin AST ALT Alkaline Phosphatase Total Protein Albumin Globulin Albumin/Globulin Ratio Syfye-1-Aamtojtzzte Arterial Blood Potassium Venous Blood Potassium Urine Color Urine Appearance Urine pH Ur Specific [place] Urine Protein Urine Glucose (UA) Urine Ketones Urine Blood Urine Nitrate Urine Bilirubin Urine Urobilinogen Ur Leukocyte Esterase Urine RBC Urine WBC Ur Epithelial Cells Urine Bacteria IgG Anti-Mitochondrial Ab Hepatitis A IgM Ab Hep Bs Antigen Hep B Core IgM Ab Hepatitis C Antibody 07/06/17 07/06/17 07/06/17 05:18 06:10 06:33 WBC RBC Hgb Hct MCV MCH MCHC RDW Plt Count Gran % Lymph % (Auto) [place] % (Auto) Eos % (Auto) Baso % (Auto) Gran # Lymph # [place] # Eos # Baso # PT INR APTT pCO2 39 pO2 122.0 H HCO3 28.4 H ABG pH 7.47 H ABG Total CO2 29.6 H ABG O2 Saturation 99.4 H ABG Base Excess 4.5 H ABG Potassium 2.8 L VBG pH VBG pCO2 VBG HCO3 VBG Total CO2 VBG O2 Sat (Calc) VBG Base Excess VBG Potassium Glucose 125 H Lactate 2.7 H Mechanical Rate 20 FiO2 50.0 Tidal Volume 450 PEEP 5 Sodium 143 141.0 Potassium 3.1 L Chloride 102 103.0 Carbon Dioxide 27 Anion Gap 17 BUN 27 H Creatinine 5.2 H Est GFR ( Amer) 10 Est GFR (Non-Af Amer) 8 POC Glucose (mg/dL) 109 Random Glucose 120 H Calcium 8.8 Transferrin Ferritin Total Bilirubin 1.5 H AST 1397 H ALT 609 H Alkaline Phosphatase 109 Total Protein 5.2 L Albumin 2.4 L Globulin 2.9 Albumin/Globulin Ratio 0.8 L Yzlqg-3-Tlybeiyqshz Arterial Blood Potassium 2.8 L Venous Blood Potassium Urine Color Urine Appearance Urine pH Ur Specific [place] Urine Protein Urine Glucose (UA) Urine Ketones Urine Blood Urine Nitrate Urine Bilirubin Urine Urobilinogen Ur Leukocyte Esterase Urine RBC Urine WBC Ur Epithelial Cells Urine Bacteria IgG Anti-Mitochondrial Ab Hepatitis A IgM Ab Hep Bs Antigen Hep B Core IgM Ab Hepatitis C Antibody 07/06/17 07/06/17 07/06/17 09:30 09:30 09:53 WBC RBC Hgb Hct MCV MCH MCHC RDW Plt Count Gran % Lymph % (Auto) [place] % (Auto) Eos % (Auto) Baso % (Auto) Gran # Lymph # [place] # Eos # Baso # PT 27.2 H INR 2.43 H APTT 34.8 pCO2 pO2 50 HCO3 ABG pH ABG Total CO2 ABG O2 Saturation ABG Base Excess ABG Potassium VBG pH 7.44 H VBG pCO2 41.0 VBG HCO3 27.8 VBG Total CO2 29.1 H VBG O2 Sat (Calc) 89.8 H VBG Base Excess 3.3 H VBG Potassium 3.0 L Glucose 133 H Lactate 3.0 H Mechanical Rate FiO2 21.0 Tidal Volume PEEP Sodium 142.0 Potassium 3.2 L Chloride 102.0 Carbon Dioxide Anion Gap BUN Creatinine Est GFR ( Amer) Est GFR (Non-Af Amer) POC Glucose (mg/dL) Random Glucose Calcium Transferrin Ferritin Total Bilirubin AST ALT Alkaline Phosphatase Total Protein Albumin Globulin Albumin/Globulin Ratio Mrfoy-3-Gjdtfpmphmv Arterial Blood Potassium Venous Blood Potassium 3.0 L Urine Color Urine Appearance Urine pH Ur Specific [place] Urine Protein Urine Glucose (UA) Urine Ketones Urine Blood Urine Nitrate Urine Bilirubin Urine Urobilinogen Ur Leukocyte Esterase Urine RBC Urine WBC Ur Epithelial Cells Urine Bacteria IgG Anti-Mitochondrial Ab Hepatitis A IgM Ab Hep Bs Antigen Hep B Core IgM Ab Hepatitis C Antibody 07/06/17 07/06/17 10:01 13:47 WBC RBC Hgb Hct MCV MCH MCHC RDW Plt Count Gran % Lymph % (Auto) [place] % (Auto) Eos % (Auto) Baso % (Auto) Gran # Lymph # [place] # Eos # Baso # PT INR APTT pCO2 pO2 HCO3 ABG pH ABG Total CO2 ABG O2 Saturation ABG Base Excess ABG Potassium VBG pH VBG pCO2 VBG HCO3 VBG Total CO2 VBG O2 Sat (Calc) VBG Base Excess VBG Potassium Glucose Lactate Mechanical Rate FiO2 Tidal Volume PEEP Sodium Potassium Chloride Carbon Dioxide Anion Gap BUN Creatinine Est GFR ( Amer) Est GFR (Non-Af Amer) POC Glucose (mg/dL) 129 H 116 H Random Glucose Calcium Transferrin Ferritin Total Bilirubin AST ALT Alkaline Phosphatase Total Protein Albumin Globulin Albumin/Globulin Ratio Hjkav-2-Efuscgtjuik Arterial Blood Potassium Venous Blood Potassium Urine Color Urine Appearance Urine pH Ur Specific [place] Urine Protein Urine Glucose (UA) Urine Ketones Urine Blood Urine Nitrate Urine Bilirubin Urine Urobilinogen Ur Leukocyte Esterase Urine RBC Urine WBC Ur Epithelial Cells Urine Bacteria IgG Anti-Mitochondrial Ab Hepatitis A IgM Ab Hep Bs Antigen Hep B Core IgM Ab Hepatitis C Antibody Assessment & Plan - Assessment and Plan (Free Text) Assessment: 66 year old female with past medical history of CHF, ESRD with hemodialysis (M/W /F), diabetes, and left BKA, who presented with altered mental status most likely secondary to hypoxic encephalopathy with shock and multi organ failure. 1. AMS 2. shock (septic v cardiogenic) 3. respiratory failure 4. ESRD on HD 5. shocked liver 6. hypokalemia - CT head showed nonspecific white matter changes - will order MRI for further evaluation - avoid sedative medications - maintain blood pressure - monitor electrolytes, replace as needed case discussed and reviewed with attending
[2017-07-06 17:31] LABS: INR 2.18 (0.93-1.08); PARTIAL THROMBOPLASTIN TIME 34.9 Seconds (25.1-36.5)
[2017-07-06 18:00] LABS: ALB/GLOB RATIO 0.8 (1.1-1.8); BILIRUBIN,TOTAL 1.6 mg/dL (0.2-1.3); CALCIUM 8.7 mg/dL (8.4-10.5); POTASSIUM 3.1 mmol/L (3.6-5.0)
[2017-07-06] MEDS: Aritificial Tears (15ml) OU SCH (18:53)
--- NOTE | 2017-07-06 22:03 | CT ---
EXAM: CT Head Without Intravenous Contrast EXAM DATE/TIME: 07/06/2017 7:47 PM CLINICAL HISTORY: The patient age is 66 years old and is female; Signs and symptoms; Altered mental status/memory loss; Age related cognitive decline; Additional info: [facility] Facility exam id and description: Ct heads head w/o contrast TECHNIQUE: Axial computed tomography images of the head/brain without intravenous contrast. All CT scans at this facility use one or more dose reduction techniques, viz.: automated exposure control; ma/kV adjustment per patient size (including targeted exams where dose is matched to indication; i.e. head); or iterative reconstruction technique. COMPARISON: CT - HEAD W/O CONTRAST 2017-07-04 00:50 FINDINGS: Brain: Areas of low density are identified within the right posterior parietal and occipital lobe, concerning for acute infarcts. Mild patchy hypodensity is seen within the right cerebellar lobe, an additional ischemic change cannot be excluded. There is a stable hypodense infarct within the left basal ganglia/periventricular region. There are scattered foci of hypodensity within the cerebral white matter, likely representing small vessel ischemic disease in a patient this age. There is mild prominence of the ventricles and sulci, compatible with atrophy. No acute intracranial hemorrhage is seen. Prominent extra-axial calcifications are identified, stable compared to the previous exam. Calcifications are seen within the bilateral basal ganglia. Midline shift: There is no midline shift. Ventricles: See above. Bones/joints: The calvarium demonstrates no evidence for a depressed fracture. Soft tissues: No acute abnormality. Vasculature: There is atherosclerotic calcification of the cavernous internal carotid arteries and distal vertebral arteries. Sinuses: There is mild mucosal thickening of the right frontal sinus and right sphenoid sinus. There is a small air-fluid level in the left sphenoid sinus. Mastoid air cells: Mild effusions are visualized within the right mastoid air cells. Orbits: There is bilateral proptosis. Tubes, lines and devices: Endotracheal and feeding tubes are partially visualized. IMPRESSION: 1. Areas of of low density are identified within the right posterior parietal and occipital lobe, concerning for acute infarcts. Mild patchy hypodensity is seen within the right cerebellar lobe, an additional ischemic change cannot be excluded. Clinical correlation and MRI are recommended. 2. No acute intracranial hemorrhage. 3. There is a stable hypodense infarct within the left basal ganglia/periventricular region. 4. There are scattered foci of hypodensity within the cerebral white matter, likely representing small vessel ischemic disease in a patient this age. Impression. 5. Mild atrophy. 6. Mild effusions are visualized within the right mastoid air cells. 7. Paranasal sinus disease is noted above.
--- NOTE | 2017-07-06 22:48 | CP.PCM.PN ---
Subjective - Date & Time of Evaluation Date of Evaluation: 07/06/17 Time of Evaluation: 22:45 - Subjective Subjective: Overnight Events: -Due to persistent AMS, CT-head done in early evening and it shows new acute infarcts (not present on previous CT from 07/03) -Therefore, Dr. Timo Blackwell notified and per his recommendations, ASA and statin started and carotid Doppler ordered Objective - Vital Signs/Intake and Output Vital Signs (last 24 hours): Temp Pulse Resp BP Pulse Ox 100.4 F H 102 H 19 104/51 L 97 07/06/17 20:00 07/06/17 20:00 07/06/17 20:00 07/06/17 20:00 07/06/17 20:00 Intake and Output: 07/06/17 07/07/17 18:59 06:59 Intake Total 720 Output Total 2401 Balance -1681 - Medications Medications: Current Medications Artificial Tears (Artificial Tears Opht Oint) 0 gm OU Q8H PRN PRN Reason: Dry eyes Last Admin: 07/06/17 18:51 Dose: 1 gel Artificial Tears (Artificial Tears) 0 ml OU BID MARCEL Last Admin: 07/06/17 18:53 Dose: 2 drop Aspirin (Aspirin Chewable) 81 mg GT DAILY MARCEL Atorvastatin Calcium (Lipitor) 20 mg GT DIN MARCEL Chlorhexidine Gluconate (Peridex) 15 ml PO BID MARCEL Last Admin: 07/05/17 17:59 Dose: 15 ml Fentanyl Citrate (Fentanyl Citrate/Sodium Chloride 1 Mg/100 Ml) 1,000 mcg in 100 mls @ 10 mls/hr IV .Q10H PRN; Protocol; 100 MCG/HR PRN Reason: TITRATE PER MD ORDER Last Titration: 07/04/17 17:30 Dose: 0 mcg/hr, 0 mls/hr NOREPINEPHRINE BIT/0.9 % NACL (Levophed 4 Mg/ 250 Ml Ns Premixed) 4 mg in 250 mls @ 15 mls/hr IV .[id number] PRN; Protocol; 4 MCG/MIN PRN Reason: TITRATE PER MD ORDER Last Titration: 07/05/17 04:32 Dose: 10 mcg/min, 37.5 mls/hr Vasopressin 20 units/ Sodium (Chloride) 101 mls @ 9.09 mls/hr IV .[id number] MARCEL; 0.03 U/MIN PRN Reason: Protocol Last Admin: 07/04/17 17:45 Dose: 9.09 mls/hr Dobutamine HCl/Dextrose (Dobutamine/Dextrose 5% 500mg/250ml) 500 mg in 250 mls @ 12.859 mls/hr IV .[id number] PRN; Protocol; 5 MCG/KG/MIN PRN Reason: TITRATE PER PROTOCOL Heparin Sodium/Dextrose (Heparin 25,000 Units/250ml In D5w) 25,000 units in 250 mls @ 15.35 mls/hr IV .[id number] PRN; Protocol; 18 UNITS/KG/HR PRN Reason: ADJUST RATE PER PROTOCOL Meropenem 500 mg/ Sodium (Chloride) 50 mls @ 100 mls/hr IVPB DAILY MARCEL PRN Reason: Protocol Last Admin: 07/06/17 10:01 Dose: 100 mls/hr Potassium Chloride (Potassium Chloride 20 Meq/100 Ml) 20 meq in 100 mls @ 50 mls/hr IVPB ONCE ONE Stop: 07/07/17 00:11 Last Admin: 07/06/17 22:22 Dose: 50 mls/hr Metoprolol Tartrate (Lopressor) 5 mg IVP Q6H [facility] Last Admin: 07/06/17 19:45 Dose: Not Given Pantoprazole Sodium (Protonix Inj) 40 mg IVP DAILY [facility] Last Admin: 07/05/17 10:25 Dose: 40 mg - Labs Labs: 07/06/17 05:18 07/06/17 17:00 PT 24.1 SECONDS (9.4-12.5) H 07/06/17 17:00 INR 2.18 (0.93-1.08) H 07/06/17 17:00 APTT 34.9 Seconds (25.1-36.5) 07/06/17 17:00
[2017-07-07] MEDS: Metoprolol 1 mg/ml Inj IVP SCH ×4 (01:56→20:00)
[2017-07-07 05:41] LABS: ARTERIAL BLOOD GAS HCO3 26.7 mmol/L (21-28); ARTERIAL BLOOD GAS O2 CAPACITY 14.2 mL/dl (16-24); ARTERIAL BLOOD GAS O2 CONTENT 14.1 ML/dl (15-23); ARTERIAL BLOOD GAS PH 7.53 (7.35-7.45); ARTERIAL BLOOD HGB O2 SAT 96.6 % (95.0-98.0); CARBOXYHEMOGLOBIN 1.8 % (0.5-1.5); HHB 0.8 % (0-5); METHEMOGLOBIN 0.8 % (0.0-3.0)
[2017-07-07 06:06] LABS: EOS % 0.4 % (1.5-5.0); GRAN # 7.06 (1.4-6.5); GRAN % 84.2 % (50.0-68.0); HEMATOCRIT 32.8 % (36.0-48.0); LYMPH # 1.1 (1.2-3.4); MEAN CELL VOLUME 86.3 fl (80.0-105.0); MEAN CORPUSCULAR HEMOGLOBIN 26.3 pg (25.0-35.0); MEAN CORPUSCULAR HGB CONC 30.5 g/dl (31.0-37.0); MONO # 0.2 (0.1-0.6); MONO % 2.4 % (1.0-6.0); PLATELET COUNT 42 10^3/uL (120.0-450.0); RED CELL DISTRIBUTION WIDTH 16.9 % (11.5-14.5); WHITE BLOOD COUNT 8.4 10^3/ul (4.5-11.0)
[2017-07-07 06:21] LABS: ALB/GLOB RATIO 0.8 (1.1-1.8); BILIRUBIN,TOTAL 1.5 mg/dL (0.2-1.3); CALCIUM 8.5 mg/dL (8.4-10.5); POTASSIUM 3.5 mmol/L (3.6-5.0); TOTAL PROTEIN 5.3 g/dL (5.8-8.3)
--- NOTE | 2017-07-07 09:27 | PN ---
DATE: 07/07/2017 PULMONARY PROGRESS NOTE SUBJECTIVE: The patient was seen and examined in the intensive care unit. She is ventilator dependent with severely altered mental status. She is on pressors, vasopressin and on multiple antibiotic included meropenem and Zyvox. She is also on norepinephrine and dobutamine. PHYSICAL EXAMINATION: VITAL SIGNS: Today's vital signs, temperature is 100.6, pulse 86, respirations 20, pulse oximetry is 99 on 50% FiO2, blood pressure is 120/70. HEENT: Examination of head atraumatic, normocephalic. Ear, nose and throat, intubated orally. LUNGS: Bilateral coarse rhonchi. Few expiratory wheezes. CARDIOVASCULAR: S1 and S2. No S3. Irregular. GASTROINTESTINAL: Soft, nontender. No organomegaly. EXTREMITIES: 1+ pedal edema. LABORATORY DATA: I reviewed today's blood work. Arterial blood gas: PH of 7.53, pCO2 of 32 and pO2 of 144. Serum sodium is 141, potassium 3.5, BUN 28, creatinine 5.1. Liver function tests are markedly elevated with slightly improved compared to yesterday. WBC is 8.4, hemoglobin of 10.0, platelet count is 42,000. INR is 2.18. I reviewed today's chest x-ray, which shows mild bilateral congestion, slightly more prominent on the right than on the left with no discrete infiltrate. Cardiomegaly is present. Endotracheal tube is in position. ASSESSMENT: 1. Acute respiratory failure. 2. Respiratory alkalosis, which is intentional, slightly decreased pCO2 levels on the ventilator. It is advisable to reduce intracranial pressure. 3. The rest of the assessment is renal failure. 4. Sepsis syndrome. 5. Altered mental status. 6. Severe thrombocytopenia. PLAN: The patient has failed weaning trials. She is currently on 50% FiO2 with pO2 of 144. The FiO2 can be decreased slightly. I would keep on the same tidal volume and same respiratory rate. Her condition and prognosis are critical. This was discussed with the ICU team. We will follow closely. Pancho Nielson MD
[2017-07-07] MEDS: Chlorhexidine 0.12% Oral Sol 480 ml Bot PO SCH ×2 (09:30→17:26)
[2017-07-07] MEDS: Aritificial Tears (15ml) OU SCH ×2 (09:30→17:26)
--- NOTE | 2017-07-07 09:46 | RAD ---
HISTORY: f/u COMPARISON: Comparison chest 07/06/2017. FINDINGS: In situ ETT tip of which lies approximately 4.5 cm above abundio. In situ NGT, tip of which has not been included on this film though distal aspect does lie well below EG junction. . No change left IJ central venous line with the tip in the brachiocephalic vein LUNGS: Patchy opacities seen throughout the right lung. Suspect mild left basilar atelectasis. PLEURA: No significant pleural effusion identified, no pneumothorax apparent. CARDIOVASCULAR: Cardiomegaly. OSSEOUS STRUCTURES: No significant abnormalities. VISUALIZED UPPER ABDOMEN: Normal. OTHER FINDINGS: None. IMPRESSION: Support lines and tubes as above. Patchy opacities seen throughout the right lung. Suspect mild left basilar atelectasis.
[2017-07-07 10:12] LABS: INR 1.66 (0.93-1.08)
--- NOTE | 2017-07-07 11:14 | CP.PCM.PN ---
Subjective - Date & Time of Evaluation Date of Evaluation: 07/07/17 Time of Evaluation: 10:40 - Subjective Subjective: Patient continues to have fevers last night, still on the vent, no diarrhea, no urine output. Objective - Vital Signs/Intake and Output Vital Signs (last 24 hours): Temp Pulse Resp BP Pulse Ox 100.6 F H 86 20 121/71 100 07/07/17 04:00 07/07/17 06:00 07/07/17 06:00 07/07/17 06:00 07/07/17 06:00 Intake and Output: 07/07/17 07/07/17 06:59 18:59 Intake Total 100 Output Total 200 Balance -100 - Medications Medications: Current Medications Artificial Tears (Artificial Tears Opht Oint) 0 gm OU Q8H PRN PRN Reason: Dry eyes Last Admin: 07/06/17 18:51 Dose: 1 gel Artificial Tears (Artificial Tears) 0 ml OU BID [facility] Last Admin: 07/06/17 18:53 Dose: 2 drop Aspirin (Aspirin Chewable) 81 mg GT DAILY [facility] Last Admin: 07/06/17 23:53 Dose: 81 mg Atorvastatin Calcium (Lipitor) 20 mg GT DIN [facility] Last Admin: 07/06/17 23:53 Dose: 20 mg Chlorhexidine Gluconate (Peridex) 15 ml PO BID [facility] Last Admin: 07/05/17 17:59 Dose: 15 ml Fentanyl Citrate (Fentanyl Citrate/Sodium Chloride 1 Mg/100 Ml) 1,000 mcg in 100 mls @ 10 mls/hr IV .Q10H PRN; Protocol; 100 MCG/HR PRN Reason: TITRATE PER MD ORDER Last Titration: 07/04/17 17:30 Dose: 0 mcg/hr, 0 mls/hr NOREPINEPHRINE BIT/0.9 % NACL (Levophed 4 Mg/ 250 Ml Ns Premixed) 4 mg in 250 mls @ 15 mls/hr IV .[id number] PRN; Protocol; 4 MCG/MIN PRN Reason: TITRATE PER MD ORDER Last Titration: 07/05/17 04:32 Dose: 10 mcg/min, 37.5 mls/hr Vasopressin 20 units/ Sodium (Chloride) 101 mls @ 9.09 mls/hr IV .[id number] [facility]; 0.03 U/MIN PRN Reason: Protocol Last Admin: 07/04/17 17:45 Dose: 9.09 mls/hr Dobutamine HCl/Dextrose (Dobutamine/Dextrose 5% 500mg/250ml) 500 mg in 250 mls @ 12.859 mls/hr IV .[id number] PRN; Protocol; 5 MCG/KG/MIN PRN Reason: TITRATE PER PROTOCOL Heparin Sodium/Dextrose (Heparin 25,000 Units/250ml In D5w) 25,000 units in 250 mls @ 15.35 mls/hr IV .[id number] PRN; Protocol; 18 UNITS/KG/HR PRN Reason: ADJUST RATE PER PROTOCOL Meropenem 500 mg/ Sodium (Chloride) 50 mls @ 100 mls/hr IVPB DAILY [facility] PRN Reason: Protocol Last Admin: 07/06/17 10:01 Dose: 100 mls/hr Metoprolol Tartrate (Lopressor) 5 mg IVP Q6H [facility] Last Admin: 07/07/17 01:56 Dose: Not Given Pantoprazole Sodium (Protonix Inj) 40 mg IVP DAILY [facility] Last Admin: 07/05/17 10:25 Dose: 40 mg - Labs Labs: 07/07/17 05:30 07/07/17 05:30 PT 24.1 SECONDS (9.4-12.5) H 07/06/17 17:00 INR 2.18 (0.93-1.08) H 07/06/17 17:00 APTT 34.9 Seconds (25.1-36.5) 07/06/17 17:00 - Constitutional Appears: Other (intubated, opens eyes to pressure and pain) - Head Exam Head Exam: NORMAL INSPECTION - ENT Exam Additional comments: Et tube in place - Neck Exam Additional comments: right sided central venous catheter on the IJ, clean and intact - Respiratory Exam Respiratory Exam: Decreased Breath Sounds - Cardiovascular Exam Cardiovascular Exam: +S1, +S2 - GI/Abdominal Exam GI & Abdominal Exam: Soft. absent: Tenderness Assessment and Plan - Assessment and Plan (Free Text) Plan: Assessment consider severe sepsis with ventilator-dependent respiratory failure R/O due to left-sided HCAP, consider E. 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
--- NOTE | 2017-07-07 11:47 | PN ---
DATE: COVERING PHYSICIAN: Henri Guillen MD REASON FOR CONSULTATION AND FOLLOWUP: Cardiomyopathy, end-stage renal disease on dialysis, intubated, and respiratory failure. SUBJECTIVE: The patient is intubated and sedated. PHYSICAL EXAMINATION: GENERAL: Not in apparent distress, on vent. VITAL SIGNS: As follows; temperature 100.6, heart rate 98, and blood pressure 121/71. HEENT: PERRLA. Extraocular muscles intact. NECK: Supple. No carotid bruits or thyromegaly. CHEST: Clear to auscultation. HEART: S1 and S2 regular. ABDOMEN: Soft. EXTREMITIES: Clubbing and cyanosis negative. LABORATORY DATA: Blood workup as follows; WBC 8.4, hemoglobin 10, hematocrit 32.8, and platelet count 42. Chemistry shows sodium 141, potassium 3.5, chloride 100, bicarbonate 29, anion gap 16, BUN 28, and creatinine 5.1. IMPRESSION: End-stage renal disease on dialysis, hypokalemia, anemia, thrombocytopenia, status post respiratory failure, severe cardiomyopathy, cardiogenic shock, dilated cardiomyopathy, and renal insufficiency. RECOMMENDATIONS: Continue low dose of inotropes. We will start NG tube feeding. Monitor electrolytes closely for the patient with end-stage renal disease. We will follow with you. Continue NG tube feeding with 30 mL of Nepro. We will give 100 mL q.6h and we will supplement Nepro 30 mL an hour. We will follow with you and transfer care on Sunday to Dr. Henri Guillen. Adelina Ray MD
--- NOTE | 2017-07-07 12:15 | PN ---
DATE: SUBJECTIVE: I saw Orly in the Intensive Care Unit. She is on a ventilator. Her eyes are open, but she is not aware. She had a recent CT scan of the head, which showed it is concerned for acute infarcts, ischemic changes and I do not know if she will be able to get off the ventilator as I am having a hard time weaning her. She is on IV antibiotics for sepsis. PHYSICAL EXAMINATION: VITAL SIGNS: She has a 100.6 temp, 76 pulse, 100% O2 sat, 109/62 blood pressure and her respiratory rate is 20. HEENT: Head is atraumatic, normocephalic. Multiple tubes, intubation. HEART: Regular rate. LUNGS: Decreased breath sounds, but clear. ABDOMEN: Soft, obese. EXTREMITIES: Show left AKA. ASSESSMENT AND PLAN: She has multiple problems. End-stage renal disease, sepsis, acute respiratory failure, urinary tract infection, status post code, [id number] myocardial infarction and it looks like she has been having a cerebrovascular accident. We will continue with aggressive treatment and care. We will call in Palliative Care and maybe we could either externally terminally extubate her or long-term acute care. I will discuss this with the hospitalist. Terrence Beverly DO
--- NOTE | 2017-07-07 12:28 | CP.PCM.PN ---
Subjective - Date & Time of Evaluation Date of Evaluation: 07/07/17 Time of Evaluation: 12:10 - Subjective Subjective: 66 yo F w/ pmh of htn, dm, s/p CVA, PAD s/p L AKA, and ESRD on HD, admitted with shock, Afib w/ RVR; Patient had head CT overnight due to lack of improvement of AMS; showed new R posterior parietal/occipital lobe CVA; Objective - Vital Signs/Intake and Output Vital Signs (last 24 hours): Temp Pulse Resp BP Pulse Ox 100.6 F H 76 16 109/62 100 07/07/17 10:36 07/07/17 10:36 07/07/17 10:10 07/07/17 10:05 07/07/17 10:36 Intake and Output: 07/07/17 07/07/17 06:59 18:59 Intake Total 100 Output Total 200 Balance -100 - Medications Medications: Current Medications Artificial Tears (Artificial Tears Opht Oint) 0 gm OU Q8H PRN PRN Reason: Dry eyes Last Admin: 07/06/17 18:51 Dose: 1 gel Artificial Tears (Artificial Tears) 0 ml OU BID [facility] Last Admin: 07/06/17 18:53 Dose: 2 drop Aspirin (Aspirin Chewable) 81 mg GT DAILY [facility] Last Admin: 07/06/17 23:53 Dose: 81 mg Atorvastatin Calcium (Lipitor) 40 mg GT DIN [facility] Chlorhexidine Gluconate (Peridex) 15 ml PO BID [facility] Last Admin: 07/05/17 17:59 Dose: 15 ml Hydralazine HCl (Apresoline) 10 mg IVP Q8 [facility] Meropenem 500 mg/ Sodium (Chloride) 50 mls @ 100 mls/hr IVPB DAILY [facility] PRN Reason: Protocol Last Admin: 07/06/17 10:01 Dose: 100 mls/hr Linezolid (Zyvox 600mg/300ml D5w) 600 mg in 300 mls @ 200 mls/hr IVPB Q12 [facility] PRN Reason: Protocol Stop: 07/14/17 10:01 Isosorbide Mononitrate (Imdur) 60 mg PO DAILY [facility] Metoprolol Tartrate (Lopressor) 5 mg IVP Q6H [facility] Last Admin: 07/07/17 01:56 Dose: Not Given Pantoprazole Sodium (Protonix Inj) 40 mg IVP DAILY [facility] Last Admin: 07/05/17 10:25 Dose: 40 mg - Labs Labs: 07/07/17 05:30 07/07/17 05:30 PT 18.5 SECONDS (9.4-12.5) H 07/07/17 08:40 INR 1.66 (0.93-1.08) H 07/07/17 08:40 APTT 34.9 Seconds (25.1-36.5) 07/06/17 17:00 - Constitutional Appears: No Acute Distress - Eye Exam Eye Exam: absent: Scleral icterus - ENT Exam ENT Exam: Mucous Membranes Moist - Respiratory Exam Respiratory Exam: Clear to Ausculation Bilateral. absent: Respiratory Distress - Cardiovascular Exam Cardiovascular Exam: RRR, +S1, +S2 - GI/Abdominal Exam GI & Abdominal Exam: Soft. absent: Distended - Extremities Exam Additional comments: no R leg edema; - Neurological Exam Additional comments: spontaneously opens eyes, doesn't respond to verbal stimuli; - Skin Skin Exam: Warm. absent: Cyanosis Assessment and Plan - Assessment and Plan (Free Text) Assessment: 1- ESRD on HD - Patient now with significant loss of her (previously significant ) residual renal function; stable electrolyte status; s/p HD last 2 days and able to achieve significantly negative fluid balances; volume status overall stable with CXR showing unilateral R sided opacities; -Will hold off on further UF today in the setting of new acute CVA to avoid dropping BP; -Next HD for Sunday; 2- Shock - Resolved; appears to have been cardiogenic in the setting of afib w/ RVR and systolic dysfunction, although cannot rule out some component of sepsis ; currently on meropenem and linezolid; meropenem dosed for HD; no renal dose reduction needed for linezolid but should consider switching back to vanco in the setting of new thrombocytopenia; 3- CHF w/ systolic dysfunction - Trying to UF on HD last 2 days, holding today as above; patient started on hydralazine and imdur for afterload reduction, can also consider starting SANDRA blockade if BP tolerates; should change all BP meds to PO for longer lasting effect; 4- Afib w/ RVR - Currently in sinus rhythm; agree with keeping K close to 4 to avoid arrhythmias but need to be careful not to over-supplement in patient without residual renal function and with next HD in 2 days; 5- Anemia of ESRD - Hgb just at goal for ESRD (10-11g); will dose aranesp with next HD; 6- CKD Mineral Bone Disorder - Phos markedly elevated; starting phoslo 2001 mg q8h (if patient being started on tube feeds); 7- Acute CVA - Should avoid dropping BP; f/u with neuro for BP goals;
--- NOTE | 2017-07-07 12:36 | CP.PCM.PN ---
Subjective - Date & Time of Evaluation Date of Evaluation: 07/07/17 Time of Evaluation: 10:00 - Subjective Subjective: Pt seen and examined, intubated, off sedation, failed CPAP trial today. Overnight had CT head done which R parietal/occipital possible ischemic CVA. Objective - Vital Signs/Intake and Output Vital Signs (last 24 hours): Temp Pulse Resp BP Pulse Ox 100.6 F H 76 16 109/62 100 07/07/17 10:36 07/07/17 10:36 07/07/17 10:10 07/07/17 10:05 07/07/17 10:36 Intake and Output: 07/07/17 07/07/17 06:59 18:59 Intake Total 100 Output Total 200 Balance -100 - Medications Medications: Current Medications Artificial Tears (Artificial Tears Opht Oint) 0 gm OU Q8H PRN PRN Reason: Dry eyes Last Admin: 07/06/17 18:51 Dose: 1 gel Artificial Tears (Artificial Tears) 0 ml OU BID [facility] Last Admin: 07/06/17 18:53 Dose: 2 drop Aspirin (Aspirin Chewable) 81 mg GT DAILY [facility] Last Admin: 07/06/17 23:53 Dose: 81 mg Atorvastatin Calcium (Lipitor) 40 mg GT DIN [facility] Chlorhexidine Gluconate (Peridex) 15 ml PO BID [facility] Last Admin: 07/05/17 17:59 Dose: 15 ml Hydralazine HCl (Apresoline) 10 mg IVP Q8 [facility] Meropenem 500 mg/ Sodium (Chloride) 50 mls @ 100 mls/hr IVPB DAILY [facility] PRN Reason: Protocol Last Admin: 07/06/17 10:01 Dose: 100 mls/hr Linezolid (Zyvox 600mg/300ml D5w) 600 mg in 300 mls @ 200 mls/hr IVPB Q12 [facility] PRN Reason: Protocol Stop: 07/14/17 10:01 Isosorbide Mononitrate (Imdur) 60 mg PO DAILY [facility] Metoprolol Tartrate (Lopressor) 5 mg IVP Q6H [facility] Last Admin: 07/07/17 01:56 Dose: Not Given Pantoprazole Sodium (Protonix Inj) 40 mg IVP DAILY [facility] Last Admin: 07/05/17 10:25 Dose: 40 mg - Labs Labs: 07/07/17 05:30 07/07/17 05:30 PT 18.5 SECONDS (9.4-12.5) H 07/07/17 08:40 INR 1.66 (0.93-1.08) H 07/07/17 08:40 APTT 34.9 Seconds (25.1-36.5) 07/06/17 17:00 - Constitutional Appears: Well, No Acute Distress - Eye Exam Eye Exam: Normal appearance - ENT Exam ENT Exam: Mucous Membranes Moist - Respiratory Exam Respiratory Exam: Clear to Ausculation Bilateral, NORMAL BREATHING PATTERN - Cardiovascular Exam Cardiovascular Exam: REGULAR RHYTHM, +S1, +S2 - GI/Abdominal Exam GI & Abdominal Exam: Soft, Normal Bowel Sounds - Extremities Exam Additional comments: L AKA - Neurological Exam Neurological Exam: Altered - Skin Skin Exam: Normal Color Assessment and Plan - Assessment and Plan (Free Text) Assessment: 66yo female a/w shock, cardiogenic, now resolved Shock, Cardiogenic, resolved ESRD on HD CVA Met Acidosis, resolved Respiratory failure Thrombocytoepnia Recommend: - cont with ventilatory support, PRVC adequate oxygenation, ABG with markedly improved - broad spectrum IV Abx, Zyvox Merrem - ID follow up - start Hydralazine, Nitrates for afterload/preload reduction - Lopressor - HD as per renal - follow up cardiology - follow up renal - follow up neurology - monitor platelets, and for bleeding - thrombocytopenia, consider a hematology consult - follow up palliative care - may need Ltach - GI ppx - DVT ppx, SCDs critical care time 40 minutes
[2017-07-07 12:54] LABS: LKM-1 Ab (IgG) <=20.0 U (<=20.0)
[2017-07-07] MEDS: Meropenem 500 MG in Sodium Chloride 0.9% 50 ML IVPB SCH (13:21)
--- NOTE | 2017-07-07 13:23 | CP.PCM.PN ---
<Kristina Moy - Last Filed: 07/07/17 13:30> Subjective - Date & Time of Evaluation Date of Evaluation: 07/07/17 Time of Evaluation: 08:00 - Subjective Subjective: PGY4 GI Follow-up Pt seen and examined beside Pt is still obtunded with no meaningful conversation she opens her eyes Still intubed overnight events: CT Head revealed a parietal and occiptal CVA No other events overnight ROS: could not be conducted Objective - Vital Signs/Intake and Output Vital Signs (last 24 hours): Temp Pulse Resp BP Pulse Ox 100.6 F H 76 16 109/62 100 07/07/17 10:36 07/07/17 10:36 07/07/17 10:10 07/07/17 10:05 07/07/17 10:36 Intake and Output: 07/07/17 07/07/17 06:59 18:59 Intake Total 100 Output Total 200 Balance -100 - Medications Medications: Current Medications Artificial Tears (Artificial Tears Opht Oint) 0 gm OU Q8H PRN PRN Reason: Dry eyes Last Admin: 07/06/17 18:51 Dose: 1 gel Artificial Tears (Artificial Tears) 0 ml OU BID [facility] Last Admin: 07/06/17 18:53 Dose: 2 drop Aspirin (Aspirin Chewable) 81 mg GT DAILY [facility] Last Admin: 07/06/17 23:53 Dose: 81 mg Atorvastatin Calcium (Lipitor) 40 mg GT DIN [facility] Calcium Acetate (Phoslo) 2,001 mg PO Q8H [facility] Chlorhexidine Gluconate (Peridex) 15 ml PO BID [facility] Last Admin: 07/05/17 17:59 Dose: 15 ml Hydralazine HCl (Apresoline) 10 mg NG Q8 [facility] Meropenem 500 mg/ Sodium (Chloride) 50 mls @ 100 mls/hr IVPB DAILY [facility] PRN Reason: Protocol Last Admin: 07/06/17 10:01 Dose: 100 mls/hr Linezolid (Zyvox 600mg/300ml D5w) 600 mg in 300 mls @ 200 mls/hr IVPB Q12 [facility] PRN Reason: Protocol Stop: 07/14/17 10:01 Isosorbide Mononitrate (Imdur) 60 mg PO DAILY [facility] Metoprolol Tartrate (Lopressor) 5 mg IVP Q6H [facility] Last Admin: 07/07/17 01:56 Dose: Not Given Pantoprazole Sodium (Protonix Inj) 40 mg IVP DAILY [facility] Last Admin: 07/05/17 10:25 Dose: 40 mg - Labs Labs: 07/07/17 05:30 07/07/17 05:30 PT 18.5 SECONDS (9.4-12.5) H 07/07/17 08:40 INR 1.66 (0.93-1.08) H 07/07/17 08:40 APTT 34.9 Seconds (25.1-36.5) 07/06/17 17:00 - Constitutional Appears: No Acute Distress, Chronically Ill - Head Exam Head Exam: ATRAUMATIC, NORMOCEPHALIC - Eye Exam Eye Exam: Normal appearance - ENT Exam ENT Exam: Mucous Membranes Moist - Respiratory Exam Respiratory Exam: Clear to Ausculation Bilateral, NORMAL BREATHING PATTERN - Cardiovascular Exam Cardiovascular Exam: REGULAR RHYTHM, +S1, +S2 - GI/Abdominal Exam GI & Abdominal Exam: Guarding, Soft, Normal Bowel Sounds. absent: Rigid, Tenderness - Extremities Exam Extremities Exam: Joint Swelling - Neurological Exam Neurological Exam: Altered - Psychiatric Exam Additional comments: could not assess - Skin Skin Exam: Dry, Intact, Normal Color, Warm Assessment and Plan - Assessment and Plan (Free Text) Assessment: 66 years old female, with PMH ESRD on HD, CHF, DM, CVA, anemia, admitted for AMS , severe metabolic acidosis, afib with RVR, s/p cardiac arrest during hospital stay, s/p resuscitation, found to have have elevated LFTs likley 2/2 shock liver Shock liver (improving); ruling out autoimmune, infectous etiology neg Elevated LFTs likely 2/2 above New CVA Sepsis UTI ESRD Plan: - AST , ALT improving - Identified source of infection, as urine culture shows gram neg [place]a. - Ammonia level low, pt still AMS, hep panel negative. - IgG within normal limits, f/u remaining AI workup and factors II, V, X - Anemia workup studies show anemia of chronic disease, likely from CKD, CHF - finish NAC - Maintain MAP >65, will cont to trend LFTs. - reviewed abd xray which revealed no obstruction = - Okay to start feeds -Will Sign off, please reconsult if need -Pt was not accepted by [facility] D/W Dr. Silva <Kathi Silva MD - Last Filed: 07/07/17 21:00> Objective - Vital Signs/Intake and Output Vital Signs (last 24 hours): Temp Pulse Resp BP Pulse Ox 98.8 F 81 16 175/66 H 91 L 07/07/17 18:40 07/07/17 20:16 07/07/17 10:10 07/07/17 20:16 07/07/17 18:40 Intake and Output: 07/07/17 07/08/17 18:59 06:59 Intake Total 520 Output Total 100 Balance 420 - Medications Medications: Current Medications Artificial Tears (Artificial Tears Opht Oint) 0 gm OU Q8H PRN PRN Reason: Dry eyes Last Admin: 07/06/17 18:51 Dose: 1 gel Artificial Tears (Artificial Tears) 0 ml OU BID [facility] Last Admin: 07/07/17 17:26 Dose: 2 drop Aspirin (Aspirin Chewable) 81 mg GT DAILY [facility] Last Admin: 07/07/17 09:30 Dose: 81 mg Atorvastatin Calcium (Lipitor) 40 mg GT DIN [facility] Last Admin: 07/07/17 17:26 Dose: 40 mg Calcium Acetate (Phoslo) 2,001 mg PO Q8H [facility] Last Admin: 07/07/17 13:28 Dose: 2,001 mg Chlorhexidine Gluconate (Peridex) 15 ml PO BID [facility] Last Admin: 07/07/17 17:26 Dose: 15 ml Hydralazine HCl (Apresoline) 10 mg NG Q8 [facility] Last Admin: 07/07/17 13:28 Dose: 10 mg Linezolid (Zyvox 600mg/300ml D5w) 600 mg in 300 mls @ 200 mls/hr IVPB Q12 [facility] PRN Reason: Protocol Stop: 07/14/17 10:01 Last Admin: 07/07/17 13:27 Dose: 200 mls/hr Meropenem 500 mg/ Sodium (Chloride) 100 mls @ 100 mls/hr IVPB DAILY [facility] PRN Reason: Protocol Isosorbide Mononitrate (Imdur) 60 mg PO DAILY [facility] Last Admin: 07/07/17 13:29 Dose: 60 mg Metoprolol Tartrate (Lopressor) 5 mg IVP Q6H [facility] Last Admin: 07/07/17 20:16 Dose: 5 mg Pantoprazole Sodium (Protonix Inj) 40 mg IVP DAILY [facility] Last Admin: 07/07/17 10:00 Dose: 40 mg - Labs Labs: 07/07/17 05:30 07/07/17 05:30 PT 18.5 SECONDS (9.4-12.5) H 07/07/17 08:40 INR 1.66 (0.93-1.08) H 07/07/17 08:40 APTT 34.9 Seconds (25.1-36.5) 07/06/17 17:00 Attending/Attestation - Attestation I have personally seen and examined this patient.: Yes I have fully participated in the care of the patient.: Yes I have reviewed all pertinent clinical information, including history, physical exam and plan: Yes Notes (Text): 07/07/17 20:45 I have seen and examined patient with GI fellow. Seen in MICU intubated. In last 24 she has new CVA pending neurology evaluation. She is currently off vasopressor support, though remains minimally responsive, only to painful stimuli. NGT in place with bilious output over past 24 hours. Patient with two episodes of loose bowel movements yesterday. Review of vitals from today shows tachycardia and low grade fever. She has E coli UTI on merrem and vancomycin. Gi consulted for abnormal LFT which is likely due to ischemic hepatitis. Autoimmune and hepatitis serologies are negative. LFt downtrending. No further GI work up required. Will sign off now. Please recall prn. Continue with antibiotic therapy as per ID Overall patient prognosis guarded, rest of care as per MICU
[2017-07-07] MEDS: Linezolid 600 mg in D5W 300 ml 600 MG/300 ML BAG IVPB SCH ×2 (13:27→21:21)
--- NOTE | 2017-07-07 18:34 | MRI ---
PROCEDURE: MRI brain dated 07/07/2017. HISTORY: AMS. Cardiac arrest. COMPARISON: None. TECHNIQUE: Multiplanar, multisequence MR images of the brain were obtained without intravenous contrast enhancement. FINDINGS: HEMORRHAGE: No acute parenchymal, subarachnoid or extra-axial hemorrhage. . There is a very tiny focus of dark T2 signal in the left occipito parietal watershed zones seen on GRE weighted sequence series 7, image #10 which could represent a tiny area calcification/ mineralization DWI: Patchy areas of restricted diffusion are seen throughout the and both cerebellar hemispheres as well as in along the occipital as well as posterior temporoparietal watershed zones. . Findings suggest acute/subacute ischemia in the distributions of the posterior cerebral arteries bilaterally. Rule out sequela of hypo - perfusion. Clinical correlation recommended. . BRAIN PARENCHYMA: Moderate diffuse/confluent chronic white matter ischemic changes seen extending peripherally into the deep and subcortical white matter both cerebral hemispheres. Additionally, there are chronic appearing bilateral basal nuclei ischemic changes. VENTRICLES: Unremarkable. No hydrocephalus. CRANIUM: Unremarkable. ORBITS: Bilateral exophthalmos. PARANASAL SINUSES/MASTOIDS: Partial opacification both mastoid air complexes. Minor mucosal thickening seen within the sphenoid sinus as well as a few ethmoid air so VASCULAR SYSTEM: Visualized major vascular flow voids at skull base are patent. OTHER FINDINGS: None. IMPRESSION: Diffuse and patchy areas of restricted diffusion changes are seen throughout both cerebellar hemispheres as well as the occipital and posterior temporal parietal watershed zones bilaterally. Findings suggest at ischemia along the posterior cerebral artery territory all distributions bilaterally. Rule out sequela of hypo - perfusion. Note that these findings were discussed with ICU director paid media Dr. Irving at approximately 6:25 p.m. with written down and read back verification. Clinical correlation recommended. Chronic white matter and basal nuclei ischemic changes. Moderate volume loss. Exophthalmos.
[2017-07-08] MEDS: Metoprolol 1 mg/ml Inj IVP SCH ×2 (01:10→14:23)
[2017-07-08 06:39] LABS: ARTERIAL BLOOD GAS HCO3 25.9 mmol/L (21-28); ARTERIAL BLOOD GAS O2 CAPACITY 14.6 mL/dl (16-24); ARTERIAL BLOOD GAS O2 CONTENT 14.6 ML/dl (15-23); ARTERIAL BLOOD GAS PH 7.53 (7.35-7.45); ARTERIAL BLOOD HGB O2 SAT 96.2 % (95.0-98.0); CARBOXYHEMOGLOBIN 2.3 % (0.5-1.5); HHB 0.3 % (0-5); METHEMOGLOBIN 1.2 % (0.0-3.0)
[2017-07-08 08:08] LABS: EOS # 0.1 (0.0-0.7); EOS % 0.8 % (1.5-5.0); GRAN # 6.99 (1.4-6.5); GRAN % 82.9 % (50.0-68.0); HEMATOCRIT 33.1 % (36.0-48.0); LYMPH # 0.9 (1.2-3.4); LYMPH % 11.1 % (22.0-35.0); MEAN CELL VOLUME 85.3 fl (80.0-105.0); MEAN CORPUSCULAR HGB CONC 30.5 g/dl (31.0-37.0); MONO # 0.4 (0.1-0.6); MONO % 5.2 % (1.0-6.0); PLATELET COUNT 53 10^3/uL (120.0-450.0); WHITE BLOOD COUNT 8.4 10^3/ul (4.5-11.0)
[2017-07-08 08:16] LABS: ALB/GLOB RATIO 0.8 (1.1-1.8); BILIRUBIN,TOTAL 1.3 mg/dL (0.2-1.3); CALCIUM 7.7 mg/dL (8.4-10.5); POTASSIUM 3.3 mmol/L (3.6-5.0); TOTAL PROTEIN 5.4 g/dL (5.8-8.3)
[2017-07-08] MEDS ORDERED: Vancomycin 1gm in NS 250ml 1 GM/250 ML BAG IVPB ONE (09:58)
[2017-07-08] MEDS: Aritificial Tears (15ml) OU SCH ×2 (10:15→17:14)
[2017-07-08] MEDS: Meropenem 500 MG in Sodium Chloride 0.9% 100 ML IVPB SCH (10:16)
[2017-07-08] MEDS: Chlorhexidine 0.12% Oral Sol 480 ml Bot PO SCH ×2 (10:17→17:15)
--- NOTE | 2017-07-08 10:30 | RAD ---
HISTORY: f/u COMPARISON: Comparison made with prior study dated 07/07/2017. FINDINGS: In situ ETT, tip of which lies approximately 4.4 cm above abundio. NGT is present, tip of which overlies left upper quadrant of the abdomen. No change left IJ central line with tip in the brachiocephalic vein. LUNGS: Low lung volumes with crowded bronchovascular markings and bibasilar atelectasis. PLEURA: No significant pleural effusion identified, no pneumothorax apparent. CARDIOVASCULAR: Heart appears enlarged unchanged from prior exam. OSSEOUS STRUCTURES: No significant abnormalities. VISUALIZED UPPER ABDOMEN: Normal. OTHER FINDINGS: None. IMPRESSION: Support lines and tubes as above. Low lung volumes with crowded bronchovascular markings and bibasilar atelectasis.
--- NOTE | 2017-07-08 10:38 | PN ---
DATE: 07/08/2017 PULMONARY PROGRESS NOTE SUBJECTIVE: The patient was seen and examined in Intensive Care Unit. She remains markedly obtunded, receiving intravenous antibiotics, Zyvox, and meropenem. She is not on pressors. PHYSICAL EXAMINATION VITAL SIGNS: Her temperature is 99.5, pulse is 84, pulse oxymetry is 97% on 50% FiO2, and blood pressure is 126/60. INTAKE AND OUTPUT: Intake is 1000 and no output. HEAD, EAR, NOSE AND THROAT: Normocephalic and atraumatic. NECK: Supple with no jugular vein distension. CHEST: Few rhonchi. No wheezing. GASTROINTESTINAL: Soft and nontender. No organomegaly. EXTREMITIES: 1+ pedal edema. SKIN: No acute skin rashes. NEUROLOGIC: No focal deficits. LABORATORY DATA: Today's arterial blood gas ph of 7.53, pCO2 of 31, and pO2 of 178. Serum sodium is 139, potassium is 3.3, BUN is 39, and creatinine is 6.0. Her liver function tests have improved since yesterday. Her AST is 355 and ALT is 294. WBC of 8.4 and hemoglobin of 10.1. ASSESSMENT AND PLAN: The patient is still ventilator dependent. She is off sedation. She failed continuous positive airway pressure trial. Magnetic resonance imaging of the brain was done shows possible right parietal and occipital ischemic cerebrovascular accident. Her partial pressure of oxygen continues to improve. Yesterday's chest x-ray revealed mild bilateral congestive changes, but no acute infiltrates. The FiO2 can be tapered gradually. Hemodialysis as per Renal. Monitor platelet counts with thrombocytopenia. Weaning off the ventilator could take place if neurologic status changes/improves. Pancho Nielson MD
--- NOTE | 2017-07-08 10:41 | CP.PCM.PN ---
Subjective - Date & Time of Evaluation Date of Evaluation: 07/08/17 Time of Evaluation: 10:30 - Subjective Subjective: Patient continues to have low grade fevers, no diarrhea. Still on the vent. Objective - Vital Signs/Intake and Output Vital Signs (last 24 hours): Temp Pulse Resp BP Pulse Ox 99.3 F 79 16 155/78 H 100 07/08/17 06:04 07/08/17 06:56 07/07/17 10:10 07/08/17 06:56 07/08/17 06:04 - Medications Medications: Current Medications Artificial Tears (Artificial Tears Opht Oint) 0 gm OU Q8H PRN PRN Reason: Dry eyes Last Admin: 07/06/17 18:51 Dose: 1 gel Artificial Tears (Artificial Tears) 0 ml OU BID [facility] Last Admin: 07/07/17 17:26 Dose: 2 drop Aspirin (Aspirin Chewable) 81 mg GT DAILY [facility] Last Admin: 07/07/17 09:30 Dose: 81 mg Atorvastatin Calcium (Lipitor) 40 mg GT DIN [facility] Last Admin: 07/07/17 17:26 Dose: 40 mg Calcium Acetate (Phoslo) 2,001 mg PO Q8H [facility] Last Admin: 07/07/17 21:11 Dose: 2,001 mg Chlorhexidine Gluconate (Peridex) 15 ml PO BID [facility] Last Admin: 07/07/17 17:26 Dose: 15 ml Hydralazine HCl (Apresoline) 10 mg NG Q8 [facility] Last Admin: 07/08/17 06:56 Dose: 10 mg Linezolid (Zyvox 600mg/300ml D5w) 600 mg in 300 mls @ 200 mls/hr IVPB Q12 [facility] PRN Reason: Protocol Stop: 07/14/17 10:01 Last Admin: 07/07/17 21:21 Dose: 200 mls/hr Meropenem 500 mg/ Sodium (Chloride) 100 mls @ 100 mls/hr IVPB DAILY [facility] PRN Reason: Protocol Isosorbide Mononitrate (Imdur) 60 mg PO DAILY [facility] Last Admin: 07/07/17 13:29 Dose: 60 mg Metoprolol Tartrate (Lopressor) 5 mg IVP Q6H [facility] Last Admin: 07/08/17 01:10 Dose: 5 mg Pantoprazole Sodium (Protonix Inj) 40 mg IVP DAILY [facility] Last Admin: 07/07/17 10:00 Dose: 40 mg - Labs Labs: 07/07/17 05:30 07/07/17 05:30 PT 18.5 SECONDS (9.4-12.5) H 07/07/17 08:40 INR 1.66 (0.93-1.08) H 07/07/17 08:40 APTT 34.9 Seconds (25.1-36.5) 07/06/17 17:00 - Constitutional Appears: Other (on the vent) - Head Exam Head Exam: NORMAL INSPECTION - ENT Exam Additional comments: ET tube in place - Neck Exam Neck Exam: absent: Meningismus Additional comments: left IJ TLC site clean and intact - Respiratory Exam Respiratory Exam: Decreased Breath Sounds - Cardiovascular Exam Cardiovascular Exam: +S1, +S2 - GI/Abdominal Exam GI & Abdominal Exam: Soft. absent: Tenderness Assessment and Plan - Assessment and Plan (Free Text) Plan: Assessment consider severe sepsis with ventilator-dependent respiratory failure R/O due to left-sided HCAP, consider E. 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
--- NOTE | 2017-07-08 10:45 | CP.PCM.PN ---
Subjective - Date & Time of Evaluation Date of Evaluation: 07/08/17 Time of Evaluation: 08:00 - Subjective Subjective: Pt remains intubated, off sedation, with poor mental status. MRI brain noted. Objective - Vital Signs/Intake and Output Vital Signs (last 24 hours): Temp Pulse Resp BP Pulse Ox 99.5 F 80 16 121/52 L 97 07/08/17 07:40 07/08/17 10:41 07/07/17 10:10 07/08/17 10:41 07/08/17 07:40 Intake and Output: 07/08/17 07/08/17 06:59 18:59 Intake Total 1000 Output Total 0 Balance 1000 - Medications Medications: Current Medications Artificial Tears (Artificial Tears Opht Oint) 0 gm OU Q8H PRN PRN Reason: Dry eyes Last Admin: 07/06/17 18:51 Dose: 1 gel Artificial Tears (Artificial Tears) 0 ml OU BID [facility] Last Admin: 07/08/17 10:15 Dose: 2 drop Aspirin (Aspirin Chewable) 81 mg GT DAILY [facility] Last Admin: 07/08/17 10:15 Dose: 81 mg Atorvastatin Calcium (Lipitor) 40 mg GT DIN [facility] Last Admin: 07/07/17 17:26 Dose: 40 mg Calcium Acetate (Phoslo) 2,001 mg PO Q8H [facility] Last Admin: 07/08/17 07:00 Dose: 2,001 mg Carvedilol (Coreg) 6.25 mg PO BID [facility] Last Admin: 07/08/17 10:41 Dose: 6.25 mg Chlorhexidine Gluconate (Peridex) 15 ml PO BID [facility] Last Admin: 07/08/17 10:17 Dose: 15 ml Hydralazine HCl (Apresoline) 10 mg NG Q8 [facility] Last Admin: 07/08/17 06:56 Dose: 10 mg Meropenem 500 mg/ Sodium (Chloride) 100 mls @ 100 mls/hr IVPB DAILY [facility] PRN Reason: Protocol Last Admin: 07/08/17 10:16 Dose: 100 mls/hr Vancomycin HCl (Vancomycin 1gm) 1 gm in 250 mls @ 167 mls/hr IVPB ONCE ONE PRN Reason: Protocol Stop: 07/08/17 11:27 Last Admin: 07/08/17 10:38 Dose: 167 mls/hr Isosorbide Mononitrate (Imdur) 60 mg PO DAILY [facility] Last Admin: 07/08/17 10:16 Dose: 60 mg Pantoprazole Sodium (Protonix Inj) 40 mg IVP DAILY [facility] Last Admin: 07/08/17 10:17 Dose: 40 mg - Labs Labs: 07/08/17 07:30 07/08/17 07:30 PT 18.5 SECONDS (9.4-12.5) H 07/07/17 08:40 INR 1.66 (0.93-1.08) H 07/07/17 08:40 APTT 34.9 Seconds (25.1-36.5) 07/06/17 17:00 - Constitutional Appears: Well, No Acute Distress - Eye Exam Eye Exam: Normal appearance - Respiratory Exam Respiratory Exam: Clear to Ausculation Bilateral, NORMAL BREATHING PATTERN - Cardiovascular Exam Cardiovascular Exam: REGULAR RHYTHM, +S1, +S2 - GI/Abdominal Exam GI & Abdominal Exam: Soft, Normal Bowel Sounds - Extremities Exam Additional comments: L AKA - Neurological Exam Additional comments: altered, does not follow commands Assessment and Plan - Assessment and Plan (Free Text) Assessment: 66yo female a/w shock now resolved Shock, resolved ESRD on HD CVA Met Acidosis, resolved Respiratory failure Thrombocytopenia Recommend: - cont with ventilatory support, PRVC adequate oxygenation - broad spectrum IV Abx as per ID - ID follow up - start Hydralazine, Nitrates for afterload/preload reduction - Lopressor - HD as per renal - follow up cardiology - follow up renal - follow up neurology, new CVA - monitor platelets, and for bleeding - thrombocytopenia, consider DC Zyvox and a hematology consult - follow up palliative care - needs trach - Ltach - GI ppx - DVT ppx, SCDs
--- NOTE | 2017-07-08 14:23 | PN ---
DATE: 07/08/2017 COVERING DOCTOR: Henri Guillen MD REASON FOR CONSULTATION: Cardiomyopathy, end-stage renal disease on dialysis, intubated and respiratory failure. SUBJECTIVE: The patient remains intubated, not responding to verbal stimuli. OBJECTIVE/PHYSICAL EXAMINATION: GENERAL: Not in apparent distress, on vent, but not responding to verbal stimuli. VITAL SIGNS: Temperature of 99.5, heart rate of 84, and blood pressure of 126/60. HEENT: PERRLA. Extraocular muscles are intact. NECK: Supple. No carotid bruits or thyromegaly. LUNGS: Clear to auscultation. HEART: S1 and S2 regular. ABDOMEN: Soft. EXTREMITIES: Clubbing and cyanosis negative. LABORATORY DATA: WBC of 8.4, hemoglobin of 10, hematocrit of 33.1, and platelet count of 53. Chemistry shows sodium of 133, potassium of 3.3, chloride of 99, carbon dioxide of 27, anion gap of 17, BUN of 39, and creatinine of 6. AST of 355 and ALT of 295. Total protein of 5.4 and albumin of 2.3. IMPRESSION: End stage renal disease on dialysis, protein calorie malnutrition severe, which was not present on admission, dilated cardiomyopathy, possible cerebrovascular accident, stroke, paroxysmal atrial fibrillation now the patient converted to normal sinus with decreased left ventricular function. RECOMMENDATIONS: Continue low dose inotropes, started NG feeding yesterday, and monitor electrolyte closely. We will start Nepro 30 mL, increase to 50 mL and gentle hydration. We will change Lopressor to p.o., now since the patient has NG tube, to maintain in sinus rhythm. Continue atorvastatin and continue aggressive medical treatment. If the patient mentation does not improve consider tracheostomy and PEG, discussed with associate director of biostatistics taking care of the patient. Continue broad spectrum antibiotic. I will put Coreg 6.25 mg twice a day. Wean off Dobutrex. We will transfer care tomorrow to Dr. Henri Guillen. Adelina Ray MD
--- NOTE | 2017-07-08 22:17 | CP.PCM.PN ---
Subjective - Date & Time of Evaluation Date of Evaluation: 07/08/17 Time of Evaluation: 10:00 - Subjective Subjective: Patient with spontaneous eye movement per nursing staff, otherwise no purposeful movements; Objective - Vital Signs/Intake and Output Vital Signs (last 24 hours): Temp Pulse Resp BP Pulse Ox 100.6 F H 72 14 100/52 L 100 07/08/17 19:50 07/08/17 22:05 07/08/17 19:30 07/08/17 22:05 07/08/17 22:05 Intake and Output: 07/08/17 07/09/17 18:59 06:59 Intake Total 1150 Output Total 0 Balance 1150 - Medications Medications: Current Medications Artificial Tears (Artificial Tears Opht Oint) 0 gm OU Q8H PRN PRN Reason: Dry eyes Last Admin: 07/06/17 18:51 Dose: 1 gel Artificial Tears (Artificial Tears) 0 ml OU BID [facility] Last Admin: 07/08/17 17:14 Dose: 2 drop Aspirin (Aspirin Chewable) 81 mg GT DAILY [facility] Last Admin: 07/08/17 10:15 Dose: 81 mg Atorvastatin Calcium (Lipitor) 40 mg GT DIN [facility] Last Admin: 07/08/17 17:17 Dose: 40 mg Calcium Acetate (Phoslo) 2,001 mg PO Q8H [facility] Last Admin: 07/08/17 21:20 Dose: 2,001 mg Carvedilol (Coreg) 6.25 mg PO BID [facility] Last Admin: 07/08/17 17:14 Dose: Not Given Chlorhexidine Gluconate (Peridex) 15 ml PO BID [facility] Last Admin: 07/08/17 17:15 Dose: 15 ml Hydralazine HCl (Apresoline) 10 mg NG Q8 [facility] Last Admin: 07/08/17 21:20 Dose: Not Given Meropenem 500 mg/ Sodium (Chloride) 100 mls @ 100 mls/hr IVPB DAILY [facility] PRN Reason: Protocol Last Admin: 07/08/17 10:16 Dose: 100 mls/hr Isosorbide Mononitrate (Imdur) 60 mg PO DAILY [facility] Last Admin: 07/08/17 10:16 Dose: 60 mg Pantoprazole Sodium (Protonix Inj) 40 mg IVP DAILY [facility] Last Admin: 07/08/17 10:17 Dose: 40 mg - Labs Labs: 07/08/17 07:30 07/08/17 07:30 PT 18.5 SECONDS (9.4-12.5) H 07/07/17 08:40 INR 1.66 (0.93-1.08) H 07/07/17 08:40 APTT 34.9 Seconds (25.1-36.5) 07/06/17 17:00 - Constitutional Appears: Non-toxic, In Acute Distress - Head Exam Head Exam: NORMOCEPHALIC - Eye Exam Eye Exam: absent: Scleral icterus - ENT Exam ENT Exam: Mucous Membranes Moist - Respiratory Exam Respiratory Exam: Clear to Ausculation Bilateral. absent: Respiratory Distress - Cardiovascular Exam Cardiovascular Exam: RRR, +S1, +S2 - GI/Abdominal Exam GI & Abdominal Exam: Soft. absent: Distended, Tenderness - Extremities Exam Additional comments: mild/moderate leg edema; - Skin Skin Exam: Warm. absent: Cyanosis Assessment and Plan (1) End stage renal disease Assessment & Plan: Relatively stable electrolyte and volume status; no urgent need for HD today, next session for tomorrow per routine; will seek to obtain another fistulogram/ angioplasty for persistent cephalic vein stenosis that is causing difficulty with cannulating AVF; Status: Chronic (2) Shock Assessment & Plan: Cardiogenic shock suspected in the setting of Afib w/ RVR, improved after cardioversion; on linezolid and meropenem, suggested to ID to change to vanco in the setting of thrombocytopenia as well as easier administration (after each HD session); Status: Resolved (3) Hypertensive CKD, ESRD on dialysis Assessment & Plan: BP stable; currently started on hydralazine and imdur for afterload reduction as well as coreg; continue same; consider adding SANDRA blockade for severe systolic dysfunction; Status: Acute (4) Anemia Assessment & Plan: Hgb just at goal; will continue aranesp 100 mcg weekly; Status: Acute (5) Congestive heart failure (CHF) Assessment & Plan: See above; stable FIO2 requirement; may benefit from SANDRA blockade; Status: Acute
--- NOTE | 2017-07-08 23:06 | PN ---
SUBJECTIVE: I saw Orly De La Cruz in the Intensive Care Unit. She is still on the ventilator. She is currently on Apresoline, Artificial Tears, aspirin, Coreg, Imdur, Lipitor, Merrem IV, Peridex, PhosLo, Protonix. She is also on tube feedings. She has been seen by multiple physicians, Palliative Care, Renal, Infectious Disease, Cardiology, Pulmonology, Neurology. She is on Apresoline, Artificial Tears, chewable aspirin NG tube, Coreg, Imdur, Lipitor, Merrem, Peridex, PhosLo, potassium replacement, Protonix, vancomycin IV. She has tube feedings, and she has been woken up. Her son was present. I talked to her son at length about either would going to LTAC or possibly terminally extubating her and see how she does because I do not think she is going to improve secondary to the stroke and her multiple end-organ damage. PHYSICAL EXAMINATION: VITAL SIGNS: She has 99.5 temperature, 80 pulse, 121/52 blood pressure, and 97% on 50% ventilator. HEENT: Head is atraumatic, normocephalic. HEART: Regular rate. LUNGS: Decreased breath sounds bilaterally. ABDOMEN: Soft and obese. EXTREMITIES: Trace edema with left [id number] amputation. She has acute respiratory failure; she is with cerebrovascular accident; urinary tract infection; end-stage renal disease, on hemodialysis; sepsis; elevated enzymes; hypertension; congestive heart failure; and left [id number] amputation. I discussed this with her son who will talk to family at length, and he understands the situation that she is in. Not sure if they want to continue this. She has support lines and tubes in place for lung volumes and bilateral atelectasis on the chest x-ray, and MRI of the brain shows diffuse and patchy areas of restricted effusion and changes seen throughout both cerebral hemispheres as well as occipital and posterior temporoparietal artery safe zones bilaterally. Findings suggest ischemia along posterior cerebral artery territory distributions bilaterally, rule out sequelae of hypoperfusion, chronic white matter and periventricular ischemic changes. PLAN: My plan is to proceed how family wants to go with this. I discussed all situations and answered questions at length with her son. We will replace the potassium. She had an 8.4 white count, 10.1 hemoglobin, 32.1 hematocrit with 53 platelets. 1.66 of PTT. She has a 139 sodium, and potassium 3.3 which was replaced. BUN 39, creatinine 6, she is on dialysis. 161 of blood sugar. Calcium 7.7. AST is 355, ALT is 294, alkaline phosphatase is 136. Total protein is 5.4. She is in fairly critical condition. We will continue rest of treatment and care. Terrence Beverly DO MTDD
[2017-07-09 06:05] LABS: EOS # 0.1 (0.0-0.7); EOS % 1.5 % (1.5-5.0); GRAN # 6.42 (1.4-6.5); GRAN % 80.1 % (50.0-68.0); LYMPH % 12.3 % (22.0-35.0); MEAN CELL VOLUME 84.9 fl (80.0-105.0); MEAN CORPUSCULAR HEMOGLOBIN 26.3 pg (25.0-35.0); MONO # 0.5 (0.1-0.6); MONO % 6.1 % (1.0-6.0); RED CELL DISTRIBUTION WIDTH 17.1 % (11.5-14.5)
[2017-07-09 06:22] LABS: PLATELET COUNT 40 10^3/uL (120.0-450.0)
[2017-07-09 06:26] LABS: ARTERIAL BLOOD GAS HCO3 25.3 mmol/L (21-28); ARTERIAL BLOOD GAS O2 CAPACITY 12.8 mL/dl (16-24); ARTERIAL BLOOD GAS O2 CONTENT 12.7 ML/dl (15-23); ARTERIAL BLOOD GAS PH 7.52 (7.35-7.45); ARTERIAL BLOOD HGB O2 SAT 95.9 % (95.0-98.0); HHB 1.1 % (0-5); METHEMOGLOBIN 0.9 % (0.0-3.0)
[2017-07-09 07:00] LABS: ALB/GLOB RATIO 0.8 (1.1-1.8); BILIRUBIN,TOTAL 1.2 mg/dL (0.2-1.3); CALCIUM 7.3 mg/dL (8.4-10.5); MAGNESIUM 1.8 mg/dL (1.7-2.2); PHOSPHOROUS 3.9 mg/dL (2.5-4.5); POTASSIUM 3.2 mmol/L (3.6-5.0); TOTAL PROTEIN 5.2 g/dL (5.8-8.3)
--- NOTE | 2017-07-09 07:15 | CP.CCUPN ---
<Crescencio Abernathy - Last Filed: 07/09/17 10:23> CCU Subjective - Physician Review Subjective (Free Text): Critical Care Progress Note for Dr. Irving Patient seen ad examined at bedside. No acute event overnight. Intubated and on vent support 450, 5, 20, 50%. She is minimally responsive to noxious stimuli and opens eyes spontaneously on occasion. ROS unobtainable due to clinical condition. CCU Objective - Vital Signs / Intake & Output Vital Signs (Last 4 hours): Vital Signs Pulse BP Pulse Ox 07/09/17 04:10 72 100 07/09/17 04:05 71 118/46 L 100 07/09/17 04:00 71 100 07/09/17 03:50 78 100 07/09/17 03:40 72 100 07/09/17 03:30 73 100 07/09/17 03:20 71 100 Intake and Output (Last 8hrs): Intake & Output 07/08/17 07/09/17 07/09/17 22:59 06:59 14:59 Intake Total 1150 Output Total 0 Balance 1150 Intake: IV 350 Left Internal Jugular 350 Tube Feeding 800 Output: Urine 0 Urine, Voided 0 Other: # Bowel Movements 2 - Physical Exam Head: Positive for: Atraumatic, Normocephalic Pupils: Positive for: PERRL Extroacular Muscles: Positive for: EOMI Conjunctiva: Positive for: Normal Mouth: Positive for: Moist Mucous Membranes, Other (et tube in place) Neck: Positive for: Normal Range of Motion. Negative for: Meningeal Signs, MIDLINE TENDERNESS, Paraspinal Tenderness Respiratory/Chest: Positive for: Clear to Auscultation. Negative for: Accessory Muscle Use Cardiovascular: Positive for: Normal S1, S2, Tachycardic. Negative for: Murmurs Abdomen: Positive for: Distention (mild), Normal Bowel Sounds. Negative for: Tenderness, Peritoneal Signs Back: Positive for: Normal Inspection Upper Extremity: Positive for: Normal Inspection, NORMAL PULSES. Negative for: Cyanosis, Edema Lower Extremity: Positive for: NORMAL PULSES, Other (Left BKA). Negative for: Edema Neurological: Positive for: Other (intubated). Negative for: GCS=15 Skin: Positive for: Warm, Dry. Negative for: Rashes Psychiatric: Positive for: Other (intubated). Negative for: Alert, Oriented x 3 - Medications Active Medications: Active Medications Generic Name Dose Route Start Last Admin Trade Name Freq PRN Reason Stop Dose Admin Artificial Tears 0 gm 07/05/17 20:00 07/06/17 18:51 Artificial Tears Opht Oint OU 1 gel Q8H PRN Administration Dry eyes Artificial Tears 0 ml 07/06/17 18:00 07/08/17 17:14 Artificial Tears OU 2 drop BID MARCEL Administration Aspirin 81 mg 07/06/17 22:45 07/08/17 10:15 Aspirin Chewable GT 81 mg DAILY MARCEL Administration Atorvastatin Calcium 40 mg 07/07/17 09:29 07/08/17 17:17 Lipitor GT 40 mg DIN MARCEL Administration Calcium Acetate 2,001 mg 07/07/17 13:00 07/09/17 05:24 Phoslo PO 2,001 mg Q8H MARCEL Administration Carvedilol 6.25 mg 07/08/17 10:30 07/08/17 17:14 Coreg PO Not Given BID MARCEL Chlorhexidine Gluconate 15 ml 07/04/17 18:00 07/08/17 17:15 Peridex PO 15 ml BID MARCEL Administration Hydralazine HCl 10 mg 07/07/17 14:00 07/08/17 21:20 Apresoline NG Not Given Q8 MARCEL Meropenem 500 mg/ Sodium 100 mls @ 100 mls/hr 07/07/17 19:27 07/08/17 10:16 Chloride IVPB 100 mls/hr DAILY MARCEL Administration Protocol Isosorbide Mononitrate 60 mg 07/07/17 10:00 07/08/17 10:16 Imdur PO 60 mg DAILY MARCEL Administration Pantoprazole Sodium 40 mg 07/04/17 10:00 07/08/17 10:17 Protonix Inj IVP 40 mg DAILY MARCEL Administration - Patient Studies Lab Studies: Microbiology Studies 07/07/17 18:15 Ova and Parasite Concentrate Exam - Final Stool 07/05/17 20:45 Gram Stain - Final Trachasp Sputum Culture - Final NORMAL SAPROPHYTIC SHAY 07/07/17 08:40 Blood Culture - Preliminary Blood-Venous NO GROWTH AFTER 24 HOURS 07/07/17 09:20 Blood Culture - Preliminary Blood-Venous NO GROWTH AFTER 24 HOURS Lab Studies 07/09/17 07/09/17 07/09/17 Range/Units 06:23 05:50 05:50 WBC 8.0 (4.5-11.0) 10^3/ul RBC 3.65 (3.5-6.1) 10^6/uL Hgb 9.6 L (12.0-16.0) g/dL Hct 31.0 L (36.0-48.0) % MCV 84.9 (80.0-105.0) fl MCH 26.3 (25.0-35.0) pg MCHC 31.0 (31.0-37.0) g/dl RDW 17.1 H (11.5-14.5) % Plt Count 40 L* (120.0-450.0) 10^3/uL Gran % 80.1 H (50.0-68.0) % Lymph % (Auto) 12.3 L (22.0-35.0) % White % (Auto) 6.1 H (1.0-6.0) % Eos % (Auto) 1.5 (1.5-5.0) % Baso % (Auto) 0.0 (0.0-3.0) % Gran # 6.42 (1.4-6.5) Lymph # 1.0 L (1.2-3.4) White # 0.5 (0.1-0.6) Eos # 0.1 (0.0-0.7) Baso # 0.00 (0.0-2.0) K/mm3 Factor II Activity (70-150) % Factor V Activity (65-150) % pCO2 31 L (35-45) mm/Hg pO2 109.0 H (80-100) mm/Hg HCO3 25.3 (21-28) mmol/L ABG pH 7.52 H (7.35-7.45) ABG Total CO2 26.3 (22-28) mmol.L ABG O2 Saturation 98.9 H (95-98) % ABG O2 Content 12.7 L (15-23) ML/dl ABG Base Excess 2.6 (-2.0-3.0) mmol/L ABG Hemoglobin 9.3 L (11.7-17.4) g/dL ABG Carboxyhemoglobin 2.0 H (0.5-1.5) % POC ABG HHb (Measured) 1.1 (0-5) % ABG Methemoglobin 0.9 (0.0-3.0) % ABG O2 Capacity 12.8 L (16-24) mL/dl Hgb O2 Saturation 95.9 (95.0-98.0) % FiO2 50.0 % Sodium 140 (132-148) mmol/L Potassium 3.2 L (3.6-5.0) mmol/L Chloride 99 (98-107) mmol/L Carbon Dioxide 27 (21-33) mmol/L Anion Gap 17 (10-20) BUN 51 H (7-21) mg/dL Creatinine 6.6 H (0.7-1.2) mg/dl Est GFR ( Amer) 8 Est GFR (Non-Af Amer) 6 POC Glucose (mg/dL) (65-110) mg/dL Random Glucose 114 H (70-110) mg/dL Calcium 7.3 L (8.4-10.5) mg/dL Phosphorus 3.9 (2.5-4.5) mg/dL Magnesium 1.8 (1.7-2.2) mg/dL Total Bilirubin 1.2 (0.2-1.3) mg/dL AST 182 H D (14-36) U/L ALT 180 H (7-56) U/L Alkaline Phosphatase 145 H (38-126) U/L Total Protein 5.2 L (5.8-8.3) g/dL Albumin 2.4 L (3.0-4.8) g/dL Globulin 2.9 gm/dL Albumin/Globulin Ratio 0.8 L (1.1-1.8) 07/09/17 07/08/17 07/08/17 Range/Units 04:15 22:02 16:10 WBC (4.5-11.0) 10^3/ul RBC (3.5-6.1) 10^6/uL Hgb (12.0-16.0) g/dL Hct (36.0-48.0) % MCV (80.0-105.0) fl MCH (25.0-35.0) pg MCHC (31.0-37.0) g/dl RDW (11.5-14.5) % Plt Count (120.0-450.0) 10^3/uL Gran % (50.0-68.0) % Lymph % (Auto) (22.0-35.0) % White % (Auto) (1.0-6.0) % Eos % (Auto) (1.5-5.0) % Baso % (Auto) (0.0-3.0) % Gran # (1.4-6.5) Lymph # (1.2-3.4) White # (0.1-0.6) Eos # (0.0-0.7) Baso # (0.0-2.0) K/mm3 Factor II Activity (70-150) % Factor V Activity (65-150) % pCO2 (35-45) mm/Hg pO2 (80-100) mm/Hg HCO3 (21-28) mmol/L ABG pH (7.35-7.45) ABG Total CO2 (22-28) mmol.L ABG O2 Saturation (95-98) % ABG O2 Content (15-23) ML/dl ABG Base Excess (-2.0-3.0) mmol/L ABG Hemoglobin (11.7-17.4) g/dL ABG Carboxyhemoglobin (0.5-1.5) % POC ABG HHb (Measured) (0-5) % ABG Methemoglobin (0.0-3.0) % ABG O2 Capacity (16-24) mL/dl Hgb O2 Saturation (95.0-98.0) % FiO2 % Sodium (132-148) mmol/L Potassium (3.6-5.0) mmol/L Chloride (98-107) mmol/L Carbon Dioxide (21-33) mmol/L Anion Gap (10-20) BUN (7-21) mg/dL Creatinine (0.7-1.2) mg/dl Est GFR ( Amer) Est GFR (Non-Af Amer) POC Glucose (mg/dL) 119 H 146 H 218 H (65-110) mg/dL Random Glucose (70-110) mg/dL Calcium (8.4-10.5) mg/dL Phosphorus (2.5-4.5) mg/dL Magnesium (1.7-2.2) mg/dL Total Bilirubin (0.2-1.3) mg/dL AST (14-36) U/L ALT (7-56) U/L Alkaline Phosphatase (38-126) U/L Total Protein (5.8-8.3) g/dL Albumin (3.0-4.8) g/dL Globulin gm/dL Albumin/Globulin Ratio (1.1-1.8) 07/08/17 07/08/17 07/08/17 Range/Units 07:33 07:30 07:30 WBC 8.4 (4.5-11.0) 10^3/ul RBC 3.88 (3.5-6.1) 10^6/uL Hgb 10.1 L (12.0-16.0) g/dL Hct 33.1 L (36.0-48.0) % MCV 85.3 (80.0-105.0) fl MCH 26.0 (25.0-35.0) pg MCHC 30.5 L (31.0-37.0) g/dl RDW 17.0 H (11.5-14.5) % Plt Count 53 L (120.0-450.0) 10^3/uL Gran % 82.9 H (50.0-68.0) % Lymph % (Auto) 11.1 L (22.0-35.0) % White % (Auto) 5.2 (1.0-6.0) % Eos % (Auto) 0.8 L (1.5-5.0) % Baso % (Auto) 0.0 (0.0-3.0) % Gran # 6.99 H (1.4-6.5) Lymph # 0.9 L (1.2-3.4) White # 0.4 (0.1-0.6) Eos # 0.1 (0.0-0.7) Baso # 0.00 (0.0-2.0) K/mm3 Factor II Activity (70-150) % Factor V Activity (65-150) % pCO2 (35-45) mm/Hg pO2 (80-100) mm/Hg HCO3 (21-28) mmol/L ABG pH (7.35-7.45) ABG Total CO2 (22-28) mmol.L ABG O2 Saturation (95-98) % ABG O2 Content (15-23) ML/dl ABG Base Excess (-2.0-3.0) mmol/L ABG Hemoglobin (11.7-17.4) g/dL ABG Carboxyhemoglobin (0.5-1.5) % POC ABG HHb (Measured) (0-5) % ABG Methemoglobin (0.0-3.0) % ABG O2 Capacity (16-24) mL/dl Hgb O2 Saturation (95.0-98.0) % FiO2 % Sodium 139 (132-148) mmol/L Potassium 3.3 L (3.6-5.0) mmol/L Chloride 99 (98-107) mmol/L Carbon Dioxide 27 (21-33) mmol/L Anion Gap 17 (10-20) BUN 39 H (7-21) mg/dL Creatinine 6.0 H (0.7-1.2) mg/dl Est GFR ( Amer) 9 Est GFR (Non-Af Amer) 7 POC Glucose (mg/dL) 164 H (65-110) mg/dL Random Glucose 161 H (70-110) mg/dL Calcium 7.7 L (8.4-10.5) mg/dL Phosphorus (2.5-4.5) mg/dL Magnesium (1.7-2.2) mg/dL Total Bilirubin 1.3 (0.2-1.3) mg/dL AST 355 H D (14-36) U/L ALT 294 H (7-56) U/L Alkaline Phosphatase 136 H (38-126) U/L Total Protein 5.4 L (5.8-8.3) g/dL Albumin 2.3 L (3.0-4.8) g/dL Globulin 3.1 gm/dL Albumin/Globulin Ratio 0.8 L (1.1-1.8) 07/08/17 07/05/17 07/05/17 Range/Units 04:04 18:53 18:53 WBC (4.5-11.0) 10^3/ul RBC (3.5-6.1) 10^6/uL Hgb (12.0-16.0) g/dL Hct (36.0-48.0) % MCV (80.0-105.0) fl MCH (25.0-35.0) pg MCHC (31.0-37.0) g/dl RDW (11.5-14.5) % Plt Count (120.0-450.0) 10^3/uL Gran % (50.0-68.0) % Lymph % (Auto) (22.0-35.0) % White % (Auto) (1.0-6.0) % Eos % (Auto) (1.5-5.0) % Baso % (Auto) (0.0-3.0) % Gran # (1.4-6.5) Lymph # (1.2-3.4) White # (0.1-0.6) Eos # (0.0-0.7) Baso # (0.0-2.0) K/mm3 Factor II Activity 32 L (70-150) % Factor V Activity 18 L (65-150) % pCO2 (35-45) mm/Hg pO2 (80-100) mm/Hg HCO3 (21-28) mmol/L ABG pH (7.35-7.45) ABG Total CO2 (22-28) mmol.L ABG O2 Saturation (95-98) % ABG O2 Content (15-23) ML/dl ABG Base Excess (-2.0-3.0) mmol/L ABG Hemoglobin (11.7-17.4) g/dL ABG Carboxyhemoglobin (0.5-1.5) % POC ABG HHb (Measured) (0-5) % ABG Methemoglobin (0.0-3.0) % ABG O2 Capacity (16-24) mL/dl Hgb O2 Saturation (95.0-98.0) % FiO2 % Sodium (132-148) mmol/L Potassium (3.6-5.0) mmol/L Chloride (98-107) mmol/L Carbon Dioxide (21-33) mmol/L Anion Gap (10-20) BUN (7-21) mg/dL Creatinine (0.7-1.2) mg/dl Est GFR ( Amer) Est GFR (Non-Af Amer) POC Glucose (mg/dL) 166 H (65-110) mg/dL Random Glucose (70-110) mg/dL Calcium (8.4-10.5) mg/dL Phosphorus (2.5-4.5) mg/dL Magnesium (1.7-2.2) mg/dL Total Bilirubin (0.2-1.3) mg/dL AST (14-36) U/L ALT (7-56) U/L Alkaline Phosphatase (38-126) U/L Total Protein (5.8-8.3) g/dL Albumin (3.0-4.8) g/dL Globulin gm/dL Albumin/Globulin Ratio (1.1-1.8) Laboratory Results - last 24 hr 07/05/17 07/05/17 07/08/17 18:53 18:53 04:04 WBC RBC Hgb Hct MCV MCH MCHC RDW Plt Count Gran % Lymph % (Auto) White % (Auto) Eos % (Auto) Baso % (Auto) Gran # Lymph # White # Eos # Baso # Factor II Activity 32 L Factor V Activity 18 L pCO2 pO2 HCO3 ABG pH ABG Total CO2 ABG O2 Saturation ABG O2 Content ABG Base Excess ABG Hemoglobin ABG Carboxyhemoglobin POC ABG HHb (Measured) ABG Methemoglobin ABG O2 Capacity Hgb O2 Saturation FiO2 Sodium Potassium Chloride Carbon Dioxide Anion Gap BUN Creatinine Est GFR ( Amer) Est GFR (Non-Af Amer) POC Glucose (mg/dL) 166 H Random Glucose Calcium Phosphorus Magnesium Total Bilirubin AST ALT Alkaline Phosphatase Total Protein Albumin Globulin Albumin/Globulin Ratio 07/08/17 07/08/17 07/08/17 07:30 07:30 07:33 WBC 8.4 RBC 3.88 Hgb 10.1 L Hct 33.1 L MCV 85.3 MCH 26.0 MCHC 30.5 L RDW 17.0 H Plt Count 53 L Gran % 82.9 H Lymph % (Auto) 11.1 L White % (Auto) 5.2 Eos % (Auto) 0.8 L Baso % (Auto) 0.0 Gran # 6.99 H Lymph # 0.9 L White # 0.4 Eos # 0.1 Baso # 0.00 Factor II Activity Factor V Activity pCO2 pO2 HCO3 ABG pH ABG Total CO2 ABG O2 Saturation ABG O2 Content ABG Base Excess ABG Hemoglobin ABG Carboxyhemoglobin POC ABG HHb (Measured) ABG Methemoglobin ABG O2 Capacity Hgb O2 Saturation FiO2 Sodium 139 Potassium 3.3 L Chloride 99 Carbon Dioxide 27 Anion Gap 17 BUN 39 H Creatinine 6.0 H Est GFR ( Amer) 9 Est GFR (Non-Af Amer) 7 POC Glucose (mg/dL) 164 H Random Glucose 161 H Calcium 7.7 L Phosphorus Magnesium Total Bilirubin 1.3 AST 355 H D ALT 294 H Alkaline Phosphatase 136 H Total Protein 5.4 L Albumin 2.3 L Globulin 3.1 Albumin/Globulin Ratio 0.8 L 07/08/17 07/08/17 07/09/17 16:10 22:02 04:15 WBC RBC Hgb Hct MCV MCH MCHC RDW Plt Count Gran % Lymph % (Auto) White % (Auto) Eos % (Auto) Baso % (Auto) Gran # Lymph # White # Eos # Baso # Factor II Activity Factor V Activity pCO2 pO2 HCO3 ABG pH ABG Total CO2 ABG O2 Saturation ABG O2 Content ABG Base Excess ABG Hemoglobin ABG Carboxyhemoglobin POC ABG HHb (Measured) ABG Methemoglobin ABG O2 Capacity Hgb O2 Saturation FiO2 Sodium Potassium Chloride Carbon Dioxide Anion Gap BUN Creatinine Est GFR ( Amer) Est GFR (Non-Af Amer) POC Glucose (mg/dL) 218 H 146 H 119 H Random Glucose Calcium Phosphorus Magnesium Total Bilirubin AST ALT Alkaline Phosphatase Total Protein Albumin Globulin Albumin/Globulin Ratio 07/09/17 07/09/17 07/09/17 05:50 05:50 06:23 WBC 8.0 RBC 3.65 Hgb 9.6 L Hct 31.0 L MCV 84.9 MCH 26.3 MCHC 31.0 RDW 17.1 H Plt Count 40 L* Gran % 80.1 H Lymph % (Auto) 12.3 L White % (Auto) 6.1 H Eos % (Auto) 1.5 Baso % (Auto) 0.0 Gran # 6.42 Lymph # 1.0 L White # 0.5 Eos # 0.1 Baso # 0.00 Factor II Activity Factor V Activity pCO2 31 L pO2 109.0 H HCO3 25.3 ABG pH 7.52 H ABG Total CO2 26.3 ABG O2 Saturation 98.9 H ABG O2 Content 12.7 L ABG Base Excess 2.6 ABG Hemoglobin 9.3 L ABG Carboxyhemoglobin 2.0 H POC ABG HHb (Measured) 1.1 ABG Methemoglobin 0.9 ABG O2 Capacity 12.8 L Hgb O2 Saturation 95.9 FiO2 50.0 Sodium 140 Potassium 3.2 L Chloride 99 Carbon Dioxide 27 Anion Gap 17 BUN 51 H Creatinine 6.6 H Est GFR ( Amer) 8 Est GFR (Non-Af Amer) 6 POC Glucose (mg/dL) Random Glucose 114 H Calcium 7.3 L Phosphorus 3.9 Magnesium 1.8 Total Bilirubin 1.2 AST 182 H D ALT 180 H Alkaline Phosphatase 145 H Total Protein 5.2 L Albumin 2.4 L Globulin 2.9 Albumin/Globulin Ratio 0.8 L Fingerstick Blood Sugar Results: 146 Assessment/Plan - Assessment and Plan (Free Text) Plan: 66 F with a PMH of ESRD on HD, HTN, CHF, afib RVR who is intubated with resolved cardiogenic shock likely secondary to low EF and afib RVR, CVA, Respiratory failure, and Thrombocytopeni Neuro: intubated, maintain normothermia, unable to answer questions, minimally responsive to noxious stimuli and opens eyes spontaneously on occasion, f/u neurology Pulm: intubated and on PRVC vent support, Maintain SaO2 > 90%, keep head of bed elevated at 30 degrees, Will need tracheostomy Cardio: regular rhythm, normotensive, Coreg for rate control, Hydralazine/ Nitrates for afterload/preload reductionl, Maintain MAP > 65 GI: Protonix for ppx, Continue tube feeds, f/u GI recommendations Renal: Monitor electrolytes, Dialysis MWF, f/u Nephrology recommendations Endo: Maintain euglycemia 140-180 Heme: SCD for DVT ppx, Monitor Platelets - 40 today ID: Continue IV antibiotics as per ID Consider LTAC and follow up with palliative care <Obi Irving - Last Filed: 07/09/17 12:02> CCU Objective - Vital Signs / Intake & Output Vital Signs (Last 4 hours): Vital Signs Pulse Resp BP Pulse Ox 07/09/17 11:26 78 20 07/09/17 11:25 77 21 07/09/17 11:24 70 21 07/09/17 11:23 71 20 07/09/17 11:22 71 20 07/09/17 11:21 72 20 07/09/17 11:20 71 20 07/09/17 11:19 73 20 07/09/17 11:18 71 20 07/09/17 11:17 73 20 07/09/17 11:16 72 20 07/09/17 11:15 73 20 07/09/17 11:10 85 20 94 L 07/09/17 11:08 85 20 07/09/17 11:06 86 20 07/09/17 11:05 85 20 112/40 L 90 L 07/09/17 11:01 86 20 07/09/17 11:00 85 20 93 L 07/09/17 10:50 78 21 86 L 07/09/17 10:40 76 20 95 07/09/17 10:30 77 20 93 L 07/09/17 10:20 73 20 100 07/09/17 10:10 75 20 100 07/09/17 10:05 73 20 107/43 L 100 07/09/17 10:00 78 20 100 07/09/17 09:50 81 68 H 78 L 07/09/17 09:40 78 94 L 07/09/17 09:35 75 110/59 L 07/09/17 09:30 80 95 07/09/17 09:20 75 98 07/09/17 09:10 73 4 L 98 07/09/17 09:05 73 110/59 L 97 07/09/17 09:00 74 98 07/09/17 08:50 74 99 07/09/17 08:40 76 20 100 07/09/17 08:30 70 100 07/09/17 08:20 71 100 07/09/17 08:10 71 100 07/09/17 08:05 71 106/56 L 100 Intake and Output (Last 8hrs): Intake & Output 07/08/17 07/09/17 07/09/17 22:59 06:59 14:59 Intake Total 1150 Output Total 0 Balance 1150 Weight 210 lb 8.663 oz Intake: IV 350 Left Internal Jugular 350 Tube Feeding 800 Output: Urine 0 Urine, Voided 0 Other: # Bowel Movements 2 - Medications Active Medications: Active Medications Generic Name Dose Route Start Last Admin Trade Name Freq PRN Reason Stop Dose Admin Artificial Tears 0 gm 07/05/17 20:00 07/06/17 18:51 Artificial Tears Opht Oint OU 1 gel Q8H PRN Administration Dry eyes Artificial Tears 0 ml 07/06/17 18:00 07/09/17 09:36 Artificial Tears OU 2 drop BID MARCEL Administration Aspirin 81 mg 07/06/17 22:45 07/09/17 09:35 Aspirin Chewable GT 81 mg DAILY MARCEL Administration Atorvastatin Calcium 40 mg 07/07/17 09:29 07/08/17 17:17 Lipitor GT 40 mg DIN MARCEL Administration Calcium Acetate 2,001 mg 07/07/17 13:00 07/09/17 05:24 Phoslo PO 2,001 mg Q8H MARCEL Administration Carvedilol 6.25 mg 07/08/17 10:30 07/09/17 09:35 Coreg PO 6.25 mg BID MARCEL Administration Chlorhexidine Gluconate 15 ml 07/04/17 18:00 07/09/17 10:00 Peridex PO 15 ml BID MARCEL Administration Hydralazine HCl 10 mg 07/07/17 14:00 07/08/17 21:20 Apresoline NG Not Given Q8 MARCEL Meropenem 500 mg/ Sodium 100 mls @ 100 mls/hr 07/07/17 19:27 07/09/17 09:42 Chloride IVPB 100 mls/hr DAILY MARCEL Administration Protocol Isosorbide Mononitrate 60 mg 07/07/17 10:00 07/09/17 09:35 Imdur PO 60 mg DAILY MARCEL Administration Pantoprazole Sodium 40 mg 07/04/17 10:00 07/08/17 10:17 Protonix Inj IVP 40 mg DAILY MARCEL Administration - Patient Studies Lab Studies: Microbiology Studies 07/07/17 08:40 Blood Culture - Preliminary Blood-Venous NO GROWTH AFTER 48 HOURS 07/07/17 09:20 Blood Culture - Preliminary Blood-Venous NO GROWTH AFTER 48 HOURS 07/07/17 18:15 Ova and Parasite Concentrate Exam - Final Stool 07/05/17 20:45 Gram Stain - Final Trachasp Sputum Culture - Final NORMAL SAPROPHYTIC SHAY Lab Studies 07/09/17 07/09/17 07/09/17 Range/Units 11:15 06:23 05:50 WBC (4.5-11.0) 10^3/ul RBC (3.5-6.1) 10^6/uL Hgb (12.0-16.0) g/dL Hct (36.0-48.0) % MCV (80.0-105.0) fl MCH (25.0-35.0) pg MCHC (31.0-37.0) g/dl RDW (11.5-14.5) % Plt Count (120.0-450.0) 10^3/uL Gran % (50.0-68.0) % Lymph % (Auto) (22.0-35.0) % White % (Auto) (1.0-6.0) % Eos % (Auto) (1.5-5.0) % Baso % (Auto) (0.0-3.0) % Gran # (1.4-6.5) Lymph # (1.2-3.4) White # (0.1-0.6) Eos # (0.0-0.7) Baso # (0.0-2.0) K/mm3 Factor II Activity (70-150) % Factor V Activity (65-150) % pCO2 31 L (35-45) mm/Hg pO2 109.0 H (80-100) mm/Hg HCO3 25.3 (21-28) mmol/L ABG pH 7.52 H (7.35-7.45) ABG Total CO2 26.3 (22-28) mmol.L ABG O2 Saturation 98.9 H (95-98) % ABG O2 Content 12.7 L (15-23) ML/dl ABG Base Excess 2.6 (-2.0-3.0) mmol/L ABG Hemoglobin 9.3 L (11.7-17.4) g/dL ABG Carboxyhemoglobin 2.0 H (0.5-1.5) % POC ABG HHb (Measured) 1.1 (0-5) % ABG Methemoglobin 0.9 (0.0-3.0) % ABG O2 Capacity 12.8 L (16-24) mL/dl Hgb O2 Saturation 95.9 (95.0-98.0) % FiO2 50.0 % Sodium 140 (132-148) mmol/L Potassium 3.2 L (3.6-5.0) mmol/L Chloride 99 (98-107) mmol/L Carbon Dioxide 27 (21-33) mmol/L Anion Gap 17 (10-20) BUN 51 H (7-21) mg/dL Creatinine 6.6 H (0.7-1.2) mg/dl Est GFR ( Amer) 8 Est GFR (Non-Af Amer) 6 POC Glucose (mg/dL) 134 H (65-110) mg/dL Random Glucose 114 H (70-110) mg/dL Calcium 7.3 L (8.4-10.5) mg/dL Phosphorus 3.9 (2.5-4.5) mg/dL Magnesium 1.8 (1.7-2.2) mg/dL Total Bilirubin 1.2 (0.2-1.3) mg/dL AST 182 H D (14-36) U/L ALT 180 H (7-56) U/L Alkaline Phosphatase 145 H (38-126) U/L Total Protein 5.2 L (5.8-8.3) g/dL Albumin 2.4 L (3.0-4.8) g/dL Globulin 2.9 gm/dL Albumin/Globulin Ratio 0.8 L (1.1-1.8) 07/09/17 07/09/17 07/08/17 Range/Units 05:50 04:15 22:02 WBC 8.0 (4.5-11.0) 10^3/ul RBC 3.65 (3.5-6.1) 10^6/uL Hgb 9.6 L (12.0-16.0) g/dL Hct 31.0 L (36.0-48.0) % MCV 84.9 (80.0-105.0) fl MCH 26.3 (25.0-35.0) pg MCHC 31.0 (31.0-37.0) g/dl RDW 17.1 H (11.5-14.5) % Plt Count 40 L* (120.0-450.0) 10^3/uL Gran % 80.1 H (50.0-68.0) % Lymph % (Auto) 12.3 L (22.0-35.0) % White % (Auto) 6.1 H (1.0-6.0) % Eos % (Auto) 1.5 (1.5-5.0) % Baso % (Auto) 0.0 (0.0-3.0) % Gran # 6.42 (1.4-6.5) Lymph # 1.0 L (1.2-3.4) White # 0.5 (0.1-0.6) Eos # 0.1 (0.0-0.7) Baso # 0.00 (0.0-2.0) K/mm3 Factor II Activity (70-150) % Factor V Activity (65-150) % pCO2 (35-45) mm/Hg pO2 (80-100) mm/Hg HCO3 (21-28) mmol/L ABG pH (7.35-7.45) ABG Total CO2 (22-28) mmol.L ABG O2 Saturation (95-98) % ABG O2 Content (15-23) ML/dl ABG Base Excess (-2.0-3.0) mmol/L ABG Hemoglobin (11.7-17.4) g/dL ABG Carboxyhemoglobin (0.5-1.5) % POC ABG HHb (Measured) (0-5) % ABG Methemoglobin (0.0-3.0) % ABG O2 Capacity (16-24) mL/dl Hgb O2 Saturation (95.0-98.0) % FiO2 % Sodium (132-148) mmol/L Potassium (3.6-5.0) mmol/L Chloride (98-107) mmol/L Carbon Dioxide (21-33) mmol/L Anion Gap (10-20) BUN (7-21) mg/dL Creatinine (0.7-1.2) mg/dl Est GFR ( Amer) Est GFR (Non-Af Amer) POC Glucose (mg/dL) 119 H 146 H (65-110) mg/dL Random Glucose (70-110) mg/dL Calcium (8.4-10.5) mg/dL Phosphorus (2.5-4.5) mg/dL Magnesium (1.7-2.2) mg/dL Total Bilirubin (0.2-1.3) mg/dL AST (14-36) U/L ALT (7-56) U/L Alkaline Phosphatase (38-126) U/L Total Protein (5.8-8.3) g/dL Albumin (3.0-4.8) g/dL Globulin gm/dL Albumin/Globulin Ratio (1.1-1.8) 07/08/17 07/05/17 07/05/17 Range/Units 16:10 18:53 18:53 WBC (4.5-11.0) 10^3/ul RBC (3.5-6.1) 10^6/uL Hgb (12.0-16.0) g/dL Hct (36.0-48.0) % MCV (80.0-105.0) fl MCH (25.0-35.0) pg MCHC (31.0-37.0) g/dl RDW (11.5-14.5) % Plt Count (120.0-450.0) 10^3/uL Gran % (50.0-68.0) % Lymph % (Auto) (22.0-35.0) % White % (Auto) (1.0-6.0) % Eos % (Auto) (1.5-5.0) % Baso % (Auto) (0.0-3.0) % Gran # (1.4-6.5) Lymph # (1.2-3.4) White # (0.1-0.6) Eos # (0.0-0.7) Baso # (0.0-2.0) K/mm3 Factor II Activity 32 L (70-150) % Factor V Activity 18 L (65-150) % pCO2 (35-45) mm/Hg pO2 (80-100) mm/Hg HCO3 (21-28) mmol/L ABG pH (7.35-7.45) ABG Total CO2 (22-28) mmol.L ABG O2 Saturation (95-98) % ABG O2 Content (15-23) ML/dl ABG Base Excess (-2.0-3.0) mmol/L ABG Hemoglobin (11.7-17.4) g/dL ABG Carboxyhemoglobin (0.5-1.5) % POC ABG HHb (Measured) (0-5) % ABG Methemoglobin (0.0-3.0) % ABG O2 Capacity (16-24) mL/dl Hgb O2 Saturation (95.0-98.0) % FiO2 % Sodium (132-148) mmol/L Potassium (3.6-5.0) mmol/L Chloride (98-107) mmol/L Carbon Dioxide (21-33) mmol/L Anion Gap (10-20) BUN (7-21) mg/dL Creatinine (0.7-1.2) mg/dl Est GFR ( Amer) Est GFR (Non-Af Amer) POC Glucose (mg/dL) 218 H (65-110) mg/dL Random Glucose (70-110) mg/dL Calcium (8.4-10.5) mg/dL Phosphorus (2.5-4.5) mg/dL Magnesium (1.7-2.2) mg/dL Total Bilirubin (0.2-1.3) mg/dL AST (14-36) U/L ALT (7-56) U/L Alkaline Phosphatase (38-126) U/L Total Protein (5.8-8.3) g/dL Albumin (3.0-4.8) g/dL Globulin gm/dL Albumin/Globulin Ratio (1.1-1.8) Laboratory Results - last 24 hr 07/05/17 07/05/17 07/08/17 18:53 18:53 16:10 WBC RBC Hgb Hct MCV MCH MCHC RDW Plt Count Gran % Lymph % (Auto) White % (Auto) Eos % (Auto) Baso % (Auto) Gran # Lymph # White # Eos # Baso # Factor II Activity 32 L Factor V Activity 18 L pCO2 pO2 HCO3 ABG pH ABG Total CO2 ABG O2 Saturation ABG O2 Content ABG Base Excess ABG Hemoglobin ABG Carboxyhemoglobin POC ABG HHb (Measured) ABG Methemoglobin ABG O2 Capacity Hgb O2 Saturation FiO2 Sodium Potassium Chloride Carbon Dioxide Anion Gap BUN Creatinine Est GFR ( Amer) Est GFR (Non-Af Amer) POC Glucose (mg/dL) 218 H Random Glucose Calcium Phosphorus Magnesium Total Bilirubin AST ALT Alkaline Phosphatase Total Protein Albumin Globulin Albumin/Globulin Ratio 07/08/17 07/09/17 07/09/17 22:02 04:15 05:50 WBC 8.0 RBC 3.65 Hgb 9.6 L Hct 31.0 L MCV 84.9 MCH 26.3 MCHC 31.0 RDW 17.1 H Plt Count 40 L* Gran % 80.1 H Lymph % (Auto) 12.3 L White % (Auto) 6.1 H Eos % (Auto) 1.5 Baso % (Auto) 0.0 Gran # 6.42 Lymph # 1.0 L White # 0.5 Eos # 0.1 Baso # 0.00 Factor II Activity Factor V Activity pCO2 pO2 HCO3 ABG pH ABG Total CO2 ABG O2 Saturation ABG O2 Content ABG Base Excess ABG Hemoglobin ABG Carboxyhemoglobin POC ABG HHb (Measured) ABG Methemoglobin ABG O2 Capacity Hgb O2 Saturation FiO2 Sodium Potassium Chloride Carbon Dioxide Anion Gap BUN Creatinine Est GFR ( Amer) Est GFR (Non-Af Amer) POC Glucose (mg/dL) 146 H 119 H Random Glucose Calcium Phosphorus Magnesium Total Bilirubin AST ALT Alkaline Phosphatase Total Protein Albumin Globulin Albumin/Globulin Ratio 07/09/17 07/09/17 07/09/17 05:50 06:23 11:15 WBC RBC Hgb Hct MCV MCH MCHC RDW Plt Count Gran % Lymph % (Auto) White % (Auto) Eos % (Auto) Baso % (Auto) Gran # Lymph # White # Eos # Baso # Factor II Activity Factor V Activity pCO2 31 L pO2 109.0 H HCO3 25.3 ABG pH 7.52 H ABG Total CO2 26.3 ABG O2 Saturation 98.9 H ABG O2 Content 12.7 L ABG Base Excess 2.6 ABG Hemoglobin 9.3 L ABG Carboxyhemoglobin 2.0 H POC ABG HHb (Measured) 1.1 ABG Methemoglobin 0.9 ABG O2 Capacity 12.8 L Hgb O2 Saturation 95.9 FiO2 50.0 Sodium 140 Potassium 3.2 L Chloride 99 Carbon Dioxide 27 Anion Gap 17 BUN 51 H Creatinine 6.6 H Est GFR ( Amer) 8 Est GFR (Non-Af Amer) 6 POC Glucose (mg/dL) 134 H Random Glucose 114 H Calcium 7.3 L Phosphorus 3.9 Magnesium 1.8 Total Bilirubin 1.2 AST 182 H D ALT 180 H Alkaline Phosphatase 145 H Total Protein 5.2 L Albumin 2.4 L Globulin 2.9 Albumin/Globulin Ratio 0.8 L Assessment/Plan - Assessment and Plan (Free Text) Plan: Patient seen and examined, agree with residents note with following additions/ exceptions: Patient is 66yo female with multiple com mobird medical conditions including ESRD on HD, CHF, L AKA, a/w shock, likely cardiogenic vs septic, which has no resolved. Currently afebrile, HD stable, comfortable on ventilator , no ready to be extubated, difficulty weaning. Pt with CVA on MRI, follow up neurology, cont with ASA, Statin. HD as per renal. Cont with BB, Hydralazine, Nitrates for afterload reduction. 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 Awaiting family decision. Follow up palliative care.
--- NOTE | 2017-07-09 07:37 | PN ---
DATE: 07/09/2017(615am-710am) PULMONARY PROGRESS NOTE SUBJECTIVE: The patient remains on the ventilator. She remains poorly responsive. PHYSICAL EXAMINATION: VITAL SIGNS: Last temperature recorded is 100.6, pulse is 72, respirations are 20/20, and blood pressure is 118/46. HEENT: Normocephalic and atraumatic. NECK: No JVD. CARDIOVASCULAR: Systolic ejection murmur at the lower left sternal border. No S3, gallop. LUNGS: Crackles at both bases. Minimal rhonchi. No wheezing. EXTREMITIES: The patient is status post left [id number] amputation. The right lower extremity reveals chronic vascular changes. There is no clubbing or cyanosis. GASTROINTESTINAL: Abdomen is soft and nondistended. Bowel sounds are positive. SKIN: No acute rash. NEUROLOGIC: Exam is limited at the present time. LABORATORY DATA: Chest x-ray was done this morning and reviewed. There is a right lower lobe infiltrate seen on today's film. There is also mild retrocardiac opacification, possibly consistent with a left lower lobe infiltrate. Arterial blood gas was ordered for the morning - not in the computer at the present time. IMPRESSION 1. Respiratory failure. 2. Community-acquired pneumonia. 3. Ventricular tachycardia. 4. Mild pulmonary edema. 5. End-stage renal disease. 6. Rapid atrial fibrillation. 7. Mild bronchospasm. 8. Encephalopathy. PLAN: The patient remains on the ventilator. She remains lethargic and poorly responsive. I did discuss the case with the night nurse at length. The night nurse confirmed that the patient still has not regained her mental status. Hemodynamically, she remains improved. Pressor support has been weaned. I did review the chest x-ray as above. There is a right lower lobe infiltrate seen. There is also a possible left lower lobe infiltrate. The patient does have persistent low-grade temperatures. Antibiotic coverage is as per Infectious Diseases. Input by Dr. Jurado is noted. Inputs by GI and Neurology are also noted. Unfortunately, the patient remains poorly responsive on the ventilator. Repeat a.m. labs are pending. Repeat arterial blood gas is also pending. Official X-ray reading--pending. The patient remains critically ill, with extremely guarded prognosis. I will discuss the above with the entire ICU team in the next few moments. I will also discuss the above with Dr. Beverly later this morning. Earl Vega MD MTDLeticia
--- NOTE | 2017-07-09 08:36 | RAD ---
HISTORY: Follow-up. COMPARISON: July 08, 2017. FINDINGS: LUNGS: New right lower lobe infiltrate, air bronchograms identified. Likely acute pneumonia. PLEURA: No significant pleural effusion identified, no pneumothorax apparent. CARDIOVASCULAR: Cardiomegaly. No evidence of acute, significant cardiovascular disease. OSSEOUS STRUCTURES: No significant abnormalities. VISUALIZED UPPER ABDOMEN: Normal. OTHER FINDINGS: Stable position of endotracheal tube. Stable position of venous access catheter. Nasogastric tube tip now in the lower thorax. IMPRESSION: 1. New right lower lobe infiltrate highly suggestive of pneumonia. 2. Malpositioned nasogastric tube. The tip is in the lower thoracic esophagus at least 10 cm from the gastroesophageal junction.
--- NOTE | 2017-07-09 09:03 | CP.PCM.PN ---
Subjective - Date & Time of Evaluation Date of Evaluation: 07/09/17 Time of Evaluation: 08:59 - Subjective Subjective: Progress note for nephrology, Dr. Brooks Pt is seen and examined at bedside. No acute events overnight. Pt is still intubated on PRVC. ROS are unobtainable due to intubation and mental status. Objective - Vital Signs/Intake and Output Vital Signs (last 24 hours): Temp Pulse Resp BP Pulse Ox 99 F 76 14 116/60 100 07/09/17 06:00 07/09/17 07:10 07/08/17 19:30 07/09/17 07:05 07/09/17 07:10 - Medications Medications: Current Medications Artificial Tears (Artificial Tears Opht Oint) 0 gm OU Q8H PRN PRN Reason: Dry eyes Last Admin: 07/06/17 18:51 Dose: 1 gel Artificial Tears (Artificial Tears) 0 ml OU BID [facility] Last Admin: 07/08/17 17:14 Dose: 2 drop Aspirin (Aspirin Chewable) 81 mg GT DAILY [facility] Last Admin: 07/08/17 10:15 Dose: 81 mg Atorvastatin Calcium (Lipitor) 40 mg GT DIN [facility] Last Admin: 07/08/17 17:17 Dose: 40 mg Calcium Acetate (Phoslo) 2,001 mg PO Q8H [facility] Last Admin: 07/09/17 05:24 Dose: 2,001 mg Carvedilol (Coreg) 6.25 mg PO BID [facility] Last Admin: 07/08/17 17:14 Dose: Not Given Chlorhexidine Gluconate (Peridex) 15 ml PO BID [facility] Last Admin: 07/08/17 17:15 Dose: 15 ml Hydralazine HCl (Apresoline) 10 mg NG Q8 [facility] Last Admin: 07/08/17 21:20 Dose: Not Given Meropenem 500 mg/ Sodium (Chloride) 100 mls @ 100 mls/hr IVPB DAILY [facility] PRN Reason: Protocol Last Admin: 07/08/17 10:16 Dose: 100 mls/hr Potassium Chloride (Potassium Chloride 20 Meq/100 Ml) 20 meq in 100 mls @ 50 mls/hr IVPB ONCE ONE Stop: 07/09/17 10:30 Isosorbide Mononitrate (Imdur) 60 mg PO DAILY [facility] Last Admin: 07/08/17 10:16 Dose: 60 mg Pantoprazole Sodium (Protonix Inj) 40 mg IVP DAILY [facility] Last Admin: 07/08/17 10:17 Dose: 40 mg - Labs Labs: 07/09/17 05:50 07/09/17 05:50 PT 18.5 SECONDS (9.4-12.5) H 07/07/17 08:40 INR 1.66 (0.93-1.08) H 07/07/17 08:40 APTT 34.9 Seconds (25.1-36.5) 07/06/17 17:00 - Constitutional Appears: Non-toxic, No Acute Distress - Head Exam Head Exam: ATRAUMATIC - ENT Exam ENT Exam: Mucous Membranes Moist - Respiratory Exam Respiratory Exam: Clear to Ausculation Bilateral. absent: Accessory Muscle Use , Rales, Rhonchi, Wheezes, Respiratory Distress - Cardiovascular Exam Cardiovascular Exam: REGULAR RHYTHM, +S1, +S2. absent: Gallop, Rubs, Murmur - GI/Abdominal Exam GI & Abdominal Exam: Soft, Normal Bowel Sounds. absent: Distended, Firm, Guarding, Rigid, Tenderness, Organomegaly - Extremities Exam Extremities Exam: absent: Pedal Edema, Tenderness - Neurological Exam Neurological Exam: absent: Alert, Awake, CN II-XII Intact, Oriented x3 - Psychiatric Exam Psychiatric exam: absent: Normal Affect, Normal Mood - Skin Skin Exam: Dry, Intact, Normal Color, Warm Assessment and Plan - Assessment and Plan (Free Text) Assessment: 66 year old female with past medical history of HTN, CHF with systolic dysfunction, PAD s/p BKA, ESRD on HD MWF but non-compliant with dialysis presented to ED for AMS. Currently intubated on PRVC. Plan: 1. Shock - cardiogenic vs. septic shock - Urine cultures positive for e. coli - Hypoperfusion state leading to decreased brain perfusion. MRI done on 07/07 showed ischemic changes in posterior cerebral artery from hypoperfusion. - Currently on meropenem 500 mg q8. Continue vancomycin (renally dosed) 2. ESRD - HD on MWF - Kidney function has improved from when patient presented. Likely acute renal insufficiency due to hypoperfusion - recommend starting low dose ACEI 3. AV fistula stenosis - Extremity ultrasound showed patent brachial-cephalic fistula. Focal stenosis remains in mid left cephalic vein - Decreased thrill palpated on HD catheter 4. Anemia of ESRD - Will dose EPO on next HD treatment 5. Chronic kidney disease mineral bone disease - Non-complaint with taking phospho binders and phosphorus is high - Should avoid replacing calcium unless symptomatic All recs and orders per Dr. Brooks
[2017-07-09] MEDS: Aritificial Tears (15ml) OU SCH ×2 (09:36→19:00)
[2017-07-09] MEDS: Meropenem 500 MG in Sodium Chloride 0.9% 100 ML IVPB SCH (09:42)
[2017-07-09] MEDS: Chlorhexidine 0.12% Oral Sol 480 ml Bot PO SCH ×2 (10:00→19:00)
--- NOTE | 2017-07-09 10:30 | CP.PCM.PN ---
Subjective - Date & Time of Evaluation Date of Evaluation: 07/09/17 Time of Evaluation: 10:10 - Subjective Subjective: Continues to have low grade fevers overnight but afebrile this morning, no diarrhea. Still on the vent. Responds to painful stimuli by grimacing. Objective - Vital Signs/Intake and Output Vital Signs (last 24 hours): Temp Pulse Resp BP Pulse Ox 100.6 F H 72 14 118/46 L 100 07/08/17 19:50 07/09/17 04:10 07/08/17 19:30 07/09/17 04:05 07/09/17 04:10 - Medications Medications: Current Medications Artificial Tears (Artificial Tears Opht Oint) 0 gm OU Q8H PRN PRN Reason: Dry eyes Last Admin: 07/06/17 18:51 Dose: 1 gel Artificial Tears (Artificial Tears) 0 ml OU BID [facility] Last Admin: 07/08/17 17:14 Dose: 2 drop Aspirin (Aspirin Chewable) 81 mg GT DAILY [facility] Last Admin: 07/08/17 10:15 Dose: 81 mg Atorvastatin Calcium (Lipitor) 40 mg GT DIN [facility] Last Admin: 07/08/17 17:17 Dose: 40 mg Calcium Acetate (Phoslo) 2,001 mg PO Q8H [facility] Last Admin: 07/09/17 05:24 Dose: 2,001 mg Carvedilol (Coreg) 6.25 mg PO BID [facility] Last Admin: 07/08/17 17:14 Dose: Not Given Chlorhexidine Gluconate (Peridex) 15 ml PO BID [facility] Last Admin: 07/08/17 17:15 Dose: 15 ml Hydralazine HCl (Apresoline) 10 mg NG Q8 [facility] Last Admin: 07/08/17 21:20 Dose: Not Given Meropenem 500 mg/ Sodium (Chloride) 100 mls @ 100 mls/hr IVPB DAILY [facility] PRN Reason: Protocol Last Admin: 07/08/17 10:16 Dose: 100 mls/hr Isosorbide Mononitrate (Imdur) 60 mg PO DAILY [facility] Last Admin: 07/08/17 10:16 Dose: 60 mg Pantoprazole Sodium (Protonix Inj) 40 mg IVP DAILY [facility] Last Admin: 07/08/17 10:17 Dose: 40 mg - Labs Labs: 07/09/17 05:50 07/09/17 05:50 PT 18.5 SECONDS (9.4-12.5) H 07/07/17 08:40 INR 1.66 (0.93-1.08) H 07/07/17 08:40 APTT 34.9 Seconds (25.1-36.5) 07/06/17 17:00 - Constitutional Appears: Chronically Ill, Other (intubated) - Head Exam Head Exam: NORMAL INSPECTION - ENT Exam Additional comments: Et tube in place - Neck Exam Additional comments: left IJ central venous catheter intact - Respiratory Exam Respiratory Exam: Decreased Breath Sounds - Cardiovascular Exam Cardiovascular Exam: +S1 - GI/Abdominal Exam GI & Abdominal Exam: absent: Tenderness - Extremities Exam Additional comments: left AKA stump Assessment and Plan - Assessment and Plan (Free Text) Plan: Assessment consider severe sepsis with ventilator-dependent respiratory failure R/O due to left-sided HCAP, consider E. coli UTI, R/O right IJ central-line associated infection new onset acute CVA history of severe sepsis with toxic-metabolic encephalopathy with decubitus ulcers and left AKA stump Severe Peripheral arterial disease S/P above the knee amputation on the left for dry gangrene of the left foot Congestive Heart Failure with EF 15% HTN asthma CVA with residual left-sided weakness ESRD on HD DM hypothyroidism S/P cholecystectomy S/P hysterectomy Plan continue intermittent Vanco IV and renally-adjusted Meropenem (Day 6), we have d /c'ed Zyvox because of the thrombocytopenia; follow up final results of repeat septic work up done 2 days ago (blood cx negative x 2 days); fever may be due to new CVA overall prognosis is poor will continue to monitor clinically recommend to remove left IJ central venous catheter when feasible discussed with ICU team
--- NOTE | 2017-07-09 13:29 | CP.PCM.PN ---
Subjective - Date & Time of Evaluation Date of Evaluation: 07/09/17 Time of Evaluation: 12:00 - Subjective Subjective: Intubated, slight response to noxious stimuli. Gag reflex, twitching both eyelids Objective - Vital Signs/Intake and Output Vital Signs (last 24 hours): Temp Pulse Resp BP Pulse Ox 99 F 78 20 100/38 L 94 L 07/09/17 08:00 07/09/17 13:04 07/09/17 13:04 07/09/17 13:05 07/09/17 11:10 - Medications Medications: Current Medications Artificial Tears (Artificial Tears Opht Oint) 0 gm OU Q8H PRN PRN Reason: Dry eyes Last Admin: 07/06/17 18:51 Dose: 1 gel Artificial Tears (Artificial Tears) 0 ml OU BID [facility] Last Admin: 07/09/17 09:36 Dose: 2 drop Aspirin (Aspirin Chewable) 81 mg GT DAILY [facility] Last Admin: 07/09/17 09:35 Dose: 81 mg Atorvastatin Calcium (Lipitor) 40 mg GT DIN [facility] Last Admin: 07/08/17 17:17 Dose: 40 mg Calcium Acetate (Phoslo) 2,001 mg PO Q8H [facility] Last Admin: 07/09/17 13:13 Dose: 2,001 mg Carvedilol (Coreg) 6.25 mg PO BID [facility] Last Admin: 07/09/17 09:35 Dose: 6.25 mg Chlorhexidine Gluconate (Peridex) 15 ml PO BID [facility] Last Admin: 07/09/17 10:00 Dose: 15 ml Hydralazine HCl (Apresoline) 10 mg NG Q8 [facility] Last Admin: 07/08/17 21:20 Dose: Not Given Meropenem 500 mg/ Sodium (Chloride) 100 mls @ 100 mls/hr IVPB DAILY [facility] PRN Reason: Protocol Last Admin: 07/09/17 09:42 Dose: 100 mls/hr Isosorbide Mononitrate (Imdur) 60 mg PO DAILY [facility] Last Admin: 07/09/17 09:35 Dose: 60 mg Pantoprazole Sodium (Protonix Inj) 40 mg IVP DAILY [facility] Last Admin: 07/09/17 11:14 Dose: 40 mg - Labs Labs: 07/09/17 05:50 07/09/17 05:50 PT 18.5 SECONDS (9.4-12.5) H 07/07/17 08:40 INR 1.66 (0.93-1.08) H 07/07/17 08:40 APTT 34.9 Seconds (25.1-36.5) 07/06/17 17:00 - Constitutional Appears: Chronically Ill - Eye Exam Eye Exam: Normal appearance, PERRL - ENT Exam ENT Exam: Mucous Membranes Moist - Respiratory Exam Respiratory Exam: Decreased Breath Sounds Additional comments: intubated - Cardiovascular Exam Cardiovascular Exam: REGULAR RHYTHM, +S1, +S2 - GI/Abdominal Exam GI & Abdominal Exam: Soft, Diminished Bowel Sounds - Extremities Exam Additional comments: left BKA, right foot edematous - Skin Skin Exam: Dry, Warm Assessment and Plan - Assessment and Plan (Free Text) Assessment: 66 year old female with history of ESRD, anemia and DM who is admitted with sepsis,anemia, altered mental status. I spoke with patients daughter Annelise via phone. Daughter states she and her sister have been updated of her mother's medical condition by Dr Beverly. Daughter states that there is hope for recovery. Daughter requesting that patient be transferred to LT[facility]. I explained that patient will require Trach and PEG. Also explained that it is unlikely that her mother will return to to baseline status. Daughter made aware that her mother will likely require ferry terminal supervisor fpc care. Gaols of care, advance care planning discussion, 30 minutes Plan: Palliative support in establishing goals of care
--- NOTE | 2017-07-09 14:03 | PN ---
DATE: SUBJECTIVE: I saw Orly in the Intensive Care Unit, bed 5. She is still on the ventilator. She is not waking up. She is on Apresoline, Artificial Tears, aspirin, Coreg, Imdur, Lipitor, Merrem IV, Peridex, PhosLo, and Protonix. She is on IV medications and NG tube feedings. PHYSICAL EXAMINATION: GENERAL: She is not alert. VITAL SIGNS: She has temperature of 99 rectally, pulse of 72, blood pressure of 116/60, and O2 saturation of 100% on 50% ventilation. HEENT: Head is atraumatic and normocephalic. HEART: Regular rate. LUNGS: Decreased breath sounds, but clear. ABDOMEN: Soft and obese. EXTREMITIES: Trace edema. She has left AKA. LABORATORY DATA: She has white count of 8, hemoglobin of 9.6, and hematocrit of 31 with platelets of 40. She has a sodium of 140, potassium of 3.2, we will replace the potassium, BUN is 51, creatinine is 6.6, she is on dialysis, GFR is 6, sugar is 114, calcium is 7.3, phosphorus is 3.9, magnesium is 1.8,and total bilirubin is 1.2. AST is 182, ALT is 180, alkaline phosphatase is 145, all high, and total protein is 5.2. MEDICATIONS: She is on currently on Apresoline, Artificial Tears, aspirin, Coreg, Imdur, Lipitor, Merrem, Peridex, PhosLo, and Protonix. ASSESSMENT AND PLAN: She is being seen by multiple physicians, Pulmonology, Renal,Infectious Disease, GI, and Cardiology. I discussed at length yesterday with the son about either going to [facility], if they want to continue to do everything or may be terminally extubate her go off the ventilator I do not know if she is going to be woken up in the future if I will make that decision. We will continue with aggressive treatment and care in the meantime. Check her laboratories. Replace potassium. Terrence Beverly DO MTDLeticia
[2017-07-09 14:48] LABS: SMOOTH MUSCLE AB TITER 1:20 Titer (< 1:20)
--- NOTE | 2017-07-09 15:59 | PN ---
DATE: 07/09/2017 CARDIOLOGY FOLLOWUP SUBJECTIVE: The patient is off pressors. PHYSICAL EXAMINATION: VITAL SIGNS: The heart rate is in the 70s. Normal sinus rhythm. Blood pressure is 112/40. NECK: Negative JVD. LUNGS: Decreased breath sounds. HEART: Reveals S1 and S2. EXTREMITIES: Without change. LABORATORY DATA: Hemoglobin is 9.6 and platelet count is down to 40. BUN and creatinine is 51 and 6.6. IMPRESSION: 1. Respiratory failure. 2. Anoxic encephalopathy. 3. Endstage dilated cardiomyopathy. 4. Endstage renal disease. 5. Diabetes mellitus. PLAN: Given these findings, the patient's prognosis is poor. The patient cannot tolerate inotropic therapy because of her marked tachycardia. We will continue supportive care. Henri Guillen MD
--- NOTE | 2017-07-09 16:05 | CP.PCM.PN ---
<Valentina Cabrera - Last Filed: 07/09/17 17:35> Subjective - Date & Time of Evaluation Date of Evaluation: 07/09/17 Time of Evaluation: 11:00 - Subjective Subjective: PGY-2 Neurology progress note fro Dr. Blackwell's service Patient seen and examined at bedside in ICU. Patient remains intubated. Patient continues to have gag reflex, pupillary reflex. she does not withdraw from pain , no purposeful movement Objective - Vital Signs/Intake and Output Vital Signs (last 24 hours): Temp Pulse Resp BP Pulse Ox 99 F 78 20 100/38 L 94 L 07/09/17 08:00 07/09/17 13:04 07/09/17 13:04 07/09/17 13:05 07/09/17 11:10 - Medications Medications: Current Medications Artificial Tears (Artificial Tears Opht Oint) 0 gm OU Q8H PRN PRN Reason: Dry eyes Last Admin: 07/06/17 18:51 Dose: 1 gel Artificial Tears (Artificial Tears) 0 ml OU BID [facility] Last Admin: 07/09/17 09:36 Dose: 2 drop Aspirin (Aspirin Chewable) 81 mg GT DAILY [facility] Last Admin: 07/09/17 09:35 Dose: 81 mg Atorvastatin Calcium (Lipitor) 40 mg GT DIN [facility] Last Admin: 07/08/17 17:17 Dose: 40 mg Calcium Acetate (Phoslo) 2,001 mg PO Q8H [facility] Last Admin: 07/09/17 13:13 Dose: 2,001 mg Carvedilol (Coreg) 6.25 mg PO BID [facility] Last Admin: 07/09/17 09:35 Dose: 6.25 mg Chlorhexidine Gluconate (Peridex) 15 ml PO BID [facility] Last Admin: 07/09/17 10:00 Dose: 15 ml Hydralazine HCl (Apresoline) 10 mg NG Q8 [facility] Last Admin: 07/08/17 21:20 Dose: Not Given Meropenem 500 mg/ Sodium (Chloride) 100 mls @ 100 mls/hr IVPB DAILY [facility] PRN Reason: Protocol Last Admin: 07/09/17 09:42 Dose: 100 mls/hr Isosorbide Mononitrate (Imdur) 60 mg PO DAILY [facility] Last Admin: 07/09/17 09:35 Dose: 60 mg Pantoprazole Sodium (Protonix Inj) 40 mg IVP DAILY [facility] Last Admin: 07/09/17 11:14 Dose: 40 mg - Labs Labs: 07/09/17 05:50 07/09/17 05:50 PT 18.5 SECONDS (9.4-12.5) H 07/07/17 08:40 INR 1.66 (0.93-1.08) H 07/07/17 08:40 APTT 34.9 Seconds (25.1-36.5) 07/06/17 17:00 - Constitutional Appears: No Acute Distress - Head Exam Head Exam: ATRAUMATIC, NORMAL INSPECTION, NORMOCEPHALIC - Eye Exam Eye Exam: EOMI, Normal appearance - ENT Exam ENT Exam: Mucous Membranes Moist - Respiratory Exam Respiratory Exam: Clear to Ausculation Bilateral, NORMAL BREATHING PATTERN. absent: Respiratory Distress - Cardiovascular Exam Cardiovascular Exam: REGULAR RHYTHM - Neurological Exam Neurological Exam: Reflexes Normal. absent: Alert, Awake, Oriented x3 Additional comments: patient is not responsive to painful stimuli - Skin Skin Exam: Dry, Intact, Normal Color, Warm Assessment and Plan - Assessment and Plan (Free Text) Assessment: 66 year old female with past medical history of CHF, ESRD with hemodialysis (M/W /F), diabetes, and left BKA, who presented with altered mental status most likely secondary to hypoxic encephalopathy with shock and multi organ failure. 1. AMS 2. shock (septic v cardiogenic) 3. respiratory failure 4. ESRD on HD 5. shocked liver- improving 6. hypokalemia - CT head showed nonspecific white matter changes - MRI showed ischemia along posterior cerebral artery most like due to hypoperfusion - carotid US pending - avoid sedative medications - maintain blood pressure , avoid further drops - monitor electrolytes, replace as needed - consider pletal for stroke prevention instead of asa due to thrombocytopenia case discussed and reviewed with attending <Lobo Blackwell - Last Filed: 07/09/17 18:00> Objective - Vital Signs/Intake and Output Vital Signs (last 24 hours): Temp Pulse Resp BP Pulse Ox 99 F 80 20 99/54 L 94 L 07/09/17 08:00 07/09/17 17:15 07/09/17 13:04 07/09/17 17:15 07/09/17 11:10 - Medications Medications: Current Medications Artificial Tears (Artificial Tears Opht Oint) 0 gm OU Q8H PRN PRN Reason: Dry eyes Last Admin: 07/06/17 18:51 Dose: 1 gel Artificial Tears (Artificial Tears) 0 ml OU BID [facility] Last Admin: 07/09/17 09:36 Dose: 2 drop Aspirin (Aspirin Chewable) 81 mg GT DAILY [facility] Last Admin: 07/09/17 09:35 Dose: 81 mg Atorvastatin Calcium (Lipitor) 40 mg GT DIN [facility] Last Admin: 07/09/17 17:16 Dose: 40 mg Calcium Acetate (Phoslo) 2,001 mg PO Q8H [facility] Last Admin: 07/09/17 13:13 Dose: 2,001 mg Carvedilol (Coreg) 6.25 mg PO BID [facility] Last Admin: 07/09/17 17:15 Dose: 6.25 mg Chlorhexidine Gluconate (Peridex) 15 ml PO BID [facility] Last Admin: 07/09/17 10:00 Dose: 15 ml Hydralazine HCl (Apresoline) 10 mg NG Q8 [facility] Last Admin: 07/09/17 14:10 Dose: Not Given Meropenem 500 mg/ Sodium (Chloride) 100 mls @ 100 mls/hr IVPB DAILY [facility] PRN Reason: Protocol Last Admin: 07/09/17 09:42 Dose: 100 mls/hr Isosorbide Mononitrate (Imdur) 60 mg PO DAILY [facility] Last Admin: 07/09/17 09:35 Dose: 60 mg Pantoprazole Sodium (Protonix Inj) 40 mg IVP DAILY [facility] Last Admin: 07/09/17 11:14 Dose: 40 mg - Labs Labs: 07/09/17 05:50 07/09/17 05:50 PT 18.5 SECONDS (9.4-12.5) H 07/07/17 08:40 INR 1.66 (0.93-1.08) H 07/07/17 08:40 APTT 34.9 Seconds (25.1-36.5) 07/06/17 17:00 Attending/Attestation - Attestation I have personally seen and examined this patient.: Yes I have fully participated in the care of the patient.: Yes I have reviewed all pertinent clinical information, including history, physical exam and plan: Yes
[2017-07-10 06:03] LABS: ARTERIAL BLOOD GAS HCO3 27.1 mmol/L (21-28); ARTERIAL BLOOD GAS O2 CAPACITY 13.5 mL/dl (16-24); ARTERIAL BLOOD GAS O2 CONTENT 13.4 ML/dl (15-23); ARTERIAL BLOOD GAS PH 7.51 (7.35-7.45); ARTERIAL BLOOD HGB O2 SAT 96.4 % (95.0-98.0); CARBOXYHEMOGLOBIN 2.1 % (0.5-1.5); HHB 0.6 % (0-5)
[2017-07-10 08:30] LABS: EOS # 0.2 (0.0-0.7); EOS % 1.9 % (1.5-5.0); GRAN # 7.08 (1.4-6.5); GRAN % 82.5 % (50.0-68.0); HEMATOCRIT 30.2 % (36.0-48.0); LYMPH # 0.9 (1.2-3.4); MEAN CELL VOLUME 85.8 fl (80.0-105.0); MEAN CORPUSCULAR HGB CONC 31.5 g/dl (31.0-37.0); MONO # 0.5 (0.1-0.6); MONO % 5.6 % (1.0-6.0); PLATELET COUNT 56 10^3/uL (120.0-450.0); RED CELL DISTRIBUTION WIDTH 17.2 % (11.5-14.5); WHITE BLOOD COUNT 8.6 10^3/ul (4.5-11.0)
[2017-07-10 09:06] LABS: ALB/GLOB RATIO 0.8 (1.1-1.8); CALCIUM 7.6 mg/dL (8.4-10.5); POTASSIUM 3.3 mmol/L (3.6-5.0); TOTAL PROTEIN 5.3 g/dL (5.8-8.3)
--- NOTE | 2017-07-10 09:59 | CP.CCUPN ---
<Crescencio Abernathy - Last Filed: 07/10/17 12:56> CCU Subjective - Physician Review Subjective (Free Text): Critical Care Progress Note for Dr. Irving Patient seen ad examined at bedside. No acute event overnight. She is still intubated and on vent support 450, 5, 20, 50%. She is minimally responsive to noxious stimuli and opens eyes spontaneously. ROS unobtainable due to clinical condition. Family has decided on transfer to LTAC facility. CCU Objective - Vital Signs / Intake & Output Vital Signs (Last 4 hours): Vital Signs Pulse Resp BP Pulse Ox 07/10/17 07:55 20 100 07/10/17 06:44 77 141/73 75 L 07/10/17 06:33 83 07/10/17 06:32 80 07/10/17 06:31 79 07/10/17 06:30 74 07/10/17 06:29 71 07/10/17 06:28 114/58 L 07/10/17 06:27 70 07/10/17 06:26 69 07/10/17 06:25 71 07/10/17 06:24 68 07/10/17 06:23 70 07/10/17 06:22 66 07/10/17 06:21 66 07/10/17 06:20 66 07/10/17 06:13 66 105/56 L 100 07/10/17 06:00 66 100 Intake and Output (Last 8hrs): Intake & Output 07/09/17 07/10/17 07/10/17 22:59 06:59 14:59 Intake Total 1020 915 Output Total 2300 2300 Balance -1280 -1385 Weight 197 lb Intake: IV 100 115 Right Forearm 100 100 Right Upper arm 15 Tube Feeding 720 600 Other 200 200 Output: Urine 0 Urine, Voided 0 Other 2300 2300 Other: # Bowel Movements 3 - Physical Exam Head: Positive for: Atraumatic, Normocephalic Pupils: Positive for: PERRL Extroacular Muscles: Positive for: EOMI Conjunctiva: Positive for: Normal Mouth: Positive for: Moist Mucous Membranes, Other (et tube in place) Neck: Positive for: Normal Range of Motion. Negative for: Meningeal Signs, MIDLINE TENDERNESS, Paraspinal Tenderness Respiratory/Chest: Positive for: Clear to Auscultation. Negative for: Accessory Muscle Use Cardiovascular: Positive for: Normal S1, S2, Tachycardic. Negative for: Murmurs Abdomen: Positive for: Distention (mild), Normal Bowel Sounds. Negative for: Tenderness, Peritoneal Signs Back: Positive for: Normal Inspection Upper Extremity: Positive for: Normal Inspection, NORMAL PULSES. Negative for: Cyanosis, Edema Lower Extremity: Positive for: NORMAL PULSES, Other (Left BKA). Negative for: Edema Neurological: Positive for: Other (intubated). Negative for: GCS=15 Skin: Positive for: Warm, Dry. Negative for: Rashes Psychiatric: Positive for: Other (intubated). Negative for: Alert, Oriented x 3 - Medications Active Medications: Active Medications Generic Name Dose Route Start Last Admin Trade Name Freq PRN Reason Stop Dose Admin Artificial Tears 0 gm 07/05/17 20:00 07/06/17 18:51 Artificial Tears Opht Oint OU 1 gel Q8H PRN Administration Dry eyes Artificial Tears 0 ml 07/06/17 18:00 07/09/17 19:00 Artificial Tears OU 2 drop BID MARCEL Administration Aspirin 81 mg 07/06/17 22:45 07/09/17 09:35 Aspirin Chewable GT 81 mg DAILY MARCEL Administration Atorvastatin Calcium 40 mg 07/07/17 09:29 07/09/17 17:16 Lipitor GT 40 mg DIN MARCEL Administration Calcium Acetate 2,001 mg 07/07/17 13:00 07/10/17 05:27 Phoslo PO 2,001 mg Q8H MARCEL Administration Carvedilol 6.25 mg 07/08/17 10:30 07/09/17 17:15 Coreg PO 6.25 mg BID MARCEL Administration Chlorhexidine Gluconate 15 ml 07/04/17 18:00 07/09/17 19:00 Peridex PO 15 ml BID MARCEL Administration Hydralazine HCl 10 mg 07/07/17 14:00 07/10/17 05:25 Apresoline NG Not Given Q8 MARCEL Meropenem 500 mg/ Sodium 100 mls @ 100 mls/hr 07/07/17 19:27 07/09/17 09:42 Chloride IVPB 100 mls/hr DAILY MARCEL Administration Protocol Isosorbide Mononitrate 60 mg 07/07/17 10:00 07/09/17 09:35 Imdur PO 60 mg DAILY MARCEL Administration Pantoprazole Sodium 40 mg 07/04/17 10:00 07/09/17 11:14 Protonix Inj IVP 40 mg DAILY MARCEL Administration - Patient Studies Lab Studies: Microbiology Studies 07/07/17 08:40 Blood Culture - Preliminary Blood-Venous NO GROWTH AFTER 3 DAYS 07/07/17 09:20 Blood Culture - Preliminary Blood-Venous NO GROWTH AFTER 3 DAYS 07/08/17 21:00 Gram Stain - Final Trachasp Lab Studies 07/10/17 07/10/17 07/10/17 Range/Units 08:15 08:15 05:30 WBC 8.6 (4.5-11.0) 10^3/ul RBC 3.52 (3.5-6.1) 10^6/uL Hgb 9.5 L (12.0-16.0) g/dL Hct 30.2 L (36.0-48.0) % MCV 85.8 (80.0-105.0) fl MCH 27.0 (25.0-35.0) pg MCHC 31.5 (31.0-37.0) g/dl RDW 17.2 H (11.5-14.5) % Plt Count 56 L (120.0-450.0) 10^3/uL Gran % 82.5 H (50.0-68.0) % Lymph % (Auto) 10.0 L (22.0-35.0) % [place] % (Auto) 5.6 (1.0-6.0) % Eos % (Auto) 1.9 (1.5-5.0) % Baso % (Auto) 0.0 (0.0-3.0) % Gran # 7.08 H (1.4-6.5) Lymph # 0.9 L (1.2-3.4) [place] # 0.5 (0.1-0.6) Eos # 0.2 (0.0-0.7) Baso # 0.00 (0.0-2.0) K/mm3 pCO2 34 L (35-45) mm/Hg pO2 139.0 H (80-100) mm/Hg HCO3 27.1 (21-28) mmol/L ABG pH 7.51 H (7.35-7.45) ABG Total CO2 28.1 H (22-28) mmol.L ABG O2 Saturation 99.4 H (95-98) % ABG O2 Content 13.4 L (15-23) ML/dl ABG Base Excess 4.0 H (-2.0-3.0) mmol/L ABG Hemoglobin 9.7 L (11.7-17.4) g/dL ABG Carboxyhemoglobin 2.1 H (0.5-1.5) % POC ABG HHb (Measured) 0.6 (0-5) % ABG Methemoglobin 1.0 (0.0-3.0) % ABG O2 Capacity 13.5 L (16-24) mL/dl Hgb O2 Saturation 96.4 (95.0-98.0) % FiO2 50.0 % Sodium 138 (132-148) mmol/L Potassium 3.3 L (3.6-5.0) mmol/L Chloride 100 (98-107) mmol/L Carbon Dioxide 28 (21-33) mmol/L Anion Gap 14 (10-20) BUN 43 H (7-21) mg/dL Creatinine 4.9 H (0.7-1.2) mg/dl Est GFR ( Amer) 11 Est GFR (Non-Af Amer) 9 POC Glucose (mg/dL) (65-110) mg/dL Random Glucose 156 H (70-110) mg/dL Calcium 7.6 L (8.4-10.5) mg/dL Total Bilirubin 1.0 (0.2-1.3) mg/dL AST 127 H D (14-36) U/L ALT 124 H (7-56) U/L Alkaline Phosphatase 199 H D (38-126) U/L Total Protein 5.3 L (5.8-8.3) g/dL Albumin 2.3 L (3.0-4.8) g/dL Globulin 3.0 gm/dL Albumin/Globulin Ratio 0.8 L (1.1-1.8) KATHI Screen (Negative) KATHI Titer (<1:40) Titer KATHI Titer 2 KATHI Pattern KATHI Pattern 2 Smooth Muscle Ab Titer (< 1:20) Titer Anti-Smooth Muscle Ab (Negative) 07/09/17 07/09/17 07/05/17 Range/Units 11:15 07:19 12:00 WBC (4.5-11.0) 10^3/ul RBC (3.5-6.1) 10^6/uL Hgb (12.0-16.0) g/dL Hct (36.0-48.0) % MCV (80.0-105.0) fl MCH (25.0-35.0) pg MCHC (31.0-37.0) g/dl RDW (11.5-14.5) % Plt Count (120.0-450.0) 10^3/uL Gran % (50.0-68.0) % Lymph % (Auto) (22.0-35.0) % [place] % (Auto) (1.0-6.0) % Eos % (Auto) (1.5-5.0) % Baso % (Auto) (0.0-3.0) % Gran # (1.4-6.5) Lymph # (1.2-3.4) [place] # (0.1-0.6) Eos # (0.0-0.7) Baso # (0.0-2.0) K/mm3 pCO2 (35-45) mm/Hg pO2 (80-100) mm/Hg HCO3 (21-28) mmol/L ABG pH (7.35-7.45) ABG Total CO2 (22-28) mmol.L ABG O2 Saturation (95-98) % ABG O2 Content (15-23) ML/dl ABG Base Excess (-2.0-3.0) mmol/L ABG Hemoglobin (11.7-17.4) g/dL ABG Carboxyhemoglobin (0.5-1.5) % POC ABG HHb (Measured) (0-5) % ABG Methemoglobin (0.0-3.0) % ABG O2 Capacity (16-24) mL/dl Hgb O2 Saturation (95.0-98.0) % FiO2 % Sodium (132-148) mmol/L Potassium (3.6-5.0) mmol/L Chloride (98-107) mmol/L Carbon Dioxide (21-33) mmol/L Anion Gap (10-20) BUN (7-21) mg/dL Creatinine (0.7-1.2) mg/dl Est GFR ( Amer) Est GFR (Non-Af Amer) POC Glucose (mg/dL) 134 H 121 H (65-110) mg/dL Random Glucose (70-110) mg/dL Calcium (8.4-10.5) mg/dL Total Bilirubin (0.2-1.3) mg/dL AST (14-36) U/L ALT (7-56) U/L Alkaline Phosphatase (38-126) U/L Total Protein (5.8-8.3) g/dL Albumin (3.0-4.8) g/dL Globulin gm/dL Albumin/Globulin Ratio (1.1-1.8) KATHI Screen Positive H (Negative) KATHI Titer 1:80 H (<1:40) Titer KATHI Titer 2 TEST NOT PERFORMED KATHI Pattern Homogeneous H KATHI Pattern 2 TEST NOT PERFORMED Smooth Muscle Ab Titer (< 1:20) Titer Anti-Smooth Muscle Ab (Negative) 07/05/17 Range/Units 11:30 WBC (4.5-11.0) 10^3/ul RBC (3.5-6.1) 10^6/uL Hgb (12.0-16.0) g/dL Hct (36.0-48.0) % MCV (80.0-105.0) fl MCH (25.0-35.0) pg MCHC (31.0-37.0) g/dl RDW (11.5-14.5) % Plt Count (120.0-450.0) 10^3/uL Gran % (50.0-68.0) % Lymph % (Auto) (22.0-35.0) % [place] % (Auto) (1.0-6.0) % Eos % (Auto) (1.5-5.0) % Baso % (Auto) (0.0-3.0) % Gran # (1.4-6.5) Lymph # (1.2-3.4) [place] # (0.1-0.6) Eos # (0.0-0.7) Baso # (0.0-2.0) K/mm3 pCO2 (35-45) mm/Hg pO2 (80-100) mm/Hg HCO3 (21-28) mmol/L ABG pH (7.35-7.45) ABG Total CO2 (22-28) mmol.L ABG O2 Saturation (95-98) % ABG O2 Content (15-23) ML/dl ABG Base Excess (-2.0-3.0) mmol/L ABG Hemoglobin (11.7-17.4) g/dL ABG Carboxyhemoglobin (0.5-1.5) % POC ABG HHb (Measured) (0-5) % ABG Methemoglobin (0.0-3.0) % ABG O2 Capacity (16-24) mL/dl Hgb O2 Saturation (95.0-98.0) % FiO2 % Sodium (132-148) mmol/L Potassium (3.6-5.0) mmol/L Chloride (98-107) mmol/L Carbon Dioxide (21-33) mmol/L Anion Gap (10-20) BUN (7-21) mg/dL Creatinine (0.7-1.2) mg/dl Est GFR ( Amer) Est GFR (Non-Af Amer) POC Glucose (mg/dL) (65-110) mg/dL Random Glucose (70-110) mg/dL Calcium (8.4-10.5) mg/dL Total Bilirubin (0.2-1.3) mg/dL AST (14-36) U/L ALT (7-56) U/L Alkaline Phosphatase (38-126) U/L Total Protein (5.8-8.3) g/dL Albumin (3.0-4.8) g/dL Globulin gm/dL Albumin/Globulin Ratio (1.1-1.8) KATHI Screen (Negative) KATHI Titer (<1:40) Titer KATHI Titer 2 KATHI Pattern KATHI Pattern 2 Smooth Muscle Ab Titer 1:20 H (< 1:20) Titer Anti-Smooth Muscle Ab Positive H (Negative) Laboratory Results - last 24 hr 07/05/17 07/05/17 07/09/17 11:30 12:00 07:19 WBC RBC Hgb Hct MCV MCH MCHC RDW Plt Count Gran % Lymph % (Auto) [place] % (Auto) Eos % (Auto) Baso % (Auto) Gran # Lymph # [place] # Eos # Baso # pCO2 pO2 HCO3 ABG pH ABG Total CO2 ABG O2 Saturation ABG O2 Content ABG Base Excess ABG Hemoglobin ABG Carboxyhemoglobin POC ABG HHb (Measured) ABG Methemoglobin ABG O2 Capacity Hgb O2 Saturation FiO2 Sodium Potassium Chloride Carbon Dioxide Anion Gap BUN Creatinine Est GFR ( Amer) Est GFR (Non-Af Amer) POC Glucose (mg/dL) 121 H Random Glucose Calcium Total Bilirubin AST ALT Alkaline Phosphatase Total Protein Albumin Globulin Albumin/Globulin Ratio KATHI Screen Positive H KATHI Titer 1:80 H KATHI Titer 2 TEST NOT PERFORMED KATHI Pattern Homogeneous H KATHI Pattern 2 TEST NOT PERFORMED Smooth Muscle Ab Titer 1:20 H Anti-Smooth Muscle Ab Positive H 07/09/17 07/10/17 07/10/17 11:15 05:30 08:15 WBC 8.6 RBC 3.52 Hgb 9.5 L Hct 30.2 L MCV 85.8 MCH 27.0 MCHC 31.5 RDW 17.2 H Plt Count 56 L Gran % 82.5 H Lymph % (Auto) 10.0 L [place] % (Auto) 5.6 Eos % (Auto) 1.9 Baso % (Auto) 0.0 Gran # 7.08 H Lymph # 0.9 L [place] # 0.5 Eos # 0.2 Baso # 0.00 pCO2 34 L pO2 139.0 H HCO3 27.1 ABG pH 7.51 H ABG Total CO2 28.1 H ABG O2 Saturation 99.4 H ABG O2 Content 13.4 L ABG Base Excess 4.0 H ABG Hemoglobin 9.7 L ABG Carboxyhemoglobin 2.1 H POC ABG HHb (Measured) 0.6 ABG Methemoglobin 1.0 ABG O2 Capacity 13.5 L Hgb O2 Saturation 96.4 FiO2 50.0 Sodium Potassium Chloride Carbon Dioxide Anion Gap BUN Creatinine Est GFR ( Amer) Est GFR (Non-Af Amer) POC Glucose (mg/dL) 134 H Random Glucose Calcium Total Bilirubin AST ALT Alkaline Phosphatase Total Protein Albumin Globulin Albumin/Globulin Ratio KATHI Screen KATHI Titer KATHI Titer 2 KATHI Pattern KATHI Pattern 2 Smooth Muscle Ab Titer Anti-Smooth Muscle Ab 07/10/17 08:15 WBC RBC Hgb Hct MCV MCH MCHC RDW Plt Count Gran % Lymph % (Auto) [place] % (Auto) Eos % (Auto) Baso % (Auto) Gran # Lymph # [place] # Eos # Baso # pCO2 pO2 HCO3 ABG pH ABG Total CO2 ABG O2 Saturation ABG O2 Content ABG Base Excess ABG Hemoglobin ABG Carboxyhemoglobin POC ABG HHb (Measured) ABG Methemoglobin ABG O2 Capacity Hgb O2 Saturation FiO2 Sodium 138 Potassium 3.3 L Chloride 100 Carbon Dioxide 28 Anion Gap 14 BUN 43 H Creatinine 4.9 H Est GFR ( Amer) 11 Est GFR (Non-Af Amer) 9 POC Glucose (mg/dL) Random Glucose 156 H Calcium 7.6 L Total Bilirubin 1.0 AST 127 H D ALT 124 H Alkaline Phosphatase 199 H D Total Protein 5.3 L Albumin 2.3 L Globulin 3.0 Albumin/Globulin Ratio 0.8 L KATHI Screen KATHI Titer KATHI Titer 2 KATHI Pattern KATHI Pattern 2 Smooth Muscle Ab Titer Anti-Smooth Muscle Ab Fingerstick Blood Sugar Results: 173 Assessment/Plan - Assessment and Plan (Free Text) Plan: 66 F with a PMH of ESRD on HD, HTN, CHF, afib RVR who is intubated with resolved cardiogenic shock likely secondary to low EF and afib RVR, CVA, Respiratory failure, and Thrombocytopeni Neuro: intubated, maintain normothermia, unable to answer questions, minimally responsive to noxious stimuli and opens eyes spontaneously on occasion, f/u neurology recommendations Pulm: intubated and on PRVC vent support, Maintain SaO2 > 90%, keep head of bed elevated at 30 degrees, Will need tracheostomy eventually Cardio: regular rhythm, normotensive, Coreg for rate control, Hydralazine/ Nitrates for afterload/preload reductionl, Maintain MAP > 65 GI: Protonix for ppx, Continue tube feeds, f/u GI recommendations Renal: Monitor electrolytes, Dialysis MWF, f/u Nephrology recommendations Endo: Maintain euglycemia 140-180 Heme: SCD for DVT ppx, Monitor Platelets ID: Continue IV antibiotics as per ID Misc: Patient to be transferred to LTAC - pending authorization, follow up palliative care <Obi Irving - Last Filed: 07/10/17 13:03> CCU Objective - Vital Signs / Intake & Output Vital Signs (Last 4 hours): Vital Signs Pulse BP 07/10/17 10:25 79 109/46 L 07/10/17 10:00 79 Intake and Output (Last 8hrs): Intake & Output 07/09/17 07/10/17 07/10/17 22:59 06:59 14:59 Intake Total 1020 915 Output Total 2300 2300 Balance -1280 -1385 Weight 197 lb Intake: IV 100 115 Right Forearm 100 100 Right Upper arm 15 Tube Feeding 720 600 Other 200 200 Output: Urine 0 Urine, Voided 0 Other 2300 2300 Other: # Bowel Movements 3 - Medications Active Medications: Active Medications Generic Name Dose Route Start Last Admin Trade Name Freq PRN Reason Stop Dose Admin Artificial Tears 0 gm 07/05/17 20:00 07/06/17 18:51 Artificial Tears Opht Oint OU 1 gel Q8H PRN Administration Dry eyes Artificial Tears 0 ml 07/06/17 18:00 07/09/17 19:00 Artificial Tears OU 2 drop BID MARCEL Administration Aspirin 81 mg 07/06/17 22:45 07/10/17 10:25 Aspirin Chewable GT 81 mg DAILY MARCEL Administration Atorvastatin Calcium 40 mg 07/07/17 09:29 07/09/17 17:16 Lipitor GT 40 mg DIN MARCEL Administration Calcium Acetate 2,001 mg 07/07/17 13:00 07/10/17 05:27 Phoslo PO 2,001 mg Q8H MARCEL Administration Carvedilol 6.25 mg 07/08/17 10:30 07/10/17 10:25 Coreg PO 6.25 mg BID MARCEL Administration Chlorhexidine Gluconate 15 ml 07/04/17 18:00 07/09/17 19:00 Peridex PO 15 ml BID MARCEL Administration Darbepoetin Srikanth 100 mcg 07/11/17 10:41 Aranesp IVP 07/11/17 10:42 ONCE ONE Hydralazine HCl 10 mg 07/07/17 14:00 07/10/17 05:25 Apresoline NG Not Given Q8 [facility] Meropenem 500 mg/ Sodium 100 mls @ 100 mls/hr 07/07/17 19:27 07/10/17 10:21 Chloride IVPB 100 mls/hr DAILY MARCEL Administration Protocol Isosorbide Mononitrate 60 mg 07/07/17 10:00 07/10/17 10:25 Imdur PO 60 mg DAILY MARCEL Administration Pantoprazole Sodium 40 mg 07/04/17 10:00 07/10/17 10:24 Protonix Inj IVP 40 mg DAILY MARCEL Administration - Patient Studies Lab Studies: Microbiology Studies 07/07/17 18:15 Stool Culture - Final Stool NO SALMONELLA, SHIGELLA OR CAMPYLOBACTER ISOLATED. 07/07/17 08:40 Blood Culture - Preliminary Blood-Venous NO GROWTH AFTER 3 DAYS 07/07/17 09:20 Blood Culture - Preliminary Blood-Venous NO GROWTH AFTER 3 DAYS 07/08/17 21:00 Gram Stain - Final Trachasp Lab Studies 07/10/17 07/10/17 07/10/17 Range/Units 11:29 08:15 08:15 WBC 8.6 (4.5-11.0) 10^3/ul RBC 3.52 (3.5-6.1) 10^6/uL Hgb 9.5 L (12.0-16.0) g/dL Hct 30.2 L (36.0-48.0) % MCV 85.8 (80.0-105.0) fl MCH 27.0 (25.0-35.0) pg MCHC 31.5 (31.0-37.0) g/dl RDW 17.2 H (11.5-14.5) % Plt Count 56 L (120.0-450.0) 10^3/uL Gran % 82.5 H (50.0-68.0) % Lymph % (Auto) 10.0 L (22.0-35.0) % [place] % (Auto) 5.6 (1.0-6.0) % Eos % (Auto) 1.9 (1.5-5.0) % Baso % (Auto) 0.0 (0.0-3.0) % Gran # 7.08 H (1.4-6.5) Lymph # 0.9 L (1.2-3.4) [place] # 0.5 (0.1-0.6) Eos # 0.2 (0.0-0.7) Baso # 0.00 (0.0-2.0) K/mm3 pCO2 (35-45) mm/Hg pO2 (80-100) mm/Hg HCO3 (21-28) mmol/L ABG pH (7.35-7.45) ABG Total CO2 (22-28) mmol.L ABG O2 Saturation (95-98) % ABG O2 Content (15-23) ML/dl ABG Base Excess (-2.0-3.0) mmol/L ABG Hemoglobin (11.7-17.4) g/dL ABG Carboxyhemoglobin (0.5-1.5) % POC ABG HHb (Measured) (0-5) % ABG Methemoglobin (0.0-3.0) % ABG O2 Capacity (16-24) mL/dl Hgb O2 Saturation (95.0-98.0) % FiO2 % Sodium 138 (132-148) mmol/L Potassium 3.3 L (3.6-5.0) mmol/L Chloride 100 (98-107) mmol/L Carbon Dioxide 28 (21-33) mmol/L Anion Gap 14 (10-20) BUN 43 H (7-21) mg/dL Creatinine 4.9 H (0.7-1.2) mg/dl Est GFR ( Amer) 11 Est GFR (Non-Af Amer) 9 POC Glucose (mg/dL) 140 H (65-110) mg/dL Random Glucose 156 H (70-110) mg/dL Calcium 7.6 L (8.4-10.5) mg/dL Total Bilirubin 1.0 (0.2-1.3) mg/dL AST 127 H D (14-36) U/L ALT 124 H (7-56) U/L Alkaline Phosphatase 199 H D (38-126) U/L Total Protein 5.3 L (5.8-8.3) g/dL Albumin 2.3 L (3.0-4.8) g/dL Globulin 3.0 gm/dL Albumin/Globulin Ratio 0.8 L (1.1-1.8) Smooth Muscle Ab Titer (< 1:20) Titer Anti-Smooth Muscle Ab (Negative) 07/10/17 07/10/17 07/10/17 Range/Units 07:14 05:30 00:51 WBC (4.5-11.0) 10^3/ul RBC (3.5-6.1) 10^6/uL Hgb (12.0-16.0) g/dL Hct (36.0-48.0) % MCV (80.0-105.0) fl MCH (25.0-35.0) pg MCHC (31.0-37.0) g/dl RDW (11.5-14.5) % Plt Count (120.0-450.0) 10^3/uL Gran % (50.0-68.0) % Lymph % (Auto) (22.0-35.0) % [place] % (Auto) (1.0-6.0) % Eos % (Auto) (1.5-5.0) % Baso % (Auto) (0.0-3.0) % Gran # (1.4-6.5) Lymph # (1.2-3.4) [place] # (0.1-0.6) Eos # (0.0-0.7) Baso # (0.0-2.0) K/mm3 pCO2 34 L (35-45) mm/Hg pO2 139.0 H (80-100) mm/Hg HCO3 27.1 (21-28) mmol/L ABG pH 7.51 H (7.35-7.45) ABG Total CO2 28.1 H (22-28) mmol.L ABG O2 Saturation 99.4 H (95-98) % ABG O2 Content 13.4 L (15-23) ML/dl ABG Base Excess 4.0 H (-2.0-3.0) mmol/L ABG Hemoglobin 9.7 L (11.7-17.4) g/dL ABG Carboxyhemoglobin 2.1 H (0.5-1.5) % POC ABG HHb (Measured) 0.6 (0-5) % ABG Methemoglobin 1.0 (0.0-3.0) % ABG O2 Capacity 13.5 L (16-24) mL/dl Hgb O2 Saturation 96.4 (95.0-98.0) % FiO2 50.0 % Sodium (132-148) mmol/L Potassium (3.6-5.0) mmol/L Chloride (98-107) mmol/L Carbon Dioxide (21-33) mmol/L Anion Gap (10-20) BUN (7-21) mg/dL Creatinine (0.7-1.2) mg/dl Est GFR ( Amer) Est GFR (Non-Af Amer) POC Glucose (mg/dL) 161 H 173 H (65-110) mg/dL Random Glucose (70-110) mg/dL Calcium (8.4-10.5) mg/dL Total Bilirubin (0.2-1.3) mg/dL AST (14-36) U/L ALT (7-56) U/L Alkaline Phosphatase (38-126) U/L Total Protein (5.8-8.3) g/dL Albumin (3.0-4.8) g/dL Globulin gm/dL Albumin/Globulin Ratio (1.1-1.8) Smooth Muscle Ab Titer (< 1:20) Titer Anti-Smooth Muscle Ab (Negative) 07/09/17 07/09/17 07/05/17 Range/Units 16:07 07:19 11:30 WBC (4.5-11.0) 10^3/ul RBC (3.5-6.1) 10^6/uL Hgb (12.0-16.0) g/dL Hct (36.0-48.0) % MCV (80.0-105.0) fl MCH (25.0-35.0) pg MCHC (31.0-37.0) g/dl RDW (11.5-14.5) % Plt Count (120.0-450.0) 10^3/uL Gran % (50.0-68.0) % Lymph % (Auto) (22.0-35.0) % [place] % (Auto) (1.0-6.0) % Eos % (Auto) (1.5-5.0) % Baso % (Auto) (0.0-3.0) % Gran # (1.4-6.5) Lymph # (1.2-3.4) [place] # (0.1-0.6) Eos # (0.0-0.7) Baso # (0.0-2.0) K/mm3 pCO2 (35-45) mm/Hg pO2 (80-100) mm/Hg HCO3 (21-28) mmol/L ABG pH (7.35-7.45) ABG Total CO2 (22-28) mmol.L ABG O2 Saturation (95-98) % ABG O2 Content (15-23) ML/dl ABG Base Excess (-2.0-3.0) mmol/L ABG Hemoglobin (11.7-17.4) g/dL ABG Carboxyhemoglobin (0.5-1.5) % POC ABG HHb (Measured) (0-5) % ABG Methemoglobin (0.0-3.0) % ABG O2 Capacity (16-24) mL/dl Hgb O2 Saturation (95.0-98.0) % FiO2 % Sodium (132-148) mmol/L Potassium (3.6-5.0) mmol/L Chloride (98-107) mmol/L Carbon Dioxide (21-33) mmol/L Anion Gap (10-20) BUN (7-21) mg/dL Creatinine (0.7-1.2) mg/dl Est GFR ( Amer) Est GFR (Non-Af Amer) POC Glucose (mg/dL) 131 H 121 H (65-110) mg/dL Random Glucose (70-110) mg/dL Calcium (8.4-10.5) mg/dL Total Bilirubin (0.2-1.3) mg/dL AST (14-36) U/L ALT (7-56) U/L Alkaline Phosphatase (38-126) U/L Total Protein (5.8-8.3) g/dL Albumin (3.0-4.8) g/dL Globulin gm/dL Albumin/Globulin Ratio (1.1-1.8) Smooth Muscle Ab Titer 1:20 H (< 1:20) Titer Anti-Smooth Muscle Ab Positive H (Negative) Laboratory Results - last 24 hr 07/05/17 07/09/17 07/09/17 11:30 07:19 16:07 WBC RBC Hgb Hct MCV MCH MCHC RDW Plt Count Gran % Lymph % (Auto) [place] % (Auto) Eos % (Auto) Baso % (Auto) Gran # Lymph # [place] # Eos # Baso # pCO2 pO2 HCO3 ABG pH ABG Total CO2 ABG O2 Saturation ABG O2 Content ABG Base Excess ABG Hemoglobin ABG Carboxyhemoglobin POC ABG HHb (Measured) ABG Methemoglobin ABG O2 Capacity Hgb O2 Saturation FiO2 Sodium Potassium Chloride Carbon Dioxide Anion Gap BUN Creatinine Est GFR ( Amer) Est GFR (Non-Af Amer) POC Glucose (mg/dL) 121 H 131 H Random Glucose Calcium Total Bilirubin AST ALT Alkaline Phosphatase Total Protein Albumin Globulin Albumin/Globulin Ratio Smooth Muscle Ab Titer 1:20 H Anti-Smooth Muscle Ab Positive H 07/10/17 07/10/17 07/10/17 00:51 05:30 07:14 WBC RBC Hgb Hct MCV MCH MCHC RDW Plt Count Gran % Lymph % (Auto) [place] % (Auto) Eos % (Auto) Baso % (Auto) Gran # Lymph # [place] # Eos # Baso # pCO2 34 L pO2 139.0 H HCO3 27.1 ABG pH 7.51 H ABG Total CO2 28.1 H ABG O2 Saturation 99.4 H ABG O2 Content 13.4 L ABG Base Excess 4.0 H ABG Hemoglobin 9.7 L ABG Carboxyhemoglobin 2.1 H POC ABG HHb (Measured) 0.6 ABG Methemoglobin 1.0 ABG O2 Capacity 13.5 L Hgb O2 Saturation 96.4 FiO2 50.0 Sodium Potassium Chloride Carbon Dioxide Anion Gap BUN Creatinine Est GFR ( Amer) Est GFR (Non-Af Amer) POC Glucose (mg/dL) 173 H 161 H Random Glucose Calcium Total Bilirubin AST ALT Alkaline Phosphatase Total Protein Albumin Globulin Albumin/Globulin Ratio Smooth Muscle Ab Titer Anti-Smooth Muscle Ab 07/10/17 07/10/17 07/10/17 08:15 08:15 11:29 WBC 8.6 RBC 3.52 Hgb 9.5 L Hct 30.2 L MCV 85.8 MCH 27.0 MCHC 31.5 RDW 17.2 H Plt Count 56 L Gran % 82.5 H Lymph % (Auto) 10.0 L [place] % (Auto) 5.6 Eos % (Auto) 1.9 Baso % (Auto) 0.0 Gran # 7.08 H Lymph # 0.9 L [place] # 0.5 Eos # 0.2 Baso # 0.00 pCO2 pO2 HCO3 ABG pH ABG Total CO2 ABG O2 Saturation ABG O2 Content ABG Base Excess ABG Hemoglobin ABG Carboxyhemoglobin POC ABG HHb (Measured) ABG Methemoglobin ABG O2 Capacity Hgb O2 Saturation FiO2 Sodium 138 Potassium 3.3 L Chloride 100 Carbon Dioxide 28 Anion Gap 14 BUN 43 H Creatinine 4.9 H Est GFR ( Amer) 11 Est GFR (Non-Af Amer) 9 POC Glucose (mg/dL) 140 H Random Glucose 156 H Calcium 7.6 L Total Bilirubin 1.0 AST 127 H D ALT 124 H Alkaline Phosphatase 199 H D Total Protein 5.3 L Albumin 2.3 L Globulin 3.0 Albumin/Globulin Ratio 0.8 L Smooth Muscle Ab Titer Anti-Smooth Muscle Ab Assessment/Plan - Assessment and Plan (Free Text) Plan: Patient seen and examined on round with resident, agree with note with following additions/exceptions: Patient is 66yo female with PMhx of Dm, HTN, ESRD on HD, non compliant with meds and treatment, admitted with cardiogenic shock 2/2 afib with RVR, now resolved. Currently afebrile, HD stable, comfortable. Underwent HD yesterday tolerated well. Has CVA, MRI confirmed, cont with ASA, Statin, BP control. Awaiting [facility] transfer. Pt with difficulty weaning. GI ppx, DVT ppx, SCDs. Stable, awaiting [facility] transfer.
[2017-07-10] MEDS: Chlorhexidine 0.12% Oral Sol 480 ml Bot PO SCH ×2 (10:00→17:47)
--- NOTE | 2017-07-10 10:17 | PN ---
DATE: 07/10/2017 PULMONARY NOTE(620am--710am) SUBJECTIVE: The patient remains on the ventilator. She remains poorly responsive. PHYSICAL EXAMINATION: VITAL SIGNS: Temperature is 97.6, pulse 77, respirations 20/20, blood pressure 141/73. HEENT: Normocephalic, atraumatic. No JVD. CARDIOVASCULAR: Systolic ejection murmur at the lower left sternal border. No S3 gallop. LUNGS: Crackles at both bases. Less rhonchi. No wheezing. EXTREMITIES: The patient is status post left [id number]-[id number]-[id number] amputation. The right lower extremity reveals chronic vascular changes. There is no clubbing or cyanosis. GI: Abdomen is soft, nondistended. Bowel sounds are positive. SKIN: No acute rash. NEUROLOGIC: Limited at the present time. PERTINENT LABORATORY DATA: Chest x-ray was done this morning and reviewed. The x-ray shows definite improvement with a decrease in the right lower lobe infiltrate - compared to yesterday's film. Arterial blood gas was done on assist control 20, tidal volume 450, FiO2 of 50%, PEEP of 5. Results are: PH 7.51, pCO2 of 34, pO2 of 139. IMPRESSION: 1. Respiratory failure. 2. Community-acquired pneumonia. 3. Ventricular tachycardia. 4. Mild pulmonary edema. 5. End-stage renal disease. 6. Rapid atrial fibrillation. 7. Mild bronchospasm. 8. Encephalopathy. PLAN: The patient remains on the ventilator. She remains poorly responsive. I did discuss the case with the night nurse at length. The night nurse stated that the patient had a pretty good night. I did review the chest x-ray as above. The chest x-ray today shows definite improvement - with a decrease in the right lower lobe infiltrate. I have also reviewed the arterial blood gas. The arterial blood gases have also been improving - with a decrease in the alveolar-arterial gradient. I will speak with the ICU team-- in reference to possibly decreasing the minute ventilation, as well as the FiO2. Inputs by Cardiology and Neurology are noted. Unfortunately, the patient does remain poorly responsive. I would also continue with the antibiotic coverage as per Infectious Disease. Temperatures are resolving. Again, the chest x-ray has improved. Overall, clinically, the patient has improved. However, her neurologic dysfunction remains a significant determinant of her future status/prognosis. I will discuss the above with the entire ICU team in the next few moments. I will also discuss the above with Dr. Beverly later this morning. Earl Vega MD MTD[facility]
[2017-07-10] MEDS: Meropenem 500 MG in Sodium Chloride 0.9% 100 ML IVPB SCH (10:21)
--- NOTE | 2017-07-10 10:23 | PN ---
DATE: 07/10/2017 SUBJECTIVE: Patient is in bed, was seen early this morning in room 128, bed 5. Remains intubated on a ventilator in poor condition. PHYSICAL EXAMINATION VITAL SIGNS: On exam, temperature is 97.8 and she has been afebrile for 24 hours. Patient's blood pressure is 140/70, respiratory rate , on a vent, heart rate of 88. HEENT: Reveals tube in place. NECK: Supple. LUNGS: Decreased breath sounds. HEART: Normal S1 and S2.. ABDOMEN: Soft. SKIN: Multiple bullous lesions in the groin area and buttocks area and thigh. LABORATORY DATA: Reveals a white count of 8.6, hemoglobin of 9.5, platelets of 56. Chemistries reveals BUN of 43, creatinine of 4.9, AST is 127, ALT is 124, alk phos is 199. Urinalysis is noted and toxicology is noted. Vancomycin trough of 8.4. KATHI screen is positive 1:80, titer smooth muscle antibody is positive, anti-smooth muscle antibody is also positive, KATHI is homogenous 1:80 pattern and blood cultures are all negative and urine cultures did grew E. Coli from 07/04/2017. E. Coli is hernandez sensitive. Review of orders reveals the patient to be on meropenem. Dr. Lobo Blackwell notes from yesterday is reviewed. Yamel Fonseca note is appreciated. Dr. Henri Guillen note is also reviewed. Dr. Guillen states that the patient's prognosis is poor. ASSESSMENT AND PLAN: She is a 66 year old female with severe sepsis, ventilatory dependent respiratory failure, left sided health care associated pneumonia with Escherichia coli urinary tract infection and new onset of acute cerebrovascular accident and decubitus ulcer and left above the knee amputations stump and history of cholecystectomy, hysterectomy. Patient has end-stage renal disease, on hemodialysis, on intermittent vancomycin, on day #7 of meropenem. Repeat cultures are negative. Overall prognosis is quite poor. We will follow closely with you. Reji Young MD
--- NOTE | 2017-07-10 10:32 | CP.PCM.PN ---
<Valentina Cabrera - Last Filed: 07/10/17 17:11> Subjective - Date & Time of Evaluation Date of Evaluation: 07/10/17 Time of Evaluation: 09:00 - Subjective Subjective: PGY-2 Neurology progress note fro Dr. Blackwell's service Patient seen and examined at bedside in ICU. Patient remains intubated. Patient continues to have gag reflex, pupillary reflex. she does not withdraw from pain , no purposeful movement Objective - Vital Signs/Intake and Output Vital Signs (last 24 hours): Temp Pulse Resp BP Pulse Ox 97.6 F 79 20 109/46 L 100 07/10/17 04:00 07/10/17 10:25 07/10/17 07:55 07/10/17 10:25 07/10/17 07:55 Intake and Output: 07/10/17 07/10/17 06:59 18:59 Intake Total 915 Output Total 2300 Balance -1385 - Medications Medications: Current Medications Artificial Tears (Artificial Tears Opht Oint) 0 gm OU Q8H PRN PRN Reason: Dry eyes Last Admin: 07/06/17 18:51 Dose: 1 gel Artificial Tears (Artificial Tears) 0 ml OU BID [facility] Last Admin: 07/09/17 19:00 Dose: 2 drop Aspirin (Aspirin Chewable) 81 mg GT DAILY [facility] Last Admin: 07/10/17 10:25 Dose: 81 mg Atorvastatin Calcium (Lipitor) 40 mg GT DIN [facility] Last Admin: 07/09/17 17:16 Dose: 40 mg Calcium Acetate (Phoslo) 2,001 mg PO Q8H [facility] Last Admin: 07/10/17 05:27 Dose: 2,001 mg Carvedilol (Coreg) 6.25 mg PO BID [facility] Last Admin: 07/10/17 10:25 Dose: 6.25 mg Chlorhexidine Gluconate (Peridex) 15 ml PO BID [facility] Last Admin: 07/09/17 19:00 Dose: 15 ml Hydralazine HCl (Apresoline) 10 mg NG Q8 [facility] Last Admin: 07/10/17 05:25 Dose: Not Given Meropenem 500 mg/ Sodium (Chloride) 100 mls @ 100 mls/hr IVPB DAILY [facility] PRN Reason: Protocol Last Admin: 07/10/17 10:21 Dose: 100 mls/hr Isosorbide Mononitrate (Imdur) 60 mg PO DAILY [facility] Last Admin: 07/10/17 10:25 Dose: 60 mg Pantoprazole Sodium (Protonix Inj) 40 mg IVP DAILY [facility] Last Admin: 07/10/17 10:24 Dose: 40 mg - Labs Labs: 07/10/17 08:15 07/10/17 08:15 PT 18.5 SECONDS (9.4-12.5) H 07/07/17 08:40 INR 1.66 (0.93-1.08) H 07/07/17 08:40 APTT 34.9 Seconds (25.1-36.5) 07/06/17 17:00 - Constitutional Appears: No Acute Distress - Head Exam Head Exam: ATRAUMATIC, NORMAL INSPECTION, NORMOCEPHALIC - Eye Exam Eye Exam: PERRL Pupil Exam: Miosis - ENT Exam Additional comments: intubated - Respiratory Exam Respiratory Exam: Clear to Ausculation Bilateral, NORMAL BREATHING PATTERN. absent: Respiratory Distress - Cardiovascular Exam Cardiovascular Exam: REGULAR RHYTHM, +S1, +S2. absent: Tachycardia, Murmur - Neurological Exam Additional comments: positive gag, and pupillary reflex, no purposeful movement Assessment and Plan - Assessment and Plan (Free Text) Assessment: 66 year old female with past medical history of CHF, ESRD with hemodialysis (M/W /F), diabetes, and left BKA, who presented with altered mental status secondary to hypoxic encephalopathy due to hypoperfusion and shock with multi organ failure. 1. AMS 2. shock (septic v cardiogenic) 3. respiratory failure 4. ESRD on HD 5. shocked liver- improving 6. hypokalemia - CT head showed nonspecific white matter changes - MRI showed ischemia along posterior cerebral artery most like due to hypoperfusion - carotid US pending - avoid sedative medications - maintain blood pressure , avoid further drops - monitor electrolytes, replace as needed - consider pletal for stroke prevention instead of asa due to thrombocytopenia case discussed and reviewed with attending <Lobo Blackwell - Last Filed: 07/10/17 18:05> Objective - Vital Signs/Intake and Output Vital Signs (last 24 hours): Temp Pulse Resp BP Pulse Ox 97.6 F 72 20 109/60 100 07/10/17 04:00 07/10/17 17:27 07/10/17 07:55 07/10/17 17:27 07/10/17 07:55 Intake and Output: 07/10/17 07/10/17 06:59 18:59 Intake Total 915 1020 Output Total 2300 Balance -1385 1020 - Medications Medications: Current Medications Artificial Tears (Artificial Tears Opht Oint) 0 gm OU Q8H PRN PRN Reason: Dry eyes Last Admin: 07/06/17 18:51 Dose: 1 gel Artificial Tears (Artificial Tears) 0 ml OU BID [facility] Last Admin: 07/10/17 17:39 Dose: 2 drop Aspirin (Aspirin Chewable) 81 mg GT DAILY [facility] Last Admin: 07/10/17 10:25 Dose: 81 mg Atorvastatin Calcium (Lipitor) 40 mg GT DIN [facility] Last Admin: 07/10/17 17:30 Dose: 40 mg Calcium Acetate (Phoslo) 2,001 mg PO Q8H [facility] Last Admin: 07/10/17 14:52 Dose: 2,001 mg Carvedilol (Coreg) 6.25 mg PO BID [facility] Last Admin: 07/10/17 17:27 Dose: 6.25 mg Chlorhexidine Gluconate (Peridex) 15 ml PO BID [facility] Last Admin: 07/10/17 17:47 Dose: 15 ml Darbepoetin Srikanth (Aranesp) 100 mcg IVP ONCE ONE Stop: 07/11/17 10:42 Hydralazine HCl (Apresoline) 10 mg NG Q8 [facility] Last Admin: 07/10/17 14:44 Dose: Not Given Meropenem 500 mg/ Sodium (Chloride) 100 mls @ 100 mls/hr IVPB DAILY [facility] PRN Reason: Protocol Last Admin: 07/10/17 10:21 Dose: 100 mls/hr Isosorbide Mononitrate (Imdur) 60 mg PO DAILY [facility] Last Admin: 07/10/17 10:25 Dose: 60 mg Pantoprazole Sodium (Protonix Inj) 40 mg IVP DAILY [facility] Last Admin: 07/10/17 10:24 Dose: 40 mg - Labs Labs: 07/10/17 08:15 07/10/17 08:15 PT 18.5 SECONDS (9.4-12.5) H 07/07/17 08:40 INR 1.66 (0.93-1.08) H 07/07/17 08:40 APTT 34.9 Seconds (25.1-36.5) 07/06/17 17:00 Attending/Attestation - Attestation I have personally seen and examined this patient.: Yes I have fully participated in the care of the patient.: Yes I have reviewed all pertinent clinical information, including history, physical exam and plan: Yes
[2017-07-10] MEDS: Aritificial Tears (15ml) OU SCH ×2 (11:00→17:39)
--- NOTE | 2017-07-10 11:15 | RAD ---
HISTORY: f/u COMPARISON: 07/09/2017 FINDINGS: LUNGS: There is moderate vascular congestion. The endotracheal and nasogastric tubes are in satisfactory position PLEURA: No significant pleural effusion identified, no pneumothorax apparent. CARDIOVASCULAR: Mild cardiomegaly OSSEOUS STRUCTURES: No significant abnormalities. VISUALIZED UPPER ABDOMEN: Normal. OTHER FINDINGS: None. IMPRESSION: Moderate vascular congestion
--- NOTE | 2017-07-10 13:15 | PN ---
DATE: SUBJECTIVE: I saw Orly in the Intensive Care Unit. She is on the respiratory ventilator. She is not waking up. She had a stroke. She has respiratory failure, anoxic encephalopathy, end-stage dilated cardiomyopathy, also end-stage renal disease and diabetes mellitus. I discussed this with the son over the weekend about making a decision, now he understands they wanted to do a PEG and a tracheostomy. So, I want to do everything that I can for her. I discussed with case management about LTAC, which I think that is what they are heading for further care being on the ventilator, I do not think she can get off the ventilator anytime soon if at all. PHYSICAL EXAMINATION VITAL SIGNS: She has a 97.6 temperature, 72 pulse, 109/46 blood pressure, 90% O2 saturation on mechanical ventilator. HEENT: Head is atraumatic and normocephalic. HEART: Regular rate. LUNGS: Decreased breath sounds, but clear. ABDOMEN: Soft and obese. EXTREMITIES: She has a left AKA. LABORATORY DATA: She has a 8.6 white count, 9.5 hemoglobin and 30.2 hematocrit with 56 platelets. She has a 138 sodium, potassium is 3.3, potassium has been replaced, BUN is 43, and creatinine is 0.9 on dialysis. Sugar is 156 and calcium is 7.6. AST is 127, ALT is 124, alkaline phosphatase is 199, and total protein is 5.3. ASSESSMENT AND PLAN: She is being seen by numerous doctors Neurology, Palliative Care, Cardiology, Infectious Diseases, Pulmonology, and Renal. We will continue with aggressive treatment and care as per family. I believe it is PEG, tracheostomy, and LTAC. She has got end-state respiratory failure, on the ventilator. Terrence Beverly DO
--- NOTE | 2017-07-10 15:59 | PN ---
DATE: 07/10/2017 SUBJECTIVE: The patient remains on a ventilator. OBJECTIVE: VITAL SIGNS: Blood pressure is 141/73, heart rate is in the 70s. NECK: Negative JVD. LUNGS: Decreased breath sounds. HEART: Reveals S1 and S2. EXTREMITIES: Without edema. LABORATORY DATA: Potassium is 3.3, creatinine is 4.9, hemoglobin is 9.5. IMPRESSION: 1. Status post respiratory failure. 2. End-stage dilated cardiomyopathy. 3. Transient . 4. Anemia. 5. End-stage renal disease. Given these findings, the family has decided to send the patient to an LTAC. Preparations are being made. Henri Guillen MD
--- NOTE | 2017-07-10 21:59 | CP.PCM.PN ---
Subjective - Date & Time of Evaluation Date of Evaluation: 07/10/17 Time of Evaluation: 10:30 - Subjective Subjective: 66 yo F w/ pmh of htn, dm, CHF w/ systolic dysfunction, s/p CVA, PVD s/p L AKA, admitted with shock, afib w/ RVR; No change in mental status noted; no purposeful movements; Objective - Vital Signs/Intake and Output Vital Signs (last 24 hours): Temp Pulse Resp BP Pulse Ox 98.4 F 70 63 H 102/54 L 100 07/10/17 20:00 07/10/17 21:23 07/10/17 14:00 07/10/17 21:23 07/10/17 20:39 Intake and Output: 07/10/17 07/11/17 18:59 06:59 Intake Total 1020 Balance 1020 - Medications Medications: Current Medications Artificial Tears (Artificial Tears Opht Oint) 0 gm OU Q8H PRN PRN Reason: Dry eyes Last Admin: 07/06/17 18:51 Dose: 1 gel Artificial Tears (Artificial Tears) 0 ml OU BID [facility] Last Admin: 07/10/17 17:39 Dose: 2 drop Aspirin (Aspirin Chewable) 81 mg GT DAILY [facility] Last Admin: 07/10/17 10:25 Dose: 81 mg Atorvastatin Calcium (Lipitor) 40 mg GT DIN [facility] Last Admin: 07/10/17 17:30 Dose: 40 mg Calcium Acetate (Phoslo) 2,001 mg PO Q8H [facility] Last Admin: 07/10/17 21:27 Dose: 2,001 mg Carvedilol (Coreg) 6.25 mg PO BID [facility] Last Admin: 07/10/17 17:27 Dose: 6.25 mg Chlorhexidine Gluconate (Peridex) 15 ml PO BID [facility] Last Admin: 07/10/17 17:47 Dose: 15 ml Darbepoetin Srikanth (Aranesp) 100 mcg IVP ONCE ONE Stop: 07/11/17 10:42 Hydralazine HCl (Apresoline) 10 mg NG Q8 [facility] Last Admin: 07/10/17 21:23 Dose: Not Given Meropenem 500 mg/ Sodium (Chloride) 100 mls @ 100 mls/hr IVPB DAILY [facility] PRN Reason: Protocol Last Admin: 07/10/17 10:21 Dose: 100 mls/hr Isosorbide Mononitrate (Imdur) 60 mg PO DAILY [facility] Last Admin: 07/10/17 10:25 Dose: 60 mg Pantoprazole Sodium (Protonix Inj) 40 mg IVP DAILY [facility] Last Admin: 07/10/17 10:24 Dose: 40 mg - Labs Labs: 07/10/17 08:15 07/10/17 08:15 PT 18.5 SECONDS (9.4-12.5) H 07/07/17 08:40 INR 1.66 (0.93-1.08) H 07/07/17 08:40 APTT 34.9 Seconds (25.1-36.5) 07/06/17 17:00 - Constitutional Appears: No Acute Distress - Eye Exam Eye Exam: Normal appearance. absent: Scleral icterus - ENT Exam ENT Exam: Mucous Membranes Moist - Respiratory Exam Respiratory Exam: Clear to Ausculation Bilateral. absent: Respiratory Distress - Cardiovascular Exam Cardiovascular Exam: RRR, +S1, +S2 - GI/Abdominal Exam GI & Abdominal Exam: Soft. absent: Distended, Tenderness - Extremities Exam Additional comments: mild leg edema; - Skin Skin Exam: Warm. absent: Cyanosis Additional comments: echymoses noted over proximal anterior thighs w/ some blister formation; Assessment and Plan (1) End stage renal disease Assessment & Plan: Stable electrolyte and volume status; mild hypokalemia noted; next HD planned for tomorrow per routine; since family appears to want to continue life saving measures including HD, we will ask IR for fistulogram/angioplasty involving L AVF (due to known cephalic vein stenosis); Status: Chronic (2) Shock Assessment & Plan: BP stable; appears to have been cardiogenic due to afib in the setting of severe systolic dysfunction; agree with keeping K close to 4 to avoid arrhythmias; Status: Resolved (3) Hypertensive CKD, ESRD on dialysis Status: Acute (4) Anemia Assessment & Plan: Hgb below goal for ESRD; will continue to dose aranesp 100 mcg weekly; Status: Acute (5) Congestive heart failure (CHF) Assessment & Plan: See above; started on hydralazine and imdur for afterload reduction; will start low dose losartan as well; Status: Acute
[2017-07-11 06:32] LABS: EOS # 0.3 (0.0-0.7); GRAN # 6.77 (1.4-6.5); GRAN % 81.8 % (50.0-68.0); HEMATOCRIT 29.2 % (36.0-48.0); LYMPH # 0.7 (1.2-3.4); LYMPH % 8.9 % (22.0-35.0); MEAN CELL VOLUME 85.4 fl (80.0-105.0); MEAN CORPUSCULAR HEMOGLOBIN 26.6 pg (25.0-35.0); MEAN CORPUSCULAR HGB CONC 31.2 g/dl (31.0-37.0); MONO # 0.5 (0.1-0.6); MONO % 6.3 % (1.0-6.0); PLATELET COUNT 69 10^3/uL (120.0-450.0); RED CELL DISTRIBUTION WIDTH 17.3 % (11.5-14.5); WHITE BLOOD COUNT 8.3 10^3/ul (4.5-11.0)
[2017-07-11 07:12] LABS: ALB/GLOB RATIO 0.8 (1.1-1.8); BILIRUBIN,TOTAL 1.1 mg/dL (0.2-1.3); CALCIUM 8.2 mg/dL (8.4-10.5); POTASSIUM 3.2 mmol/L (3.6-5.0); TOTAL PROTEIN 5.4 g/dL (5.8-8.3)
--- NOTE | 2017-07-11 08:33 | PN ---
DATE: 07/11/2017 SUBJECTIVE: The patient seen in bed, in no acute distress. PHYSICAL EXAMINATION: VITAL SIGNS: Temperature is 98, blood pressure is 130/50, respiratory rate, on the vent. HEENT: Reveals ET tube is in place. NECK: Supple. LUNGS: Have decreased breath sounds. HEART: Normal S1, S2. ABDOMEN: Soft. The bullous lesions are now in an ulcer stage. LABORATORY DATA: Reveals a white count of 8.3, hemoglobin of 9. Chemistries reveals a BUN of 43, creatinine of 4.9. LFTs are elevated. Urinalysis is noted and immunology is reviewed, serology is noted, microbiology is reviewed. Stool cultures are negative for Salmonella, Shigella or Campylobacter. ASSESSMENT AND PLAN: A 66-year-old female with severe sepsis, ventilator-dependent respiratory failure, left-sided healthcare-associated pneumonia, Escherichia coli urinary tract infection and a new onset of acute cerebrovascular accident, decubitus ulcer and left rxbil-[id number]-[id number] amputation stump, history of cholecystectomy, hysterectomy, end-stage renal disease, on hemodialysis, currently on intermittent vancomycin and day #8 of meropenem. Repeat cultures negative. The patient has been now afebrile for 3 days. Overall, prognosis is quite poor. The patient will have possible trach. We will follow with you. Reji Young MD
--- NOTE | 2017-07-11 08:45 | RAD ---
HISTORY: f/u COMPARISON: 07/10/2017 at 0512 hours FINDINGS: LUNGS: Limited exam study rotated towards the left. . No dense consolidation PLEURA: Minimal right minor fissural fluid. No gross costophrenic angle pleural effusions. , no pneumothorax apparent. CARDIOVASCULAR: Cardiomegaly. Mild pulmonary venous congestion - possibly patchy coalescence right lung base-similar. Right minor fissural fluid probable -similar OSSEOUS STRUCTURES: No significant abnormalities. VISUALIZED UPPER ABDOMEN: Normal. OTHER FINDINGS: Endotracheal tube tip - 4 to 5 cm from abundio. NG tube tip in the gastric body. . Left IJ central venous line similar with tip in the brachiocephalic vein IMPRESSION: No interval pathology pulmonary venous congestion with right minor fissural fluid -similar Endotracheal tube, NG tube and left internal jugular vein central line positions similar -as above
--- NOTE | 2017-07-11 09:25 | PN ---
DATE: 07/11/2017(610am--705am) PULMONARY NOTE SUBJECTIVE: The patient remains on the ventilator. She remains poorly responsive. PHYSICAL EXAMINATION: VITAL SIGNS: Temperature is 98.4, pulse 88, respirations 20/20, blood pressure 130/50. Oxygen saturation on the ventilator is 100%. HEENT: Normocephalic, atraumatic. NECK: No JVD. CARDIOVASCULAR: Systolic ejection murmur at the lower left sternal border. No S3 gallop. LUNGS: Crackles at both bases. Minimal/less rhonchi. No wheezing. EXTREMITIES: The patient is status post left haufw-bre-kqff amputation. The right lower extremity reveals chronic vascular changes. There is no cyanosis or clubbing. GI: Abdomen is soft and nondistended. Bowel sounds are positive. SKIN: No acute rash. NEUROLOGIC: Exam limited at the present time. PERTINENT LABORATORY DATA: Chest x-ray was done this morning and reviewed. Today's film is a very poor, very rotated film. However, it appears to show resolution of the previously seen right lower lobe infiltrate. There remains mild pulmonary edema. Arterial blood gas was ordered for the morning - not in the computer at the present time. IMPRESSION: 1. Respiratory failure. 2. Community-acquired pneumonia. 3. Ventricular tachycardia. 4. Mild pulmonary edema. 5. End-stage renal disease. 6. Rapid atrial fibrillation. 7. Mild bronchospasm. 8. Encephalopathy. PLAN: The patient remains on the ventilator. She remains poorly responsive. I did discuss the case with the night nurse at length. The night nurse confirms that the patient has not regained a significant mental status. I did review the chest x-ray as above. Again, it is a poor rotated film, but appears to show almost complete resolution of the previously seen right lower lobe infiltrate. I would continue with the antibiotic coverage as per Infectious Disease. Temperatures have resolved. Inputs by Cardiology and Neurology are noted. Unfortunately, again, the patient has not regained her mental status. Input by Dr. Blackwell is noted. We are awaiting additional family decisions. The patient remains critically ill. I will discuss the above with the entire ICU team in the next few moments. I will also discuss the above with Dr. Beverly later this morning. Earl Vega MD [facility] # [id number] MELVIN
--- NOTE | 2017-07-11 10:22 | PN ---
DATE: 07/11/2017 CARDIOLOGY FOLLOWUP SUBJECTIVE: The patient remains unresponsive. Remains on a ventilator. PHYSICAL EXAMINATION: VITAL SIGNS: Blood pressure is 135/62, the heart rate is in the 60s. NECK: Negative JVD. LUNGS: Decreased breath sounds bilaterally. HEART: Reveal S1, S2. EXTREMITIES: Without change. LABORATORY DATA: Hemoglobin is 9.1. Chemistries, potassium is 3.2. IMPRESSION: 1. End-stage dilated cardiomyopathy. 2. Respiratory failure. 3. Altered mental status. 4. End-stage renal disease. PLAN: Given these findings, while awaiting for LTAC, the patient should have tracheostomy done in preparation for transfer. Henri Guillen MD
[2017-07-11] MEDS ORDERED: Darbepoetin Alfa 100 mcg/ml Inj IVP ONE (10:41)
[2017-07-11] MEDS: Meropenem 500 MG in Sodium Chloride 0.9% 100 ML IVPB SCH (10:43)
--- NOTE | 2017-07-11 10:52 | PN ---
DATE: SUBJECTIVE: I was told by the resident that the family wants to have the trach and the PEG put in and probably go to LTAC, so I am waiting for that the day to happen. In the mean time, I will get GI in the for the PEG and ENT for the trach, getting her ready to go to LTAC unless they will take her over there without it and do it at that facility. She was seen in bed and on the vent on feedings. PHYSICAL EXAMINATION: VITAL SIGNS: Vital signs are fairly stable for her, 130/50 blood pressure, 88 pulse, and 100% O2. HEENT: Head is atraumatic, normocephalic. HEART: Regular rate. LUNGS: Decreased breath sounds, but clear. ABDOMEN: Soft and obese. EXTREMITIES: No edema. SKIN: The skin started to have blisters could be from the medicine. MEDICATIONS: She is on Apresoline, Aranesp, artificial tears, aspirin, Coreg, Cozaar, Imdur, Lipitor, Merrem IV, Peridex, PhosLo, and Protonix. She was on vancomycin. Could be from that, I will discuss that with infectious disease doctor. LABORATORY DATA: White count is 8.3, hemoglobin is 9.1, hematocrit is 29.2, and platelets are 69. She has 138 sodium, potassium 3.2, I will replace the potassium, BUN 55, creatinine 5.7 on dialysis, GFR is, 141 sugar, 8.2 calcium, AST 100, ALT is 89, and rancho phos is 203. ASSESSMENT AND PLAN: She has had a stroke. She is bedridden. Respiratory failure. She is in critical condition and the family where I understand wants everything done. She has severe sepsis, acute respiratory failure, pneumonia, urinary tract infection, and decubitus ulcers. Now she has these blisters could be of vancomycin issue. I will get ENT for the trach and PEG tube by GI before she go to LTAC. Terrence Beverly DO [facility] [place]
[2017-07-11] MEDS: Aritificial Tears (15ml) OU SCH ×2 (11:12→20:35)
--- NOTE | 2017-07-11 11:38 | CP.CCUPN ---
<Crescencio Abernathy - Last Filed: 07/11/17 13:59> CCU Subjective - Physician Review Subjective (Free Text): Critical Care Progress Note for Dr. Castillo Patient seen ad examined at bedside. No acute event overnight. Intubated and on vent support 450, 5, 20, 50%. Minimally responsive to noxious stimuli and opens eyes spontaneously. Pending LTAC transfer. Surgery consult for tracheostomy. CCU Objective - Vital Signs / Intake & Output Vital Signs (Last 4 hours): Vital Signs Pulse BP 07/11/17 10:43 71 124/75 07/11/17 07:49 66 07/11/17 07:48 66 07/11/17 07:47 67 07/11/17 07:46 67 07/11/17 07:45 66 07/11/17 07:44 67 07/11/17 07:43 67 07/11/17 07:42 67 07/11/17 07:41 67 07/11/17 07:40 68 07/11/17 07:39 135/62 07/11/17 07:38 68 Intake and Output (Last 8hrs): Intake & Output 07/10/17 07/11/17 07/11/17 22:59 06:59 14:59 Intake Total 1020 980 Output Total 0 Balance 1020 980 Weight 198 lb 8 oz Intake: IV 100 60 Left Internal Jugular 100 60 Tube Feeding 720 920 Other 200 Output: Urine 0 Urine, Voided 0 Other: # Bowel Movements 3 2 - Physical Exam Head: Positive for: Atraumatic, Normocephalic Pupils: Positive for: PERRL Extroacular Muscles: Positive for: EOMI Conjunctiva: Positive for: Normal Mouth: Positive for: Moist Mucous Membranes, Other (et tube in place) Neck: Positive for: Normal Range of Motion. Negative for: Meningeal Signs, MIDLINE TENDERNESS, Paraspinal Tenderness Respiratory/Chest: Positive for: Clear to Auscultation. Negative for: Accessory Muscle Use Cardiovascular: Positive for: Normal S1, S2, Tachycardic. Negative for: Murmurs Abdomen: Positive for: Distention (mild), Normal Bowel Sounds. Negative for: Tenderness, Peritoneal Signs Back: Positive for: Normal Inspection Upper Extremity: Positive for: Normal Inspection, NORMAL PULSES. Negative for: Cyanosis, Edema Lower Extremity: Positive for: NORMAL PULSES, Other (Left BKA). Negative for: Edema Neurological: Positive for: Other (intubated). Negative for: GCS=15 Skin: Positive for: Warm, Dry. Negative for: Rashes Psychiatric: Positive for: Other (intubated). Negative for: Alert, Oriented x 3 - Medications Active Medications: Active Medications Generic Name Dose Route Start Last Admin Trade Name Freq PRN Reason Stop Dose Admin Artificial Tears 0 gm 07/05/17 20:00 07/06/17 18:51 Artificial Tears Opht Oint OU 1 gel Q8H PRN Administration Dry eyes Artificial Tears 0 ml 07/06/17 18:00 07/11/17 11:12 Artificial Tears OU 1 drop BID MARCEL Administration Aspirin 81 mg 07/06/17 22:45 07/11/17 10:44 Aspirin Chewable GT 81 mg DAILY MARCEL Administration Atorvastatin Calcium 40 mg 07/07/17 09:29 07/10/17 17:30 Lipitor GT 40 mg DIN MARCEL Administration Calcium Acetate 2,001 mg 07/07/17 13:00 07/11/17 05:19 Phoslo PO 2,001 mg Q8H MARCEL Administration Carvedilol 6.25 mg 07/08/17 10:30 07/11/17 10:43 Coreg PO 6.25 mg BID MARCEL Administration Chlorhexidine Gluconate 15 ml 07/04/17 18:00 07/10/17 17:47 Peridex PO 15 ml BID MARCEL Administration Hydralazine HCl 10 mg 07/07/17 14:00 07/10/17 21:23 Apresoline NG Not Given Q8 MARCEL Meropenem 500 mg/ Sodium 100 mls @ 100 mls/hr 07/07/17 19:27 07/11/17 10:43 Chloride IVPB 100 mls/hr DAILY MARCEL Administration Protocol Isosorbide Mononitrate 60 mg 07/07/17 10:00 07/11/17 10:43 Imdur PO 60 mg DAILY MARCEL Administration Losartan Potassium 25 mg 07/11/17 10:00 07/11/17 10:43 Cozaar PO 25 mg DAILY MARCEL Administration Pantoprazole Sodium 40 mg 07/04/17 10:00 07/10/17 10:24 Protonix Inj IVP 40 mg DAILY MARCEL Administration - Patient Studies Lab Studies: Microbiology Studies 07/08/17 21:00 Gram Stain - Final Trachasp Sputum Culture - Final NORMAL ORAL SHAY 07/07/17 08:40 Blood Culture - Preliminary Blood-Venous NO GROWTH AFTER 4 DAYS 07/07/17 09:20 Blood Culture - Preliminary Blood-Venous NO GROWTH AFTER 4 DAYS 07/07/17 18:15 Stool Culture - Final Stool NO SALMONELLA, SHIGELLA OR CAMPYLOBACTER ISOLATED. Lab Studies 07/11/17 07/11/17 07/11/17 Range/Units 11:06 08:42 06:20 WBC (4.5-11.0) 10^3/ul RBC (3.5-6.1) 10^6/uL Hgb (12.0-16.0) g/dL Hct (36.0-48.0) % MCV (80.0-105.0) fl MCH (25.0-35.0) pg MCHC (31.0-37.0) g/dl RDW (11.5-14.5) % Plt Count (120.0-450.0) 10^3/uL Gran % (50.0-68.0) % Lymph % (Auto) (22.0-35.0) % Beadle % (Auto) (1.0-6.0) % Eos % (Auto) (1.5-5.0) % Baso % (Auto) (0.0-3.0) % Gran # (1.4-6.5) Lymph # (1.2-3.4) Beadle # (0.1-0.6) Eos # (0.0-0.7) Baso # (0.0-2.0) K/mm3 Sodium 138 (132-148) mmol/L Potassium 3.2 L (3.6-5.0) mmol/L Chloride 100 (98-107) mmol/L Carbon Dioxide 30 (21-33) mmol/L Anion Gap 12 (10-20) BUN 55 H (7-21) mg/dL Creatinine 5.7 H (0.7-1.2) mg/dl Est GFR ( Amer) 9 Est GFR (Non-Af Amer) 7 POC Glucose (mg/dL) 159 H 147 H (65-110) mg/dL Random Glucose 141 H (70-110) mg/dL Calcium 8.2 L (8.4-10.5) mg/dL Total Bilirubin 1.1 (0.2-1.3) mg/dL AST 100 H D (14-36) U/L ALT 89 H (7-56) U/L Alkaline Phosphatase 203 H (38-126) U/L Total Protein 5.4 L (5.8-8.3) g/dL Albumin 2.3 L (3.0-4.8) g/dL Globulin 3.0 gm/dL Albumin/Globulin Ratio 0.8 L (1.1-1.8) 07/11/17 07/11/17 07/11/17 Range/Units 06:20 04:28 01:17 WBC 8.3 (4.5-11.0) 10^3/ul RBC 3.42 L (3.5-6.1) 10^6/uL Hgb 9.1 L (12.0-16.0) g/dL Hct 29.2 L (36.0-48.0) % MCV 85.4 (80.0-105.0) fl MCH 26.6 (25.0-35.0) pg MCHC 31.2 (31.0-37.0) g/dl RDW 17.3 H (11.5-14.5) % Plt Count 69 L (120.0-450.0) 10^3/uL Gran % 81.8 H (50.0-68.0) % Lymph % (Auto) 8.9 L (22.0-35.0) % Beadle % (Auto) 6.3 H (1.0-6.0) % Eos % (Auto) 3.0 (1.5-5.0) % Baso % (Auto) 0.0 (0.0-3.0) % Gran # 6.77 H (1.4-6.5) Lymph # 0.7 L (1.2-3.4) Beadle # 0.5 (0.1-0.6) Eos # 0.3 (0.0-0.7) Baso # 0.00 (0.0-2.0) K/mm3 Sodium (132-148) mmol/L Potassium (3.6-5.0) mmol/L Chloride (98-107) mmol/L Carbon Dioxide (21-33) mmol/L Anion Gap (10-20) BUN (7-21) mg/dL Creatinine (0.7-1.2) mg/dl Est GFR ( Amer) Est GFR (Non-Af Amer) POC Glucose (mg/dL) 153 H 151 H (65-110) mg/dL Random Glucose (70-110) mg/dL Calcium (8.4-10.5) mg/dL Total Bilirubin (0.2-1.3) mg/dL AST (14-36) U/L ALT (7-56) U/L Alkaline Phosphatase (38-126) U/L Total Protein (5.8-8.3) g/dL Albumin (3.0-4.8) g/dL Globulin gm/dL Albumin/Globulin Ratio (1.1-1.8) 07/10/17 07/10/17 07/10/17 Range/Units 21:05 16:16 11:29 WBC (4.5-11.0) 10^3/ul RBC (3.5-6.1) 10^6/uL Hgb (12.0-16.0) g/dL Hct (36.0-48.0) % MCV (80.0-105.0) fl MCH (25.0-35.0) pg MCHC (31.0-37.0) g/dl RDW (11.5-14.5) % Plt Count (120.0-450.0) 10^3/uL Gran % (50.0-68.0) % Lymph % (Auto) (22.0-35.0) % Beadle % (Auto) (1.0-6.0) % Eos % (Auto) (1.5-5.0) % Baso % (Auto) (0.0-3.0) % Gran # (1.4-6.5) Lymph # (1.2-3.4) Beadle # (0.1-0.6) Eos # (0.0-0.7) Baso # (0.0-2.0) K/mm3 Sodium (132-148) mmol/L Potassium (3.6-5.0) mmol/L Chloride (98-107) mmol/L Carbon Dioxide (21-33) mmol/L Anion Gap (10-20) BUN (7-21) mg/dL Creatinine (0.7-1.2) mg/dl Est GFR ( Amer) Est GFR (Non-Af Amer) POC Glucose (mg/dL) 166 H 192 H 140 H (65-110) mg/dL Random Glucose (70-110) mg/dL Calcium (8.4-10.5) mg/dL Total Bilirubin (0.2-1.3) mg/dL AST (14-36) U/L ALT (7-56) U/L Alkaline Phosphatase (38-126) U/L Total Protein (5.8-8.3) g/dL Albumin (3.0-4.8) g/dL Globulin gm/dL Albumin/Globulin Ratio (1.1-1.8) 07/10/17 07/10/17 07/09/17 Range/Units 07:14 00:51 16:07 WBC (4.5-11.0) 10^3/ul RBC (3.5-6.1) 10^6/uL Hgb (12.0-16.0) g/dL Hct (36.0-48.0) % MCV (80.0-105.0) fl MCH (25.0-35.0) pg MCHC (31.0-37.0) g/dl RDW (11.5-14.5) % Plt Count (120.0-450.0) 10^3/uL Gran % (50.0-68.0) % Lymph % (Auto) (22.0-35.0) % Beadle % (Auto) (1.0-6.0) % Eos % (Auto) (1.5-5.0) % Baso % (Auto) (0.0-3.0) % Gran # (1.4-6.5) Lymph # (1.2-3.4) Beadle # (0.1-0.6) Eos # (0.0-0.7) Baso # (0.0-2.0) K/mm3 Sodium (132-148) mmol/L Potassium (3.6-5.0) mmol/L Chloride (98-107) mmol/L Carbon Dioxide (21-33) mmol/L Anion Gap (10-20) BUN (7-21) mg/dL Creatinine (0.7-1.2) mg/dl Est GFR ( Amer) Est GFR (Non-Af Amer) POC Glucose (mg/dL) 161 H 173 H 131 H (65-110) mg/dL Random Glucose (70-110) mg/dL Calcium (8.4-10.5) mg/dL Total Bilirubin (0.2-1.3) mg/dL AST (14-36) U/L ALT (7-56) U/L Alkaline Phosphatase (38-126) U/L Total Protein (5.8-8.3) g/dL Albumin (3.0-4.8) g/dL Globulin gm/dL Albumin/Globulin Ratio (1.1-1.8) Laboratory Results - last 24 hr 07/09/17 07/10/17 07/10/17 16:07 00:51 07:14 WBC RBC Hgb Hct MCV MCH MCHC RDW Plt Count Gran % Lymph % (Auto) Beadle % (Auto) Eos % (Auto) Baso % (Auto) Gran # Lymph # Beadle # Eos # Baso # Sodium Potassium Chloride Carbon Dioxide Anion Gap BUN Creatinine Est GFR ( Amer) Est GFR (Non-Af Amer) POC Glucose (mg/dL) 131 H 173 H 161 H Random Glucose Calcium Total Bilirubin AST ALT Alkaline Phosphatase Total Protein Albumin Globulin Albumin/Globulin Ratio 07/10/17 07/10/17 07/10/17 11:29 16:16 21:05 WBC RBC Hgb Hct MCV MCH MCHC RDW Plt Count Gran % Lymph % (Auto) Beadle % (Auto) Eos % (Auto) Baso % (Auto) Gran # Lymph # Beadle # Eos # Baso # Sodium Potassium Chloride Carbon Dioxide Anion Gap BUN Creatinine Est GFR ( Amer) Est GFR (Non-Af Amer) POC Glucose (mg/dL) 140 H 192 H 166 H Random Glucose Calcium Total Bilirubin AST ALT Alkaline Phosphatase Total Protein Albumin Globulin Albumin/Globulin Ratio 07/11/17 07/11/17 07/11/17 01:17 04:28 06:20 WBC 8.3 RBC 3.42 L Hgb 9.1 L Hct 29.2 L MCV 85.4 MCH 26.6 MCHC 31.2 RDW 17.3 H Plt Count 69 L Gran % 81.8 H Lymph % (Auto) 8.9 L Beadle % (Auto) 6.3 H Eos % (Auto) 3.0 Baso % (Auto) 0.0 Gran # 6.77 H Lymph # 0.7 L Beadle # 0.5 Eos # 0.3 Baso # 0.00 Sodium Potassium Chloride Carbon Dioxide Anion Gap BUN Creatinine Est GFR ( Amer) Est GFR (Non-Af Amer) POC Glucose (mg/dL) 151 H 153 H Random Glucose Calcium Total Bilirubin AST ALT Alkaline Phosphatase Total Protein Albumin Globulin Albumin/Globulin Ratio 07/11/17 07/11/17 07/11/17 06:20 08:42 11:06 WBC RBC Hgb Hct MCV MCH MCHC RDW Plt Count Gran % Lymph % (Auto) Beadle % (Auto) Eos % (Auto) Baso % (Auto) Gran # Lymph # Beadle # Eos # Baso # Sodium 138 Potassium 3.2 L Chloride 100 Carbon Dioxide 30 Anion Gap 12 BUN 55 H Creatinine 5.7 H Est GFR ( Amer) 9 Est GFR (Non-Af Amer) 7 POC Glucose (mg/dL) 147 H 159 H Random Glucose 141 H Calcium 8.2 L Total Bilirubin 1.1 AST 100 H D ALT 89 H Alkaline Phosphatase 203 H Total Protein 5.4 L Albumin 2.3 L Globulin 3.0 Albumin/Globulin Ratio 0.8 L Fingerstick Blood Sugar Results: 153 Assessment/Plan - Assessment and Plan (Free Text) Plan: 66 F with a PMH of ESRD on HD, HTN, CHF, afib RVR who is intubated with resolved cardiogenic shock likely secondary to low EF and afib RVR, CVA, Respiratory failure, and Thrombocytopenia Neuro: intubated, maintain normothermia, unable to answer questions, minimally responsive to noxious stimuli and opens eyes spontaneously on occasion, f/u neurology recommendations Pulm: intubated and on PRVC vent support, Maintain SaO2 > 90%, keep head of bed elevated at 30 degrees, Surgery consult for tracheostomy Cardio: regular rhythm, normotensive, Coreg for rate control, Hydralazine/ Nitrates for afterload/preload reduction, Maintain MAP > 65 GI: Protonix for ppx, Continue tube feeds, Consider PEG tube placement, f/u GI recommendations Renal: Monitor electrolytes, Dialysis MWF, f/u Nephrology recommendations Endo: Maintain euglycemia 140-180 Heme: SCD for DVT ppx, Monitor Platelets ID: [id number], no leukocytosis, IV antibiotics as per ID Misc: pending transfer to LTAC, follow up palliative care <Hieu Castillo - Last Filed: 07/11/17 14:55> CCU Objective - Vital Signs / Intake & Output Intake and Output (Last 8hrs): Intake & Output 07/10/17 07/11/17 07/11/17 22:59 06:59 14:59 Intake Total 1020 980 Output Total 0 Balance 1020 980 Weight 198 lb 8 oz Intake: IV 100 60 Left Internal Jugular 100 60 Tube Feeding 720 920 Other 200 Output: Urine 0 Urine, Voided 0 Other: # Bowel Movements 3 2 - Medications Active Medications: Active Medications Generic Name Dose Route Start Last Admin Trade Name Freq PRN Reason Stop Dose Admin Artificial Tears 0 gm 07/05/17 20:00 07/06/17 18:51 Artificial Tears Opht Oint OU 1 gel Q8H PRN Administration Dry eyes Artificial Tears 0 ml 07/06/17 18:00 07/11/17 11:12 Artificial Tears OU 1 drop BID MARCEL Administration Aspirin 81 mg 07/06/17 22:45 07/11/17 10:44 Aspirin Chewable GT 81 mg DAILY MARCEL Administration Atorvastatin Calcium 40 mg 07/07/17 09:29 07/10/17 17:30 Lipitor GT 40 mg DIN MARCEL Administration Calcium Acetate 2,001 mg 07/07/17 13:00 07/11/17 05:19 Phoslo PO 2,001 mg Q8H MARCEL Administration Carvedilol 6.25 mg 07/08/17 10:30 07/11/17 10:43 Coreg PO 6.25 mg BID MARCEL Administration Chlorhexidine Gluconate 15 ml 07/04/17 18:00 07/10/17 17:47 Peridex PO 15 ml BID MARCEL Administration Hydralazine HCl 10 mg 07/07/17 14:00 07/10/17 21:23 Apresoline NG Not Given Q8 MARCEL Meropenem 500 mg/ Sodium 100 mls @ 100 mls/hr 07/07/17 19:27 07/11/17 10:43 Chloride IVPB 100 mls/hr DAILY MARCEL Administration Protocol Isosorbide Mononitrate 60 mg 07/07/17 10:00 07/11/17 10:43 Imdur PO 60 mg DAILY MARCEL Administration Losartan Potassium 25 mg 07/11/17 10:00 07/11/17 10:43 Cozaar PO 25 mg DAILY MARCEL Administration Pantoprazole Sodium 40 mg 07/04/17 10:00 07/10/17 10:24 Protonix Inj IVP 40 mg DAILY MARCEL Administration - Patient Studies Lab Studies: Microbiology Studies 07/08/17 21:00 Gram Stain - Final Trachasp Sputum Culture - Final NORMAL ORAL SHAY 07/07/17 08:40 Blood Culture - Preliminary Blood-Venous NO GROWTH AFTER 4 DAYS 07/07/17 09:20 Blood Culture - Preliminary Blood-Venous NO GROWTH AFTER 4 DAYS 07/07/17 18:15 Stool Culture - Final Stool NO SALMONELLA, SHIGELLA OR CAMPYLOBACTER ISOLATED. Lab Studies 07/11/17 07/11/17 07/11/17 Range/Units 14:12 11:06 08:42 WBC (4.5-11.0) 10^3/ul RBC (3.5-6.1) 10^6/uL Hgb (12.0-16.0) g/dL Hct (36.0-48.0) % MCV (80.0-105.0) fl MCH (25.0-35.0) pg MCHC (31.0-37.0) g/dl RDW (11.5-14.5) % Plt Count (120.0-450.0) 10^3/uL Gran % (50.0-68.0) % Lymph % (Auto) (22.0-35.0) % Beadle % (Auto) (1.0-6.0) % Eos % (Auto) (1.5-5.0) % Baso % (Auto) (0.0-3.0) % Gran # (1.4-6.5) Lymph # (1.2-3.4) Beadle # (0.1-0.6) Eos # (0.0-0.7) Baso # (0.0-2.0) K/mm3 PT 14.1 H (9.4-12.5) SECONDS INR 1.28 H (0.93-1.08) Sodium (132-148) mmol/L Potassium (3.6-5.0) mmol/L Chloride (98-107) mmol/L Carbon Dioxide (21-33) mmol/L Anion Gap (10-20) BUN (7-21) mg/dL Creatinine (0.7-1.2) mg/dl Est GFR ( Amer) Est GFR (Non-Af Amer) POC Glucose (mg/dL) 159 H 147 H (65-110) mg/dL Random Glucose (70-110) mg/dL Calcium (8.4-10.5) mg/dL Total Bilirubin (0.2-1.3) mg/dL AST (14-36) U/L ALT (7-56) U/L Alkaline Phosphatase (38-126) U/L Total Protein (5.8-8.3) g/dL Albumin (3.0-4.8) g/dL Globulin gm/dL Albumin/Globulin Ratio (1.1-1.8) 07/11/17 07/11/17 07/11/17 Range/Units 06:20 06:20 04:28 WBC 8.3 (4.5-11.0) 10^3/ul RBC 3.42 L (3.5-6.1) 10^6/uL Hgb 9.1 L (12.0-16.0) g/dL Hct 29.2 L (36.0-48.0) % MCV 85.4 (80.0-105.0) fl MCH 26.6 (25.0-35.0) pg MCHC 31.2 (31.0-37.0) g/dl RDW 17.3 H (11.5-14.5) % Plt Count 69 L (120.0-450.0) 10^3/uL Gran % 81.8 H (50.0-68.0) % Lymph % (Auto) 8.9 L (22.0-35.0) % Beadle % (Auto) 6.3 H (1.0-6.0) % Eos % (Auto) 3.0 (1.5-5.0) % Baso % (Auto) 0.0 (0.0-3.0) % Gran # 6.77 H (1.4-6.5) Lymph # 0.7 L (1.2-3.4) Beadle # 0.5 (0.1-0.6) Eos # 0.3 (0.0-0.7) Baso # 0.00 (0.0-2.0) K/mm3 PT (9.4-12.5) SECONDS INR (0.93-1.08) Sodium 138 (132-148) mmol/L Potassium 3.2 L (3.6-5.0) mmol/L Chloride 100 (98-107) mmol/L Carbon Dioxide 30 (21-33) mmol/L Anion Gap 12 (10-20) BUN 55 H (7-21) mg/dL Creatinine 5.7 H (0.7-1.2) mg/dl Est GFR ( Amer) 9 Est GFR (Non-Af Amer) 7 POC Glucose (mg/dL) 153 H (65-110) mg/dL Random Glucose 141 H (70-110) mg/dL Calcium 8.2 L (8.4-10.5) mg/dL Total Bilirubin 1.1 (0.2-1.3) mg/dL AST 100 H D (14-36) U/L ALT 89 H (7-56) U/L Alkaline Phosphatase 203 H (38-126) U/L Total Protein 5.4 L (5.8-8.3) g/dL Albumin 2.3 L (3.0-4.8) g/dL Globulin 3.0 gm/dL Albumin/Globulin Ratio 0.8 L (1.1-1.8) 07/11/17 07/10/17 07/10/17 Range/Units 01:17 21:05 16:16 WBC (4.5-11.0) 10^3/ul RBC (3.5-6.1) 10^6/uL Hgb (12.0-16.0) g/dL Hct (36.0-48.0) % MCV (80.0-105.0) fl MCH (25.0-35.0) pg MCHC (31.0-37.0) g/dl RDW (11.5-14.5) % Plt Count (120.0-450.0) 10^3/uL Gran % (50.0-68.0) % Lymph % (Auto) (22.0-35.0) % Beadle % (Auto) (1.0-6.0) % Eos % (Auto) (1.5-5.0) % Baso % (Auto) (0.0-3.0) % Gran # (1.4-6.5) Lymph # (1.2-3.4) Beadle # (0.1-0.6) Eos # (0.0-0.7) Baso # (0.0-2.0) K/mm3 PT (9.4-12.5) SECONDS INR (0.93-1.08) Sodium (132-148) mmol/L Potassium (3.6-5.0) mmol/L Chloride (98-107) mmol/L Carbon Dioxide (21-33) mmol/L Anion Gap (10-20) BUN (7-21) mg/dL Creatinine (0.7-1.2) mg/dl Est GFR ( Amer) Est GFR (Non-Af Amer) POC Glucose (mg/dL) 151 H 166 H 192 H (65-110) mg/dL Random Glucose (70-110) mg/dL Calcium (8.4-10.5) mg/dL Total Bilirubin (0.2-1.3) mg/dL AST (14-36) U/L ALT (7-56) U/L Alkaline Phosphatase (38-126) U/L Total Protein (5.8-8.3) g/dL Albumin (3.0-4.8) g/dL Globulin gm/dL Albumin/Globulin Ratio (1.1-1.8) Laboratory Results - last 24 hr 07/10/17 07/10/17 07/11/17 16:16 21:05 01:17 WBC RBC Hgb Hct MCV MCH MCHC RDW Plt Count Gran % Lymph % (Auto) Beadle % (Auto) Eos % (Auto) Baso % (Auto) Gran # Lymph # Beadle # Eos # Baso # PT INR Sodium Potassium Chloride Carbon Dioxide Anion Gap BUN Creatinine Est GFR ( Amer) Est GFR (Non-Af Amer) POC Glucose (mg/dL) 192 H 166 H 151 H Random Glucose Calcium Total Bilirubin AST ALT Alkaline Phosphatase Total Protein Albumin Globulin Albumin/Globulin Ratio 07/11/17 07/11/17 07/11/17 04:28 06:20 06:20 WBC 8.3 RBC 3.42 L Hgb 9.1 L Hct 29.2 L MCV 85.4 MCH 26.6 MCHC 31.2 RDW 17.3 H Plt Count 69 L Gran % 81.8 H Lymph % (Auto) 8.9 L Beadle % (Auto) 6.3 H Eos % (Auto) 3.0 Baso % (Auto) 0.0 Gran # 6.77 H Lymph # 0.7 L Beadle # 0.5 Eos # 0.3 Baso # 0.00 PT INR Sodium 138 Potassium 3.2 L Chloride 100 Carbon Dioxide 30 Anion Gap 12 BUN 55 H Creatinine 5.7 H Est GFR ( Amer) 9 Est GFR (Non-Af Amer) 7 POC Glucose (mg/dL) 153 H Random Glucose 141 H Calcium 8.2 L Total Bilirubin 1.1 AST 100 H D ALT 89 H Alkaline Phosphatase 203 H Total Protein 5.4 L Albumin 2.3 L Globulin 3.0 Albumin/Globulin Ratio 0.8 L 07/11/17 07/11/17 07/11/17 08:42 11:06 14:12 WBC RBC Hgb Hct MCV MCH MCHC RDW Plt Count Gran % Lymph % (Auto) Beadle % (Auto) Eos % (Auto) Baso % (Auto) Gran # Lymph # Beadle # Eos # Baso # PT 14.1 H INR 1.28 H Sodium Potassium Chloride Carbon Dioxide Anion Gap BUN Creatinine Est GFR ( Amer) Est GFR (Non-Af Amer) POC Glucose (mg/dL) 147 H 159 H Random Glucose Calcium Total Bilirubin AST ALT Alkaline Phosphatase Total Protein Albumin Globulin Albumin/Globulin Ratio Attending/Attestation - Attestation I have personally seen and examined this patient.: Yes I have fully participated in the care of the patient.: Yes I have reviewed all pertinent clinical information: Yes Notes (Text): 07/11/17 14:51 66 yo female with resolved cardiogenic shock, complicated by VDRF in the setting of ESRD/HD and watershed cerebral infarct. HD qod, tolerates well, after - and pre-load reduction, trach-->ltach as per family wishes ccm time 40 min
--- NOTE | 2017-07-11 11:54 | CP.PCM.PN ---
Subjective - Date & Time of Evaluation Date of Evaluation: 07/11/17 Time of Evaluation: 11:51 - Subjective Subjective: Progress note for nephrology, Dr. Brooks Pt is seen and examined at bedside. No acute events overnight. pt is intubated on PRVC. ROS are unobtainable due to intubation and AMS. Objective - Vital Signs/Intake and Output Vital Signs (last 24 hours): Temp Pulse Resp BP Pulse Ox 98.4 F 72 63 H 124/75 100 07/10/17 20:00 07/11/17 10:43 07/10/17 14:00 07/11/17 10:43 07/11/17 04:00 Intake and Output: 07/11/17 07/11/17 06:59 18:59 Intake Total 980 Output Total 0 Balance 980 - Medications Medications: Current Medications Artificial Tears (Artificial Tears Opht Oint) 0 gm OU Q8H PRN PRN Reason: Dry eyes Last Admin: 07/06/17 18:51 Dose: 1 gel Artificial Tears (Artificial Tears) 0 ml OU BID [facility] Last Admin: 07/11/17 11:12 Dose: 1 drop Aspirin (Aspirin Chewable) 81 mg GT DAILY [facility] Last Admin: 07/11/17 10:44 Dose: 81 mg Atorvastatin Calcium (Lipitor) 40 mg GT DIN [facility] Last Admin: 07/10/17 17:30 Dose: 40 mg Calcium Acetate (Phoslo) 2,001 mg PO Q8H [facility] Last Admin: 07/11/17 05:19 Dose: 2,001 mg Carvedilol (Coreg) 6.25 mg PO BID [facility] Last Admin: 07/11/17 10:43 Dose: 6.25 mg Chlorhexidine Gluconate (Peridex) 15 ml PO BID [facility] Last Admin: 07/10/17 17:47 Dose: 15 ml Hydralazine HCl (Apresoline) 10 mg NG Q8 [facility] Last Admin: 07/10/17 21:23 Dose: Not Given Meropenem 500 mg/ Sodium (Chloride) 100 mls @ 100 mls/hr IVPB DAILY [facility] PRN Reason: Protocol Last Admin: 07/11/17 10:43 Dose: 100 mls/hr Isosorbide Mononitrate (Imdur) 60 mg PO DAILY [facility] Last Admin: 07/11/17 10:43 Dose: 60 mg Losartan Potassium (Cozaar) 25 mg PO DAILY [facility] Last Admin: 07/11/17 10:43 Dose: 25 mg Pantoprazole Sodium (Protonix Inj) 40 mg IVP DAILY [facility] Last Admin: 07/10/17 10:24 Dose: 40 mg - Labs Labs: 07/11/17 06:20 07/11/17 06:20 PT 18.5 SECONDS (9.4-12.5) H 07/07/17 08:40 INR 1.66 (0.93-1.08) H 07/07/17 08:40 APTT 34.9 Seconds (25.1-36.5) 07/06/17 17:00 - Constitutional Appears: Non-toxic, No Acute Distress - ENT Exam ENT Exam: Mucous Membranes Moist - Respiratory Exam Respiratory Exam: absent: Accessory Muscle Use, Respiratory Distress - Cardiovascular Exam Cardiovascular Exam: REGULAR RHYTHM, +S1, +S2. absent: Gallop, Rubs, Murmur - GI/Abdominal Exam GI & Abdominal Exam: Soft, Normal Bowel Sounds. absent: Firm, Guarding, Rigid, Tenderness - Extremities Exam Extremities Exam: absent: Pedal Edema, Tenderness - Neurological Exam Neurological Exam: absent: Alert, Awake, Oriented x3 - Skin Additional comments: erythematuous and hyperpigmented rash noted on inguinal folds and breasts B/L Assessment and Plan - Assessment and Plan (Free Text) Assessment: (1) End stage renal disease HD planned for today; since family appears to want to continue life saving measures including HD, we will ask IR for fistulogram/angioplasty involving L AVF (due to known cephalic vein stenosis); (2) Shock BP stable; appears to have been cardiogenic due to afib in the setting of severe systolic dysfunction; agree with keeping K close to 4 to avoid arrhythmias; (3) Hypertensive CKD, ESRD on dialysis Stable. Continue to monitor (4) Anemia Hgb below goal for ESRD; will continue to dose aranesp 100 mcg weekly; (5) Congestive heart failure (CHF) See above; started on hydralazine and imdur for afterload reduction; will start low dose losartan as well; All recs and management per Dr. Brooks
--- NOTE | 2017-07-11 12:16 | CP.PCM.PN ---
<Kristina Moy - Last Filed: 07/11/17 12:16> Subjective - Date & Time of Evaluation Date of Evaluation: 07/11/17 Time of Evaluation: 10:00 - Subjective Subjective: PGY 4 GI Follow-up Pt seen and examined bedside no acute events overnight RN still reports diarrhea Still on ventilator ROS: 10 point ROS conducted, neg other than above Objective - Vital Signs/Intake and Output Vital Signs (last 24 hours): Temp Pulse Resp BP Pulse Ox 98.4 F 72 63 H 124/75 100 07/10/17 20:00 07/11/17 10:43 07/10/17 14:00 07/11/17 10:43 07/11/17 04:00 Intake and Output: 07/11/17 07/11/17 06:59 18:59 Intake Total 980 Output Total 0 Balance 980 - Medications Medications: Current Medications Artificial Tears (Artificial Tears Opht Oint) 0 gm OU Q8H PRN PRN Reason: Dry eyes Last Admin: 07/06/17 18:51 Dose: 1 gel Artificial Tears (Artificial Tears) 0 ml OU BID [facility] Last Admin: 07/11/17 11:12 Dose: 1 drop Aspirin (Aspirin Chewable) 81 mg GT DAILY [facility] Last Admin: 07/11/17 10:44 Dose: 81 mg Atorvastatin Calcium (Lipitor) 40 mg GT DIN [facility] Last Admin: 07/10/17 17:30 Dose: 40 mg Calcium Acetate (Phoslo) 2,001 mg PO Q8H [facility] Last Admin: 07/11/17 05:19 Dose: 2,001 mg Carvedilol (Coreg) 6.25 mg PO BID [facility] Last Admin: 07/11/17 10:43 Dose: 6.25 mg Chlorhexidine Gluconate (Peridex) 15 ml PO BID [facility] Last Admin: 07/10/17 17:47 Dose: 15 ml Hydralazine HCl (Apresoline) 10 mg NG Q8 [facility] Last Admin: 07/10/17 21:23 Dose: Not Given Meropenem 500 mg/ Sodium (Chloride) 100 mls @ 100 mls/hr IVPB DAILY [facility] PRN Reason: Protocol Last Admin: 07/11/17 10:43 Dose: 100 mls/hr Isosorbide Mononitrate (Imdur) 60 mg PO DAILY [facility] Last Admin: 12/13/17 10:43 Dose: 60 mg Losartan Potassium (Cozaar) 25 mg PO DAILY [facility] Last Admin: 07/11/17 10:43 Dose: 25 mg Pantoprazole Sodium (Protonix Inj) 40 mg IVP DAILY [facility] Last Admin: 07/10/17 10:24 Dose: 40 mg - Labs Labs: 07/11/17 06:20 07/11/17 06:20 PT 18.5 SECONDS (9.4-12.5) H 07/07/17 08:40 INR 1.66 (0.93-1.08) H 07/07/17 08:40 APTT 34.9 Seconds (25.1-36.5) 07/06/17 17:00 - Constitutional Appears: No Acute Distress, Chronically Ill - Head Exam Head Exam: ATRAUMATIC, NORMOCEPHALIC - Eye Exam Eye Exam: Normal appearance - ENT Exam ENT Exam: Mucous Membranes Moist - Respiratory Exam Respiratory Exam: Clear to Ausculation Bilateral, NORMAL BREATHING PATTERN. absent: Rales, Rhonchi, Wheezes, Respiratory Distress - Cardiovascular Exam Cardiovascular Exam: REGULAR RHYTHM, +S1, +S2 - GI/Abdominal Exam GI & Abdominal Exam: Soft, Normal Bowel Sounds. absent: Guarding, Rigid, Tenderness, Organomegaly - Extremities Exam Extremities Exam: absent: Joint Swelling, Pedal Edema - Neurological Exam Neurological Exam: Altered. absent: Alert, Awake - Psychiatric Exam Additional comments: could not assess - Skin Skin Exam: Dry, Intact, Normal Color, Warm Assessment and Plan - Assessment and Plan (Free Text) Assessment: 66 years old female, with PMH ESRD on HD, CHF, DM, CVA, anemia, admitted for AMS , severe metabolic acidosis, afib with RVR, s/p cardiac arrest during hospital stay, s/p resuscitation, found to have have elevated LFTs likely 2/2 shock liver (improving) PEG Eval Shock liver (improving); Elevated LFTs likely 2/2 above CVA Sepsis UTI ESRD Plan: - AST , ALT improving - Identified source of infection, as urine culture shows gram neg [place]. - IgG within normal limits - Maintain MAP >65, will cont to trend LFTs. -hold feed past midnight -will try to coordinate with surgery with trach placement to minimize anesthesia -check plt in the AM, PLt need to be above 50 -check coag, may require FFP if INR elevated -will get consent from family -LTAC placement pending D/W Dr. Silva <Kathi Silva MD - Last Filed: 07/11/17 12:32> Objective - Vital Signs/Intake and Output Vital Signs (last 24 hours): Temp Pulse Resp BP Pulse Ox 98.4 F 72 63 H 124/75 100 07/10/17 20:00 07/11/17 10:43 07/10/17 14:00 07/11/17 10:43 07/11/17 04:00 Intake and Output: 07/11/17 07/11/17 06:59 18:59 Intake Total 980 Output Total 0 Balance 980 - Medications Medications: Current Medications Artificial Tears (Artificial Tears Opht Oint) 0 gm OU Q8H PRN PRN Reason: Dry eyes Last Admin: 07/06/17 18:51 Dose: 1 gel Artificial Tears (Artificial Tears) 0 ml OU BID [facility] Last Admin: 07/11/17 11:12 Dose: 1 drop Aspirin (Aspirin Chewable) 81 mg GT DAILY [facility] Last Admin: 07/11/17 10:44 Dose: 81 mg Atorvastatin Calcium (Lipitor) 40 mg GT DIN [facility] Last Admin: 07/10/17 17:30 Dose: 40 mg Calcium Acetate (Phoslo) 2,001 mg PO Q8H [facility] Last Admin: 07/11/17 05:19 Dose: 2,001 mg Carvedilol (Coreg) 6.25 mg PO BID [facility] Last Admin: 07/11/17 10:43 Dose: 6.25 mg Chlorhexidine Gluconate (Peridex) 15 ml PO BID [facility] Last Admin: 07/10/17 17:47 Dose: 15 ml Hydralazine HCl (Apresoline) 10 mg NG Q8 [facility] Last Admin: 07/10/17 21:23 Dose: Not Given Meropenem 500 mg/ Sodium (Chloride) 100 mls @ 100 mls/hr IVPB DAILY [facility] PRN Reason: Protocol Last Admin: 07/11/17 10:43 Dose: 100 mls/hr Isosorbide Mononitrate (Imdur) 60 mg PO DAILY [facility] Last Admin: 07/11/17 10:43 Dose: 60 mg Losartan Potassium (Cozaar) 25 mg PO DAILY [facility] Last Admin: 07/11/17 10:43 Dose: 25 mg Pantoprazole Sodium (Protonix Inj) 40 mg IVP DAILY [facility] Last Admin: 07/10/17 10:24 Dose: 40 mg - Labs Labs: 07/11/17 06:20 07/11/17 06:20 PT 18.5 SECONDS (9.4-12.5) H 07/07/17 08:40 INR 1.66 (0.93-1.08) H 07/07/17 08:40 APTT 34.9 Seconds (25.1-36.5) 07/06/17 17:00 Attending/Attestation - Attestation I have personally seen and examined this patient.: Yes I have fully participated in the care of the patient.: Yes I have reviewed all pertinent clinical information, including history, physical exam and plan: Yes Notes (Text): 07/11/17 12:29 I have seen and examined patient with GI fellow. Seen in MICU intubated. She is currently off vasopressor support, though remains minimally responsive, only to painful stimuli. NGT in place with bilious output over past 24 hours. 66 yr old F with ESRD on HD, BKA, DM, CAD with CABG, new onset Afib, with new onset CVA with sepsis with E coli UTI on merrem and vancomycin. LFt trending down likely due to ischemic hepatitis. Autoimmune and hepatitis serologies are negative. GI recalled for PEG placement. No definite time for OR for Trach. Needs coagulation profile prior to PEG scheduling. Will try to coordinate with surgery for gastrostomy placement. Will get consent from daughter. Overall patient prognosis guarded, rest of care as per MICU
--- NOTE | 2017-07-11 13:14 | CP.PCM.CON ---
History of Present Illness - History of Present Illness History of Present Illness: PGY1 Consult Note for Dr. Meraz We are being consulted for a Tracheostomy HPI: 66 year old female with a PMH of ESRD on dialysis T/T/S, HTN, CHF with EF of 15% who presented to [facility] ER after she was noted by her daughter to be altered. Patient was intubated in the ED. Previously patient was complaining of URI sx for 2 month duration. Patient later developed Afib with RVR. On 07/04 the patient had a L. IJ TLC placed. Patient had a code blue called w/ [facility]. The patient later was in [place] and was shocked to Sinus tach. Patient was considered for liver transplant but was not a candidate per [facility]. On 07/07 patient showed new R posterior parietal/occipital lobe CVA. The patient is planned to go to LTAC. PMH: as above PSH: left BKA SH: previous smoker, uknown EtOH FH: reviewed Meds: unknown to daughter, states currently taking none Allergies: shellfish Review of Systems - Review of Systems Review of Systems: per HPI Past Patient History - Infectious Disease Hx of Infectious Diseases: None - Tetanus Immunizations Tetanus Immunization: Unknown - Past Medical History & Family History Past Medical History?: Yes - Past Social History Smoking Status: Never Smoked - CARDIAC Hx Cardiac Disorders: Yes Hx Congestive Heart Failure: Yes Hx Pacemaker: No - PULMONARY Hx Respiratory Disorders: Yes Hx Asthma: Yes Hx Bronchitis: Yes - NEUROLOGICAL Hx Neurological Disorder: No Hx Paralysis: No - HEENT Hx HEENT Problems: Yes (uses eyeglasses for reading) - RENAL Hx Dialysis: Yes Hx Renal Failure: Yes - ENDOCRINE/METABOLIC Hx Endocrine Disorders: Yes Hx Diabetes Mellitus Type 2: Yes Hx Hypothyroidism: Yes - HEMATOLOGICAL/ONCOLOGICAL Hx Blood Transfusions: Yes (11/26/15) Hx Blood Transfusion Reaction: No - INTEGUMENTARY Hx Dermatological Problems: Yes (RCW PERMACATH,LEFT UPPER ARM PICC) - MUSCULOSKELETAL/RHEUMATOLOGICAL Hx Musculoskeletal Disorders: No - GASTROINTESTINAL Hx Gastrointestinal Disorders: No - GENITOURINARY/GYNECOLOGICAL Hx Genitourinary Disorders: No - PSYCHIATRIC Hx Emotional Abuse: No Hx Physical Abuse: No Hx Substance Use: No - SURGICAL HISTORY Other/Comment: L BKA - ANESTHESIA Hx Anesthesia: Yes Hx Anesthesia Reactions: No Hx Malignant Hyperthermia: No Meds Allergies/Adverse Reactions: Allergies Allergy/AdvReac Type Severity Reaction Status Date / Time shellfish derived Allergy ITCHING Verified 07/03/17 21:31 - Medications Medications: Current Medications Artificial Tears (Artificial Tears Opht Oint) 0 gm OU Q8H PRN PRN Reason: Dry eyes Last Admin: 07/06/17 18:51 Dose: 1 gel Artificial Tears (Artificial Tears) 0 ml OU BID [facility] Last Admin: 07/11/17 11:12 Dose: 1 drop Aspirin (Aspirin Chewable) 81 mg GT DAILY [facility] Last Admin: 07/11/17 10:44 Dose: 81 mg Atorvastatin Calcium (Lipitor) 40 mg GT DIN [facility] Last Admin: 07/10/17 17:30 Dose: 40 mg Calcium Acetate (Phoslo) 2,001 mg PO Q8H [facility] Last Admin: 07/11/17 05:19 Dose: 2,001 mg Carvedilol (Coreg) 6.25 mg PO BID [facility] Last Admin: 07/11/17 10:43 Dose: 6.25 mg Chlorhexidine Gluconate (Peridex) 15 ml PO BID [facility] Last Admin: 07/10/17 17:47 Dose: 15 ml Hydralazine HCl (Apresoline) 10 mg NG Q8 [facility] Last Admin: 07/10/17 21:23 Dose: Not Given Meropenem 500 mg/ Sodium (Chloride) 100 mls @ 100 mls/hr IVPB DAILY [facility] PRN Reason: Protocol Last Admin: 07/11/17 10:43 Dose: 100 mls/hr Isosorbide Mononitrate (Imdur) 60 mg PO DAILY [facility] Last Admin: 07/11/17 10:43 Dose: 60 mg Losartan Potassium (Cozaar) 25 mg PO DAILY [facility] Last Admin: 07/11/17 10:43 Dose: 25 mg Pantoprazole Sodium (Protonix Inj) 40 mg IVP DAILY [facility] Last Admin: 07/10/17 10:24 Dose: 40 mg Physical Exam - Constitutional Appears: Chronically Ill - Head Exam Head Exam: ATRAUMATIC, NORMAL INSPECTION, NORMOCEPHALIC - ENT Exam ENT Exam: Mucous Membranes Moist - Respiratory Exam Additional comments: intubated - Cardiovascular Exam Cardiovascular Exam: Tachycardia - GI/Abdominal Exam GI & Abdominal Exam: Soft. absent: Distended, Tenderness - Psychiatric Exam Additional comments: sedated Results - Vital Signs Recent Vital Signs: Last Vital Signs Temp 98.4 F 07/10/17 20:00 Pulse 72 07/11/17 10:43 Resp 63 H 07/10/17 14:00 BP 124/75 07/11/17 10:43 Pulse Ox 100 07/11/17 04:00 - Labs Result Diagrams: 07/11/17 06:20 07/11/17 06:20 Labs: Laboratory Results - last 24 hr 07/10/17 07/10/17 07/11/17 16:16 21:05 01:17 WBC RBC Hgb Hct MCV MCH MCHC RDW Plt Count Gran % Lymph % (Auto) [place] % (Auto) Eos % (Auto) Baso % (Auto) Gran # Lymph # [place] # Eos # Baso # Sodium Potassium Chloride Carbon Dioxide Anion Gap BUN Creatinine Est GFR ( Amer) Est GFR (Non-Af Amer) POC Glucose (mg/dL) 192 H 166 H 151 H Random Glucose Calcium Total Bilirubin AST ALT Alkaline Phosphatase Total Protein Albumin Globulin Albumin/Globulin Ratio 07/11/17 07/11/17 07/11/17 04:28 06:20 06:20 WBC 8.3 RBC 3.42 L Hgb 9.1 L Hct 29.2 L MCV 85.4 MCH 26.6 MCHC 31.2 RDW 17.3 H Plt Count 69 L Gran % 81.8 H Lymph % (Auto) 8.9 L [place] % (Auto) 6.3 H Eos % (Auto) 3.0 Baso % (Auto) 0.0 Gran # 6.77 H Lymph # 0.7 L [place] # 0.5 Eos # 0.3 Baso # 0.00 Sodium 138 Potassium 3.2 L Chloride 100 Carbon Dioxide 30 Anion Gap 12 BUN 55 H Creatinine 5.7 H Est GFR ( Amer) 9 Est GFR (Non-Af Amer) 7 POC Glucose (mg/dL) 153 H Random Glucose 141 H Calcium 8.2 L Total Bilirubin 1.1 AST 100 H D ALT 89 H Alkaline Phosphatase 203 H Total Protein 5.4 L Albumin 2.3 L Globulin 3.0 Albumin/Globulin Ratio 0.8 L 07/11/17 07/11/17 08:42 11:06 WBC RBC Hgb Hct MCV MCH MCHC RDW Plt Count Gran % Lymph % (Auto) [place] % (Auto) Eos % (Auto) Baso % (Auto) Gran # Lymph # [place] # Eos # Baso # Sodium Potassium Chloride Carbon Dioxide Anion Gap BUN Creatinine Est GFR ( Amer) Est GFR (Non-Af Amer) POC Glucose (mg/dL) 147 H 159 H Random Glucose Calcium Total Bilirubin AST ALT Alkaline Phosphatase Total Protein Albumin Globulin Albumin/Globulin Ratio Assessment & Plan - Assessment and Plan (Free Text) Assessment: 66F w/ AMS, CVA, Intubated Plan: * OR tomorrow * Coordinated with GI for PEG * Managment per ICU team * CIERRA Reyes PGY1
[2017-07-11 14:25] LABS: INR 1.28 (0.93-1.08)
--- NOTE | 2017-07-11 15:49 | CP.PCM.PN ---
<Valentina Cabrera - Last Filed: 07/11/17 17:27> Subjective - Date & Time of Evaluation Date of Evaluation: 07/11/17 Time of Evaluation: 09:30 - Subjective Subjective: PGY-2 Neurology progress note fro Dr. Blackwell's service Patient seen and examined at bedside in ICU. Patient remains intubated. Patient continues to have gag reflex, pupillary reflex. she does not withdraw from pain , no purposeful movement Objective - Vital Signs/Intake and Output Vital Signs (last 24 hours): Temp Pulse Resp BP Pulse Ox 98.4 F 72 63 H 124/75 100 07/10/17 20:00 07/11/17 10:43 07/10/17 14:00 07/11/17 10:43 07/11/17 04:00 Intake and Output: 07/11/17 07/11/17 06:59 18:59 Intake Total 980 Output Total 0 Balance 980 - Medications Medications: Current Medications Artificial Tears (Artificial Tears Opht Oint) 0 gm OU Q8H PRN PRN Reason: Dry eyes Last Admin: 07/06/17 18:51 Dose: 1 gel Artificial Tears (Artificial Tears) 0 ml OU BID [facility] Last Admin: 07/11/17 11:12 Dose: 1 drop Aspirin (Aspirin Chewable) 81 mg GT DAILY [facility] Last Admin: 07/11/17 10:44 Dose: 81 mg Atorvastatin Calcium (Lipitor) 40 mg GT DIN [facility] Last Admin: 07/10/17 17:30 Dose: 40 mg Calcium Acetate (Phoslo) 2,001 mg PO Q8H [facility] Last Admin: 07/11/17 05:19 Dose: 2,001 mg Carvedilol (Coreg) 6.25 mg PO BID [facility] Last Admin: 07/11/17 10:43 Dose: 6.25 mg Chlorhexidine Gluconate (Peridex) 15 ml PO BID [facility] Last Admin: 07/10/17 17:47 Dose: 15 ml Hydralazine HCl (Apresoline) 10 mg NG Q8 [facility] Last Admin: 07/10/17 21:23 Dose: Not Given Meropenem 500 mg/ Sodium (Chloride) 100 mls @ 100 mls/hr IVPB DAILY [facility] PRN Reason: Protocol Last Admin: 07/11/17 10:43 Dose: 100 mls/hr Isosorbide Mononitrate (Imdur) 60 mg PO DAILY [facility] Last Admin: 07/11/17 10:43 Dose: 60 mg Losartan Potassium (Cozaar) 25 mg PO DAILY [facility] Last Admin: 07/11/17 10:43 Dose: 25 mg Pantoprazole Sodium (Protonix Inj) 40 mg IVP DAILY [facility] Last Admin: 07/10/17 10:24 Dose: 40 mg - Labs Labs: 07/11/17 06:20 07/11/17 06:20 PT 14.1 SECONDS (9.4-12.5) H 07/11/17 14:12 INR 1.28 (0.93-1.08) H 07/11/17 14:12 APTT 34.9 Seconds (25.1-36.5) 07/06/17 17:00 - Head Exam Head Exam: NORMAL INSPECTION - Eye Exam Pupil Exam: Miosis - Respiratory Exam Respiratory Exam: Clear to Ausculation Bilateral Additional comments: patient is intubated - Cardiovascular Exam Cardiovascular Exam: REGULAR RHYTHM - Neurological Exam Additional comments: patient is nonresponsive to painful stimuli, pupils are pinpoint, gag reflex intact Assessment and Plan - Assessment and Plan (Free Text) Assessment: 66 year old female with past medical history of CHF, ESRD with hemodialysis (M/W /F), diabetes, and left BKA, who presented with altered mental status secondary to hypoxic encephalopathy due to hypoperfusion and shock with multi organ failure. 1. AMS 2. shock (septic v cardiogenic) 3. respiratory failure 4. ESRD on HD 5. shocked liver- improving 6. hypokalemia - CT head showed nonspecific white matter changes - MRI showed ischemia along posterior cerebral artery most like due to hypoperfusion - carotid US pending - avoid sedative medications - maintain blood pressure , avoid further drops - monitor electrolytes, replace as needed - consider pletal for stroke prevention instead of asa due to thrombocytopenia - patient is to be transferred to LTACH case discussed and reviewed with attending <Lobo Blackwell - Last Filed: 07/11/17 19:52> Objective - Vital Signs/Intake and Output Vital Signs (last 24 hours): Temp Pulse Resp BP Pulse Ox 98.4 F 73 63 H 119/52 L 100 07/10/17 20:00 07/11/17 18:37 07/10/17 14:00 07/11/17 18:37 07/11/17 16:34 - Medications Medications: Current Medications Artificial Tears (Artificial Tears Opht Oint) 0 gm OU Q8H PRN PRN Reason: Dry eyes Last Admin: 07/06/17 18:51 Dose: 1 gel Artificial Tears (Artificial Tears) 0 ml OU BID [facility] Last Admin: 07/11/17 11:12 Dose: 1 drop Aspirin (Aspirin Chewable) 81 mg GT DAILY [facility] Last Admin: 07/11/17 10:44 Dose: 81 mg Atorvastatin Calcium (Lipitor) 40 mg GT DIN [facility] Last Admin: 07/11/17 18:36 Dose: 40 mg Calcium Acetate (Phoslo) 2,001 mg PO Q8H [facility] Last Admin: 07/11/17 18:37 Dose: 2,001 mg Carvedilol (Coreg) 6.25 mg PO BID [facility] Last Admin: 07/11/17 18:37 Dose: 6.25 mg Chlorhexidine Gluconate (Peridex) 15 ml PO BID [facility] Last Admin: 07/11/17 18:32 Dose: 15 ml Hydralazine HCl (Apresoline) 10 mg NG Q8 [facility] Last Admin: 07/10/17 21:23 Dose: Not Given Meropenem 500 mg/ Sodium (Chloride) 100 mls @ 100 mls/hr IVPB DAILY [facility] PRN Reason: Protocol Last Admin: 07/11/17 10:43 Dose: 100 mls/hr Isosorbide Mononitrate (Imdur) 60 mg PO DAILY [facility] Last Admin: 07/11/17 10:43 Dose: 60 mg Losartan Potassium (Cozaar) 25 mg PO DAILY [facility] Last Admin: 07/11/17 10:43 Dose: 25 mg Pantoprazole Sodium (Protonix Inj) 40 mg IVP DAILY [facility] Last Admin: 07/11/17 18:33 Dose: 40 mg - Labs Labs: 07/11/17 06:20 07/11/17 06:20 PT 14.1 SECONDS (9.4-12.5) H 07/11/17 14:12 INR 1.28 (0.93-1.08) H 07/11/17 14:12 APTT 34.9 Seconds (25.1-36.5) 07/06/17 17:00 Attending/Attestation - Attestation I have personally seen and examined this patient.: Yes I have fully participated in the care of the patient.: Yes I have reviewed all pertinent clinical information, including history, physical exam and plan: Yes
[2017-07-11] MEDS: Chlorhexidine 0.12% Oral Sol 480 ml Bot PO SCH (18:32)
[2017-07-12 05:48] LABS: ARTERIAL BLOOD GAS HCO3 28.7 mmol/L (21-28); ARTERIAL BLOOD GAS O2 CAPACITY 13.5 mL/dl (16-24); ARTERIAL BLOOD GAS O2 CONTENT 13.4 ML/dl (15-23); ARTERIAL BLOOD GAS PH 7.56 (7.35-7.45); ARTERIAL BLOOD HGB O2 SAT 96.1 % (95.0-98.0); CARBOXYHEMOGLOBIN 2.1 % (0.5-1.5); HHB 0.8 % (0-5)
[2017-07-12 07:26] LABS: HEMATOCRIT 29.9 % (36.0-48.0); MEAN CELL VOLUME 85.7 fl (80.0-105.0); MEAN CORPUSCULAR HEMOGLOBIN 26.4 pg (25.0-35.0); MEAN CORPUSCULAR HGB CONC 30.8 g/dl (31.0-37.0); PLATELET COUNT 90 10^3/uL (120.0-450.0); WHITE BLOOD COUNT 8.1 10^3/ul (4.5-11.0)
[2017-07-12 07:43] LABS: INR 1.29 (0.93-1.08); PARTIAL THROMBOPLASTIN TIME 31.7 Seconds (25.1-36.5)
[2017-07-12 07:45] LABS: ALB/GLOB RATIO 0.8 (1.1-1.8); BILIRUBIN,TOTAL 1.2 mg/dL (0.2-1.3); CALCIUM 8.6 mg/dL (8.4-10.5); POTASSIUM 3.6 mmol/L (3.6-5.0)
--- NOTE | 2017-07-12 08:30 | PN ---
DATE:07/12/17 PULMONARY PROGRESS NOTE SUBJECTIVE: The patient remains on the ventilator. She remains poorly responsive. OBJECTIVE: VITAL SIGNS: Temperature is 100.2, pulse is 73, respirations are 20/20, and blood pressure is 126/59. Oxygen saturation on the ventilator is 100%. HEENT: Normocephalic, atraumatic. NECK: No JVD. CARDIOVASCULAR: Systolic ejection murmur at the lower left sternal border. No S3 gallop. LUNGS: Crackles at both bases. Minimal/less rhonchi. No wheezing. EXTREMITIES: The patient is status post left [id number] amputation. The right lower extremity reveals chronic vascular changes. There is no cyanosis or clubbing. GASTROINTESTINAL: Abdomen is soft and nondistended. Bowel sounds are positive. SKIN: No acute rash. NEUROLOGIC: Exam limited at the present time. PERTINENT LABORATORY DATA: Chest x-ray was done this morning and reviewed. There is minimal infiltrate noted at the right lung base - significantly improved from few days ago. Arterial blood gas was done on assist control 20, tidal volume 450, and FiO2 of 50%. Results are; pH 7.56, pCO2 of 32, and pO2 of 106. IMPRESSION: 1. Respiratory failure. 2. Community-acquired pneumonia. 3. Ventricular tachycardia. 4. Mild pulmonary edema. 5. End-stage renal disease. 6. Rapid atrial fibrillation. 7. Mild bronchospasm. 8. Encephalopathy. PLAN: The patient remains on the ventilator. She remains poorly responsive. I did discuss the case with the night nurse at length. The night nurse stated that the patient had an uneventful night. The night nurse also stated that the patient is for probable tracheostomy and PEG placement later today. I did review the chest x-ray as above. There is minimal infiltrate at the right lung base - significantly improved from a few days ago. I have also reviewed the arterial blood gas. There is a mixed disturbance present with adequate oxygenation. I would continue with the antibiotic coverage as per Infectious Disease. There are low-grade temperatures noted. The leukocytosis has improved/decreased. I would continue with the Neurology and Cardiology evaluations. Inputs are noted. Again, unfortunately, the patient has not regained a meaningful neurologic status. The patient remains critically ill with overall poor prognosis. I will discuss the above with the entire ICU team in the next few moments. I will also discuss the above with the attending physician later this morning. Earl Vega MD MTDLeticia
--- NOTE | 2017-07-12 08:54 | CP.PCM.PN ---
Subjective - Date & Time of Evaluation Date of Evaluation: 07/12/17 Time of Evaluation: 08:43 - Subjective Subjective: Pt is seen and examined at bedside. No acute events overnight. Pt underwent dialysis yesterday. ET tube, peg tube in place. ROS unobtainable due to AMS and intubation. Objective - Vital Signs/Intake and Output Vital Signs (last 24 hours): Temp Pulse Resp BP Pulse Ox 100.2 F H 73 20 126/59 L 99 07/12/17 05:00 07/12/17 07:00 07/12/17 08:18 07/12/17 06:42 07/12/17 08:18 Intake and Output: 07/12/17 07/12/17 06:59 18:59 Intake Total 1010 Output Total 600 Balance 410 - Medications Medications: Current Medications Artificial Tears (Artificial Tears Opht Oint) 0 gm OU Q8H PRN PRN Reason: Dry eyes Last Admin: 07/06/17 18:51 Dose: 1 gel Artificial Tears (Artificial Tears) 0 ml OU BID COUNT INCLUDES THE [facility] Last Admin: 07/11/17 20:35 Dose: 1 drop Aspirin (Aspirin Chewable) 81 mg GT DAILY COUNT INCLUDES THE [facility] Last Admin: 07/11/17 10:44 Dose: 81 mg Atorvastatin Calcium (Lipitor) 40 mg GT DIN COUNT INCLUDES THE [facility] Last Admin: 07/11/17 18:36 Dose: 40 mg Calcium Acetate (Phoslo) 2,001 mg PO Q8H COUNT INCLUDES THE [facility] Last Admin: 07/12/17 05:20 Dose: Not Given Carvedilol (Coreg) 6.25 mg PO BID COUNT INCLUDES THE [facility] Last Admin: 07/11/17 18:37 Dose: 6.25 mg Chlorhexidine Gluconate (Peridex) 15 ml PO BID COUNT INCLUDES THE [facility] Last Admin: 07/11/17 18:32 Dose: 15 ml Hydralazine HCl (Apresoline) 10 mg NG Q8 COUNT INCLUDES THE [facility] Last Admin: 07/12/17 06:00 Dose: Not Given Meropenem 500 mg/ Sodium (Chloride) 100 mls @ 100 mls/hr IVPB DAILY COUNT INCLUDES THE [facility] PRN Reason: Protocol Last Admin: 07/11/17 10:43 Dose: 100 mls/hr Isosorbide Mononitrate (Imdur) 60 mg PO DAILY COUNT INCLUDES THE [facility] Last Admin: 07/11/17 10:43 Dose: 60 mg Losartan Potassium (Cozaar) 25 mg PO DAILY COUNT INCLUDES THE [facility] Last Admin: 07/11/17 10:43 Dose: 25 mg Pantoprazole Sodium (Protonix Inj) 40 mg IVP DAILY COUNT INCLUDES THE [facility] Last Admin: 07/11/17 18:33 Dose: 40 mg - Labs Labs: 07/12/17 06:40 07/12/17 06:40 PT 14.3 SECONDS (9.4-12.5) H 07/12/17 06:40 INR 1.29 (0.93-1.08) H 07/12/17 06:40 APTT 31.7 Seconds (25.1-36.5) 07/12/17 06:40 - Constitutional Appears: No Acute Distress - Head Exam Head Exam: ATRAUMATIC - Respiratory Exam Respiratory Exam: Clear to Ausculation Bilateral. absent: Rales, Rhonchi, Wheezes - Cardiovascular Exam Cardiovascular Exam: REGULAR RHYTHM, +S1, +S2 - GI/Abdominal Exam GI & Abdominal Exam: Soft, Normal Bowel Sounds. absent: Firm, Guarding, Rigid, Tenderness - Extremities Exam Extremities Exam: absent: Pedal Edema - Neurological Exam Neurological Exam: absent: Alert, Awake, Oriented x3 - Psychiatric Exam Psychiatric exam: Normal Affect, Normal Mood - Skin Skin Exam: Dry, Normal Color Assessment and Plan - Assessment and Plan (Free Text) Assessment: (1) End stage renal disease HD yesterday. Removed about [address] Brooks reached out to IR yesterday to discuss left arm fistula adjustment. Awaiting recs. (2) Shock Cardiogenic vs. septic Likely due to cardiogenic shock due to a fib in setting of severe systolic dysfunction. agree to keep K close to 4 to avoid arrhythmias Patient has positive e coli in urine. Currently on meropenem (3) AMS MRI showed ischemia along posterior cerebral artery likely due to hypoperfusion Intubated, off vasopressors. Only responding to painful stimuli Pending placement to LTAC. Pt scheduled for OR today for placement of trach and PEG tube (4) Hypertensive CKD, ESRD on dialysis Stable. Continue to monitor (5) Anemia Hgb below goal for ESRD; will continue to dose aranesp 100 mcg weekly; (6) Congestive heart failure (CHF) See above; started on hydralazine and imdur for afterload reduction; will start low dose losartan as well; All recs and management per Dr. Brooks
--- NOTE | 2017-07-12 09:00 | RAD ---
HISTORY: f/u COMPARISON: 07/11/2017 FINDINGS: LUNGS: There is a patchy infiltrate in the right lower lobe suspicious for pneumonia. Central lines and tubes are unchanged PLEURA: No significant pleural effusion identified, no pneumothorax apparent. CARDIOVASCULAR: Normal. OSSEOUS STRUCTURES: No significant abnormalities. VISUALIZED UPPER ABDOMEN: Normal. OTHER FINDINGS: None. IMPRESSION: There is a patchy infiltrate in the right lower lobe suspicious for pneumonia. Central lines and tubes are unchanged
--- NOTE | 2017-07-12 09:53 | CP.CCUPN ---
<Crescencio Abernathy - Last Filed: 07/12/17 14:28> CCU Subjective - Physician Review Subjective (Free Text): Critical Care Progress Note for Dr. Castillo Patient seen ad examined at bedside. No acute event overnight. Intubated and on vent support 450, 5, 20, 50%. She has spontaneously non-purposeful movement. Going for Trach and PEG tube insertion today. CCU Objective - Vital Signs / Intake & Output Vital Signs (Last 4 hours): Vital Signs Pulse Resp BP Pulse Ox 07/12/17 08:18 20 99 07/12/17 07:00 73 100 07/12/17 06:42 74 126/59 L 100 07/12/17 06:30 74 100 07/12/17 06:00 73 110/66 100 Intake and Output (Last 8hrs): Intake & Output 07/11/17 07/12/17 07/12/17 22:59 06:59 14:59 Intake Total 800 210 Output Total 600 0 Balance 200 210 Weight 195 lb Intake: IV 100 60 Left Internal Jugular 100 60 Oral 150 Tube Feeding 700 Output: Urine 0 Urine, Voided 0 Stool 600 Other: # Bowel Movements 1 - Physical Exam Head: Positive for: Atraumatic, Normocephalic Pupils: Positive for: Sluggish Mouth: Positive for: Moist Mucous Membranes, Other (et tube in place) Neck: Positive for: Normal Range of Motion. Negative for: Meningeal Signs, MIDLINE TENDERNESS, Paraspinal Tenderness Respiratory/Chest: Positive for: Clear to Auscultation. Negative for: Accessory Muscle Use Cardiovascular: Positive for: Normal S1, S2, Tachycardic. Negative for: Murmurs Abdomen: Positive for: Distention (mild), Normal Bowel Sounds. Negative for: Tenderness, Peritoneal Signs Back: Positive for: Normal Inspection Upper Extremity: Positive for: Normal Inspection, NORMAL PULSES. 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 Negative for: Edema Neurological: Positive for: Other (intubated). Negative for: GCS=15 Skin: Positive for: Warm, Dry. Negative for: Rashes Psychiatric: Positive for: Other (intubated). Negative for: Alert, Oriented x 3 - Medications Active Medications: Active Medications Generic Name Dose Route Start Last Admin Trade Name Freq PRN Reason Stop Dose Admin Artificial Tears 0 gm 07/05/17 20:00 07/06/17 18:51 Artificial Tears Opht Oint OU 1 gel Q8H PRN Administration Dry eyes Artificial Tears 0 ml 07/06/17 18:00 07/11/17 20:35 Artificial Tears OU 1 drop BID MARCEL Administration Aspirin 81 mg 07/06/17 22:45 07/11/17 10:44 Aspirin Chewable GT 81 mg DAILY MARCEL Administration Atorvastatin Calcium 40 mg 07/07/17 09:29 07/11/17 18:36 Lipitor GT 40 mg DIN MARCEL Administration Calcium Acetate 2,001 mg 07/07/17 13:00 07/12/17 05:20 Phoslo PO Not Given Q8H MARCEL Carvedilol 6.25 mg 07/08/17 10:30 07/11/17 18:37 Coreg PO 6.25 mg BID MARCEL Administration Chlorhexidine Gluconate 15 ml 07/04/17 18:00 07/11/17 18:32 Peridex PO 15 ml BID MARCEL Administration Hydralazine HCl 10 mg 07/07/17 14:00 07/12/17 06:00 Apresoline NG Not Given Q8 MARCEL Meropenem 500 mg/ Sodium 100 mls @ 100 mls/hr 07/07/17 19:27 07/11/17 10:43 Chloride IVPB 100 mls/hr DAILY MARCEL Administration Protocol Isosorbide Mononitrate 60 mg 07/07/17 10:00 07/11/17 10:43 Imdur PO 60 mg DAILY MARCEL Administration Losartan Potassium 25 mg 07/11/17 10:00 07/11/17 10:43 Cozaar PO 25 mg DAILY MARCEL Administration Pantoprazole Sodium 40 mg 07/04/17 10:00 07/11/17 18:33 Protonix Inj IVP 40 mg DAILY MARCEL Administration - Patient Studies Lab Studies: Microbiology Studies 07/07/17 08:40 Blood Culture - Final Blood-Venous NO GROWTH AFTER 5 DAYS Gram Stain - Final TEST NOT PERFORMED 07/07/17 09:20 Blood Culture - Final Blood-Venous NO GROWTH AFTER 5 DAYS Gram Stain - Final TEST NOT PERFORMED 07/08/17 21:00 Gram Stain - Final Trachasp Sputum Culture - Final NORMAL ORAL SHAY Lab Studies 07/12/17 07/12/17 07/12/17 Range/Units 07:43 06:40 06:40 WBC (4.5-11.0) 10^3/ul RBC (3.5-6.1) 10^6/uL Hgb (12.0-16.0) g/dL Hct (36.0-48.0) % MCV (80.0-105.0) fl MCH (25.0-35.0) pg MCHC (31.0-37.0) g/dl RDW (11.5-14.5) % Plt Count (120.0-450.0) 10^3/uL PT 14.3 H (9.4-12.5) SECONDS INR 1.29 H (0.93-1.08) APTT 31.7 (25.1-36.5) Seconds pCO2 (35-45) mm/Hg pO2 (80-100) mm/Hg HCO3 (21-28) mmol/L ABG pH (7.35-7.45) ABG Total CO2 (22-28) mmol.L ABG O2 Saturation (95-98) % ABG O2 Content (15-23) ML/dl ABG Base Excess (-2.0-3.0) mmol/L ABG Hemoglobin (11.7-17.4) g/dL ABG Carboxyhemoglobin (0.5-1.5) % POC ABG HHb (Measured) (0-5) % ABG Methemoglobin (0.0-3.0) % ABG O2 Capacity (16-24) mL/dl Hgb O2 Saturation (95.0-98.0) % FiO2 % Sodium 140 (132-148) mmol/L Potassium 3.6 (3.6-5.0) mmol/L Chloride 101 (98-107) mmol/L Carbon Dioxide 28 (21-33) mmol/L Anion Gap 15 (10-20) BUN 41 H (7-21) mg/dL Creatinine 4.4 H (0.7-1.2) mg/dl Est GFR ( Amer) 12 Est GFR (Non-Af Amer) 10 POC Glucose (mg/dL) 139 H (65-110) mg/dL Random Glucose 125 H (70-110) mg/dL Calcium 8.6 (8.4-10.5) mg/dL Total Bilirubin 1.2 (0.2-1.3) mg/dL AST 150 H D (14-36) U/L ALT 92 H (7-56) U/L Alkaline Phosphatase 229 H (38-126) U/L Total Protein 6.0 (5.8-8.3) g/dL Albumin 2.6 L (3.0-4.8) g/dL Globulin 3.4 gm/dL Albumin/Globulin Ratio 0.8 L (1.1-1.8) 07/12/17 07/12/17 07/12/17 Range/Units 06:40 05:30 04:09 WBC 8.1 (4.5-11.0) 10^3/ul RBC 3.49 L (3.5-6.1) 10^6/uL Hgb 9.2 L (12.0-16.0) g/dL Hct 29.9 L (36.0-48.0) % MCV 85.7 (80.0-105.0) fl MCH 26.4 (25.0-35.0) pg MCHC 30.8 L (31.0-37.0) g/dl RDW 17.0 H (11.5-14.5) % Plt Count 90 L (120.0-450.0) 10^3/uL PT (9.4-12.5) SECONDS INR (0.93-1.08) APTT (25.1-36.5) Seconds pCO2 32 L (35-45) mm/Hg pO2 106.0 H (80-100) mm/Hg HCO3 28.7 H (21-28) mmol/L ABG pH 7.56 H (7.35-7.45) ABG Total CO2 29.7 H (22-28) mmol.L ABG O2 Saturation 99.2 H (95-98) % ABG O2 Content 13.4 L (15-23) ML/dl ABG Base Excess 6.4 H (-2.0-3.0) mmol/L ABG Hemoglobin 9.8 L (11.7-17.4) g/dL ABG Carboxyhemoglobin 2.1 H (0.5-1.5) % POC ABG HHb (Measured) 0.8 (0-5) % ABG Methemoglobin 1.0 (0.0-3.0) % ABG O2 Capacity 13.5 L (16-24) mL/dl Hgb O2 Saturation 96.1 (95.0-98.0) % FiO2 50.0 % Sodium (132-148) mmol/L Potassium (3.6-5.0) mmol/L Chloride (98-107) mmol/L Carbon Dioxide (21-33) mmol/L Anion Gap (10-20) BUN (7-21) mg/dL Creatinine (0.7-1.2) mg/dl Est GFR ( Amer) Est GFR (Non-Af Amer) POC Glucose (mg/dL) 116 H (65-110) mg/dL Random Glucose (70-110) mg/dL Calcium (8.4-10.5) mg/dL Total Bilirubin (0.2-1.3) mg/dL AST (14-36) U/L ALT (7-56) U/L Alkaline Phosphatase (38-126) U/L Total Protein (5.8-8.3) g/dL Albumin (3.0-4.8) g/dL Globulin gm/dL Albumin/Globulin Ratio (1.1-1.8) 07/12/17 07/11/17 07/11/17 Range/Units 02:08 21:48 16:30 WBC (4.5-11.0) 10^3/ul RBC (3.5-6.1) 10^6/uL Hgb (12.0-16.0) g/dL Hct (36.0-48.0) % MCV (80.0-105.0) fl MCH (25.0-35.0) pg MCHC (31.0-37.0) g/dl RDW (11.5-14.5) % Plt Count (120.0-450.0) 10^3/uL PT (9.4-12.5) SECONDS INR (0.93-1.08) APTT (25.1-36.5) Seconds pCO2 (35-45) mm/Hg pO2 (80-100) mm/Hg HCO3 (21-28) mmol/L ABG pH (7.35-7.45) ABG Total CO2 (22-28) mmol.L ABG O2 Saturation (95-98) % ABG O2 Content (15-23) ML/dl ABG Base Excess (-2.0-3.0) mmol/L ABG Hemoglobin (11.7-17.4) g/dL ABG Carboxyhemoglobin (0.5-1.5) % POC ABG HHb (Measured) (0-5) % ABG Methemoglobin (0.0-3.0) % ABG O2 Capacity (16-24) mL/dl Hgb O2 Saturation (95.0-98.0) % FiO2 % Sodium (132-148) mmol/L Potassium (3.6-5.0) mmol/L Chloride (98-107) mmol/L Carbon Dioxide (21-33) mmol/L Anion Gap (10-20) BUN (7-21) mg/dL Creatinine (0.7-1.2) mg/dl Est GFR ( Amer) Est GFR (Non-Af Amer) POC Glucose (mg/dL) 134 H 171 H 164 H (65-110) mg/dL Random Glucose (70-110) mg/dL Calcium (8.4-10.5) mg/dL Total Bilirubin (0.2-1.3) mg/dL AST (14-36) U/L ALT (7-56) U/L Alkaline Phosphatase (38-126) U/L Total Protein (5.8-8.3) g/dL Albumin (3.0-4.8) g/dL Globulin gm/dL Albumin/Globulin Ratio (1.1-1.8) 07/11/17 07/11/17 Range/Units 14:12 11:06 WBC (4.5-11.0) 10^3/ul RBC (3.5-6.1) 10^6/uL Hgb (12.0-16.0) g/dL Hct (36.0-48.0) % MCV (80.0-105.0) fl MCH (25.0-35.0) pg MCHC (31.0-37.0) g/dl RDW (11.5-14.5) % Plt Count (120.0-450.0) 10^3/uL PT 14.1 H (9.4-12.5) SECONDS INR 1.28 H (0.93-1.08) APTT (25.1-36.5) Seconds pCO2 (35-45) mm/Hg pO2 (80-100) mm/Hg HCO3 (21-28) mmol/L ABG pH (7.35-7.45) ABG Total CO2 (22-28) mmol.L ABG O2 Saturation (95-98) % ABG O2 Content (15-23) ML/dl ABG Base Excess (-2.0-3.0) mmol/L ABG Hemoglobin (11.7-17.4) g/dL ABG Carboxyhemoglobin (0.5-1.5) % POC ABG HHb (Measured) (0-5) % ABG Methemoglobin (0.0-3.0) % ABG O2 Capacity (16-24) mL/dl Hgb O2 Saturation (95.0-98.0) % FiO2 % Sodium (132-148) mmol/L Potassium (3.6-5.0) mmol/L Chloride (98-107) mmol/L Carbon Dioxide (21-33) mmol/L Anion Gap (10-20) BUN (7-21) mg/dL Creatinine (0.7-1.2) mg/dl Est GFR ( Amer) Est GFR (Non-Af Amer) POC Glucose (mg/dL) 159 H (65-110) mg/dL Random Glucose (70-110) mg/dL Calcium (8.4-10.5) mg/dL Total Bilirubin (0.2-1.3) mg/dL AST (14-36) U/L ALT (7-56) U/L Alkaline Phosphatase (38-126) U/L Total Protein (5.8-8.3) g/dL Albumin (3.0-4.8) g/dL Globulin gm/dL Albumin/Globulin Ratio (1.1-1.8) Laboratory Results - last 24 hr 07/11/17 07/11/17 07/11/17 11:06 14:12 16:30 WBC RBC Hgb Hct MCV MCH MCHC RDW Plt Count PT 14.1 H INR 1.28 H APTT pCO2 pO2 HCO3 ABG pH ABG Total CO2 ABG O2 Saturation ABG O2 Content ABG Base Excess ABG Hemoglobin ABG Carboxyhemoglobin POC ABG HHb (Measured) ABG Methemoglobin ABG O2 Capacity Hgb O2 Saturation FiO2 Sodium Potassium Chloride Carbon Dioxide Anion Gap BUN Creatinine Est GFR ( Amer) Est GFR (Non-Af Amer) POC Glucose (mg/dL) 159 H 164 H Random Glucose Calcium Total Bilirubin AST ALT Alkaline Phosphatase Total Protein Albumin Globulin Albumin/Globulin Ratio 07/11/17 07/12/17 07/12/17 21:48 02:08 04:09 WBC RBC Hgb Hct MCV MCH MCHC RDW Plt Count PT INR APTT pCO2 pO2 HCO3 ABG pH ABG Total CO2 ABG O2 Saturation ABG O2 Content ABG Base Excess ABG Hemoglobin ABG Carboxyhemoglobin POC ABG HHb (Measured) ABG Methemoglobin ABG O2 Capacity Hgb O2 Saturation FiO2 Sodium Potassium Chloride Carbon Dioxide Anion Gap BUN Creatinine Est GFR ( Amer) Est GFR (Non-Af Amer) POC Glucose (mg/dL) 171 H 134 H 116 H Random Glucose Calcium Total Bilirubin AST ALT Alkaline Phosphatase Total Protein Albumin Globulin Albumin/Globulin Ratio 07/12/17 07/12/17 07/12/17 05:30 06:40 06:40 WBC 8.1 RBC 3.49 L Hgb 9.2 L Hct 29.9 L MCV 85.7 MCH 26.4 MCHC 30.8 L RDW 17.0 H Plt Count 90 L PT INR APTT pCO2 32 L pO2 106.0 H HCO3 28.7 H ABG pH 7.56 H ABG Total CO2 29.7 H ABG O2 Saturation 99.2 H ABG O2 Content 13.4 L ABG Base Excess 6.4 H ABG Hemoglobin 9.8 L ABG Carboxyhemoglobin 2.1 H POC ABG HHb (Measured) 0.8 ABG Methemoglobin 1.0 ABG O2 Capacity 13.5 L Hgb O2 Saturation 96.1 FiO2 50.0 Sodium 140 Potassium 3.6 Chloride 101 Carbon Dioxide 28 Anion Gap 15 BUN 41 H Creatinine 4.4 H Est GFR ( Amer) 12 Est GFR (Non-Af Amer) 10 POC Glucose (mg/dL) Random Glucose 125 H Calcium 8.6 Total Bilirubin 1.2 AST 150 H D ALT 92 H Alkaline Phosphatase 229 H Total Protein 6.0 Albumin 2.6 L Globulin 3.4 Albumin/Globulin Ratio 0.8 L 07/12/17 07/12/17 06:40 07:43 WBC RBC Hgb Hct MCV MCH MCHC RDW Plt Count PT 14.3 H INR 1.29 H APTT 31.7 pCO2 pO2 HCO3 ABG pH ABG Total CO2 ABG O2 Saturation ABG O2 Content ABG Base Excess ABG Hemoglobin ABG Carboxyhemoglobin POC ABG HHb (Measured) ABG Methemoglobin ABG O2 Capacity Hgb O2 Saturation FiO2 Sodium Potassium Chloride Carbon Dioxide Anion Gap BUN Creatinine Est GFR ( Amer) Est GFR (Non-Af Amer) POC Glucose (mg/dL) 139 H Random Glucose Calcium Total Bilirubin AST ALT Alkaline Phosphatase Total Protein Albumin Globulin Albumin/Globulin Ratio Fingerstick Blood Sugar Results: 116 Assessment/Plan - Assessment and Plan (Free Text) Plan: 66 F with a PMH of ESRD on HD, HTN, CHF, afib RVR with resolved cardiogenic shock likely secondary to low EF and afib RVR, CVA, Respiratory failure, and Thrombocytopenia, Neuro: intubated, maintain normothermia, unable to answer questions, spontaneous non-purposeful movements, f/u neurology recommendations Pulm: intubated and on PRVC vent support, Maintain SaO2 > 90%, keep head of bed elevated at 30 degrees, Going for tracheostomy today Cardio: regular rhythm, normotensive, Coreg for rate control, Hydralazine/ Nitrates for afterload/preload reduction, Maintain MAP > 65 GI: Protonix for ppx, Continue tube feeds, PEG tube placement today, f/u GI recommendations Renal: Monitor electrolytes, Dialysis MWF, f/u Nephrology recommendations Endo: Maintain euglycemia 140-180 Heme: DVT ppx, Monitor Platelets ID: [id number], no leukocytosis, IV antibiotics as per ID Misc: pending transfer to LTAC, follow up palliative care <Hieu Castillo - Last Filed: 07/12/17 16:55> CCU Objective - Vital Signs / Intake & Output Vital Signs (Last 4 hours): Vital Signs Pulse Ox 07/12/17 13:00 99 Intake and Output (Last 8hrs): Intake & Output 07/12/17 07/12/17 07/12/17 06:59 14:59 22:59 Intake Total 210 Output Total 0 Balance 210 Weight 195 lb Intake: IV 60 Left Internal Jugular 60 Oral 150 Output: Urine 0 Urine, Voided 0 Other: # Bowel Movements 1 - Medications Active Medications: Active Medications Generic Name Dose Route Start Last Admin Trade Name Freq PRN Reason Stop Dose Admin Artificial Tears 0 gm 07/05/17 20:00 07/06/17 18:51 Artificial Tears Opht Oint OU 1 gel Q8H PRN Administration Dry eyes Artificial Tears 0 ml 07/06/17 18:00 07/11/17 20:35 Artificial Tears OU 1 drop BID MARCEL Administration Aspirin 81 mg 07/06/17 22:45 07/11/17 10:44 Aspirin Chewable GT 81 mg DAILY MARCEL Administration Atorvastatin Calcium 40 mg 07/07/17 09:29 07/11/17 18:36 Lipitor GT 40 mg DIN MARCEL Administration Calcium Acetate 2,001 mg 07/07/17 13:00 07/12/17 05:20 Phoslo PO Not Given Q8H MARCEL Carvedilol 6.25 mg 07/08/17 10:30 07/11/17 18:37 Coreg PO 6.25 mg BID MARCEL Administration Chlorhexidine Gluconate 15 ml 07/04/17 18:00 07/11/17 18:32 Peridex PO 15 ml BID MARCEL Administration Hydralazine HCl 10 mg 07/07/17 14:00 07/12/17 06:00 Apresoline NG Not Given Q8 MARCEL Meropenem 500 mg/ Sodium 100 mls @ 100 mls/hr 07/07/17 19:27 07/11/17 10:43 Chloride IVPB 100 mls/hr DAILY MARCEL Administration Protocol Isosorbide Mononitrate 60 mg 07/07/17 10:00 07/11/17 10:43 Imdur PO 60 mg DAILY MARCEL Administration Losartan Potassium 25 mg 07/11/17 10:00 07/11/17 10:43 Cozaar PO 25 mg DAILY MARCEL Administration Pantoprazole Sodium 40 mg 07/12/17 18:00 Protonix Inj IVP BID [facility] - Patient Studies Lab Studies: Microbiology Studies 07/07/17 08:40 Blood Culture - Final Blood-Venous NO GROWTH AFTER 5 DAYS Gram Stain - Final TEST NOT PERFORMED 07/07/17 09:20 Blood Culture - Final Blood-Venous NO GROWTH AFTER 5 DAYS Gram Stain - Final TEST NOT PERFORMED Lab Studies 07/12/17 07/12/17 07/12/17 Range/Units 15:22 11:15 11:10 WBC (4.5-11.0) 10^3/ul RBC (3.5-6.1) 10^6/uL Hgb (12.0-16.0) g/dL Hct (36.0-48.0) % MCV (80.0-105.0) fl MCH (25.0-35.0) pg MCHC (31.0-37.0) g/dl RDW (11.5-14.5) % Plt Count (120.0-450.0) 10^3/uL PT (9.4-12.5) SECONDS INR (0.93-1.08) APTT (25.1-36.5) Seconds pCO2 (35-45) mm/Hg pO2 (80-100) mm/Hg HCO3 (21-28) mmol/L ABG pH (7.35-7.45) ABG Total CO2 (22-28) mmol.L ABG O2 Saturation (95-98) % ABG O2 Content (15-23) ML/dl ABG Base Excess (-2.0-3.0) mmol/L ABG Hemoglobin (11.7-17.4) g/dL ABG Carboxyhemoglobin (0.5-1.5) % POC ABG HHb (Measured) (0-5) % ABG Methemoglobin (0.0-3.0) % ABG O2 Capacity (16-24) mL/dl Hgb O2 Saturation (95.0-98.0) % FiO2 % Sodium (132-148) mmol/L Potassium (3.6-5.0) mmol/L Chloride (98-107) mmol/L Carbon Dioxide (21-33) mmol/L Anion Gap (10-20) BUN (7-21) mg/dL Creatinine (0.7-1.2) mg/dl Est GFR ( Amer) Est GFR (Non-Af Amer) POC Glucose (mg/dL) 102 156 H (65-110) mg/dL Random Glucose (70-110) mg/dL Calcium (8.4-10.5) mg/dL Total Bilirubin (0.2-1.3) mg/dL AST (14-36) U/L ALT (7-56) U/L Alkaline Phosphatase (38-126) U/L Total Protein (5.8-8.3) g/dL Albumin (3.0-4.8) g/dL Globulin gm/dL Albumin/Globulin Ratio (1.1-1.8) PTH w/Ion &Tot Calcium (14-64) pg/mL Histone Antibodies (<1.0) U Blood Type O POSITIVE Antibody Screen Positive BBK History Checked Patient has bt 07/12/17 07/12/17 07/12/17 Range/Units 07:43 06:40 06:40 WBC (4.5-11.0) 10^3/ul RBC (3.5-6.1) 10^6/uL Hgb (12.0-16.0) g/dL Hct (36.0-48.0) % MCV (80.0-105.0) fl MCH (25.0-35.0) pg MCHC (31.0-37.0) g/dl RDW (11.5-14.5) % Plt Count (120.0-450.0) 10^3/uL PT 14.3 H (9.4-12.5) SECONDS INR 1.29 H (0.93-1.08) APTT 31.7 (25.1-36.5) Seconds pCO2 (35-45) mm/Hg pO2 (80-100) mm/Hg HCO3 (21-28) mmol/L ABG pH (7.35-7.45) ABG Total CO2 (22-28) mmol.L ABG O2 Saturation (95-98) % ABG O2 Content (15-23) ML/dl ABG Base Excess (-2.0-3.0) mmol/L ABG Hemoglobin (11.7-17.4) g/dL ABG Carboxyhemoglobin (0.5-1.5) % POC ABG HHb (Measured) (0-5) % ABG Methemoglobin (0.0-3.0) % ABG O2 Capacity (16-24) mL/dl Hgb O2 Saturation (95.0-98.0) % FiO2 % Sodium 140 (132-148) mmol/L Potassium 3.6 (3.6-5.0) mmol/L Chloride 101 (98-107) mmol/L Carbon Dioxide 28 (21-33) mmol/L Anion Gap 15 (10-20) BUN 41 H (7-21) mg/dL Creatinine 4.4 H (0.7-1.2) mg/dl Est GFR ( Amer) 12 Est GFR (Non-Af Amer) 10 POC Glucose (mg/dL) 139 H (65-110) mg/dL Random Glucose 125 H (70-110) mg/dL Calcium 8.6 (8.4-10.5) mg/dL Total Bilirubin 1.2 (0.2-1.3) mg/dL AST 150 H D (14-36) U/L ALT 92 H (7-56) U/L Alkaline Phosphatase 229 H (38-126) U/L Total Protein 6.0 (5.8-8.3) g/dL Albumin 2.6 L (3.0-4.8) g/dL Globulin 3.4 gm/dL Albumin/Globulin Ratio 0.8 L (1.1-1.8) PTH w/Ion &Tot Calcium (14-64) pg/mL Histone Antibodies (<1.0) U Blood Type Antibody Screen BBK History Checked 07/12/17 07/12/17 07/12/17 Range/Units 06:40 05:30 04:09 WBC 8.1 (4.5-11.0) 10^3/ul RBC 3.49 L (3.5-6.1) 10^6/uL Hgb 9.2 L (12.0-16.0) g/dL Hct 29.9 L (36.0-48.0) % MCV 85.7 (80.0-105.0) fl MCH 26.4 (25.0-35.0) pg MCHC 30.8 L (31.0-37.0) g/dl RDW 17.0 H (11.5-14.5) % Plt Count 90 L (120.0-450.0) 10^3/uL PT (9.4-12.5) SECONDS INR (0.93-1.08) APTT (25.1-36.5) Seconds pCO2 32 L (35-45) mm/Hg pO2 106.0 H (80-100) mm/Hg HCO3 28.7 H (21-28) mmol/L ABG pH 7.56 H (7.35-7.45) ABG Total CO2 29.7 H (22-28) mmol.L ABG O2 Saturation 99.2 H (95-98) % ABG O2 Content 13.4 L (15-23) ML/dl ABG Base Excess 6.4 H (-2.0-3.0) mmol/L ABG Hemoglobin 9.8 L (11.7-17.4) g/dL ABG Carboxyhemoglobin 2.1 H (0.5-1.5) % POC ABG HHb (Measured) 0.8 (0-5) % ABG Methemoglobin 1.0 (0.0-3.0) % ABG O2 Capacity 13.5 L (16-24) mL/dl Hgb O2 Saturation 96.1 (95.0-98.0) % FiO2 50.0 % Sodium (132-148) mmol/L Potassium (3.6-5.0) mmol/L Chloride (98-107) mmol/L Carbon Dioxide (21-33) mmol/L Anion Gap (10-20) BUN (7-21) mg/dL Creatinine (0.7-1.2) mg/dl Est GFR ( Amer) Est GFR (Non-Af Amer) POC Glucose (mg/dL) 116 H (65-110) mg/dL Random Glucose (70-110) mg/dL Calcium (8.4-10.5) mg/dL Total Bilirubin (0.2-1.3) mg/dL AST (14-36) U/L ALT (7-56) U/L Alkaline Phosphatase (38-126) U/L Total Protein (5.8-8.3) g/dL Albumin (3.0-4.8) g/dL Globulin gm/dL Albumin/Globulin Ratio (1.1-1.8) PTH w/Ion &Tot Calcium (14-64) pg/mL Histone Antibodies (<1.0) U Blood Type Antibody Screen BBK History Checked 07/12/17 07/11/17 07/11/17 Range/Units 02:08 21:48 16:30 WBC (4.5-11.0) 10^3/ul RBC (3.5-6.1) 10^6/uL Hgb (12.0-16.0) g/dL Hct (36.0-48.0) % MCV (80.0-105.0) fl MCH (25.0-35.0) pg MCHC (31.0-37.0) g/dl RDW (11.5-14.5) % Plt Count (120.0-450.0) 10^3/uL PT (9.4-12.5) SECONDS INR (0.93-1.08) APTT (25.1-36.5) Seconds pCO2 (35-45) mm/Hg pO2 (80-100) mm/Hg HCO3 (21-28) mmol/L ABG pH (7.35-7.45) ABG Total CO2 (22-28) mmol.L ABG O2 Saturation (95-98) % ABG O2 Content (15-23) ML/dl ABG Base Excess (-2.0-3.0) mmol/L ABG Hemoglobin (11.7-17.4) g/dL ABG Carboxyhemoglobin (0.5-1.5) % POC ABG HHb (Measured) (0-5) % ABG Methemoglobin (0.0-3.0) % ABG O2 Capacity (16-24) mL/dl Hgb O2 Saturation (95.0-98.0) % FiO2 % Sodium (132-148) mmol/L Potassium (3.6-5.0) mmol/L Chloride (98-107) mmol/L Carbon Dioxide (21-33) mmol/L Anion Gap (10-20) BUN (7-21) mg/dL Creatinine (0.7-1.2) mg/dl Est GFR ( Amer) Est GFR (Non-Af Amer) POC Glucose (mg/dL) 134 H 171 H 164 H (65-110) mg/dL Random Glucose (70-110) mg/dL Calcium (8.4-10.5) mg/dL Total Bilirubin (0.2-1.3) mg/dL AST (14-36) U/L ALT (7-56) U/L Alkaline Phosphatase (38-126) U/L Total Protein (5.8-8.3) g/dL Albumin (3.0-4.8) g/dL Globulin gm/dL Albumin/Globulin Ratio (1.1-1.8) PTH w/Ion &Tot Calcium (14-64) pg/mL Histone Antibodies (<1.0) U Blood Type Antibody Screen BBK History Checked 07/11/17 07/10/17 Range/Units 06:20 12:50 WBC (4.5-11.0) 10^3/ul RBC (3.5-6.1) 10^6/uL Hgb (12.0-16.0) g/dL Hct (36.0-48.0) % MCV (80.0-105.0) fl MCH (25.0-35.0) pg MCHC (31.0-37.0) g/dl RDW (11.5-14.5) % Plt Count (120.0-450.0) 10^3/uL PT (9.4-12.5) SECONDS INR (0.93-1.08) APTT (25.1-36.5) Seconds pCO2 (35-45) mm/Hg pO2 (80-100) mm/Hg HCO3 (21-28) mmol/L ABG pH (7.35-7.45) ABG Total CO2 (22-28) mmol.L ABG O2 Saturation (95-98) % ABG O2 Content (15-23) ML/dl ABG Base Excess (-2.0-3.0) mmol/L ABG Hemoglobin (11.7-17.4) g/dL ABG Carboxyhemoglobin (0.5-1.5) % POC ABG HHb (Measured) (0-5) % ABG Methemoglobin (0.0-3.0) % ABG O2 Capacity (16-24) mL/dl Hgb O2 Saturation (95.0-98.0) % FiO2 % Sodium (132-148) mmol/L Potassium (3.6-5.0) mmol/L Chloride (98-107) mmol/L Carbon Dioxide (21-33) mmol/L Anion Gap (10-20) BUN (7-21) mg/dL Creatinine (0.7-1.2) mg/dl Est GFR ( Amer) Est GFR (Non-Af Amer) POC Glucose (mg/dL) (65-110) mg/dL Random Glucose (70-110) mg/dL Calcium (8.4-10.5) mg/dL Total Bilirubin (0.2-1.3) mg/dL AST (14-36) U/L ALT (7-56) U/L Alkaline Phosphatase (38-126) U/L Total Protein (5.8-8.3) g/dL Albumin (3.0-4.8) g/dL Globulin gm/dL Albumin/Globulin Ratio (1.1-1.8) PTH w/Ion &Tot Calcium 1072 H (14-64) pg/mL Histone Antibodies <1.0 (<1.0) U Blood Type Antibody Screen BBK History Checked Laboratory Results - last 24 hr 07/10/17 07/11/17 07/11/17 12:50 06:20 16:30 WBC RBC Hgb Hct MCV MCH MCHC RDW Plt Count PT INR APTT pCO2 pO2 HCO3 ABG pH ABG Total CO2 ABG O2 Saturation ABG O2 Content ABG Base Excess ABG Hemoglobin ABG Carboxyhemoglobin POC ABG HHb (Measured) ABG Methemoglobin ABG O2 Capacity Hgb O2 Saturation FiO2 Sodium Potassium Chloride Carbon Dioxide Anion Gap BUN Creatinine Est GFR ( Amer) Est GFR (Non-Af Amer) POC Glucose (mg/dL) 164 H Random Glucose Calcium Total Bilirubin AST ALT Alkaline Phosphatase Total Protein Albumin Globulin Albumin/Globulin Ratio PTH w/Ion &Tot Calcium 1072 H Histone Antibodies <1.0 Blood Type Antibody Screen BBK History Checked 07/11/17 07/12/17 07/12/17 21:48 02:08 04:09 WBC RBC Hgb Hct MCV MCH MCHC RDW Plt Count PT INR APTT pCO2 pO2 HCO3 ABG pH ABG Total CO2 ABG O2 Saturation ABG O2 Content ABG Base Excess ABG Hemoglobin ABG Carboxyhemoglobin POC ABG HHb (Measured) ABG Methemoglobin ABG O2 Capacity Hgb O2 Saturation FiO2 Sodium Potassium Chloride Carbon Dioxide Anion Gap BUN Creatinine Est GFR ( Amer) Est GFR (Non-Af Amer) POC Glucose (mg/dL) 171 H 134 H 116 H Random Glucose Calcium Total Bilirubin AST ALT Alkaline Phosphatase Total Protein Albumin Globulin Albumin/Globulin Ratio PTH w/Ion &Tot Calcium Histone Antibodies Blood Type Antibody Screen BBK History Checked 07/12/17 07/12/17 07/12/17 05:30 06:40 06:40 WBC 8.1 RBC 3.49 L Hgb 9.2 L Hct 29.9 L MCV 85.7 MCH 26.4 MCHC 30.8 L RDW 17.0 H Plt Count 90 L PT INR APTT pCO2 32 L pO2 106.0 H HCO3 28.7 H ABG pH 7.56 H ABG Total CO2 29.7 H ABG O2 Saturation 99.2 H ABG O2 Content 13.4 L ABG Base Excess 6.4 H ABG Hemoglobin 9.8 L ABG Carboxyhemoglobin 2.1 H POC ABG HHb (Measured) 0.8 ABG Methemoglobin 1.0 ABG O2 Capacity 13.5 L Hgb O2 Saturation 96.1 FiO2 50.0 Sodium 140 Potassium 3.6 Chloride 101 Carbon Dioxide 28 Anion Gap 15 BUN 41 H Creatinine 4.4 H Est GFR ( Amer) 12 Est GFR (Non-Af Amer) 10 POC Glucose (mg/dL) Random Glucose 125 H Calcium 8.6 Total Bilirubin 1.2 AST 150 H D ALT 92 H Alkaline Phosphatase 229 H Total Protein 6.0 Albumin 2.6 L Globulin 3.4 Albumin/Globulin Ratio 0.8 L PTH w/Ion &Tot Calcium Histone Antibodies Blood Type Antibody Screen BBK History Checked 07/12/17 07/12/17 07/12/17 06:40 07:43 11:10 WBC RBC Hgb Hct MCV MCH MCHC RDW Plt Count PT 14.3 H INR 1.29 H APTT 31.7 pCO2 pO2 HCO3 ABG pH ABG Total CO2 ABG O2 Saturation ABG O2 Content ABG Base Excess ABG Hemoglobin ABG Carboxyhemoglobin POC ABG HHb (Measured) ABG Methemoglobin ABG O2 Capacity Hgb O2 Saturation FiO2 Sodium Potassium Chloride Carbon Dioxide Anion Gap BUN Creatinine Est GFR ( Amer) Est GFR (Non-Af Amer) POC Glucose (mg/dL) 139 H Random Glucose Calcium Total Bilirubin AST ALT Alkaline Phosphatase Total Protein Albumin Globulin Albumin/Globulin Ratio PTH w/Ion &Tot Calcium Histone Antibodies Blood Type O POSITIVE Antibody Screen Positive BBK History Checked Patient has bt 07/12/17 07/12/17 11:15 15:22 WBC RBC Hgb Hct MCV MCH MCHC RDW Plt Count PT INR APTT pCO2 pO2 HCO3 ABG pH ABG Total CO2 ABG O2 Saturation ABG O2 Content ABG Base Excess ABG Hemoglobin ABG Carboxyhemoglobin POC ABG HHb (Measured) ABG Methemoglobin ABG O2 Capacity Hgb O2 Saturation FiO2 Sodium Potassium Chloride Carbon Dioxide Anion Gap BUN Creatinine Est GFR ( Amer) Est GFR (Non-Af Amer) POC Glucose (mg/dL) 156 H 102 Random Glucose Calcium Total Bilirubin AST ALT Alkaline Phosphatase Total Protein Albumin Globulin Albumin/Globulin Ratio PTH w/Ion &Tot Calcium Histone Antibodies Blood Type Antibody Screen BBK History Checked Attending/Attestation - Attestation I have personally seen and examined this patient.: Yes I have fully participated in the care of the patient.: Yes I have reviewed all pertinent clinical information: Yes Notes (Text): 07/12/17 16:53 66 yo female with resolved cardiogenic shock in the setting of severe LV systolic dysfunction, now with VDRF and watershed infarct. Hydralazine/ Isosorbide for afterload reduction. HD for preload reduction. S/p trach/peg tube placement. LtAC in am. ccm time 40 min
[2017-07-12] MEDS: Aritificial Tears (15ml) OU SCH ×2 (10:30→18:17)
--- NOTE | 2017-07-12 11:02 | CP.PCM.PN ---
<Valentina Cabrera - Last Filed: 07/12/17 12:21> Subjective - Date & Time of Evaluation Date of Evaluation: 07/12/17 Time of Evaluation: 09:00 - Subjective Subjective: PGY-2 Neurology progress note fro Dr. Blackwell's service Patient seen and examined at bedside in ICU. Patient remains intubated. No change from yesterday, patient continues to have gag reflex, pupillary reflex. she does not withdraw from pain, no purposeful movement Objective - Vital Signs/Intake and Output Vital Signs (last 24 hours): Temp Pulse Resp BP Pulse Ox 100.2 F H 73 20 126/59 L 99 07/12/17 05:00 07/12/17 07:00 07/12/17 08:18 07/12/17 06:42 07/12/17 08:18 Intake and Output: 07/12/17 07/12/17 06:59 18:59 Intake Total 1010 Output Total 600 Balance 410 - Medications Medications: Current Medications Artificial Tears (Artificial Tears Opht Oint) 0 gm OU Q8H PRN PRN Reason: Dry eyes Last Admin: 07/06/17 18:51 Dose: 1 gel Artificial Tears (Artificial Tears) 0 ml OU BID [facility] Last Admin: 07/11/17 20:35 Dose: 1 drop Aspirin (Aspirin Chewable) 81 mg GT DAILY [facility] Last Admin: 07/11/17 10:44 Dose: 81 mg Atorvastatin Calcium (Lipitor) 40 mg GT DIN [facility] Last Admin: 07/11/17 18:36 Dose: 40 mg Calcium Acetate (Phoslo) 2,001 mg PO Q8H [facility] Last Admin: 07/12/17 05:20 Dose: Not Given Carvedilol (Coreg) 6.25 mg PO BID [facility] Last Admin: 07/11/17 18:37 Dose: 6.25 mg Chlorhexidine Gluconate (Peridex) 15 ml PO BID [facility] Last Admin: 07/11/17 18:32 Dose: 15 ml Hydralazine HCl (Apresoline) 10 mg NG Q8 [facility] Last Admin: 07/12/17 06:00 Dose: Not Given Meropenem 500 mg/ Sodium (Chloride) 100 mls @ 100 mls/hr IVPB DAILY [facility] PRN Reason: Protocol Last Admin: 07/11/17 10:43 Dose: 100 mls/hr Isosorbide Mononitrate (Imdur) 60 mg PO DAILY [facility] Last Admin: 07/11/17 10:43 Dose: 60 mg Losartan Potassium (Cozaar) 25 mg PO DAILY [facility] Last Admin: 07/11/17 10:43 Dose: 25 mg Pantoprazole Sodium (Protonix Inj) 40 mg IVP DAILY [facility] Last Admin: 07/11/17 18:33 Dose: 40 mg - Labs Labs: 07/12/17 06:40 07/12/17 06:40 PT 14.3 SECONDS (9.4-12.5) H 07/12/17 06:40 INR 1.29 (0.93-1.08) H 07/12/17 06:40 APTT 31.7 Seconds (25.1-36.5) 07/12/17 06:40 - Head Exam Head Exam: ATRAUMATIC, NORMAL INSPECTION, NORMOCEPHALIC - Eye Exam Pupil Exam: Miosis - Respiratory Exam Respiratory Exam: Clear to Ausculation Bilateral, NORMAL BREATHING PATTERN. absent: Rhonchi, Wheezes, Respiratory Distress Additional comments: intubated on PRVC - Cardiovascular Exam Cardiovascular Exam: REGULAR RHYTHM - Neurological Exam Additional comments: patient is nonresponsive to painful stimuli, pupils are pinpoint, gag reflex intact, no breathing over the vent Assessment and Plan - Assessment and Plan (Free Text) Assessment: 66 year old female with past medical history of CHF, ESRD with hemodialysis (M/W /F), diabetes, and left BKA, who presented with altered mental status secondary to hypoxic encephalopathy due to hypoperfusion and shock with multi organ failure. 1. AMS 2. shock (septic v cardiogenic) 3. respiratory failure 4. ESRD on HD 5. shocked liver- improving 6. hypokalemia - CT head showed nonspecific white matter changes - MRI showed ischemia along posterior cerebral artery most like due to hypoperfusion - carotid US pending - avoid sedative medications - maintain blood pressure , avoid further drops - monitor electrolytes, replace as needed - thrombocytosis improved, consider pletal for stroke prevention instead of asa due to thrombocytopenia - patient is to be transferred to LTACH, awaiting placement case discussed and reviewed with attending <Lobo Blackwell - Last Filed: 07/12/17 18:01> Objective - Vital Signs/Intake and Output Vital Signs (last 24 hours): Temp Pulse Resp BP Pulse Ox 100.2 F H 73 20 126/59 L 99 07/12/17 05:00 07/12/17 07:00 07/12/17 08:18 07/12/17 06:42 07/12/17 13:00 Intake and Output: 07/12/17 07/12/17 06:59 18:59 Intake Total 1010 Output Total 600 Balance 410 - Medications Medications: Current Medications Artificial Tears (Artificial Tears Opht Oint) 0 gm OU Q8H PRN PRN Reason: Dry eyes Last Admin: 07/06/17 18:51 Dose: 1 gel Artificial Tears (Artificial Tears) 0 ml OU BID [facility] Last Admin: 07/11/17 20:35 Dose: 1 drop Aspirin (Aspirin Chewable) 81 mg GT DAILY [facility] Last Admin: 07/11/17 10:44 Dose: 81 mg Atorvastatin Calcium (Lipitor) 40 mg GT DIN [facility] Last Admin: 07/11/17 18:36 Dose: 40 mg Calcium Acetate (Phoslo) 2,001 mg PO Q8H [facility] Last Admin: 07/12/17 05:20 Dose: Not Given Carvedilol (Coreg) 6.25 mg PO BID [facility] Last Admin: 07/11/17 18:37 Dose: 6.25 mg Chlorhexidine Gluconate (Peridex) 15 ml PO BID [facility] Last Admin: 07/11/17 18:32 Dose: 15 ml Hydralazine HCl (Apresoline) 10 mg NG Q8 [facility] Last Admin: 07/12/17 06:00 Dose: Not Given Meropenem 500 mg/ Sodium (Chloride) 100 mls @ 100 mls/hr IVPB DAILY [facility] PRN Reason: Protocol Last Admin: 07/11/17 10:43 Dose: 100 mls/hr Isosorbide Mononitrate (Imdur) 60 mg PO DAILY [facility] Last Admin: 07/11/17 10:43 Dose: 60 mg Losartan Potassium (Cozaar) 25 mg PO DAILY [facility] Last Admin: 07/11/17 10:43 Dose: 25 mg Pantoprazole Sodium (Protonix Inj) 40 mg IVP BID [facility] - Labs Labs: 07/12/17 06:40 07/12/17 06:40 PT 14.3 SECONDS (9.4-12.5) H 07/12/17 06:40 INR 1.29 (0.93-1.08) H 07/12/17 06:40 APTT 31.7 Seconds (25.1-36.5) 07/12/17 06:40 Attending/Attestation - Attestation I have personally seen and examined this patient.: Yes I have fully participated in the care of the patient.: Yes I have reviewed all pertinent clinical information, including history, physical exam and plan: Yes
--- NOTE | 2017-07-12 11:30 | CARD ---
APPROVED REPORT EXAM: Two-dimensional and M-mode echocardiogram with Doppler and color Doppler. INDICATION CARDIOGENIC SHOCK 2D DIMENSIONS RVDd4.5 (2.9-3.5cm)Left Atrium (2D)3.9 (1.6-4.0cm) IVSd1.5 (0.7-1.1cm)LVDd4.6 (3.9-5.9cm) PWd1.6 (0.7-1.1cm)LVDs4.0 (2.5-4.0cm) FS (%) 12.1 %LVEF (%)26.2 (>50%) M-Mode DIMENSIONS Aortic Root3.10 (2.2-3.7cm)Aortic Cusp Exc.1.70 (1.5-2.0cm) Aortic Valve AoV Peak Nkokhdbe234.0cm/Nhung Peak GR.17mmHgAI P 1/2 [id number] Mitral Valve E/A ratio0.0 TDI E/Lateral E'0.0E/Medial E'0.0 Pulmonary Valve PV Peak Cesoetys93.7cm/sPV Peak Grad.1mmHg Tricuspid Valve TR Peak Pbjmpgsd159dt/sRAP [id number] Peak Gr.72mmHg [id number] LEFT VENTRICLE There is mild concentric left ventricular hypertrophy. The systolic function is moderately to severely impaired. RIGHT VENTRICLE The right ventricle is mildly dilated. ATRIA The left atrium size is normal. The right atrium is mildly dilated. AORTIC VALVE The aortic valve is calcified but opens well. MITRAL VALVE The mitral valve is calcified but opens well. Mitral regurgitation is mild. TRICUSPID VALVE The tricuspid valve leaflets are thickened or calcified, but open well. There is moderate tricuspid regurgitation. There is moderate to severe pulmonary hypertension. PERICARDIAL EFFUSION There is no pericardial effusion. <Conclusion> LVH with poor LV systolic function Calcified AoV and MV Decreased opening of valves due to low cardiac output Dilated RA and RV Mild MR Moderate to severe TR Severe pulmonary hypertension
[2017-07-12] MEDS ORDERED: Lidocaine 1% Inj (20ml) ONE (11:58)
[2017-07-12] MEDS ORDERED: Propofol 10 mg/ml Inj (20 ML) ONE (12:07)
--- NOTE | 2017-07-12 12:33 | PN ---
DATE: 07/12/2017 CARDIOLOGY FOLLOWUP SUBJECTIVE: The patient remains on a ventilator. She is minimally responsive. OBJECTIVE: VITAL SIGNS: Blood pressure is 126/60, heart rate is in the 70s. NECK: Negative JVD. LUNGS: Decreased breath sounds. HEART: Reveal S1, S2. EXTREMITIES: Without edema. LABORATORY DATA: Hemoglobin is 9.2. BUN and creatinine is 41 and 4.4. INR is 1.29. IMPRESSION: 1. Respiratory failure. 2. End-stage dilated cardiomyopathy. 3. Status post pulmonary edema. 4. Renal insufficiency. 5. Anoxic encephalopathy. PLAN: Given these findings, the patient is for tracheostomy today. This is in preparation for her transfer to an LTAC. Henri Guillen MD
--- NOTE | 2017-07-12 12:41 | PN ---
DATE: SUBJECTIVE: I saw Orly, resting comfortably in bed. She is on the ventilator and NG tube feedings. She is going to go for tracheostomy and PEG tube and then probably to LTAC. She also has hypoperfusion on the brain. MEDICATIONS: She is on Apresoline, artificial tears, aspirin, Coreg, Cozaar, Imdur, Lipitor, Merrem, Peridex, PhosLo, and Protonix. PHYSICAL EXAMINATION VITAL SIGNS: She has a 73 pulse and 100% O2 sat on mechanical ventilator. HEENT: Head is atraumatic and normocephalic. On the ventilator and NG tube. HEART: Regular rate. LUNGS: Decreased breath sounds, but clear. ABDOMEN: Soft and obese. EXTREMITIES: There is +1 to 2 pitting edema in bilateral lower extremity and the ankle. LABORATORY DATA: She has a 8.1 white count, 9.2 hemoglobin, 29.9 hematocrit with 90 platelets. She has a 140 sodium, potassium of 3.6, BUN of 41, and creatinine of 4.4, on dialysis. GFR is 10, sugar is 125, calcium is 8.6, and total bilirubin is 1.2. AST is 150, ALT is 92, alkaline phosphatase is 229, and total protein is 6.0. ASSESSMENT AND PLAN: She is being seen by the adobe architect, Pulmonary, Neurology, Gastroenterology, and Cardiology. She has end-stage dilated cardiomyopathy, respiratory failure, altered mental status, end-stage renal disease, hypoxic encephalopathy secondary to hypoperfusion and shock, and multiorgan failure. So, percutaneous endoscopic gastrostomy tube and tracheostomy and hopefully to Long-Term Acute Care. Terrence Beverly DO
--- NOTE | 2017-07-12 13:13 | PCM.SURG1 ---
Surgeon's Initial Post Op Note - Surgeon's Notes Surgeon: Kt Business Line Controller: Pepe PGY2, Eric PGY1 Type of Anesthesia: General Endo Pre-Operative Diagnosis: Respiratory depression requiring ventilation Operative Findings: Respiratory depression requiring ventilation Post-Operative Diagnosis: Respiratory depression requiring ventilation Operation Performed: Tracheostomy Specimen/Specimens Removed: none Estimated Blood Loss: EBL {In ML}: 2 Blood Products Given: N/A Drains Used: No Drains Post-Op Condition: Poor Date of Surgery/Procedure: 07/12/17 Time of Surgery/Procedure: 13:12
[2017-07-12 13:59] LABS: HISTONE AB <1.0 U (<1.0)
[2017-07-12] MEDS ORDERED: Sodium Chloride 0.9% 500 ML IV STA (15:00)
--- NOTE | 2017-07-12 16:20 | RAD ---
HISTORY: s/p trach COMPARISON: 07/12/2017 FINDINGS: LUNGS: No active pulmonary disease. PLEURA: No significant pleural effusion identified, no pneumothorax apparent. CARDIOVASCULAR: Moderate cardiomegaly and moderate vascular congestion OSSEOUS STRUCTURES: No significant abnormalities. VISUALIZED UPPER ABDOMEN: Normal. OTHER FINDINGS: A tracheostomy is now present. Left IJ line unchanged IMPRESSION: Tracheostomy in satisfactory position.
[2017-07-12] MEDS: Chlorhexidine 0.12% Oral Sol 480 ml Bot PO SCH (18:20)
[2017-07-12] MEDS: Meropenem 500 MG in Sodium Chloride 0.9% 100 ML IVPB SCH (18:20)
--- NOTE | 2017-07-12 20:18 | PN ---
DATE: 07/12/2017 SUBJECTIVE: The patient is in bed, in no acute distress. Nontoxic. PHYSICAL EXAMINATION: VITAL SIGNS: Temperature is 98, T-max was 100.2, blood pressure is 126/50, respiratory rate, on the vent, heart rate of 73. HEENT: Unremarkable. NECK: Supple. LUNGS: Have decreased breath sounds. HEART: Normal S1, S2. ABDOMEN: Soft and nontender. LABORATORY DATA: Reveals the patient white count of 8.1, hemoglobin of 9.2. Chemistries reveals a BUN of 41, creatinine of 4.4. Urinalysis is noted and microbiology is reviewed, review of orders reveals the patient is on meropenem. ASSESSMENT AND PLAN: This is a 66-year-old female seen early this morning ICU 128, bed 5 with severe sepsis, ventilator-dependent respiratory failure, intubated on a ventilator with left-sided healthcare-associated pneumonia, Escherichia coli urinary tract infection and a new onset of acute cerebrovascular accident, decubitus ulcer and left [id number] amputation by history, history of cholecystectomy, history of hysterectomy, end-stage renal disease, on hemodialysis, on intermittent vancomycin and day #9 of meropenem. Repeat cultures negative. The patient now with a low-grade fever. The patient for possible endoscopy and percutaneous endoscopic gastrostomy insertion today by Dr. Corado. We will follow closely with you. Reji Young MD
[2017-07-12 23:11] LABS: CALCIUM 7.7 mg/dL (8.6-10.4)
[2017-07-13 02:24] VITALS: O2SAT 100
[2017-07-13] MEDS ORDERED: Dextrose 50% SYRINGE Inj (50 ml) ONE (03:20)
[2017-07-13 05:54] LABS: ARTERIAL BLOOD GAS HCO3 25.9 mmol/L (21-28); ARTERIAL BLOOD GAS O2 CONTENT 14.8 ML/dl (15-23); ARTERIAL BLOOD GAS PH 7.53 (7.35-7.45); ARTERIAL BLOOD HGB O2 SAT 95.3 % (95.0-98.0); CARBOXYHEMOGLOBIN 2.5 % (0.5-1.5); HHB 1.1 % (0-5); METHEMOGLOBIN 1.1 % (0.0-3.0)
[2017-07-13 06:01] LABS: HEMATOCRIT 30.4 % (36.0-48.0); MEAN CELL VOLUME 85.4 fl (80.0-105.0); MEAN CORPUSCULAR HEMOGLOBIN 26.4 pg (25.0-35.0); MEAN CORPUSCULAR HGB CONC 30.9 g/dl (31.0-37.0); PLATELET COUNT 104 10^3/uL (120.0-450.0); RED CELL DISTRIBUTION WIDTH 16.8 % (11.5-14.5); WHITE BLOOD COUNT 6.3 10^3/ul (4.5-11.0)
[2017-07-13 06:10] LABS: BILIRUBIN,TOTAL 1.4 mg/dL (0.2-1.3); CALCIUM 8.7 mg/dL (8.4-10.5); POTASSIUM 3.6 mmol/L (3.6-5.0); TOTAL PROTEIN 5.8 g/dL (5.8-8.3)
[2017-07-13 06:24] LABS: INR 1.29 (0.93-1.08); PARTIAL THROMBOPLASTIN TIME 33.9 Seconds (25.1-36.5)
[2017-07-13 06:42] LABS: ALB/GLOB RATIO 0.8 (1.1-1.8)
[2017-07-13 06:54] VITALS: RESP 14
--- NOTE | 2017-07-13 07:43 | CP.PCM.PN ---
<Kristina Moy - Last Filed: 07/13/17 12:26> Subjective - Date & Time of Evaluation Date of Evaluation: 07/13/17 Time of Evaluation: 07:30 - Subjective Subjective: PGY 4 GI Follow-up Pt seen and examined bedside no acute events overnight RN still reports diarrhea Still on ventilator s/p PEG ROS: 10 point ROS conducted, neg other than above Objective - Vital Signs/Intake and Output Vital Signs (last 24 hours): Temp Pulse Resp BP Pulse Ox 99 F 70 14 111/50 L 100 07/13/17 04:00 07/13/17 06:30 07/13/17 06:53 07/13/17 02:42 07/13/17 06:53 Intake and Output: 07/13/17 07/13/17 06:59 18:59 Intake Total 0 Output Total 0 Balance 0 - Medications Medications: Current Medications Artificial Tears (Artificial Tears Opht Oint) 0 gm OU Q8H PRN PRN Reason: Dry eyes Last Admin: 07/06/17 18:51 Dose: 1 gel Artificial Tears (Artificial Tears) 0 ml OU BID [facility] Last Admin: 07/12/17 18:17 Dose: 2 drop Aspirin (Aspirin Chewable) 81 mg GT DAILY [facility] Last Admin: 07/12/17 18:17 Dose: Not Given Atorvastatin Calcium (Lipitor) 40 mg GT DIN [facility] Last Admin: 07/11/17 18:36 Dose: 40 mg Calcium Acetate (Phoslo) 2,001 mg PO Q8H [facility] Last Admin: 07/13/17 06:50 Dose: Not Given Carvedilol (Coreg) 6.25 mg PO BID [facility] Last Admin: 07/12/17 18:18 Dose: Not Given Chlorhexidine Gluconate (Peridex) 15 ml PO BID [facility] Last Admin: 07/12/17 18:20 Dose: 15 ml Hydralazine HCl (Apresoline) 10 mg NG Q8 [facility] Last Admin: 07/13/17 06:51 Dose: Not Given Meropenem 500 mg/ Sodium (Chloride) 100 mls @ 100 mls/hr IVPB DAILY [facility] PRN Reason: Protocol Last Admin: 07/12/17 18:20 Dose: 100 mls/hr Isosorbide Mononitrate (Imdur) 60 mg PO DAILY [facility] Last Admin: 07/12/17 10:30 Dose: 60 mg Losartan Potassium (Cozaar) 25 mg PO DAILY [facility] Last Admin: 07/12/17 10:30 Dose: 25 mg Pantoprazole Sodium (Protonix Inj) 40 mg IVP BID [facility] Last Admin: 07/12/17 18:22 Dose: 40 mg - Labs Labs: 07/13/17 05:30 07/13/17 05:30 PT 14.3 SECONDS (9.4-12.5) H 07/13/17 05:30 INR 1.29 (0.93-1.08) H 07/13/17 05:30 APTT 33.9 Seconds (25.1-36.5) 07/13/17 05:30 - Constitutional Appears: Well, No Acute Distress - Head Exam Head Exam: ATRAUMATIC, NORMOCEPHALIC - Eye Exam Eye Exam: Normal appearance - ENT Exam ENT Exam: Mucous Membranes Moist - Respiratory Exam Respiratory Exam: Clear to Ausculation Bilateral, NORMAL BREATHING PATTERN. absent: Rales, Rhonchi, Wheezes, Respiratory Distress - Cardiovascular Exam Cardiovascular Exam: REGULAR RHYTHM, +S1, +S2 - GI/Abdominal Exam GI & Abdominal Exam: Soft, Normal Bowel Sounds. absent: Guarding, Rigid, Tenderness, Organomegaly Additional comments: no induration advanced the bumper to 3.5 - Extremities Exam Extremities Exam: absent: Joint Swelling, Pedal Edema - Neurological Exam Neurological Exam: Altered - Psychiatric Exam Additional comments: could not assess - Skin Skin Exam: Dry, Intact, Normal Color, Warm Assessment and Plan - Assessment and Plan (Free Text) Assessment: 66 years old female, with PMH ESRD on HD, CHF, DM, CVA, anemia, admitted for AMS , severe metabolic acidosis, afib with RVR, s/p cardiac arrest during hospital stay, s/p resuscitation, found to have have elevated LFTs likely 2/2 shock liver (improving) S/P PEG POD#1 Shock liver (improving) Elevated LFTs likely 2/2 above CVA Sepsis UTI ESRD Plan: - AST , ALT improving - Identified source of infection, as urine culture shows gram neg [place]. - IgG within normal limits - Maintain MAP >65, will cont to trend LFTs. -can already use [facility] for water and meds -start feeds today in the afternoon as per nutrition -LTAC placement pending -PEG Care Will D/W Dr. Balderas <Kashmir Balderas Y - Last Filed: 07/13/17 12:59> Objective - Vital Signs/Intake and Output Vital Signs (last 24 hours): Temp Pulse Resp BP Pulse Ox 99 F 70 14 111/50 L 100 07/13/17 04:00 07/13/17 06:30 07/13/17 06:53 07/13/17 02:42 07/13/17 06:53 Intake and Output: 07/13/17 07/13/17 06:59 18:59 Intake Total 0 Output Total 0 Balance 0 - Medications Medications: Current Medications Artificial Tears (Artificial Tears Opht Oint) 0 gm OU Q8H PRN PRN Reason: Dry eyes Last Admin: 07/06/17 18:51 Dose: 1 gel Artificial Tears (Artificial Tears) 0 ml OU BID [facility] Last Admin: 07/12/17 18:17 Dose: 2 drop Aspirin (Aspirin Chewable) 81 mg GT DAILY [facility] Last Admin: 07/12/17 18:17 Dose: Not Given Atorvastatin Calcium (Lipitor) 40 mg GT DIN [facility] Last Admin: 07/11/17 18:36 Dose: 40 mg Calcium Acetate (Phoslo) 2,001 mg PO Q8H [facility] Last Admin: 07/13/17 06:50 Dose: Not Given Carvedilol (Coreg) 6.25 mg PO BID [facility] Last Admin: 07/12/17 18:18 Dose: Not Given Chlorhexidine Gluconate (Peridex) 15 ml PO BID [facility] Last Admin: 07/12/17 18:20 Dose: 15 ml Hydralazine HCl (Apresoline) 10 mg NG Q8 [facility] Last Admin: 07/13/17 06:51 Dose: Not Given Meropenem 500 mg/ Sodium (Chloride) 100 mls @ 100 mls/hr IVPB DAILY [facility] PRN Reason: Protocol Last Admin: 07/12/17 18:20 Dose: 100 mls/hr Isosorbide Mononitrate (Imdur) 60 mg PO DAILY [facility] Last Admin: 07/12/17 10:30 Dose: 60 mg Losartan Potassium (Cozaar) 25 mg PO DAILY [facility] Last Admin: 07/12/17 10:30 Dose: 25 mg Pantoprazole Sodium (Protonix Inj) 40 mg IVP BID [facility] Last Admin: 07/12/17 18:22 Dose: 40 mg - Labs Labs: 07/13/17 05:30 07/13/17 05:30 PT 14.3 SECONDS (9.4-12.5) H 07/13/17 05:30 INR 1.29 (0.93-1.08) H 07/13/17 05:30 APTT 33.9 Seconds (25.1-36.5) 07/13/17 05:30 Attending/Attestation - Attestation I have personally seen and examined this patient.: Yes I have fully participated in the care of the patient.: Yes I have reviewed all pertinent clinical information, including history, physical exam and plan: Yes Notes (Text): 07/13/17 12:56 I have seen and examined patient with GI fellow. No acute events overnight, she remains on trach collar, s/p PEG tube placement yesterday. There is no reported abdominal pain, vomiting, fever. Review of vitals from today are normal. ESRD on HD CHF CVA Atrial fibrillation, s/p cardiac arrest Dysphagia, s/p PEG Respiratory failure s/p tracheostomy Transaminitis - Continue with antibiotic therapy as per medical team - May initiate tube feeding as indicated, monitor for residuals. PEG bumper loosened by 1/2 cm. - LFTs trending down, continue to monitor - Patient planned for discharge today to LTAC facility. Will sign off case, please reconsult as necessary, thank you.
--- NOTE | 2017-07-13 09:19 | PN ---
DATE: 07/13/2017 PULMONARY NOTE SUBJECTIVE: The patient remains on the ventilator. She remains poorly responsive. PHYSICAL EXAMINATION: VITAL SIGNS: Temperature is 99.0, pulse 70, respirations 20/20, blood pressure 111/50. Oxygen saturation on the ventilator is 100%. HEENT: Normocephalic, atraumatic. NECK: No JVD. Positive tracheostomy in place. CARDIOVASCULAR: Systolic ejection murmur at the lower left sternal border. No S3 gallop. LUNGS: Crackles at both bases. Minimal/less rhonchi. No wheezing. EXTREMITIES: The patient is status post left [id number] amputation. The right lower extremity reveals chronic vascular changes. There is no clubbing or cyanosis. GI: The abdomen is soft. It is nondistended. Bowel sounds are positive. There is a PEG tube in place. SKIN: No acute rash. NEUROLOGIC: Exam limited at the present time. PERTINENT LABORATORY DATA: Chest x-ray was done this morning and reviewed. The chest x-ray shows further clearing of the right lower lobe infiltrate - almost completely resolved. Arterial blood gas was done on assist control 20, tidal volume 450, FiO2 of 40%, PEEP of 5. Results are: pH 7.53, pCO2 of 31, pO2 of 100. IMPRESSION: 1. Respiratory failure. 2. Community-acquired pneumonia. 3. Ventricular tachycardia. 4. Mild pulmonary edema. 5. End-stage renal disease. 6. Rapid atrial fibrillation. 7. Mild bronchospasm. 8. Encephalopathy PLAN: The patient remains on the ventilator. She remains poorly responsive. I did discuss the case with the night nurse at length. The night nurse confirmed that the patient has not regained her mental status. The patient is status post tracheostomy and PEG placement yesterday. I did review the chest x-ray as above. The chest x-ray continues to improve with almost complete resolution of the right lower lobe infiltrate. I have also reviewed the arterial blood gas. The arterial blood gas(PH) remains alkalotic, with a decrease in the alveolar-arterial gradient. I will decrease the minute ventilation this morning. I did discuss these orders with the medical residents. Inputs by Neurology and Cardiology are noted. Again, unfortunately, the patient remains poorly responsive. Her overall status/prognosis remains very poor. I will discuss the above with the entire ICU team in the next few moments. I will also discuss the above with Dr. Beverly later this morning. Earl Vega MD MTDD
--- NOTE | 2017-07-13 09:29 | RAD ---
HISTORY: f/u COMPARISON: 07/12/2017 FINDINGS: LUNGS: Minimal patchy infiltrate at the right lung base PLEURA: No significant pleural effusion identified, no pneumothorax apparent. CARDIOVASCULAR: Mild cardiomegaly. Mild vascular congestion OSSEOUS STRUCTURES: No significant abnormalities. VISUALIZED UPPER ABDOMEN: Normal. OTHER FINDINGS: None. IMPRESSION: Minimal patchy infiltrate at the right lung base
--- NOTE | 2017-07-13 10:09 | PN ---
DATE: 07/13/2017 SUBJECTIVE: The patient is in bed, in no acute distress, nontoxic. PHYSICAL EXAMINATION: VITAL SIGNS: Temperature is 99, blood pressure is 111/50, respiratory rate of 18. HEENT: Unremarkable. NECK: Supple. LUNGS: Have decreased breath sounds. HEART: Normal S1, S2. ABDOMEN: Soft, nontender. LABORATORY DATA: Reveals a white count of 6.3, hemoglobin of 9, platelets of 104. Chemistries reveals a BUN of 49, creatinine of 5.2. Urinalysis is noted and serology is noted. ASSESSMENT/PLAN: This is a 66-year-old female seen early this morning in 128, bed 5 and with severe sepsis and vent-dependent respiratory failure and now status post trach. The patient with left-sided healthcare-associated pneumonia, Escherichia coli urinary tract infection, new onset of acute cerebrovascular accident, decubitus ulcer, history of left [id number] amputation, history of cholecystectomy and hysterectomy, end-stage renal disease, on hemodialysis, day #10 of meropenem. We will discontinue the meropenem after today's last dose. The patient did have PEG insertion yesterday with endoscopy and patient also trached yesterday. Overall prognosis poor. Reji Young MD
--- NOTE | 2017-07-13 11:14 | CP.CCUPN ---
<Crescencio Abernathy - Last Filed: 07/13/17 14:15> CCU Subjective - Physician Review Subjective (Free Text): Critical Care Progress Note for Dr. Castillo Patient seen ad examined at bedside. No acute event overnight. She is s/p tracheostomy and PEG tube insertion POD#1. Intubated and on vent support 450, 5 , 20, 50%. She has spontaneously non-purposeful movement. ROS unobtainable due to clinical condition. LTAC transfer today at 5pm. CCU Objective - Vital Signs / Intake & Output Intake and Output (Last 8hrs): Intake & Output 07/12/17 07/13/17 07/13/17 22:59 06:59 14:59 Intake Total 600 0 Output Total 0 0 Balance 600 0 Weight 197 lb Intake: IV 600 0 Left Internal Jugular 600 0 Oral 0 0 Output: Urine 0 0 Urine, Voided 0 0 Other: # Bowel Movements 1 0 - Physical Exam Head: Positive for: Atraumatic, Normocephalic Pupils: Positive for: Sluggish Extroacular Muscles: Positive for: EOMI Conjunctiva: Positive for: Normal Mouth: Positive for: Moist Mucous Membranes, Other (et tube in place) Neck: Positive for: Normal Range of Motion. Negative for: Meningeal Signs, MIDLINE TENDERNESS, Paraspinal Tenderness Respiratory/Chest: Positive for: Clear to Auscultation. Negative for: Accessory Muscle Use Cardiovascular: Positive for: Normal S1, S2, Tachycardic. Negative for: Murmurs Abdomen: Positive for: Distention (mild), Normal Bowel Sounds. Negative for: Tenderness, Peritoneal Signs Back: Positive for: Normal Inspection Upper Extremity: Positive for: Normal Inspection, NORMAL PULSES. 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 Negative for: Edema Neurological: Positive for: Other (intubated). Negative for: GCS=15 Skin: Positive for: Warm, Dry. Negative for: Rashes Psychiatric: Positive for: Other (intubated). Negative for: Alert, Oriented x 3 - Medications Active Medications: Active Medications Generic Name Dose Route Start Last Admin Trade Name Freq PRN Reason Stop Dose Admin Artificial Tears 0 gm 07/05/17 20:00 12/08/17 18:51 Artificial Tears Opht Oint OU 1 gel Q8H PRN Administration Dry eyes Artificial Tears 0 ml 07/06/17 18:00 07/12/17 18:17 Artificial Tears OU 2 drop BID MARCEL Administration Aspirin 81 mg 07/06/17 22:45 07/12/17 18:17 Aspirin Chewable GT Not Given DAILY MARCEL Atorvastatin Calcium 40 mg 07/07/17 09:29 07/11/17 18:36 Lipitor GT 40 mg DIN MARCEL Administration Calcium Acetate 2,001 mg 07/07/17 13:00 07/13/17 06:50 Phoslo PO Not Given Q8H MARCEL Carvedilol 6.25 mg 07/08/17 10:30 07/12/17 18:18 Coreg PO Not Given BID [facility] Chlorhexidine Gluconate 15 ml 07/04/17 18:00 07/12/17 18:20 Peridex PO 15 ml BID MARCEL Administration Hydralazine HCl 10 mg 07/07/17 14:00 07/13/17 06:51 Apresoline NG Not Given Q8 MARCEL Meropenem 500 mg/ Sodium 100 mls @ 100 mls/hr 07/07/17 19:27 07/12/17 18:20 Chloride IVPB 100 mls/hr DAILY MARCEL Administration Protocol Isosorbide Mononitrate 60 mg 07/07/17 10:00 07/12/17 10:30 Imdur PO 60 mg DAILY MARCEL Administration Losartan Potassium 25 mg 07/11/17 10:00 07/12/17 10:30 Cozaar PO 25 mg DAILY MARCEL Administration Pantoprazole Sodium 40 mg 07/12/17 18:00 07/12/17 18:22 Protonix Inj IVP 40 mg BID MARCEL Administration - Patient Studies Lab Studies: Microbiology Studies 07/07/17 08:40 Blood Culture - Final Blood-Venous NO GROWTH AFTER 5 DAYS Gram Stain - Final TEST NOT PERFORMED 07/07/17 09:20 Blood Culture - Final Blood-Venous NO GROWTH AFTER 5 DAYS Gram Stain - Final TEST NOT PERFORMED Lab Studies 07/13/17 07/13/17 07/13/17 Range/Units 08:11 07:17 05:40 WBC (4.5-11.0) 10^3/ul RBC (3.5-6.1) 10^6/uL Hgb (12.0-16.0) g/dL Hct (36.0-48.0) % MCV (80.0-105.0) fl MCH (25.0-35.0) pg MCHC (31.0-37.0) g/dl RDW (11.5-14.5) % Plt Count (120.0-450.0) 10^3/uL PT (9.4-12.5) SECONDS INR (0.93-1.08) APTT (25.1-36.5) Seconds pCO2 31 L (35-45) mm/Hg pO2 100.0 (80-100) mm/Hg HCO3 25.9 (21-28) mmol/L ABG pH 7.53 H (7.35-7.45) ABG Total CO2 26.9 (22-28) mmol.L ABG O2 Saturation 98.9 H (95-98) % ABG O2 Content 14.8 L (15-23) ML/dl ABG Base Excess 3.5 H (-2.0-3.0) mmol/L ABG Hemoglobin 10.9 L (11.7-17.4) g/dL ABG Carboxyhemoglobin 2.5 H (0.5-1.5) % POC ABG HHb (Measured) 1.1 (0-5) % ABG Methemoglobin 1.1 (0.0-3.0) % ABG O2 Capacity 15.0 L (16-24) mL/dl Hgb O2 Saturation 95.3 (95.0-98.0) % FiO2 40.0 % Sodium (132-148) mmol/L Potassium (3.6-5.0) mmol/L Chloride (98-107) mmol/L Carbon Dioxide (21-33) mmol/L Anion Gap (10-20) BUN (7-21) mg/dL Creatinine (0.7-1.2) mg/dl Est GFR ( Amer) Est GFR (Non-Af Amer) POC Glucose (mg/dL) 92 105 (65-110) mg/dL Random Glucose (70-110) mg/dL Calcium (8.4-10.5) mg/dL Total Bilirubin (0.2-1.3) mg/dL AST (14-36) U/L ALT (7-56) U/L Alkaline Phosphatase (38-126) U/L Total Protein (5.8-8.3) g/dL Albumin (3.0-4.8) g/dL Globulin gm/dL Albumin/Globulin Ratio (1.1-1.8) Calcium (PTH Intact) (8.6-10.4) mg/dL PTH w/Ion &Tot Calcium (14-64) pg/mL Histone Antibodies (<1.0) U Blood Type Antibody Screen BBK History Checked 07/13/17 07/13/17 07/13/17 Range/Units 05:30 05:30 05:30 WBC 6.3 D (4.5-11.0) 10^3/ul RBC 3.56 (3.5-6.1) 10^6/uL Hgb 9.4 L (12.0-16.0) g/dL Hct 30.4 L (36.0-48.0) % MCV 85.4 (80.0-105.0) fl MCH 26.4 (25.0-35.0) pg MCHC 30.9 L (31.0-37.0) g/dl RDW 16.8 H (11.5-14.5) % Plt Count 104 L (120.0-450.0) 10^3/uL PT 14.3 H (9.4-12.5) SECONDS INR 1.29 H (0.93-1.08) APTT 33.9 (25.1-36.5) Seconds pCO2 (35-45) mm/Hg pO2 (80-100) mm/Hg HCO3 (21-28) mmol/L ABG pH (7.35-7.45) ABG Total CO2 (22-28) mmol.L ABG O2 Saturation (95-98) % ABG O2 Content (15-23) ML/dl ABG Base Excess (-2.0-3.0) mmol/L ABG Hemoglobin (11.7-17.4) g/dL ABG Carboxyhemoglobin (0.5-1.5) % POC ABG HHb (Measured) (0-5) % ABG Methemoglobin (0.0-3.0) % ABG O2 Capacity (16-24) mL/dl Hgb O2 Saturation (95.0-98.0) % FiO2 % Sodium 142 (132-148) mmol/L Potassium 3.6 (3.6-5.0) mmol/L Chloride 104 (98-107) mmol/L Carbon Dioxide 29 (21-33) mmol/L Anion Gap 13 (10-20) BUN 49 H (7-21) mg/dL Creatinine 5.2 H (0.7-1.2) mg/dl Est GFR ( Amer) 10 Est GFR (Non-Af Amer) 8 POC Glucose (mg/dL) (65-110) mg/dL Random Glucose 103 (70-110) mg/dL Calcium 8.7 (8.4-10.5) mg/dL Total Bilirubin 1.4 H (0.2-1.3) mg/dL AST 143 H (14-36) U/L ALT 84 H (7-56) U/L Alkaline Phosphatase 195 H (38-126) U/L Total Protein 5.8 (5.8-8.3) g/dL Albumin 2.5 L (3.0-4.8) g/dL Globulin 3.3 gm/dL Albumin/Globulin Ratio 0.8 L (1.1-1.8) Calcium (PTH Intact) (8.6-10.4) mg/dL PTH w/Ion &Tot Calcium (14-64) pg/mL Histone Antibodies (<1.0) U Blood Type Antibody Screen BBK History Checked 07/13/17 07/12/17 07/12/17 Range/Units 03:18 22:01 15:22 WBC (4.5-11.0) 10^3/ul RBC (3.5-6.1) 10^6/uL Hgb (12.0-16.0) g/dL Hct (36.0-48.0) % MCV (80.0-105.0) fl MCH (25.0-35.0) pg MCHC (31.0-37.0) g/dl RDW (11.5-14.5) % Plt Count (120.0-450.0) 10^3/uL PT (9.4-12.5) SECONDS INR (0.93-1.08) APTT (25.1-36.5) Seconds pCO2 (35-45) mm/Hg pO2 (80-100) mm/Hg HCO3 (21-28) mmol/L ABG pH (7.35-7.45) ABG Total CO2 (22-28) mmol.L ABG O2 Saturation (95-98) % ABG O2 Content (15-23) ML/dl ABG Base Excess (-2.0-3.0) mmol/L ABG Hemoglobin (11.7-17.4) g/dL ABG Carboxyhemoglobin (0.5-1.5) % POC ABG HHb (Measured) (0-5) % ABG Methemoglobin (0.0-3.0) % ABG O2 Capacity (16-24) mL/dl Hgb O2 Saturation (95.0-98.0) % FiO2 % Sodium (132-148) mmol/L Potassium (3.6-5.0) mmol/L Chloride (98-107) mmol/L Carbon Dioxide (21-33) mmol/L Anion Gap (10-20) BUN (7-21) mg/dL Creatinine (0.7-1.2) mg/dl Est GFR ( Amer) Est GFR (Non-Af Amer) POC Glucose (mg/dL) 69 88 102 (65-110) mg/dL Random Glucose (70-110) mg/dL Calcium (8.4-10.5) mg/dL Total Bilirubin (0.2-1.3) mg/dL AST (14-36) U/L ALT (7-56) U/L Alkaline Phosphatase (38-126) U/L Total Protein (5.8-8.3) g/dL Albumin (3.0-4.8) g/dL Globulin gm/dL Albumin/Globulin Ratio (1.1-1.8) Calcium (PTH Intact) (8.6-10.4) mg/dL PTH w/Ion &Tot Calcium (14-64) pg/mL Histone Antibodies (<1.0) U Blood Type Antibody Screen BBK History Checked 07/12/17 07/12/17 07/11/17 Range/Units 11:15 11:10 06:20 WBC (4.5-11.0) 10^3/ul RBC (3.5-6.1) 10^6/uL Hgb (12.0-16.0) g/dL Hct (36.0-48.0) % MCV (80.0-105.0) fl MCH (25.0-35.0) pg MCHC (31.0-37.0) g/dl RDW (11.5-14.5) % Plt Count (120.0-450.0) 10^3/uL PT (9.4-12.5) SECONDS INR (0.93-1.08) APTT (25.1-36.5) Seconds pCO2 (35-45) mm/Hg pO2 (80-100) mm/Hg HCO3 (21-28) mmol/L ABG pH (7.35-7.45) ABG Total CO2 (22-28) mmol.L ABG O2 Saturation (95-98) % ABG O2 Content (15-23) ML/dl ABG Base Excess (-2.0-3.0) mmol/L ABG Hemoglobin (11.7-17.4) g/dL ABG Carboxyhemoglobin (0.5-1.5) % POC ABG HHb (Measured) (0-5) % ABG Methemoglobin (0.0-3.0) % ABG O2 Capacity (16-24) mL/dl Hgb O2 Saturation (95.0-98.0) % FiO2 % Sodium (132-148) mmol/L Potassium (3.6-5.0) mmol/L Chloride (98-107) mmol/L Carbon Dioxide (21-33) mmol/L Anion Gap (10-20) BUN (7-21) mg/dL Creatinine (0.7-1.2) mg/dl Est GFR ( Amer) Est GFR (Non-Af Amer) POC Glucose (mg/dL) 156 H (65-110) mg/dL Random Glucose (70-110) mg/dL Calcium (8.4-10.5) mg/dL Total Bilirubin (0.2-1.3) mg/dL AST (14-36) U/L ALT (7-56) U/L Alkaline Phosphatase (38-126) U/L Total Protein (5.8-8.3) g/dL Albumin (3.0-4.8) g/dL Globulin gm/dL Albumin/Globulin Ratio (1.1-1.8) Calcium (PTH Intact) 7.7 L (8.6-10.4) mg/dL PTH w/Ion &Tot Calcium 1072 H (14-64) pg/mL Histone Antibodies (<1.0) U Blood Type O POSITIVE Antibody Screen Positive BBK History Checked Patient has bt 07/10/17 Range/Units 12:50 WBC (4.5-11.0) 10^3/ul RBC (3.5-6.1) 10^6/uL Hgb (12.0-16.0) g/dL Hct (36.0-48.0) % MCV (80.0-105.0) fl MCH (25.0-35.0) pg MCHC (31.0-37.0) g/dl RDW (11.5-14.5) % Plt Count (120.0-450.0) 10^3/uL PT (9.4-12.5) SECONDS INR (0.93-1.08) APTT (25.1-36.5) Seconds pCO2 (35-45) mm/Hg pO2 (80-100) mm/Hg HCO3 (21-28) mmol/L ABG pH (7.35-7.45) ABG Total CO2 (22-28) mmol.L ABG O2 Saturation (95-98) % ABG O2 Content (15-23) ML/dl ABG Base Excess (-2.0-3.0) mmol/L ABG Hemoglobin (11.7-17.4) g/dL ABG Carboxyhemoglobin (0.5-1.5) % POC ABG HHb (Measured) (0-5) % ABG Methemoglobin (0.0-3.0) % ABG O2 Capacity (16-24) mL/dl Hgb O2 Saturation (95.0-98.0) % FiO2 % Sodium (132-148) mmol/L Potassium (3.6-5.0) mmol/L Chloride (98-107) mmol/L Carbon Dioxide (21-33) mmol/L Anion Gap (10-20) BUN (7-21) mg/dL Creatinine (0.7-1.2) mg/dl Est GFR ( Amer) Est GFR (Non-Af Amer) POC Glucose (mg/dL) (65-110) mg/dL Random Glucose (70-110) mg/dL Calcium (8.4-10.5) mg/dL Total Bilirubin (0.2-1.3) mg/dL AST (14-36) U/L ALT (7-56) U/L Alkaline Phosphatase (38-126) U/L Total Protein (5.8-8.3) g/dL Albumin (3.0-4.8) g/dL Globulin gm/dL Albumin/Globulin Ratio (1.1-1.8) Calcium (PTH Intact) (8.6-10.4) mg/dL PTH w/Ion &Tot Calcium (14-64) pg/mL Histone Antibodies <1.0 (<1.0) U Blood Type Antibody Screen BBK History Checked Laboratory Results - last 24 hr 07/10/17 07/11/17 07/12/17 12:50 06:20 11:10 WBC RBC Hgb Hct MCV MCH MCHC RDW Plt Count PT INR APTT pCO2 pO2 HCO3 ABG pH ABG Total CO2 ABG O2 Saturation ABG O2 Content ABG Base Excess ABG Hemoglobin ABG Carboxyhemoglobin POC ABG HHb (Measured) ABG Methemoglobin ABG O2 Capacity Hgb O2 Saturation FiO2 Sodium Potassium Chloride Carbon Dioxide Anion Gap BUN Creatinine Est GFR ( Amer) Est GFR (Non-Af Amer) POC Glucose (mg/dL) Random Glucose Calcium Total Bilirubin AST ALT Alkaline Phosphatase Total Protein Albumin Globulin Albumin/Globulin Ratio Calcium (PTH Intact) 7.7 L PTH w/Ion &Tot Calcium 1072 H Histone Antibodies <1.0 Blood Type O POSITIVE Antibody Screen Positive BBK History Checked Patient has bt 07/12/17 07/12/17 07/12/17 11:15 15:22 22:01 WBC RBC Hgb Hct MCV MCH MCHC RDW Plt Count PT INR APTT pCO2 pO2 HCO3 ABG pH ABG Total CO2 ABG O2 Saturation ABG O2 Content ABG Base Excess ABG Hemoglobin ABG Carboxyhemoglobin POC ABG HHb (Measured) ABG Methemoglobin ABG O2 Capacity Hgb O2 Saturation FiO2 Sodium Potassium Chloride Carbon Dioxide Anion Gap BUN Creatinine Est GFR ( Amer) Est GFR (Non-Af Amer) POC Glucose (mg/dL) 156 H 102 88 Random Glucose Calcium Total Bilirubin AST ALT Alkaline Phosphatase Total Protein Albumin Globulin Albumin/Globulin Ratio Calcium (PTH Intact) PTH w/Ion &Tot Calcium Histone Antibodies Blood Type Antibody Screen BBK History Checked 07/13/17 07/13/17 07/13/17 03:18 05:30 05:30 WBC 6.3 D RBC 3.56 Hgb 9.4 L Hct 30.4 L MCV 85.4 MCH 26.4 MCHC 30.9 L RDW 16.8 H Plt Count 104 L PT 14.3 H INR 1.29 H APTT 33.9 pCO2 pO2 HCO3 ABG pH ABG Total CO2 ABG O2 Saturation ABG O2 Content ABG Base Excess ABG Hemoglobin ABG Carboxyhemoglobin POC ABG HHb (Measured) ABG Methemoglobin ABG O2 Capacity Hgb O2 Saturation FiO2 Sodium Potassium Chloride Carbon Dioxide Anion Gap BUN Creatinine Est GFR ( Amer) Est GFR (Non-Af Amer) POC Glucose (mg/dL) 69 Random Glucose Calcium Total Bilirubin AST ALT Alkaline Phosphatase Total Protein Albumin Globulin Albumin/Globulin Ratio Calcium (PTH Intact) PTH w/Ion &Tot Calcium Histone Antibodies Blood Type Antibody Screen BBK History Checked 07/13/17 07/13/17 07/13/17 05:30 05:40 07:17 WBC RBC Hgb Hct MCV MCH MCHC RDW Plt Count PT INR APTT pCO2 31 L pO2 100.0 HCO3 25.9 ABG pH 7.53 H ABG Total CO2 26.9 ABG O2 Saturation 98.9 H ABG O2 Content 14.8 L ABG Base Excess 3.5 H ABG Hemoglobin 10.9 L ABG Carboxyhemoglobin 2.5 H POC ABG HHb (Measured) 1.1 ABG Methemoglobin 1.1 ABG O2 Capacity 15.0 L Hgb O2 Saturation 95.3 FiO2 40.0 Sodium 142 Potassium 3.6 Chloride 104 Carbon Dioxide 29 Anion Gap 13 BUN 49 H Creatinine 5.2 H Est GFR ( Amer) 10 Est GFR (Non-Af Amer) 8 POC Glucose (mg/dL) 105 Random Glucose 103 Calcium 8.7 Total Bilirubin 1.4 H AST 143 H ALT 84 H Alkaline Phosphatase 195 H Total Protein 5.8 Albumin 2.5 L Globulin 3.3 Albumin/Globulin Ratio 0.8 L Calcium (PTH Intact) PTH w/Ion &Tot Calcium Histone Antibodies Blood Type Antibody Screen BBK History Checked 07/13/17 08:11 WBC RBC Hgb Hct MCV MCH MCHC RDW Plt Count PT INR APTT pCO2 pO2 HCO3 ABG pH ABG Total CO2 ABG O2 Saturation ABG O2 Content ABG Base Excess ABG Hemoglobin ABG Carboxyhemoglobin POC ABG HHb (Measured) ABG Methemoglobin ABG O2 Capacity Hgb O2 Saturation FiO2 Sodium Potassium Chloride Carbon Dioxide Anion Gap BUN Creatinine Est GFR ( Amer) Est GFR (Non-Af Amer) POC Glucose (mg/dL) 92 Random Glucose Calcium Total Bilirubin AST ALT Alkaline Phosphatase Total Protein Albumin Globulin Albumin/Globulin Ratio Calcium (PTH Intact) PTH w/Ion &Tot Calcium Histone Antibodies Blood Type Antibody Screen BBK History Checked Fingerstick Blood Sugar Results: 102 Assessment/Plan - Assessment and Plan (Free Text) Plan: 66 F with a PMH of ESRD on HD, HTN, CHF, afib RVR with resolved cardiogenic shock likely secondary to low EF and afib RVR, CVA, Respiratory failure, and Thrombocytopenia, Neuro: intubated, maintain normothermia, unable to answer questions, spontaneous non-purposeful movements, f/u neurology recommendations Pulm: intubated and on PRVC vent support, Maintain SaO2 > 90%, keep head of bed elevated at 30 degrees, Going for tracheostomy today Cardio: regular rhythm, normotensive, Coreg for rate control, Hydralazine/ Nitrates for afterload/preload reduction, Maintain MAP > 65 GI: Protonix for ppx, Continue tube feeds, PEG tube placement today, f/u GI recommendations Renal: Monitor electrolytes, Dialysis MWF, f/u Nephrology recommendations Endo: Maintain euglycemia 140-180 Heme: DVT ppx, Monitor Platelets ID: [id number], no leukocytosis, IV antibiotics as per ID Misc: LTAC transfer today at 5 pm <Hieu Castillo - Last Filed: 07/13/17 17:53> CCU Objective - Vital Signs / Intake & Output Vital Signs (Last 4 hours): Vital Signs Pulse BP Pulse Ox 07/13/17 16:51 69 98/47 L 100 07/13/17 16:36 70 104/46 L 100 07/13/17 16:30 70 100 07/13/17 16:21 70 102/44 L 100 07/13/17 16:06 70 100/42 L 99 07/13/17 16:00 70 100 07/13/17 15:51 70 103/46 L 100 07/13/17 15:37 76 101/45 L 99 07/13/17 15:30 74 100 07/13/17 15:22 80 120/50 L 96 07/13/17 15:00 73 100 07/13/17 14:30 71 100 07/13/17 14:00 73 100 Intake and Output (Last 8hrs): Intake & Output 07/13/17 07/13/17 07/13/17 06:59 14:59 22:59 Intake Total 0 Output Total 0 Balance 0 Weight 197 lb Intake: IV 0 Left Internal Jugular 0 Oral 0 Output: Urine 0 Urine, Voided 0 Other: # Bowel Movements 0 - Medications Active Medications: Active Medications Generic Name Dose Route Start Last Admin Trade Name Freq PRN Reason Stop Dose Admin Artificial Tears 0 gm 07/05/17 20:00 07/06/17 18:51 Artificial Tears Opht Oint OU 1 gel Q8H PRN Administration Dry eyes Artificial Tears 0 ml 07/06/17 18:00 07/13/17 16:06 Artificial Tears OU Not Given BID [facility] Aspirin 81 mg 07/06/17 22:45 07/13/17 16:06 Aspirin Chewable GT Not Given DAILY [facility] Atorvastatin Calcium 40 mg 07/07/17 09:29 07/11/17 18:36 Lipitor GT 40 mg DIN MARCEL Administration Calcium Acetate 2,001 mg 07/07/17 13:00 07/13/17 16:08 Phoslo PO Not Given Q8H [facility] Carvedilol 6.25 mg 07/08/17 10:30 07/13/17 16:06 Coreg PO Not Given BID [facility] Chlorhexidine Gluconate 15 ml 07/04/17 18:00 07/13/17 16:07 Peridex PO Not Given BID [facility] Hydralazine HCl 10 mg 07/07/17 14:00 07/13/17 16:06 Apresoline NG Not Given Q8 [facility] Meropenem 500 mg/ Sodium 100 mls @ 100 mls/hr 07/07/17 19:27 07/13/17 16:07 Chloride IVPB 100 mls/hr DAILY [facility] Administration Protocol Isosorbide Mononitrate 60 mg 07/07/17 10:00 07/13/17 16:06 Imdur PO Not Given DAILY [facility] Losartan Potassium 25 mg 07/11/17 10:00 07/12/17 10:30 Cozaar PO 25 mg DAILY MARCEL Administration Pantoprazole Sodium 40 mg 07/12/17 18:00 07/13/17 16:08 Protonix Inj IVP Not Given BID MARCEL - Patient Studies Lab Studies: Lab Studies 07/13/17 07/13/17 07/13/17 Range/Units 15:33 08:11 07:17 WBC (4.5-11.0) 10^3/ul RBC (3.5-6.1) 10^6/uL Hgb (12.0-16.0) g/dL Hct (36.0-48.0) % MCV (80.0-105.0) fl MCH (25.0-35.0) pg MCHC (31.0-37.0) g/dl RDW (11.5-14.5) % Plt Count (120.0-450.0) 10^3/uL PT (9.4-12.5) SECONDS INR (0.93-1.08) APTT (25.1-36.5) Seconds pCO2 (35-45) mm/Hg pO2 (80-100) mm/Hg HCO3 (21-28) mmol/L ABG pH (7.35-7.45) ABG Total CO2 (22-28) mmol.L ABG O2 Saturation (95-98) % ABG O2 Content (15-23) ML/dl ABG Base Excess (-2.0-3.0) mmol/L ABG Hemoglobin (11.7-17.4) g/dL ABG Carboxyhemoglobin (0.5-1.5) % POC ABG HHb (Measured) (0-5) % ABG Methemoglobin (0.0-3.0) % ABG O2 Capacity (16-24) mL/dl Hgb O2 Saturation (95.0-98.0) % FiO2 % Sodium (132-148) mmol/L Potassium (3.6-5.0) mmol/L Chloride (98-107) mmol/L Carbon Dioxide (21-33) mmol/L Anion Gap (10-20) BUN (7-21) mg/dL Creatinine (0.7-1.2) mg/dl Est GFR ( Amer) Est GFR (Non-Af Amer) POC Glucose (mg/dL) 85 92 105 (65-110) mg/dL Random Glucose (70-110) mg/dL Calcium (8.4-10.5) mg/dL Total Bilirubin (0.2-1.3) mg/dL AST (14-36) U/L ALT (7-56) U/L Alkaline Phosphatase (38-126) U/L Total Protein (5.8-8.3) g/dL Albumin (3.0-4.8) g/dL Globulin gm/dL Albumin/Globulin Ratio (1.1-1.8) Calcium (PTH Intact) (8.6-10.4) mg/dL Blood Type Antibody Screen Antibody Identification EMANUEL, Poly Interpret (NEGATIVE) BBK History Checked 07/13/17 07/13/17 07/13/17 Range/Units 05:40 05:30 05:30 WBC 6.3 D (4.5-11.0) 10^3/ul RBC 3.56 (3.5-6.1) 10^6/uL Hgb 9.4 L (12.0-16.0) g/dL Hct 30.4 L (36.0-48.0) % MCV 85.4 (80.0-105.0) fl MCH 26.4 (25.0-35.0) pg MCHC 30.9 L (31.0-37.0) g/dl RDW 16.8 H (11.5-14.5) % Plt Count 104 L (120.0-450.0) 10^3/uL PT (9.4-12.5) SECONDS INR (0.93-1.08) APTT (25.1-36.5) Seconds pCO2 31 L (35-45) mm/Hg pO2 100.0 (80-100) mm/Hg HCO3 25.9 (21-28) mmol/L ABG pH 7.53 H (7.35-7.45) ABG Total CO2 26.9 (22-28) mmol.L ABG O2 Saturation 98.9 H (95-98) % ABG O2 Content 14.8 L (15-23) ML/dl ABG Base Excess 3.5 H (-2.0-3.0) mmol/L ABG Hemoglobin 10.9 L (11.7-17.4) g/dL ABG Carboxyhemoglobin 2.5 H (0.5-1.5) % POC ABG HHb (Measured) 1.1 (0-5) % ABG Methemoglobin 1.1 (0.0-3.0) % ABG O2 Capacity 15.0 L (16-24) mL/dl Hgb O2 Saturation 95.3 (95.0-98.0) % FiO2 40.0 % Sodium 142 (132-148) mmol/L Potassium 3.6 (3.6-5.0) mmol/L Chloride 104 (98-107) mmol/L Carbon Dioxide 29 (21-33) mmol/L Anion Gap 13 (10-20) BUN 49 H (7-21) mg/dL Creatinine 5.2 H (0.7-1.2) mg/dl Est GFR ( Amer) 10 Est GFR (Non-Af Amer) 8 POC Glucose (mg/dL) (65-110) mg/dL Random Glucose 103 (70-110) mg/dL Calcium 8.7 (8.4-10.5) mg/dL Total Bilirubin 1.4 H (0.2-1.3) mg/dL AST 143 H (14-36) U/L ALT 84 H (7-56) U/L Alkaline Phosphatase 195 H (38-126) U/L Total Protein 5.8 (5.8-8.3) g/dL Albumin 2.5 L (3.0-4.8) g/dL Globulin 3.3 gm/dL Albumin/Globulin Ratio 0.8 L (1.1-1.8) Calcium (PTH Intact) (8.6-10.4) mg/dL Blood Type Antibody Screen Antibody Identification EMANUEL, Poly Interpret (NEGATIVE) BBK History Checked 07/13/17 07/13/17 07/12/17 Range/Units 05:30 03:18 22:01 WBC (4.5-11.0) 10^3/ul RBC (3.5-6.1) 10^6/uL Hgb (12.0-16.0) g/dL Hct (36.0-48.0) % MCV (80.0-105.0) fl MCH (25.0-35.0) pg MCHC (31.0-37.0) g/dl RDW (11.5-14.5) % Plt Count (120.0-450.0) 10^3/uL PT 14.3 H (9.4-12.5) SECONDS INR 1.29 H (0.93-1.08) APTT 33.9 (25.1-36.5) Seconds pCO2 (35-45) mm/Hg pO2 (80-100) mm/Hg HCO3 (21-28) mmol/L ABG pH (7.35-7.45) ABG Total CO2 (22-28) mmol.L ABG O2 Saturation (95-98) % ABG O2 Content (15-23) ML/dl ABG Base Excess (-2.0-3.0) mmol/L ABG Hemoglobin (11.7-17.4) g/dL ABG Carboxyhemoglobin (0.5-1.5) % POC ABG HHb (Measured) (0-5) % ABG Methemoglobin (0.0-3.0) % ABG O2 Capacity (16-24) mL/dl Hgb O2 Saturation (95.0-98.0) % FiO2 % Sodium (132-148) mmol/L Potassium (3.6-5.0) mmol/L Chloride (98-107) mmol/L Carbon Dioxide (21-33) mmol/L Anion Gap (10-20) BUN (7-21) mg/dL Creatinine (0.7-1.2) mg/dl Est GFR ( Amer) Est GFR (Non-Af Amer) POC Glucose (mg/dL) 69 88 (65-110) mg/dL Random Glucose (70-110) mg/dL Calcium (8.4-10.5) mg/dL Total Bilirubin (0.2-1.3) mg/dL AST (14-36) U/L ALT (7-56) U/L Alkaline Phosphatase (38-126) U/L Total Protein (5.8-8.3) g/dL Albumin (3.0-4.8) g/dL Globulin gm/dL Albumin/Globulin Ratio (1.1-1.8) Calcium (PTH Intact) (8.6-10.4) mg/dL Blood Type Antibody Screen Antibody Identification EMANUEL, Poly Interpret (NEGATIVE) BBK History Checked 07/12/17 07/11/17 Range/Units 11:10 06:20 WBC (4.5-11.0) 10^3/ul RBC (3.5-6.1) 10^6/uL Hgb (12.0-16.0) g/dL Hct (36.0-48.0) % MCV (80.0-105.0) fl MCH (25.0-35.0) pg MCHC (31.0-37.0) g/dl RDW (11.5-14.5) % Plt Count (120.0-450.0) 10^3/uL PT (9.4-12.5) SECONDS INR (0.93-1.08) APTT (25.1-36.5) Seconds pCO2 (35-45) mm/Hg pO2 (80-100) mm/Hg HCO3 (21-28) mmol/L ABG pH (7.35-7.45) ABG Total CO2 (22-28) mmol.L ABG O2 Saturation (95-98) % ABG O2 Content (15-23) ML/dl ABG Base Excess (-2.0-3.0) mmol/L ABG Hemoglobin (11.7-17.4) g/dL ABG Carboxyhemoglobin (0.5-1.5) % POC ABG HHb (Measured) (0-5) % ABG Methemoglobin (0.0-3.0) % ABG O2 Capacity (16-24) mL/dl Hgb O2 Saturation (95.0-98.0) % FiO2 % Sodium (132-148) mmol/L Potassium (3.6-5.0) mmol/L Chloride (98-107) mmol/L Carbon Dioxide (21-33) mmol/L Anion Gap (10-20) BUN (7-21) mg/dL Creatinine (0.7-1.2) mg/dl Est GFR ( Amer) Est GFR (Non-Af Amer) POC Glucose (mg/dL) (65-110) mg/dL Random Glucose (70-110) mg/dL Calcium (8.4-10.5) mg/dL Total Bilirubin (0.2-1.3) mg/dL AST (14-36) U/L ALT (7-56) U/L Alkaline Phosphatase (38-126) U/L Total Protein (5.8-8.3) g/dL Albumin (3.0-4.8) g/dL Globulin gm/dL Albumin/Globulin Ratio (1.1-1.8) Calcium (PTH Intact) 7.7 L (8.6-10.4) mg/dL Blood Type O POSITIVE Antibody Screen Positive Antibody Identification Anti Jkb EMANUEL, Poly Interpret Positive H (NEGATIVE) BBK History Checked Patient has bt Laboratory Results - last 24 hr 07/11/17 07/12/17 07/12/17 06:20 11:10 22:01 WBC RBC Hgb Hct MCV MCH MCHC RDW Plt Count PT INR APTT pCO2 pO2 HCO3 ABG pH ABG Total CO2 ABG O2 Saturation ABG O2 Content ABG Base Excess ABG Hemoglobin ABG Carboxyhemoglobin POC ABG HHb (Measured) ABG Methemoglobin ABG O2 Capacity Hgb O2 Saturation FiO2 Sodium Potassium Chloride Carbon Dioxide Anion Gap BUN Creatinine Est GFR ( Amer) Est GFR (Non-Af Amer) POC Glucose (mg/dL) 88 Random Glucose Calcium Total Bilirubin AST ALT Alkaline Phosphatase Total Protein Albumin Globulin Albumin/Globulin Ratio Calcium (PTH Intact) 7.7 L Blood Type O POSITIVE Antibody Screen Positive Antibody Identification Anti Jkb EMANUEL, Poly Interpret Positive H BBK History Checked Patient has bt 07/13/17 07/13/17 07/13/17 03:18 05:30 05:30 WBC 6.3 D RBC 3.56 Hgb 9.4 L Hct 30.4 L MCV 85.4 MCH 26.4 MCHC 30.9 L RDW 16.8 H Plt Count 104 L PT 14.3 H INR 1.29 H APTT 33.9 pCO2 pO2 HCO3 ABG pH ABG Total CO2 ABG O2 Saturation ABG O2 Content ABG Base Excess ABG Hemoglobin ABG Carboxyhemoglobin POC ABG HHb (Measured) ABG Methemoglobin ABG O2 Capacity Hgb O2 Saturation FiO2 Sodium Potassium Chloride Carbon Dioxide Anion Gap BUN Creatinine Est GFR ( Amer) Est GFR (Non-Af Amer) POC Glucose (mg/dL) 69 Random Glucose Calcium Total Bilirubin AST ALT Alkaline Phosphatase Total Protein Albumin Globulin Albumin/Globulin Ratio Calcium (PTH Intact) Blood Type Antibody Screen Antibody Identification EMANUEL, Poly Interpret BBK History Checked 07/13/17 07/13/17 07/13/17 05:30 05:40 07:17 WBC RBC Hgb Hct MCV MCH MCHC RDW Plt Count PT INR APTT pCO2 31 L pO2 100.0 HCO3 25.9 ABG pH 7.53 H ABG Total CO2 26.9 ABG O2 Saturation 98.9 H ABG O2 Content 14.8 L ABG Base Excess 3.5 H ABG Hemoglobin 10.9 L ABG Carboxyhemoglobin 2.5 H POC ABG HHb (Measured) 1.1 ABG Methemoglobin 1.1 ABG O2 Capacity 15.0 L Hgb O2 Saturation 95.3 FiO2 40.0 Sodium 142 Potassium 3.6 Chloride 104 Carbon Dioxide 29 Anion Gap 13 BUN 49 H Creatinine 5.2 H Est GFR ( Amer) 10 Est GFR (Non-Af Amer) 8 POC Glucose (mg/dL) 105 Random Glucose 103 Calcium 8.7 Total Bilirubin 1.4 H AST 143 H ALT 84 H Alkaline Phosphatase 195 H Total Protein 5.8 Albumin 2.5 L Globulin 3.3 Albumin/Globulin Ratio 0.8 L Calcium (PTH Intact) Blood Type Antibody Screen Antibody Identification EMANUEL, Poly Interpret BBK History Checked 07/13/17 07/13/17 08:11 15:33 WBC RBC Hgb Hct MCV MCH MCHC RDW Plt Count PT INR APTT pCO2 pO2 HCO3 ABG pH ABG Total CO2 ABG O2 Saturation ABG O2 Content ABG Base Excess ABG Hemoglobin ABG Carboxyhemoglobin POC ABG HHb (Measured) ABG Methemoglobin ABG O2 Capacity Hgb O2 Saturation FiO2 Sodium Potassium Chloride Carbon Dioxide Anion Gap BUN Creatinine Est GFR ( Amer) Est GFR (Non-Af Amer) POC Glucose (mg/dL) 92 85 Random Glucose Calcium Total Bilirubin AST ALT Alkaline Phosphatase Total Protein Albumin Globulin Albumin/Globulin Ratio Calcium (PTH Intact) Blood Type Antibody Screen Antibody Identification EMANUEL, Poly Interpret BBK History Checked Attending/Attestation - Attestation I have personally seen and examined this patient.: Yes I have fully participated in the care of the patient.: Yes I have reviewed all pertinent clinical information: Yes Notes (Text): 07/13/17 17:53 66 yo with resolved cardiogenic shock complicated by watershed infarct, VDRF, s/ p trach/peg. tolerates HD well. For LTAC today ccm time 40 min
--- NOTE | 2017-07-13 12:53 | CP.PCM.PN ---
Subjective - Date & Time of Evaluation Date of Evaluation: 07/13/17 Time of Evaluation: 12:48 - Subjective Subjective: PGY1 Note for Dr. Meraz HPI: Patient seen and examined at bedside. Patient does not respond. No acute changes. ROS Unattainable. Objective - Vital Signs/Intake and Output Vital Signs (last 24 hours): Temp Pulse Resp BP Pulse Ox 99 F 70 14 111/50 L 100 07/13/17 04:00 07/13/17 06:30 07/13/17 06:53 07/13/17 02:42 07/13/17 06:53 Intake and Output: 07/13/17 07/13/17 06:59 18:59 Intake Total 0 Output Total 0 Balance 0 - Medications Medications: Current Medications Artificial Tears (Artificial Tears Opht Oint) 0 gm OU Q8H PRN PRN Reason: Dry eyes Last Admin: 07/06/17 18:51 Dose: 1 gel Artificial Tears (Artificial Tears) 0 ml OU BID [facility] Last Admin: 07/12/17 18:17 Dose: 2 drop Aspirin (Aspirin Chewable) 81 mg GT DAILY [facility] Last Admin: 07/12/17 18:17 Dose: Not Given Atorvastatin Calcium (Lipitor) 40 mg GT DIN [facility] Last Admin: 07/11/17 18:36 Dose: 40 mg Calcium Acetate (Phoslo) 2,001 mg PO Q8H [facility] Last Admin: 07/13/17 06:50 Dose: Not Given Carvedilol (Coreg) 6.25 mg PO BID [facility] Last Admin: 07/12/17 18:18 Dose: Not Given Chlorhexidine Gluconate (Peridex) 15 ml PO BID [facility] Last Admin: 07/12/17 18:20 Dose: 15 ml Hydralazine HCl (Apresoline) 10 mg NG Q8 [facility] Last Admin: 07/13/17 06:51 Dose: Not Given Meropenem 500 mg/ Sodium (Chloride) 100 mls @ 100 mls/hr IVPB DAILY [facility] PRN Reason: Protocol Last Admin: 07/12/17 18:20 Dose: 100 mls/hr Isosorbide Mononitrate (Imdur) 60 mg PO DAILY [facility] Last Admin: 07/12/17 10:30 Dose: 60 mg Losartan Potassium (Cozaar) 25 mg PO DAILY [facility] Last Admin: 07/12/17 10:30 Dose: 25 mg Pantoprazole Sodium (Protonix Inj) 40 mg IVP BID [facility] Last Admin: 07/12/17 18:22 Dose: 40 mg - Labs Labs: 07/13/17 05:30 07/13/17 05:30 PT 14.3 SECONDS (9.4-12.5) H 07/13/17 05:30 INR 1.29 (0.93-1.08) H 07/13/17 05:30 APTT 33.9 Seconds (25.1-36.5) 07/13/17 05:30 - Constitutional Appears: Chronically Ill - Head Exam Head Exam: ATRAUMATIC, NORMAL INSPECTION, NORMOCEPHALIC - Eye Exam Eye Exam: absent: Normal appearance - ENT Exam ENT Exam: Mucous Membranes Moist - Neck Exam Additional comments: trach - Respiratory Exam Respiratory Exam: Clear to Ausculation Bilateral Additional comments: trach - Cardiovascular Exam Cardiovascular Exam: REGULAR RHYTHM - GI/Abdominal Exam Additional comments: peg - Extremities Exam Extremities Exam: absent: Joint Swelling, Tenderness - Neurological Exam Neurological Exam: absent: Alert, Awake, Oriented x3 Assessment and Plan - Assessment and Plan (Free Text) Assessment: 66F s/p tracheostomy Plan: * trach in good position on physical exam and xray * no further surgical intervention needed * please remove sutures on 07/22/17 * CIERRA Reyes PGY1
--- NOTE | 2017-07-13 15:42 | PN ---
DATE: 07/13/2017 CARDIOLOGY FOLLOWUP SUBJECTIVE: The patient underwent trach, with a gastric feeding tube. He is currently undergone dialysis. The patient is minimally responsive. OBJECTIVE: VITAL SIGNS: On physical exam, blood pressure is 92/58, heart rate is in the 60s. NECK: Negative JVD. LUNGS: Decreased breath sounds. HEART: Revealed S1, S2. EXTREMITIES: Without change. LABORATORIES: Hemoglobin is 9.4. Chemistries, BUN and creatinine 49 and 5.2. IMPRESSION: 1. Respiratory failure. 2. End-stage renal disease. 3. End-stage dilated cardiomyopathy. 4. Sepsis. PLAN: Given these findings, the patient's prognosis is poor. Awaiting transfer to LT. Henri Guillen MD
[2017-07-13] MEDS: Aritificial Tears (15ml) OU SCH (16:06)
[2017-07-13] MEDS: Meropenem 500 MG in Sodium Chloride 0.9% 100 ML IVPB SCH (16:07)
[2017-07-13] MEDS: Chlorhexidine 0.12% Oral Sol 480 ml Bot PO SCH (16:07)
[2017-07-13 17:42] VITALS: BP 98/47; PULSE 69
[2017-07-13 17:58] VITALS: TEMP 100.8
--- NOTE | 2017-07-13 19:00 | CP.PCM.PN ---
Objective - Vital Signs/Intake and Output Vital Signs (last 24 hours): Temp Pulse Resp BP Pulse Ox 100.8 F H 69 14 98/47 L 100 07/13/17 16:00 07/13/17 16:51 07/13/17 06:53 07/13/17 16:51 07/13/17 16:51 - Labs Labs: 07/13/17 05:30 07/13/17 05:30 PT 14.3 SECONDS (9.4-12.5) H 07/13/17 05:30 INR 1.29 (0.93-1.08) H 07/13/17 05:30 APTT 33.9 Seconds (25.1-36.5) 07/13/17 05:30 Assessment and Plan (1) End stage renal disease Status: Chronic (2) Shock Status: Resolved (3) Hypertensive CKD, ESRD on dialysis Status: Acute (4) Anemia Status: Acute (5) Congestive heart failure (CHF) Status: Acute
--- NOTE | 2017-07-14 04:54 | DS ---
HISTORY OF PRESENT ILLNESS: I saw her in Intensive Care Unit. She was trached and PEG on a ventilator. She is not alert. She is resting in bed. She needs going to hopefully to go to LTAC today. PHYSICAL EXAMINATION: VITAL SIGNS: Temperature 99, pulse 73, 100% O2 sat on a ventilator. HEART: Regular rate. LUNGS: Decreased breath sounds. ABDOMEN: Soft. Positive bowel sounds. EXTREMITIES: +1/4 pitting edema. MEDICATIONS: She is getting on Apresoline, artificial tears, aspirin, Coreg, Cozaar, Imdur, Lipitor, Merrem IV, Peridex, PhosLo, and Protonix. LABORATORY DATA: Last lab was 6.3 white count, 9.4 hemoglobin, 30.4 hematocrit with 104 platelets. Sodium 142, potassium 3.6, BUN 49, creatinine 5.2 on dialysis, sugar is 103, calcium is 8.7, total bilirubin 1.4, AST is 143, ALT is 84, alkaline phosphatase is 195. ASSESSMENT AND PLAN: She is being seen by multiple doctors, Pulmonary, Infectious Disease, Cardiology, GI. 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 Family wants everything done. She has multiple problems. Hypertension, cerebrovascular accident versus hypoperfusion, which is what neuro saying of the brain, end-stage renal disease on hemodialysis. She has a left above the knee amputation, hypertension, congestive heart failure, urinary tract infection. A chest x-ray today showed minimal patchy infiltrate at the right base. Terrence Beverly DO
--- NOTE | 2017-07-24 20:58 | OP ---
PROCEDURE DATE: 07/12/2017 PREOPERATIVE DIAGNOSIS: Respiratory failure. POSTOPERATIVE DIAGNOSIS: Respiratory failure. OPERATION PERFORMED: Tracheostomy. SURGEON: Blair Meraz MD DESCRIPTION OF PROCEDURE: In the operating room, the patient was identified by name, name of the procedure, laterality, . The neck was hyperextended exposing the neck very nicely. The area was then prepped and draped and after the successful timeout, a vertical incision was made that was dissected down through the thyroid and pretracheal fascia down to the trachea. The trachea was pulled up having identified the cricothyroid cartilage. A window was made in the trachea at the third ring, which was partially removed, it was dilated. A #8 tracheostomy was placed without issue. Hemostasis was achieved with the cautery and a stitch having taken down the transverse anterior jugular ring, which was suture ligated. The tracheostomy was secured. The lower skin was closed with nylon, and the patient was taken back to the ICU in good condition after sponge and needle counts declared correct. Blair Meraz MD [facility] HOSPITALLeticia
== END 2017-07-13 18:55 | DRG 4 ==
LOC: ED 21:27 → ERH 07-04 01:21 → ICU 07-04 03:08
PROVIDERS: ADMIT Family Medicine; ATTEND Family Medicine
PROC: 5A1955Z Respiratory Ventilation, Greater than 96 Consecutive Hours (ICD-10-PCS; 2017-07-04)
PROC: 0BH17EZ Insertion of Endotracheal Airway into Trachea, Via Natural or Artificial Opening (ICD-10-PCS; 2017-07-04)
PROC: 02HV33Z Insertion of Infusion Device into Superior Vena Cava, Percutaneous Approach (ICD-10-PCS; 2017-07-04)
PROC: B544ZZA Ultrasonography of Left Jugular Veins, Guidance (ICD-10-PCS; 2017-07-04)
PROC: 3E043XZ Introduction of Vasopressor into Central Vein, Percutaneous Approach (ICD-10-PCS; 2017-07-04)
PROC: 5A1D70Z Performance of Urinary Filtration, Intermittent, Less than 6 Hours Per Day (ICD-10-PCS; 2017-07-04)
PROC: 5A2204Z Restoration of Cardiac Rhythm, Single (ICD-10-PCS; 2017-07-04)
PROC: 0DH68UZ Insertion of Feeding Device into Stomach, Via Natural or Artificial Opening Endoscopic (ICD-10-PCS; 2017-07-12)
PROC: 0DB68ZX Excision of Stomach, Via Natural or Artificial Opening Endoscopic, Diagnostic (ICD-10-PCS; 2017-07-12)
PROC: 0B110F4 Bypass Trachea to Cutaneous with Tracheostomy Device, Open Approach (ICD-10-PCS; principal; 2017-07-12 13:30)
DX: A41.9 Sepsis, unspecified organism (principal); K72.00 Acute and subacute hepatic failure without coma; I63.9 Cerebral infarction, unspecified; G92 Toxic encephalopathy; R65.21 Severe sepsis with septic shock; R57.0 Cardiogenic shock; E43 Unspecified severe protein-calorie malnutrition; J18.9 Pneumonia, unspecified organism; I47.2 Ventricular tachycardia; N18.6 End stage renal disease; J96.00 Acute respiratory failure, unspecified whether with hypoxia or hypercapnia; G93.1 Anoxic brain damage, not elsewhere classified; I13.2 Hypertensive heart and chronic kidney disease with heart failure and with stage 5 chronic kidney disease, or end stage renal disease; I42.0 Dilated cardiomyopathy; I50.22 Chronic systolic (congestive) heart failure; E87.2 Acidosis; N39.0 Urinary tract infection, site not specified; I87.1 Compression of vein; Z99.11 Dependence on respirator [ventilator] status; D69.6 Thrombocytopenia, unspecified; E11.22 Type 2 diabetes mellitus with diabetic chronic kidney disease; E83.51 Hypocalcemia; E11.51 Type 2 diabetes mellitus with diabetic peripheral angiopathy without gangrene; K25.9 Gastric ulcer, unspecified as acute or chronic, without hemorrhage or perforation; K29.80 Duodenitis without bleeding; K29.60 Other gastritis without bleeding; D63.1 Anemia in chronic kidney disease; E03.9 Hypothyroidism, unspecified; E87.6 Hypokalemia; I48.0 Paroxysmal atrial fibrillation; L89.329 Pressure ulcer of left buttock, unspecified stage; L89.319 Pressure ulcer of right buttock, unspecified stage; B96.20 Unspecified Escherichia coli [E. coli] as the cause of diseases classified elsewhere; Z78.1 Physical restraint status; Z99.2 Dependence on renal dialysis; Z91.15 Patient's noncompliance with renal dialysis; Z95.1 Presence of aortocoronary bypass graft; Z91.14 Patient's other noncompliance with medication regimen; Z89.512 Acquired absence of left leg below knee; I25.2 Old myocardial infarction; Z68.29 Body mass index [BMI] 29.0-29.9, adult; Z75.1 Person awaiting admission to adequate facility elsewhere; Z74.01 Bed confinement status